=== PATIENT | male | born 1950 | race Caucasian/White ===

== ENCOUNTER 2018-01-04 18:51 | Emergency (ER) | payer MEDICARE ==
--- OUTSIDE RECORDS SUMMARY | 2018-01-04 18:53 | XMS REPORT ---
:1950 Author Organization eClinicalWorks Care Team Providers Name Role Phone Kristie Ochoa Provider Role Unavailable Allergies, Adverse Reactions, Alerts Substance Reaction Event Type acetaminophen Info Not Available Drug Allergy Problems Problem Type Condition Code Onset Dates Condition Status Assessment Depression with anxiety F41.8 Active Assessment Neck pain M54.2 Active Assessment Chronic pain syndrome G89.4 Active Assessment Numbness in both legs R20.0 Active Assessment Lumbar radiculopathy M54.16 Active Assessment Low back pain M54.5 Active Assessment Osteopenia, unspecified location M85.80 Active Assessment Elevated blood pressure reading R03.0 Active without diagnosis of hypertension Problem Abnormal liver function K76.89 Active Assessment Withdrawal from 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 Active Problem Chronic back pain M54.9 Active Assessment Loss of appetite R63.0 Active Problem Depression with anxiety F41.8 Active Problem Memory loss R41.3 Active Problem Chronic pain syndrome G89.4 Active Problem Withdrawal from 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 Active Problem Loss of appetite R63.0 Active Assessment Hyperlipidemia, unspecified E78.5 Active hyperlipidemia type Problem Nausea R11.0 Active Assessment Nausea R11.0 Active Problem Abnormal findings on diagnostic R93.8 Active imaging of other specified body structures Problem Tobacco abuse counseling Z71.6 Active Problem Elevated blood pressure reading R03.0 Active without diagnosis of hypertension Problem Abnormal electrocardiogram R94.31 Active Problem Hyperlipidemia, unspecified E78.5 Active hyperlipidemia type Problem Other chronic pain G89.29 Active Problem Numbness in both legs R20.0 Active Problem Osteopenia, unspecified location M85.80 Active Problem Neck pain M54.2 Active Problem Erectile dysfunction F52.21 Active Problem Lumbar radiculopathy M54.16 Active Problem Low back pain M54.5 Active Medications Medication Code Code Instructions Start End Status Dosage System Date Date Fish Oil [facility] 39950521214 1000 MG Orally Active 1 capsule Twice a day Zetia ND 77637690232 10 MG Orally Active 1 tablet Once a day Fluoxetine HCl [facility] 96828827846 40 MG Orally Active 1 capsule Once a day Hydromorphone HCl [facility] 83168281743 8 MG Orally 3x Active 1 tablet daily as needed Diazepam [facility] 54459320128 10 MG Orally Active 1 tablet Once a day as needed Ondansetron HCl [facility] 50833940400 4 MG Orally December 30, Active 1 tablet every 4-6 hrs 2017 as needed for nausea/vom iting Fluoxetine HCl [facility] 72932872828 40 MG Orally December 22, Active 1 capsule Once a day 2017 Losartan [facility] 23475732911 25 mg Orally December 30, Active 1 tablet Potassium Once a day 2017 as needed for bp > mj=587/90 Calcium + D3 [facility] 05574615721 600-200 MG-UNIT Active 1 tablet Orally Once a with a day meal Results No Known Results Summary Purpose eClinicalWorks Submission
[2018-01-04 19:45] LABS: Absolute Lymphocytes (CBC) 1.9 K/uL (0.7-4.9); Absolute Monocytes 0.9 K/uL (0.1-1.3); Absolute Neutrophil 4.6 K/uL (1.8-8.0); Basophils % 0.4 % (0-1.3); Eosinophils % 2.9 % (0-4.4); Hematocrit 46.2 % (39.6-49.0); Lymphocytes % 24.5 % (15.3-44.8); MCH 32.2 pg (27.0-35.0); MCV 94.4 fL (80-100); Monocytes % 11.4 % (3.3-12.3)
[2018-01-04] MEDS ORDERED: ENALAPRILAT 1.25 MG/ML VIAL IV ONE (20:02)
[2018-01-04 20:08] LABS: ALT/SGPT 19 U/L (12-78); AST/SGOT 19 U/L (15-37); Albumin 3.9 g/dL (3.4-5.0); Alkaline Phosphatase 75 U/L (45-117); BUN Blood Urea Nitrogen 15 mg/dL (7-18); Bicarbonate 33 mmol/L (21-32); Bilirubin Direct 0.1 mg/dL (0-0.2); Bilirubin Total 0.6 mg/dL (0.2-1.0); CKMB Creatine Kinase MB < 1.0 ng/mL (0.3-3.6); Creatine Phosphokinase 60 U/L (39-308); Glucose Level 86 mg/dL (74-106); Magnesium 2.2 mg/dL (1.8-2.4); NT PRO-BNP 342 pg/mL (<125); Potassium 3.8 mmol/L (3.5-5.1); Protein, Total 7.4 g/dL (6.4-8.2); Sodium Level 141 mmol/L (136-145)
[2018-01-04 20:56] LABS: Urine Blood NEGATIVE (NEG); Urine Glucose NEGATIVE (NEG); Urine Protein NEGATIVE (NEG); Urine pH 6.5 (5.0-7.0)
--- NOTE | 2018-01-04 20:58 | RAD REPORT ---
EXAM DESCRIPTION: RAD - Chest Single View - 01/04/2018 8:15 pm CLINICAL HISTORY: CHEST PAIN Chest pain. COMPARISON: Chest Pa And Lat (2 Views) dated 12/25/2016 FINDINGS: Portable technique limits examination quality. The lungs are grossly clear. The heart is normal in size. No displaced fractures. IMPRESSION: No acute intrathoracic process suspected.
--- NOTE | 2018-01-04 21:06 | ER ---
Nurse's Notes [facility] Name: Clovis Moore Age: 67 yrs Sex: Male : 1950 Arrival Date: 01/04/2018 Time: 18:51 Bed 20 Private MD: Kristie Ochoa Diagnosis: Essential (primary) hypertension;Hypertensive Emergency Presentation: 01/04 18:53 Presenting complaint: Patient states: "I am ready to kill over, my blood pressures are lk1 high" Patient is agitated, threw blood pressure cuff at me during triage. Transition of care: patient was not received from another setting of care. Onset of symptoms is unknown. Risk Assessment: Do you want to hurt yourself or someone else? Patient reports no desire to harm self or others. Initial Sepsis Screen: Does the patient meet any 2 criteria? No. Patient's initial sepsis screen is negative. Does the patient have a suspected source of infection? No. Patient's initial sepsis screen is negative. Care prior to arrival: None. 18:53 Method Of Arrival: Wheelchair lk1 18:53 Acuity: [place] 3 lk1 Triage Assessment: 19:01 General: Appears in no apparent distress. Behavior is cooperative. ak1 19:07 Pain: Complains of pain in back. EENT: No signs and/or symptoms were reported regarding ak1 the EENT system. Neuro: No deficits noted. Cardiovascular: No deficits noted. Respiratory: No deficits noted. GI: No signs and/or symptoms were reported involving the gastrointestinal system. : No signs and/or symptoms were reported regarding the genitourinary system. Derm: No signs and/or symptoms reported regarding the dermatologic system. Musculoskeletal: No signs and/or symptoms reported regarding the musculoskeletal system. Historical: - Allergies: 18:56 No Known Allergies; lk1 - Home Meds: 19:32 losartan 25 mg oral tab 1 tab once daily for Hypertension [Active]; fluoxetine 40 mg ak1 Oral cap 1 cap once daily [Active]; ezetimibe oral 10mg oral 1 tab [Active]; donepezil 5 mg oral tab 1 tab once daily [Active]; Zofran (as hydrochloride) 4 mg Oral tab 1 tabs 3 times per day [Active]; - PMHx: 18:56 Hypertension; Chronic pain; lk1 - PSHx: 18:56 Fentanyl pump for lumbar spine; back surgery; Tonsillectomy; lk1 - Immunization history:: Adult Immunizations up to date. - Social history:: Smoking status: Patient uses tobacco products, electronic cigarettes. - Ebola Screening: : No symptoms or risks identified at this time. Screenin:00 Abuse screen: Denies threats or abuse. Denies injuries from another. Nutritional ak1 screening: No deficits noted. Tuberculosis screening: No symptoms or risk factors identified. Fall Risk None identified. Assessment: 19:08 Reassessment: Patient appears in no apparent distress at this time. No changes from ak1 previously documented assessment. 20:41 Reassessment: Patient appears in no apparent distress at this time. Patient and/or ak1 family updated on plan of care and expected duration. Pain level reassessed. Patient is alert, oriented x 3, equal unlabored respirations, skin warm/dry/pink. 21:11 Reassessment: Patient appears in no apparent distress at this time. No changes from ak1 previously documented assessment. Patient and/or family updated on plan of care and expected duration. Pain level reassessed. Patient is alert, oriented x 3, equal unlabored respirations, skin warm/dry/pink. Patient states symptoms have improved. Vital Signs: 18:57 BP 214 / 116; Pulse 72; Resp 15; Temp 97.7(TE); Pulse Ox 100% ; Weight 65.77 kg (R); lk1 Height 5 ft. 10 in. (177.80 cm) (R); Pain 8/10; 20:40 BP 165 / 101; Pulse 62; Resp 16; Pulse Ox 100% on R/A; ak1 21:09 BP 150 / 98; Pulse 64; Resp 18; Temp 98; Pulse Ox 100% on R/A; Pain 7/10; ak1 18:57 Body Mass Index 20.81 (65.77 kg, 177.80 cm) lk1 ED Course: 18:51 Patient arrived in ED. sb2 18:52 Kristie Ochoa MD is Private Physician. sb2 18:55 Triage completed. lk1 18:56 Arm band placed on right wrist. lk1 19:00 Tejal Kinsey, RN is Primary Nurse. ak1 19:00 Patient has correct armband on for positive identification. Placed in gown. Bed in low ak1 position. Call light in reach. Side rails up X 1. traffic technician on. Pulse ox on. NIBP on. 19:10 Inserted saline lock: 20 gauge in right antecubital area, using aseptic technique. ao Blood collected. 19:19 Scout Rosa PA is PHCP. jr8 19:19 Curly Hill MD is Attending Physician. jr8 19:25 EKG done, by ED staff, reviewed by Scout RAM. jp3 19:32 No provider procedures requiring assistance completed. ak1 20:15 XRAY Chest (1 view) In Process Unspecified. EDMS 21:04 Kristie Ochoa MD is Referral Physician. jr8 21:40 IV discontinued, intact, bleeding controlled, No redness/swelling at site. Pressure ak1 dressing applied. Administered Medications: 19:58 Not Given (Physician Discretion): hydrALAZINE 10 mg IV at calculated rate once jr8 20:03 Drug: Enalaprilat 1.25 mg Route: IV; Rate: calculated rate; Site: right antecubital; ao 21:11 Follow up: Response: No adverse reaction; Blood pressure is lowered ak1 21:11 Follow up: IV Status: Completed infusion ak1 Outcome: 21:05 Discharge ordered by . jr8 21:10 Condition: improved ak1 21:36 Discharged to home ambulatory, with family. ak1 21:36 Discharge instructions given to patient, Instructed on discharge instructions, follow up and referral plans. Demonstrated understanding of instructions, follow-up care. 21:55 Patient left the ED. ao Signatures: Dispatcher [employer] EDKS Scout Rosa PA PA jr8 Tejal Kinsey RN RN ak1 Rocio Edmond RN RN noble1 Alexandre Nix RN RN Luisa Mahoney Jacob jp3 Corrections: (The following items were deleted from the chart) 19:32 19:08 Home Meds: losartan oral oral; ak1 ak1
--- NOTE | 2018-01-04 21:06 | EDPHYS ---
Physician Documentation [facility] Name: Clovis Moore Age: 67 yrs Sex: Male : 1950 Arrival Date: 01/04/2018 Time: 18:51 Bed 20 Private MD: Kristie Ochoa ED Physician Curly Hill HPI: 01/04 20:19 This 67 yrs old Male presents to ER via Wheelchair with complaints of High jr8 Blood Pressure. 20:19 Modifying factors: The symptoms are aggravated by activity, stress, The symptoms are jr8 alleviated by prescription meds. Associated signs and symptoms: Pertinent positives: chest pain, dizziness, nausea, weakness. The patient has experienced similar episodes in the past, a few times. The patient has not recently seen a physician. Patient stated that since he has been off of his opioid pain medicine he has been having higher spikes in his blood pressure. Today after taking his BP medication, blood pressure remained high and was not feeling well . Historical: - Allergies: 18:56 No Known Allergies; lk1 - Home Meds: 19:32 losartan 25 mg oral tab 1 tab once daily for Hypertension [Active]; fluoxetine 40 mg ak1 Oral cap 1 cap once daily [Active]; ezetimibe oral 10mg oral 1 tab [Active]; donepezil 5 mg oral tab 1 tab once daily [Active]; Zofran (as hydrochloride) 4 mg Oral tab 1 tabs 3 times per day [Active]; - PMHx: 18:56 Hypertension; Chronic pain; lk1 - PSHx: 18:56 Fentanyl pump for lumbar spine; back surgery; Tonsillectomy; lk1 - Immunization history:: Adult Immunizations up to date. - Social history:: Smoking status: Patient uses tobacco products, electronic cigarettes. - Ebola Screening: : No symptoms or risks identified at this time. ROS: 20:19 Eyes: Negative for injury, pain, redness, and discharge, ENT: Negative for injury, jr8 pain, and discharge, Neck: Negative for injury, pain, and swelling, Back: Negative for injury and pain, MS/Extremity: Negative for injury and deformity, Skin: Negative for injury, rash, and discoloration. 20:19 Abdomen/GI: Negative for abdominal pain, nausea, vomiting, diarrhea, and constipation. 20:19 Cardiovascular: Positive for chest pain, Negative for edema, orthopnea, palpitations, paroxysmal nocturnal dyspnea. 20:19 Respiratory: Positive for shortness of breath, Negative for cough, dyspnea on exertion, hemoptysis, orthopnea, pleurisy, sputum production, wheezing. 20:19 Neuro: Positive for dizziness, headache, Negative for altered mental status, gait disturbance, hearing loss, loss of consciousness, numbness, seizure activity, speech changes, syncope, near syncope, tingling, tinnitus, tremor, visual changes, weakness. Exam: 20:19 Eyes: Pupils equal round and reactive to light, extra-ocular motions intact. Lids and jr8 lashes normal. Conjunctiva and sclera are non-icteric and not injected. Cornea within normal limits. Periorbital areas with no swelling, redness, or edema. ENT: Nares patent. No nasal discharge, no septal abnormalities noted. Tympanic membranes are normal and external auditory canals are clear. Oropharynx with no redness, swelling, or masses, exudates, or evidence of obstruction, uvula midline. Mucous membranes moist. Neck: Trachea midline, no thyromegaly or masses palpated, and no cervical lymphadenopathy. Supple, full range of motion without nuchal rigidity, or vertebral point tenderness. No Meningismus. Cardiovascular: Regular rate and rhythm with a normal S1 and S2. No gallops, murmurs, or rubs. Normal PMI, no JVD. No pulse deficits. Respiratory: Lungs have equal breath sounds bilaterally, clear to auscultation and percussion. No rales, rhonchi or wheezes noted. No increased work of breathing, no retractions or nasal flaring. Abdomen/GI: Soft, non-tender, with normal bowel sounds. No distension or tympany. No guarding or rebound. No evidence of tenderness throughout. Back: No spinal tenderness. No costovertebral tenderness. Full range of motion. Skin: Warm, dry with normal turgor. Normal color with no rashes, no lesions, and no evidence of cellulitis. MS/ Extremity: Pulses equal, no cyanosis. Neurovascular intact. Full, normal range of motion. Neuro: Awake and alert, GCS 15, oriented to person, place, time, and situation. Cranial nerves II-XII grossly intact. Motor strength 5/5 in all extremities. Sensory grossly intact. Cerebellar exam normal. Normal gait. Vital Signs: 18:57 BP 214 / 116; Pulse 72; Resp 15; Temp 97.7(TE); Pulse Ox 100% ; Weight 65.77 kg (R); lk1 Height 5 ft. 10 in. (177.80 cm) (R); Pain 8/10; 20:40 BP 165 / 101; Pulse 62; Resp 16; Pulse Ox 100% on R/A; ak1 21:09 BP 150 / 98; Pulse 64; Resp 18; Temp 98; Pulse Ox 100% on R/A; Pain 7/10; ak1 18:57 Body Mass Index 20.81 (65.77 kg, 177.80 cm) lk1 MDM: 19:20 Patient medically screened. jr8 21:04 Data reviewed: vital signs, nurses notes, lab test result(s), EKG, radiologic studies, jr8 plain films, and as a result, I will discharge patient. Data interpreted: Pulse oximetry: on room air is 100 %. Interpretation: normal. Counseling: I had a detailed discussion with the patient and/or guardian regarding: the historical points, exam findings, and any diagnostic results supporting the discharge/admit diagnosis, lab results, radiology results, the need for outpatient follow up, a family practitioner, to return to the emergency department if symptoms worsen or persist or if there are any questions or concerns that arise at home. 01/04 19:16 Order name: Basic Metabolic Panel; Complete Time: 20:19 [facility] 01/04 19:16 Order name: CBC with Diff; Complete Time: 19:50 [facility] 01/04 19:16 Order name: Ckmb; Complete Time: 20:19 va01/04 19:16 Order name: CPK; Complete Time: 20:19 [facility] 01/04 19:16 Order name: LFT's; Complete Time: 20:19 va01/04 19:16 Order name: Magnesium; Complete Time: 20:19 va01/04 19:16 Order name: NT PRO-BNP; Complete Time: 20:19 va01/04 19:16 Order name: PT-INR; Complete Time: 20:01 va01/04 19:16 Order name: Ptt, Activated; Complete Time: 20:01 va01/04 19:16 Order name: Troponin (emerg Dept Use Only); Complete Time: 20: va01/04 19:16 Order name: XRAY Chest (1 view); Complete Time: 21:03 [facility] 01/04 20:52 Order name: Urine Dipstick--Ancillary (enter results) 01/04 20:52 Order name: Urine Dipstick-Ancillary; Complete Time: 21:03 [facility] 01/04 19:16 Order name: EKG; Complete Time: 19:17 [facility] 01/04 19:16 Order name: Cardiac monitoring; Complete Time: 19:23 [facility] 01/04 19:16 Order name: EKG - Nurse/Tech; Complete Time: 19:24 [facility] 01/04 19:16 Order name: IV Saline Lock; Complete Time: 19:23 [facility] 01/04 19:16 Order name: Labs collected and sent; Complete Time: 19:23 [facility] 01/04 19:16 Order name: O2 Per Protocol; Complete Time: 19:24 [facility] 01/04 19:16 Order name: O2 Sat Monitoring; Complete Time: 19:24 [facility] 01/04 19:16 Order name: Urine Dipstick-Ancillary (obtain specimen); Complete Time: 20:31 [facility] Administered Medications: 19:58 Not Given (Physician Discretion): hydrALAZINE 10 mg IV at calculated rate once jr8 20:03 Drug: Enalaprilat 1.25 mg Route: IV; Rate: calculated rate; Site: right antecubital; ao 21:11 Follow up: Response: No adverse reaction; Blood pressure is lowered [facility] 21:11 Follow up: IV Status: Completed infusion ak1 Disposition: 01/05 10:11 Co-signature as Attending Physician, Curly Hill MD. Disposition: 01/04/18 21:05 Discharged to Home. Impression: Essential (primary) hypertension, Hypertensive Emergency . - Condition is Stable. - Discharge Instructions: Hypertension. - Medication Reconciliation Form, Thank You Letter, Antibiotic Education, Prescription Opioid Use form. - Follow up: Kristie Ochoa MD; When: 5 - 6 days; Reason: Recheck today's complaints, Continuance of care, Re-evaluation by your physician. - Problem is new. - Symptoms have improved. Signatures: Dispatcher [facility] Scout Rosa PA PA jr8 Tejal Kinsey RN RN ak1 Rocio Edmond RN RN lk1 Alexandre Nix RN RN ao Curly Hill MD MD gs Corrections: (The following items were deleted from the chart) 01/04 19:32 19:08 Home Meds: losartan oral oral; ak1 ak1 21:55 21:05 01/04/2018 21:05 Discharged to Home. Impression: Essential (primary) ao hypertension; Hypertensive Emergency . Condition is Stable. Forms are Medication Reconciliation Form, Thank You Letter, Antibiotic Education, Prescription Opioid Use. Follow up: Kristie Ochoa; When: 5 - 6 days; Reason: Recheck today's complaints, Continuance of care, Re-evaluation by your physician. Problem is new. Symptoms have improved. jr8
--- NOTE | 2018-01-04 21:59 | EKG ---
Test Date: 2018-01-04 Test Time: 19:19:50 Cancer Spec: SANDEEP MEASUREMENT RESULTS: Intervals: Rate: 66 IN: 212 QRSD: 84 QT: 420 QTc: 440 [place]: P: 51 IN: 212 QRS: -70 T: 46 INTERPRETIVE STATEMENTS: Sinus rhythm with 1st degree AV block Left anterior fascicular block Abnormal ECG Compared to ECG 12/25/2016 09:04:55 First degree AV block now present Sinus bradycardia no longer present Electronically Signed On 01-04-18 21:58:41 CDT by Dagoberto Cruz
== END 2018-01-04 21:55 | disposition home or self-care (01) ==
LOC: ER 18:51
DX: I16.1 Hypertensive emergency (principal); I10 Essential (primary) hypertension; Z72.0 Tobacco use
CPT/HCPCS: 36415; 71045; 80048; 80076; 81003; 82550; 82553; 83735; 83880; 84484; 85025; 85610; 85730; 93005; 96365; 99284

== ENCOUNTER 2018-04-24 15:23 | Emergency (ER) | payer MEDICARE ==
--- OUTSIDE RECORDS SUMMARY | 2018-04-24 15:29 | XMS REPORT ---
[...] Status Dosage System Date Date Fish Oil [facility] 52080024892 1000 MG Orally Active 1 capsule Twice a day Zetia ND 05976561723 10 MG Orally Active 1 tablet Once a day Fluoxetine HCl [facility] 62768955718 40 MG Orally Active 1 capsule Once a day Hydromorphone HCl [facility] 96662289379 8 MG Orally 3x Active 1 tablet daily as needed Diazepam [facility] 35769653001 10 MG Orally Active 1 tablet Once a day as needed Ondansetron HCl [facility] 14669187899 4 MG Orally December 30, Active 1 tablet every 4-6 hrs 2017 as needed for nausea/vom iting Fluoxetine HCl [facility] 53686919722 40 MG Orally December 22, Active 1 capsule Once a day [address] [facility] 74277129198 25 mg Orally December 30, Active 1 tablet Potassium Once a day 2017 as needed for bp > oc=918/90 Calcium + D3 [facility] 76773611676 600-200 MG-UNIT Active 1 tablet Orally Once a with a day meal Results No Known Results Summary Purpose eClinicalWorks Submission
--- OUTSIDE RECORDS SUMMARY | 2018-04-24 15:29 | XMS REPORT ---
:1950 Author Organization eClinicalWorks Care Team Providers Name Role Phone Kristie Ochoa Provider Role Unavailable Allergies No Known Allergies Problems Problem Type Condition Code Onset Dates Condition Status Problem Depression with anxiety F41.8 Active Problem Memory loss R41.3 Active Problem Chronic pain syndrome G89.4 Active Problem Withdrawal from 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 Active Problem Loss of appetite R63.0 Active Problem Nausea R11.0 Active Problem Abnormal findings on [...] Active Problem Lumbar radiculopathy M54.16 Active Problem Abnormal liver function K76.89 Active Problem Low back pain M54.5 Active Problem Chronic back pain M54.9 Active Medications No Known Medications Results No Known Results Summary Purpose eClinicalWorks Submission
--- OUTSIDE RECORDS SUMMARY | 2018-04-24 15:30 | XMS REPORT ---
:1950 Author Organization eClinicalWorks Care Team Providers Name Role Phone Kristie Ochoa Provider Role Unavailable Allergies No Known Allergies Problems Problem Type Condition Code Onset Dates Condition Status Problem Other chronic pain G89.29 Active Problem Memory loss R41.3 Active Problem Lumbar radiculopathy M54.16 Active Problem Tobacco abuse counseling Z71.6 Active Problem Low back pain M54.5 Active Problem Nausea R11.0 Active Problem Withdrawal from 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 Active Problem Loss of appetite R63.0 Active Problem Vitamin D deficiency E55.9 Active Problem Abnormal EKG R94.31 Active Problem Hyperlipidemia, unspecified E78.5 Active hyperlipidemia type Problem Osteopenia, unspecified location M85.80 Active Problem Palpitations R00.2 Active Problem Numbness in both legs R20.0 Active Problem Elevated brain natriuretic peptide R79.89 Active (BNP) level Problem Elevated blood pressure reading R03.0 Active without diagnosis of hypertension Problem Uncontrolled hypertension I10 Active Problem Hypercholesterolemia E78.00 Active Problem Neck pain M54.2 Active Problem Erectile dysfunction F52.21 Active Problem Abnormal findings on diagnostic R93.8 Active imaging of other specified body structures Problem Abnormal electrocardiogram R94.31 Active Problem Depression with anxiety F41.8 Active Problem Chronic pain syndrome G89.4 Active Problem Abnormal liver function K76.89 Active Problem Chronic back pain M54.9 Active Medications No Known Medications Results No Known Results Summary Purpose eClinicalWorks Submission
--- OUTSIDE RECORDS SUMMARY | 2018-04-24 15:30 | XMS REPORT ---
:1950 Author Organization eClinicalWorks Care Team Providers Name Role Phone Gabriela Kristie Provider Role Unavailable Allergies, Adverse Reactions, Alerts Substance Reaction Event Type acetaminophen Info Not Available Drug Allergy Problems Problem Type Condition Code Onset Dates Condition Status Assessment Chronic pain syndrome G89.4 Active Assessment Uncontrolled hypertension I10 Active Problem Other chronic pain G89.29 Active Problem [...] Problem Chronic back pain M54.9 Active Medications Medication Code Code Instructions Start End Status Dosage System Date Date Diazepam ND 88545954442 10 MG Orally Active 1 tablet as Once a day needed Doxazosin ND 19392572279 1 MG Orally January 29, Active 1 tablet in Mesylate Once daily as 2018 evening for needed for BP > high blood uj=752/90 pressure Zetia ND 19423029317 10 MG Orally Active 1 tablet Once a day Fluoxetine HCl ND 63995301967 40 MG Orally Active 1 capsule Once a day Hydromorphone ND 96322660112 8 MG Orally 3x Active 1 tablet as HCl daily needed Losartan ND 91807659208 25 mg Orally December 30, Active 1 tablet Potassium Once a day 2017 Fluoxetine HCl [facility] 16428069976 40 MG Orally December 22, Active 1 capsule Once a day 2018 Calcium + D3 [facility] 04476763701 600-200 MG-UNIT Active 1 tablet Orally Once a with a meal day Vitamin D [facility] 18005007995 68156 UNIT January 30, Jul 29, Active 1 capsule (Ergocalciferol) Orally one 2017 2019 capsule weekly Ondansetron HCl [facility] 76354452801 4 MG Orally December 30, Active 1 tablet as every 4-6 hrs 2018 needed for nausea/vomi ting Fish Oil [facility] 17939374359 1000 MG Orally Active 1 capsule Twice a day Results Name Result Date Reference Range Unit Abnormality Flag GLUCOSE FINGER ----Result 80 (FBS) [id number] Summary Purpose eClinicalWorks Submission
--- OUTSIDE RECORDS SUMMARY | 2018-04-24 15:30 | XMS REPORT ---
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 Active Problem Low back pain M54.5 Active Problem Nausea R11.0 Active Problem Uncontrolled hypertension I10 Active Problem Hypercholesterolemia E78.00 Active Problem Weight loss R63.4 Active Problem Hypertension, unspecified type I10 Active Problem Abnormal liver function K76.89 Active Problem Erectile dysfunction F52.21 Active Problem Chronic pain G89.29 Active Problem Neck pain M54.2 Active Problem Vitamin D deficiency E55.9 Active Problem Abnormal EKG R94.31 Active Problem Elevated brain natriuretic peptide R79.89 Active (BNP) level Problem Palpitations R00.2 Active Problem Chronic pain syndrome G89.4 Active Problem Memory loss R41.3 Active Problem Chronic back pain M54.9 Active Problem Depression with anxiety F41.8 Active Problem Abnormal electrocardiogram R94.31 Active Problem Elevated blood pressure reading R03.0 Active without diagnosis of hypertension Problem Tobacco abuse counseling Z71.6 Active Problem Abnormal findings on diagnostic R93.8 Active imaging of other specified body structures Medications Medication Code Code Instructions Start End Status Dosage System Date Date Duloxetine HCl [facility] 40060518498 30 MG Orally Apr 06, Active 1 capsule Once a day 2018 Results No Known Results Summary Purpose eClinicalWorks Submission
--- OUTSIDE RECORDS SUMMARY | 2018-04-24 15:30 | XMS REPORT ---
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
--- OUTSIDE RECORDS SUMMARY | 2018-04-24 15:30 | XMS REPORT ---
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 Active Assessment Neck pain M54.2 Active Assessment Loss of appetite R63.0 Active Assessment Weight loss R63.4 Active Assessment Non-intractable vomiting with R11.2 Active nausea, unspecified vomiting type Problem Numbness in both legs R20.0 Active Problem Osteopenia, unspecified location M85.80 Active Problem Hyperlipidemia, unspecified E78.5 Active hyperlipidemia type Problem Elevated blood pressure reading R03.0 Active without diagnosis of hypertension Problem Lumbar radiculopathy M54.16 Active Problem Loss of appetite R63.0 Active Problem Low back pain M54.5 Active Problem Nausea R11.0 Active Problem Hypercholesterolemia E78.00 Active Problem Withdrawal from 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 Active Problem Hypertension, unspecified type I10 Active Problem Elevated brain natriuretic peptide R79.89 Active (BNP) level Problem Depression with anxiety F41.8 Active Problem Chronic back pain M54.9 Active Problem Weight loss R63.4 Active Problem Other chronic pain G89.29 Active Problem Abnormal EKG R94.31 Active Problem Uncontrolled hypertension I10 Active Problem Palpitations R00.2 Active Problem Vitamin D deficiency E55.9 Active Assessment Other chronic pain G89.29 Active Problem Abnormal findings on diagnostic R93.8 Active imaging of other specified body structures Assessment Low back pain M54.5 Active Problem Neck pain M54.2 Active Assessment Depression with anxiety F41.8 Active Problem Chronic pain syndrome G89.4 Active Assessment Chronic pain syndrome G89.4 Active Problem Memory loss R41.3 Active Problem Tobacco abuse counseling Z71.6 Active Assessment Hypertension, unspecified type I10 Active Problem Abnormal electrocardiogram R94.31 Active Problem Erectile dysfunction F52.21 Active Problem Abnormal liver function K76.89 Active Medications Medication Code Code Instructions Start End Status Dosage System Date Date Fish Oil [facility] 59006481271 1000 MG Orally Active 1 capsule Twice a day Calcium + D3 [facility] 09822311710 600-200 MG-UNIT Active 1 tablet Orally Once a with a meal Zetia [facility] 84848211018 10 MG Orally Active 1 tablet Once a day Vitamin D [facility] 29665635124 91904 UNIT January 30Jul Active 1 capsule (Ergocalciferol) Orally one 2017, capsule weekly 2018 Promethazine HCl [facility] 59677894591 25 mg Orally Mar 27Apr Active 1 tablet as every 4-6 hrs 2017 07, needed for 2017 nausea/vomit ing Diazepam ND 31477108182 10 MG Orally Active 1 tablet as Once a day needed Fluoxetine HCl [facility] 32965520266 40 MG Orally December 22, Active 1 capsule Once a day 2017 Losartan ND 53781814246 25 mg Orally December 30, Active 1 tablet Potassium Once a day 2017 Doxazosin ND 44929597591 1 MG Orally January 29, Active 1 tablet in Mesylate Once daily as 2017 evening for needed for BP > high blood qo=229/90 pressure Ondansetron HCl [facility] 74101795083 4 MG Orally Active 1 tablet as every 4-6 hrs needed for nausea/vomit ing Trintellix [facility] 07122140656 10 MG Orally Mar 27, Active 1 tablet for Once a day 2017 depression Hydromorphone [facility] 68817749104 8 MG Orally 3x Active 1 tablet as HCl daily needed Results No Known Results Summary Purpose eClinicalWorks Submission
--- OUTSIDE RECORDS SUMMARY | 2018-04-24 15:30 | XMS REPORT ---
:1950 Author Organization eClinicalWorks Care Team Providers Name Role Phone Frankieharika Kristie Provider Role Unavailable Allergies, Adverse Reactions, Alerts Substance Reaction Event Type acetaminophen Info Not Available Drug Allergy Problems Problem Type Condition Code Onset Dates Condition Status Assessment Follow-up exam Z09 Active Assessment Uncontrolled hypertension I10 Active Assessment Abnormal EKG R94.31 Active Assessment Palpitations R00.2 Active Problem Other chronic pain G89.29 Active [...] Start End Status Dosage System Date Date Doxazosin [facility] 63242413315 1 MG Orally January 29, Active 1 tablet in Mesylate Once daily as 2018 evening for needed for BP > high blood pj=612/90 pressure Losartan ND 67244976178 25 mg Orally December 30, Active 1 tablet Potassium Once a day 2018 Fish Oil [facility] 94233064367 1000 MG Orally Active 1 capsule Twice a day Fluoxetine HCl [facility] 05795018351 40 MG Orally December 22, Active 1 capsule Once a day 2017 Hydromorphone [facility] 85879144941 8 MG Orally 3x Active 1 tablet as HCl daily needed Diazepam [facility] 95717742667 10 MG Orally Active 1 tablet as Once a day needed Zetia [facility] 53998692274 10 MG Orally Active 1 tablet Once a day Fluoxetine HCl [facility] 53593262635 40 MG Orally Active 1 capsule Once a day Calcium + D3 [facility] 15387965621 600-200 MG-UNIT Active 1 tablet Orally Once a with a meal day Ondansetron HCl [facility] 27402120218 4 MG Orally December 30, Active 1 tablet as every 4-6 hrs 2017 needed for nausea/vomi ting Results No Known Results Summary Purpose eClinicalWorks Submission
--- OUTSIDE RECORDS SUMMARY | 2018-04-24 15:30 | XMS REPORT ---
[...] Start End Status Dosage System Date Date Vitamin D [facility] 99307117108 80600 UNIT January 30Jul 29, Active 1 capsule (Ergocalcifero Orally one 2017 2018 l) capsule weekly Results No Known Results Summary Purpose eClinicalWorks Submission
[2018-04-24] MEDS ORDERED: MORPHINE 4 MG/ML SYR ONE (16:20)
[2018-04-24] MEDS ORDERED: NA CHLORIDE 0.9% 1,000 ML ONE (16:20)
[2018-04-24] MEDS ORDERED: ONDANSETRON 4 MG/2 ML VIAL ONE (16:20)
[2018-04-24 16:49] LABS: Absolute Monocytes 0.4 K/uL (0.1-1.3); Basophils % 0.7 % (0-1.3); Eosinophils % 0.4 % (0-4.4); Hematocrit 46.9 % (39.6-49.0); Lymphocytes % 15.2 % (15.3-44.8); MCH 32.6 pg (27.0-35.0); MCV 95.1 fL (80-100); MPV 9.2 fL (7.6-11.3); Monocytes % 6.5 % (3.3-12.3); RBC Red Blood Cell Count 4.93 M/uL (4.33-5.43)
[2018-04-24 17:00] LABS: ALT/SGPT 20 U/L (12-78); AST/SGOT 23 U/L (15-37); Albumin 3.8 g/dL (3.4-5.0); Alkaline Phosphatase 81 U/L (45-117); BUN Blood Urea Nitrogen 13 mg/dL (7-18); Bicarbonate 31 mmol/L (21-32); Bilirubin Direct 0.3 mg/dL (0-0.2); Bilirubin Total 1.1 mg/dL (0.2-1.0); Glucose Level 106 mg/dL (74-106); Lipase 238 U/L (73-393); Potassium 3.7 mmol/L (3.5-5.1); Protein, Total 6.9 g/dL (6.4-8.2); Sodium Level 139 mmol/L (136-145)
[2018-04-24 17:41] LABS: Urine Blood 1+ (NEG); Urine Glucose NEGATIVE (NEG); Urine Protein NEGATIVE (NEG); Urine Specific Gravity 1.015 (1.005-1.030)
[2018-04-24 17:54] LABS: Urine Bacteria NONE SEEN /HPF (NONE SEEN); Urine Culture Reflex Order NOT NEEDED
[2018-04-24] MEDS ORDERED: cloNIDine HCl 0.1 MG TAB ONE (18:43)
--- NOTE | 2018-04-24 18:52 | RAD REPORT ---
EXAM DESCRIPTION: CT - Abdomen Pelvis W Contrast - 04/24/2018 6:24 pm COMPARISON: None. TECHNIQUE: Biphasic, helical CT imaging of the abdomen and pelvis was performed following 100 ml non -ionic IV contrast. Oral contrast was given. All CT scans are performed using dose optimization technique as appropriate and may include automated exposure control or mA/KV adjustment according to patient size. FINDINGS: No suspicious findings in the lung bases. Small 2 centimeter cystic cavity is seen in the lateral right lung base. No associated mass component. No pericardial thickening or effusion. The liver, spleen, and pancreas show no suspicious findings. Gallbladder and biliary tree are also wi thout suspicious finding. Symmetric renal function is seen with no hydronephrosis or suspicious renal mass. No pyelonephritis o r acute renal parenchymal process. There are multiple nonobstructing small caliceal calculi. Renal cy sts are seen in the lateral left kidney. No urinary bladder abnormality. Prostate gland is prominent but does not appear to invade adjacent structures. Seminal vesicles are normal. Left testicle is in t he inguinal canal. No gastric dilatation or wall thickening. No dilated large or small bowel. Oral contrast has reached the sigmoid colon. There is diverticulosis without diverticulitis. No appendicitis findings. No free air, free fluid or inflammatory stranding. No mass or bulky lymphadenopathy. No large ez ia defect identifiable. No adrenal abnormality. Dense arterial tree calcifications are present. Aorta is tortuous. Patient has advanced lumbar degene rative change. There is postsurgical change in the mid lumbar spine. Neurostimulator or pain infusion pump is present. An acute bone process is not seen. IMPRESSION: No appendicitis or other surgically emergent finding. No suspicious finding to explain r ight lower quadrant pain. No gallbladder or biliary tree abnormality. Nonobstructing renal calculi. No hydronephrosis or acute process.
--- NOTE | 2018-04-24 19:21 | EDPHYS ---
Physician Documentation [facility] Name: Clovis Moore Age: 68 yrs Sex: Male : 1950 Arrival Date: 04/24/2018 Time: 15:25 Bed 24 Private MD: ED Physician Orion Mayo HPI: 04/24 16:10 This 68 yrs old Male presents to ER via Ambulatory with complaints of Pain. cp 16:10 The patient presents with abdominal pain right lower quadrant. cp 16:10 Onset: The symptoms/episode began/occurred 4 day(s) ago. The symptoms do not radiate. cp Associated signs and symptoms: Pertinent positives: nausea, Pertinent negatives: blood in stools, chest pain, constipation, diarrhea, dysuria, fever, hematuria, testicular pain, vomiting. The symptoms are described as constant. Modifying factors: the symptoms are aggravated by pressure. 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 Emergency Department for further evaluation. Historical: - Allergies: 15:30 No Known Allergies; aa5 - Home Meds: 15:41 donepezil 5 mg Oral tab 1 tab once daily [Active]; ezetimibe 10mg Oral 1 tab [Active]; mg2 fluoxetine 40 mg Oral cap 1 cap once daily [Active]; losartan 25 mg Oral tab 1 tab once daily for Hypertension [Active]; Zofran (as hydrochloride) 4 mg Oral tab 1 tabs 3 times per day [Active]; - PMHx: 15:30 Chronic pain; Hypertension; aa5 - PSHx: 15:30 Fentanyl pump for lumbar spine; back surgery; Tonsillectomy; aa5 - Immunization history:: Adult Immunizations unknown. - Social history:: Smoking status: Patient/guardian denies using tobacco. - Ebola Screening: : No symptoms or risks identified at this time. ROS: 16:10 Eyes: Negative for injury, pain, redness, and discharge. cp 16:10 Constitutional: Negative for body aches, chills, fever, poor PO intake. 16:10 ENT: Negative for drainage from ear(s), ear pain, sore throat, difficulty swallowing, difficulty handling secretions. 16:10 Cardiovascular: Negative for chest pain, edema, palpitations. 16:10 Respiratory: Negative for cough, shortness of breath, wheezing. 16:10 Abdomen/GI: Positive for abdominal pain, of the right lower quadrant, Negative for vomiting, diarrhea, constipation, anorexia, black/tarry stool, rectal bleeding. 16:10 Back: Negative for pain at rest, pain with movement, radiated pain. 16:10 Skin: Negative for cellulitis, rash. 16:10 Neuro: Negative for altered mental status, headache, numbness, weakness. 16:10 All other systems are negative. Exam: 16:15 Constitutional: The patient appears in no acute distress, alert, awake, cp non-diaphoretic, non-toxic, well developed, well nourished. 16:15 Head/Face: Normocephalic, atraumatic. cp 16:15 Eyes: Periorbital structures: appear normal, Conjunctiva: normal, no exudate, no injection, Sclera: no appreciated abnormality, Lids and lashes: appear normal, bilaterally. 16:15 ENT: External ear(s): are unremarkable, Nose: is normal, Mouth: Lips: moist, Oral mucosa: pink and intact, moist, Posterior pharynx: is normal, airway is patent, no erythema, no exudate. 16:15 Neck: ROM/movement: is normal, is supple, without pain, no range of motions limitations, no nuchal rigidity. 16:15 Chest/axilla: Inspection: normal, Palpation: is normal, no crepitus, no tenderness. 16:15 Cardiovascular: Rate: normal, Rhythm: regular, Edema: is not appreciated, JVD: is not appreciated. 16:15 Respiratory: the patient does not display signs of respiratory distress, Respirations: normal, no use of accessory muscles, no retractions, no splinting, no tachypnea, labored breathing, is not present, Breath sounds: are clear throughout, no decreased breath sounds, no stridor, no wheezing. 16:15 Abdomen/GI: Inspection: noted intraabdominal pain pump RLQ, Bowel sounds: active, all quadrants, Palpation: soft, in all quadrants, moderate abdominal tenderness, in the right lower quadrant, rebound tenderness, is not appreciated, voluntary guarding, is elicited in the right lower quadrant. 16:15 Back: ROM is normal, CVA tenderness, is absent. 16:15 Skin: cellulitis, is not appreciated, no rash present. Vital Signs: 15:29 BP 198 / 116; Pulse 80; Resp 16 S; Temp 98.4(TE); Pulse Ox 95% on R/A; Weight 70.31 kg aa5 (R); Height 5 ft. 11 in. (180.34 cm) (R); Pain 8/10; 16:50 BP 177 / 103; Pulse 63; Resp 18; Pulse Ox 100% on R/A; mg2 18:03 Pulse 65; Resp 18; Pulse Ox 100% on R/A; Pain 0/10; mg2 18:13 BP 163 / 110; Pulse 65; Resp 18; Pulse Ox 100% on R/A; mg2 18:32 BP 182 / 111; Pulse 75; Resp 18; Pulse Ox 100% on R/A; mg2 19:45 BP 170 / 90; Pulse 70; Resp 18; Pulse Ox 100% on R/A; Pain 2/10; mg2 15:29 Body Mass Index 21.62 (70.31 kg, 180.34 cm) aa5 MDM: 15:50 Patient medically screened. cp 16:30 Differential diagnosis: appendicitis, diverticulitis, non-specific abd pain, cp Pyelonephritis, Testicular Torsion, Ureterolithiasis, urinary tract infection. 19:20 Data reviewed: vital signs, nurses notes, lab test result(s), radiologic studies, CT cp scan. 19:20 Counseling: I had a detailed discussion with the patient and/or guardian regarding: the cp historical points, exam findings, and any diagnostic results supporting the discharge/admit diagnosis, lab results, radiology results, the need for outpatient follow up, a automotive painter helper, to return to the emergency department if symptoms worsen or persist or if there are any questions or concerns that arise at home. Response to treatment: the patient's symptoms have markedly improved after treatment. Special discussion: Based on the patient's Hx, exam, and Dx evaluation, there is no indication for emergent surgery or inpatient Tx. It is understood by the patient/guardian that if the Sx's persist or worsen they need to return immediately for re-evaluation. 19:20 ED course: VSS. CT abdomen/pelvis negative for acute findings. Will discharge to home cp for continued monitoring. 04/24 15:51 Order name: Urine Microscopic Only; Complete Time: 18:59 cp 04/24 18:59 Interpretation: Normal except: URBC 5-10. 04/24 16:09 Order name: Basic Metabolic Panel; Complete Time: 17:13 cp 04/24 19:02 Interpretation: Reviewed. 04/24 16:09 Order name: CBC with Diff; Complete Time: 17:13 04/24 17:13 Interpretation: Normal except: DEA% 77.2; LYM% 15.2. 04/24 16:09 Order name: Creatinine for Radiology; Complete Time: 17:13 cp 04/24 16:09 Order name: Hepatic Function; Complete Time: 17:13 04/24 17:13 Interpretation: Normal except: BILIT 1.1; BILID 0.3. 04/24 16:09 Order name: Lipase; Complete Time: 17:13 cp 04/24 17:14 Interpretation: Reviewed. 04/24 15:51 Order name: Urine Dipstick-Ancillary (obtain specimen); Complete Time: 17:25 cp 04/24 16:09 Order name: CT Abd/Pelvis - W/Contrast; Complete Time: 18:59 cp 04/24 17:26 Order name: Urine Dipstick--Ancillary (enter results); Complete Time: 18:59 eb 04/24 19:00 Interpretation: Normal except: UBLD 1+. 04/24 16:09 Order name: IV Saline Lock; Complete Time: 16:30 cp 04/24 16:09 Order name: Labs collected and sent; Complete Time: 16:30 cp Administered Medications: 16:29 Drug: Zofran 4 mg Route: IVP; Site: left antecubital; mg2 17:42 Follow up: Response: No adverse reaction; Marked relief of symptoms mg2 16:30 Drug: NS 0.9% 1000 ml Route: IV; Rate: 1 bolus; Site: left antecubital; mg2 17:43 Follow up: Response: No adverse reaction; IV Status: Completed infusion mg2 16:30 Drug: morphine 2 mg Route: IVP; Site: left antecubital; mg2 17:42 Follow up: Response: No adverse reaction; Marked relief of symptoms mg2 18:39 Drug: cloNIDine 0.1 mg Route: PO; mg2 19:45 Follow up: Response: No adverse reaction; Marked relief of symptoms; Blood pressure is mg2 lowered 19:29 Drug: Phenergan 12.5 mg Route: IVP; Site: left antecubital; mg2 19:45 Follow up: Response: No adverse reaction; Medication administered at discharge. mg2 Disposition: 04/25 06:23 Co-signature as Attending Physician, Orion Mayo MD I agree with the assessment and kdr plan of care. Disposition: 04/24/18 19:20 Discharged to Home. Impression: Lower abdominal pain, unspecified. - Condition is Stable. - Discharge Instructions: Abdominal Pain, Adult. - Prescriptions for Tramadol 50 mg Oral Tablet - take 1 tablet by ORAL route every 8 hours as needed; 20 tablet. promethazine 25 mg Oral Tablet - take 1 tablet by ORAL route every 6 hours As needed; 20 tablet. - Medication Reconciliation Form, Thank You Letter, Antibiotic Education, Prescription Opioid Use form. - Follow up: Private Physician; When: 2 - 3 days; Reason: Recheck today's complaints. - Problem is new. - Symptoms have improved. Signatures: Dispatcher [employer] EDMS Orion Mayo MD MD [facility] Nilda Malone RN RN aa5 Oscar Patel PA PA cp Bear Mtz RN RN mg2 Corrections: (The following items were deleted from the chart) 04/24 19:48 19:20 04/24/2018 19:20 Discharged to Home. Impression: Lower abdominal pain, mg2 unspecified. Condition is Stable. Forms are Medication Reconciliation Form, Thank You Letter, Antibiotic Education, Prescription Opioid Use. Follow up: Private Physician; When: 2 - 3 days; Reason: Recheck today's complaints. Problem is new. Symptoms have improved. cp
--- NOTE | 2018-04-24 19:21 | ER ---
Nurse's Notes [facility] Name: Clovis Moore Age: 68 yrs Sex: Male : 1950 Arrival Date: 04/24/2018 Time: 15:25 Bed 24 Private MD: Diagnosis: Lower abdominal pain, unspecified Presentation: 04/24 15:28 Presenting complaint: Patient states: RLQ pain that began last week. Pt states "it's my aa5 pain pump that it's hurting and I called Dr. Hadley". Pt reports Fentanyl Pump. Transition of care: patient was not received from another setting of care. Onset of symptoms was April 2018. Risk Assessment: Do you want to hurt yourself or someone else? Patient reports no desire to harm self or others. Initial Sepsis Screen: Does the patient meet any 2 criteria? No. Patient's initial sepsis screen is negative. Does the patient have a suspected source of infection? No. Patient's initial sepsis screen is negative. Care prior to arrival: None. 15:28 Method Of Arrival: Ambulatory aa5 15:28 Acuity: [place] 3 aa5 Historical: - Allergies: 15:30 No Known Allergies; aa5 - Home Meds: 15:41 donepezil 5 mg Oral tab 1 tab once daily [Active]; ezetimibe 10mg Oral 1 tab [Active]; mg2 fluoxetine 40 mg Oral cap 1 cap once daily [Active]; losartan 25 mg Oral tab 1 tab once daily for Hypertension [Active]; Zofran (as hydrochloride) 4 mg Oral tab 1 tabs 3 times per day [Active]; - PMHx: 15:30 Chronic pain; Hypertension; aa5 - PSHx: 15:30 Fentanyl pump for lumbar spine; back surgery; Tonsillectomy; aa5 - Immunization history:: Adult Immunizations unknown. - Social history:: Smoking status: Patient/guardian denies using tobacco. - Ebola Screening: : No symptoms or risks identified at this time. Screenin:34 Abuse screen: Denies threats or abuse. Denies injuries from another. Nutritional mg2 screening: No deficits noted. Tuberculosis screening: No symptoms or risk factors identified. Fall Risk None identified. Assessment: 15:39 General: Appears in no apparent distress. comfortable, Behavior is calm, cooperative. mg2 Pain: Complains of pain in right lower abdomen/fentanyl pump area Pain does not radiate. Pain: Quality of pain is described as aching, Pain began 2-3 days ago. Is intermittent. Neuro: Level of Consciousness is awake, alert, obeys commands. Cardiovascular: No deficits noted. Respiratory: Airway is patent Respiratory effort is even, unlabored, Respiratory pattern is regular, symmetrical. GI: Reports nausea. : No signs and/or symptoms were reported regarding the genitourinary system. EENT: No signs and/or symptoms were reported regarding the EENT system. Derm: Skin is intact, is healthy with good turgor, Skin is pink, warm \\T\\ dry. normal. Musculoskeletal: Circulation, motion, and sensation intact. Capillary refill < 3 seconds. 18:15 Reassessment: Patient appears in no apparent distress at this time. Patient and/or mg2 family updated on plan of care and expected duration. Pain level reassessed. Patient is alert, oriented x 3, equal unlabored respirations, skin warm/dry/pink. patient sent to ct scan. Vital Signs: 15:29 BP 198 / 116; Pulse 80; Resp 16 S; Temp 98.4(TE); Pulse Ox 95% on R/A; Weight 70.31 kg aa5 (R); Height 5 ft. 11 in. (180.34 cm) (R); Pain 8/10; 16:50 BP 177 / 103; Pulse 63; Resp 18; Pulse Ox 100% on R/A; mg2 18:03 Pulse 65; Resp 18; Pulse Ox 100% on R/A; Pain 0/10; mg2 18:13 BP 163 / 110; Pulse 65; Resp 18; Pulse Ox 100% on R/A; mg2 18:32 BP 182 / 111; Pulse 75; Resp 18; Pulse Ox 100% on R/A; mg2 19:45 BP 170 / 90; Pulse 70; Resp 18; Pulse Ox 100% on R/A; Pain 2/10; mg2 15:29 Body Mass Index 21.62 (70.31 kg, 180.34 cm) aa5 ED Course: 15:25 Patient arrived in ED. tw3 15:29 Triage completed. aa5 15:29 Arm band placed on. aa5 15:33 Bear Mtz, NAOMI is Primary Nurse. mg2 15:34 Patient has correct armband on for positive identification. Call light in reach. Side mg2 rails up X 1. Pulse ox on. NIBP on. 15:50 Oscar Patel PA is PHCP. cp 15:50 Orion Mayo MD is Attending Physician. cp 16:51 No provider procedures requiring assistance completed. Inserted saline lock: 20 gauge mg2 in left antecubital area, using aseptic technique. Blood collected. 18:15 Patient moved to [place] via wheelchair. mw3 18:23 CT completed. Patient tolerated procedure well. Patient moved back from [place]. mw3 18:24 CT Abd/Pelvis - W/Contrast In Process Unspecified. EDMS 19:44 IV discontinued, intact, bleeding controlled, No redness/swelling at site. Pressure mg2 dressing applied. Administered Medications: 16:29 Drug: Zofran 4 mg Route: IVP; Site: left antecubital; mg2 17:42 Follow up: Response: No adverse reaction; Marked relief of symptoms mg2 16:30 Drug: NS 0.9% 1000 ml Route: IV; Rate: 1 bolus; Site: left antecubital; mg2 17:43 Follow up: Response: No adverse reaction; IV Status: Completed infusion mg2 16:30 Drug: morphine 2 mg Route: IVP; Site: left antecubital; mg2 17:42 Follow up: Response: No adverse reaction; Marked relief of symptoms mg2 18:39 Drug: cloNIDine 0.1 mg Route: PO; mg2 19:45 Follow up: Response: No adverse reaction; Marked relief of symptoms; Blood pressure is mg2 lowered 19:29 Drug: Phenergan 12.5 mg Route: IVP; Site: left antecubital; mg2 19:45 Follow up: Response: No adverse reaction; Medication administered at discharge. mg2 Outcome: 19:20 Discharge ordered by MD. cp 19:46 Discharged to home ambulatory, with family. mg2 19:46 Condition: stable 19:46 Discharge instructions given to patient, family, Instructed on discharge instructions, follow up and referral plans. medication usage, Demonstrated understanding of instructions, follow-up care, medications, Prescriptions given X 2. 19:48 Patient left the ED. mg2 Signatures: Dispatcher [employer] EDMS Nilda Malone RN RN aa5 Oscar Patel PA PA cp Jerry, Catrina tw3 Bear Mtz RN RN mg2 Tatiana Azar mw3
[2018-04-24] MEDS ORDERED: NA CHLORIDE 0.9% 100 ML IV ONE (19:33)
[2018-04-24] MEDS ORDERED: PROMETHAZINE 25 MG/ML VIAL ONE (19:33)
== END 2018-04-24 19:48 | disposition home or self-care (01) ==
LOC: ER 15:23
DX: R10.31 Right lower quadrant pain (principal); I10 Essential (primary) hypertension
CPT/HCPCS: 36415; 74177; 80048; 80076; 83690; 85025; 96361; 96374; 96375; 99284; J2405; J2550; J7030; Q9967; 81003; 81015

== ENCOUNTER 2018-11-13 07:09 | Day surgery (SDC) | payer MEDICARE ==
--- NOTE | 2018-11-10 18:24 | EKG ---
Test Date: 2018-11-10 Test Time: 11:26:59 Director Loan: JEANE MEASUREMENT RESULTS: Intervals: Rate: 51 MS: 200 QRSD: 92 QT: 436 QTc: 401 [place]: P: 73 MS: 200 QRS: -66 T: 62 INTERPRETIVE STATEMENTS: Sinus bradycardia Possible Left atrial enlargement Left axis deviation Abnormal ECG Compared to ECG 01/04/2018 19:19:50 Left-axis deviation now present Sinus rhythm no longer present First degree AV block no longer present Left anterior fascicular block no longer present Electronically Signed On 11-10-18 18:23:27 CDT by Kevin Benjamin
--- OUTSIDE RECORDS SUMMARY | 2018-11-13 07:12 | XMS REPORT ---
[...] Dosage System Date Date Fish Oil [facility] 60889968206 1000 MG Orally Active 1 capsule Twice a day Zetia ND 83351384559 10 MG Orally Active 1 tablet Once a day Fluoxetine HCl [facility] 05404620796 40 MG Orally Active 1 capsule Once a day Hydromorphone HCl [facility] 32675617797 8 MG Orally 3x Active 1 tablet daily as needed Diazepam [facility] 11320502139 10 MG Orally Active 1 tablet Once a day as needed Ondansetron HCl [facility] 28357783660 4 MG Orally December 30, Active 1 tablet every 4-6 hrs 2017 as needed for nausea/vom iting Fluoxetine HCl [facility] 61827786086 40 MG Orally December 22, Active 1 capsule Once a day 2017 Losartan [facility] 62538097455 25 mg Orally December 30, Active 1 tablet Potassium Once a day 2017 as needed for bp > tq=913/90 Calcium + D3 [facility] 92246011549 600-200 MG-UNIT Active 1 tablet Orally Once a with a day meal Results No Known Results Summary Purpose eClinicalWorks Submission
--- OUTSIDE RECORDS SUMMARY | 2018-11-13 07:12 | XMS REPORT ---
[...] End Status Dosage System Date Date Doxazosin [facility] 59243616991 1 MG Orally January 29, Active 1 tablet in Mesylate Once daily as 2018 evening for needed for BP > high blood qm=374/90 pressure Losartan ND 77605170868 25 mg Orally December 30, Active 1 tablet Potassium Once a day 2018 Fish Oil [facility] 62694918137 1000 MG Orally Active 1 capsule Twice a day Fluoxetine HCl [facility] 37343622961 40 MG Orally December 22, Active 1 capsule Once a day 2017 Hydromorphone [facility] 73016376288 8 MG Orally 3x Active 1 tablet as HCl daily needed Diazepam [facility] 76713614899 10 MG Orally Active 1 tablet as Once a day needed Zetia [facility] 28016616712 10 MG Orally Active 1 tablet Once a day Fluoxetine HCl [facility] 68448213430 40 MG Orally Active 1 capsule Once a day Calcium + D3 [facility] 64283655500 600-200 MG-UNIT Active 1 tablet Orally Once a with a meal day Ondansetron HCl [facility] 32323585463 4 MG Orally December 30, Active 1 tablet as every 4-6 hrs 2017 needed for nausea/vomi ting Results No Known Results Summary Purpose eClinicalWorks Submission
--- OUTSIDE RECORDS SUMMARY | 2018-11-13 07:12 | XMS REPORT ---
[...] Status Dosage System Date Date Vitamin D [facility] 92483064549 02507 UNIT January 30Jul 29, Active 1 capsule (Ergocalcifero Orally one 2017 2018 l) capsule weekly Results No Known Results Summary Purpose eClinicalWorks Submission
--- OUTSIDE RECORDS SUMMARY | 2018-11-13 07:12 | XMS REPORT ---
[...] Status Dosage System Date Date Diazepam ND 14744234525 10 MG Orally Active 1 tablet as Once a day needed Doxazosin ND 13223460133 1 MG Orally January 29, Active 1 tablet in Mesylate Once daily as 2018 evening for needed for BP > high blood tz=184/90 pressure Zetia ND 14894638478 10 MG Orally Active 1 tablet Once a day Fluoxetine HCl ND 61235038313 40 MG Orally Active 1 capsule Once a day Hydromorphone ND 65605387597 8 MG Orally 3x Active 1 tablet as HCl daily needed Losartan ND 89511942314 25 mg Orally December 30, Active 1 tablet Potassium Once a day 2017 Fluoxetine HCl [facility] 24998855399 40 MG Orally December 22, Active 1 capsule Once a day 2018 Calcium + D3 [facility] 05055734812 600-200 MG-UNIT Active 1 tablet Orally Once a with a meal day Vitamin D [facility] 75226160770 84495 UNIT January 30, Jul 29, Active 1 capsule (Ergocalciferol) Orally one 2017 2019 capsule weekly Ondansetron HCl [facility] 62831978169 4 MG Orally December 30, Active 1 tablet as every 4-6 hrs 2018 needed for nausea/vomi ting Fish Oil [facility] 28834777431 1000 MG Orally Active 1 capsule Twice a day Results Name Result Date Reference Range Unit Abnormality Flag GLUCOSE FINGER ----Result 80 (FBS) [id number] Summary Purpose eClinicalWorks Submission
--- OUTSIDE RECORDS SUMMARY | 2018-11-13 07:13 | XMS REPORT ---
[...] Status Dosage System Date Date Fish Oil [facility] 01934099185 1000 MG Orally Active 1 capsule Twice a day Calcium + D3 [facility] 28974850035 600-200 MG-UNIT Active 1 tablet Orally Once a with a meal Zetia [facility] 49652443051 10 MG Orally Active 1 tablet Once a day Vitamin D [facility] 19497574431 41960 UNIT January 30Jul Active 1 capsule (Ergocalciferol) Orally one 2017, capsule weekly 2018 Promethazine HCl [facility] 71194788100 25 mg Orally Mar 27Apr Active 1 tablet as every 4-6 hrs 2017 07, needed for 2017 nausea/vomit ing Diazepam ND 01452584946 10 MG Orally Active 1 tablet as Once a day needed Fluoxetine HCl [facility] 24201857400 40 MG Orally December 22, Active 1 capsule Once a day 2017 Losartan ND 60645684207 25 mg Orally December 30, Active 1 tablet Potassium Once a day 2017 Doxazosin ND 08956838791 1 MG Orally January 29, Active 1 tablet in Mesylate Once daily as 2017 evening for needed for BP > high blood qu=188/90 pressure Ondansetron HCl [facility] 49619918750 4 MG Orally Active 1 tablet as every 4-6 hrs needed for nausea/vomit ing Trintellix [facility] 32161730505 10 MG Orally Mar 27, Active 1 tablet for Once a day 2017 depression Hydromorphone [facility] 90142173953 8 MG Orally 3x Active 1 tablet as HCl daily needed Results No Known Results Summary Purpose eClinicalWorks Submission
--- OUTSIDE RECORDS SUMMARY | 2018-11-13 07:13 | XMS REPORT ---
[...] Status Dosage System Date Date Duloxetine HCl [facility] 35474053948 30 MG Orally Apr 06, Active 1 capsule Once a day 2018 Results No Known Results Summary Purpose eClinicalWorks Submission
--- OUTSIDE RECORDS SUMMARY | 2018-11-13 07:13 | XMS REPORT ---
:1950 Author Organization eClinicalWorks Care Team Providers Name Role Phone Kristie Ochoa Provider Role Unavailable Allergies No Known Allergies Problems Problem Type Condition Code Onset Dates Condition Status Problem Lumbar radiculopathy M54.16 Active Problem Other chronic pain G89.29 Active Problem Osteopenia, unspecified location M85.80 Active Problem Low back pain M54.5 Active Problem Numbness in both legs R20.0 Active Problem Hyperlipidemia, unspecified E78.5 Active hyperlipidemia type Problem Abnormal findings on diagnostic R93.8 Active imaging of other specified body structures Problem Abnormal electrocardiogram R94.31 Active Problem Neck pain M54.2 Active Problem Erectile dysfunction F52.21 Active Problem Uncontrolled hypertension I10 Active Problem Abnormal EKG R94.31 Active Problem Abnormal liver function K76.89 Active Problem Vitamin D deficiency E55.9 Active Problem Weight loss R63.4 Active Problem Palpitations R00.2 Active Problem Acute nonintractable headache, R51 Active unspecified headache type Problem Muscle cramps R25.2 Active Problem Chronic pain syndrome G89.4 Active Problem Depression with anxiety F41.8 Active Problem Non-intractable vomiting with R11.2 Active nausea, unspecified vomiting type Problem Chronic back pain M54.9 Active Problem Constipation, unspecified K59.00 Active constipation type Problem Hypertension, unspecified type I10 Active Problem Chronic pain G89.29 Active Problem Opioid withdrawal F11.23 Active Assessment Neck pain M54.2 Active Problem Nausea R11.0 Active Problem Loss of appetite R63.0 Active Assessment Other chronic pain G89.29 Active Problem Memory loss R41.3 Active Assessment Low back pain M54.5 Active Problem Tobacco abuse counseling Z71.6 Active Problem Elevated brain natriuretic peptide R79.89 Active (BNP) level Problem Hypercholesterolemia E78.00 Active Problem Withdrawal from 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 Active Problem Elevated blood pressure reading R03.0 Active without diagnosis of hypertension Medications No Known Medications Results No Known Results Summary Purpose eClinicalWorks Submission
--- OUTSIDE RECORDS SUMMARY | 2018-11-13 07:13 | XMS REPORT ---
:1950 [facility] Team Providers Name Role Phone Kristie Ochoa Provider Role Unavailable Allergies, Adverse Reactions, Alerts Substance Reaction Event Type acetaminophen abdominal pain, nausesa, and gagging Drug Allergy Problems Problem Type Condition Code [...] Active Problem Opioid withdrawal F11.23 Active Assessment Chronic pain syndrome G89.4 Active Problem Nausea R11.0 Active Problem Loss of appetite R63.0 Active Assessment Memory loss R41.3 Active Problem Memory loss R41.3 Active Assessment Depression with anxiety F41.8 Active Problem Tobacco abuse counseling Z71.6 Active Problem Elevated brain natriuretic peptide R79.89 Active (BNP) level Assessment Hypertension, unspecified type I10 Active Problem Hypercholesterolemia E78.00 Active Problem Withdrawal from 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 Active Problem Elevated blood pressure reading R03.0 Active without diagnosis of hypertension Medications Medication Code Code Instructions Start End Status Dosage System Date Date BuPROPion HCl ER [facility] 07812594943 150 MG Orally May 01, Active 1 tablet (XL) Twice daily 2017 Donepezil HCl [facility] 67258676035 10 MG Orally Active 1 tablet at Once a day bedtime Dicyclomine HCl [facility] 39196631846 10 MG Orally Active 2 capsules Four times a day Vitamin D [facility] 53492296612 22924 UNIT January Active 1 capsule (Ergocalciferol) Orally , , capsule weekly 2017 2018 Ondansetron HCl [facility] 31935924642 4 MG Orally Active 1 tablet as every 4-6 hrs needed for nausea/vomit ing Fentanyl [facility] [address]-19 Active per pain pump Duloxetine HCl [facility] 29983980062 30 MG Orally Apr 06, Active 1 capsule Once a day 2017 Zetia [facility] 59699304204 10 MG Orally Active 1 tablet Once a day Fluoxetine HCl [facility] 44549961319 40 MG Orally December Active 1 capsule Once a day 2017 Fish Oil [facility] 88682266070 1000 MG Orally Active 1 capsule Twice a day Trintellix [facility] 10879298300 10 MG Orally Mar Active 1 tablet for Once a day 21, depression 2017 Diazepam ND 25433619015 10 MG Orally Active 1 tablet as Once a day needed Hydromorphone HCl [facility] 18979338026 8 MG Orally 3x Active 1 tablet as daily needed Cyclobenzaprine [facility] 93959091324 10 MG Orally Jun 01Mar Active 1 tablet as HCl Two times a 2017, needed for day 2019 muscle cramps/pain Tramadol HCl [facility] 84441319651 50 MG Orally Active 1 tablet as every 6 hrs needed Calcium + D3 [facility] 29534068317 600-200 Active 1 tablet MG-UNIT Orally with a meal Once a day Sucralfate [facility] 98956032559 1 GM/10ML Active 10 ml on an Orally Twice a empty day stomach Losartan Potassium [facility] 09281295223 25 mg Orally December Active 1 tablet Once a day 2017 Doxazosin Mesylate ND 03906391585 1 MG Orally January Active 1 tablet in Once daily as , evening for needed for BP 2017 high blood > kb=143/90 pressure Results No Known Results Summary Purpose eClinicalWorks Submission
--- OUTSIDE RECORDS SUMMARY | 2018-11-13 07:14 | XMS REPORT ---
:1950 [facility] Team Providers Name Role Phone Kirstie Ochoa Provider Role Unavailable Allergies, Adverse Reactions, Alerts Substance Reaction Event Type acetaminophen abdominal pain, nausesa, and gagging Drug Allergy Problems Problem Type Condition Code Onset Dates Condition Status Problem Abnormal electrocardiogram R94.31 Active Problem Abnormal findings on diagnostic R93.8 Active imaging of other specified body structures Problem Erectile dysfunction F52.21 Active Problem Neck pain M54.2 Active Assessment Depression with anxiety F41.8 Active Problem Abnormal liver function K76.89 Active Assessment Chronic pain syndrome G89.4 Active Problem Chronic back pain M54.9 Active Assessment Osteopenia, unspecified location M85.80 Active Problem Depression with anxiety F41.8 Active Problem Chronic pain syndrome G89.4 Active Problem Memory loss R41.3 Active Problem Tobacco abuse counseling Z71.6 Active Problem Opioid withdrawal F11.23 Active Problem Constipation, unspecified K59.00 Active constipation type Problem Nausea R11.0 Active Problem Chronic pain G89.29 Active Problem Non-intractable vomiting with R11.2 Active nausea, unspecified vomiting type Problem Muscle cramps R25.2 Active Problem Abnormal ultrasound R93.89 Active Problem Mass of parotid gland K11.9 Active Problem Elevated blood pressure reading R03.0 Active without diagnosis of hypertension Problem Withdrawal from 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 Active Problem Mass of head R22.0 Active Problem Loss of appetite R63.0 Active Assessment Hypertension, unspecified type I10 Active Problem Depression, unspecified depression F32.9 Active type Assessment Dementia without behavioral F03.90 Active disturbance, unspecified dementia type Problem Acute nonintractable headache, R51 Active unspecified headache type Assessment Hyperlipidemia, unspecified E78.5 Active hyperlipidemia type Problem Abnormal MRI, cervical spine R93.7 Active Assessment Weight loss R63.4 Active Problem Dementia without behavioral F03.90 Active disturbance, unspecified dementia type Problem Osteopenia, unspecified location M85.80 Active Problem Uncontrolled hypertension I10 Active Problem Hyperlipidemia, unspecified E78.5 Active hyperlipidemia type Problem Abnormal EKG R94.31 Active Problem Low back pain M54.5 Active Problem Elevated brain natriuretic peptide R79.89 Active (BNP) level Problem Numbness in both legs R20.0 Active Problem Hypercholesterolemia E78.00 Active Problem Other chronic pain G89.29 Active Problem Weight loss R63.4 Active Problem Lumbar radiculopathy M54.16 Active Problem Hypertension, unspecified type I10 Active Problem Vitamin D deficiency E55.9 Active Problem Palpitations R00.2 Active Medications Medication Code Code Instructions Start End Status Dosage System Date Date Ondansetron HCl [facility] 86492732343 4 MG Orally Active 1 tablet as every 4-6 hrs needed for nausea/vomit ing Calcium + D3 [facility] 88654758499 600-200 Active 1 tablet MG-UNIT Orally with a meal Once a day Donepezil HCl [facility] 32042895287 10 MG Orally Active 1 tablet at Once a day bedtime Doxazosin Mesylate ND 28185286690 1 MG Orally January Active 1 tablet in Once daily as , for needed for BP 2017 high blood > vz=320/90 pressure Sucralfate [facility] 51981842332 1 GM/10ML Active 10 ml on an Orally Twice a empty day stomach Cyclobenzaprine [facility] 15045769731 10 MG Orally Jun 01Mar Active 1 tablet as HCl Two times a 2017 08, needed for day 2019 muscle cramps/pain Fish Oil [facility] 69884237611 1000 MG Orally Active 1 capsule Twice a day Fentanyl [facility] [address]-66 Active per pain pump BuPROPion HCl ER ND 82662104137 150 MG Orally May 01, Active 1 tablet (XL) Twice daily 2017 Fluoxetine HCl [facility] 02442550030 40 MG Orally December Active 1 capsule Once a day 2017 Duloxetine HCl [facility] 21203890133 30 MG Orally Apr 06, Active 1 capsule Once a day 2017 Tramadol HCl ND 74779731467 50 MG Orally Active 1 tablet as every 6 hrs needed Dicyclomine HCl [facility] 47924058293 10 MG Orally Active 2 capsules Four times a day Losartan Potassium ND 55927184613 25 mg Orally December Active 1 tablet Once a day 2017 Hydromorphone HCl [facility] 20780704873 8 MG Orally 3x Active 1 tablet as daily needed Diazepam ND 08268145829 10 MG Orally Active 1 tablet as Once a day needed Trintellix [facility] 65022559237 10 MG Orally Sept Active 1 tablet for Once a day 21, depression 2017 Zetia [facility] 86494601911 10 MG Orally Active 1 tablet Once a day Results No Known Results Summary Purpose eClinicalWorks Submission
--- OUTSIDE RECORDS SUMMARY | 2018-11-13 07:14 | XMS REPORT ---
:1950 [facility] Providers Name Role Phone Kristie Ochoa Provider Role Unavailable Allergies No Known Allergies Problems Problem Type Condition Code Onset Dates Condition Status Problem Hyperlipidemia, unspecified E78.5 Active hyperlipidemia type Problem Osteopenia, unspecified location M85.80 Active Problem Abnormal electrocardiogram R94.31 Active Problem Abnormal findings on diagnostic R93.8 Active imaging of other specified body structures Problem Neck pain M54.2 Active Problem Erectile dysfunction F52.21 Active Problem Abnormal liver function K76.89 Active Problem Chronic back pain M54.9 Active Problem Depression with anxiety F41.8 Active Problem Chronic pain syndrome G89.4 Active Problem Weight loss R63.4 Active Problem Hypertension, unspecified type I10 Active Problem Memory loss R41.3 Active Problem Constipation, unspecified K59.00 Active constipation type Problem Chronic pain G89.29 Active Problem Opioid withdrawal F11.23 Active Problem Abnormal ultrasound R93.89 Active Problem Abnormal MRI, cervical spine R93.7 Active Problem Loss of appetite R63.0 Active Problem Nausea R11.0 Active Assessment Abnormal MRI, cervical spine R93.7 Active Problem Mass of head R22.0 Active Problem Tobacco abuse counseling Z71.6 Active Problem Non-intractable vomiting with R11.2 Active nausea, unspecified vomiting type Problem Muscle cramps R25.2 Active Problem Mass of parotid gland K11.9 Active Problem Acute nonintractable headache, R51 Active unspecified headache type Problem Low back pain M54.5 Active Problem Elevated brain natriuretic peptide R79.89 Active (BNP) level Problem Numbness in both legs R20.0 Active Problem Hypercholesterolemia E78.00 Active Problem Other chronic pain G89.29 Active Problem Withdrawal from 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 Active Problem Lumbar radiculopathy M54.16 Active Problem Elevated blood pressure reading R03.0 Active without diagnosis of hypertension Assessment Mass of parotid gland K11.9 Active Problem Vitamin D deficiency E55.9 Active Problem Palpitations R00.2 Active Problem Uncontrolled hypertension I10 Active Problem Abnormal EKG R94.31 Active Medications No Known Medications Results No Known Results Summary Purpose eClinicalWorks Submission
--- OUTSIDE RECORDS SUMMARY | 2018-11-13 07:14 | XMS REPORT ---
:1950 [facility] Providers Name Role Phone Kristie [...] Active Problem Nausea R11.0 Active Assessment Abnormal ultrasound R93.89 Active Problem Mass of head R22.0 Active [...] without diagnosis of hypertension Assessment Mass of head R22.0 Active Problem Vitamin D deficiency E55.9 Active Problem Palpitations R00.2 Active Problem Uncontrolled hypertension I10 Active Problem Abnormal EKG R94.31 Active Medications No Known Medications Results No Known Results Summary Purpose eClinicalWorks Submission
[2018-11-13] MEDS ORDERED: Ringers Lactate 1,000 ML IV ONE ×2 (07:48→09:57)
[2018-11-13] MEDS ORDERED: PROPOFOL 200 MG/20 ML VIAL IV ONE (08:08)
[2018-11-13] MEDS ORDERED: FENTANYL CITR 100 MCG/2 ML ONE ×2 (08:08→09:33)
[2018-11-13] MEDS ORDERED: MIDAZOLAM HCL 2 MG/2 ML INJ ONE (08:08)
[2018-11-13] MEDS ORDERED: ROCURONIUM 50 MG/5 ML VIAL IV ONE (08:08)
[2018-11-13] MEDS ORDERED: LIDOCAINE 2% MPF 5 ML VIAL ONE (08:08)
[2018-11-13] MEDS: LIDOCAINE 1% W/EPI 1:100,000 MDV 50 ML VIAL ONE ×2 (08:25→08:50)
[2018-11-13] MEDS ORDERED: KETOROLAC 30 MG/ML INJ ONE (09:57)
--- NOTE | 2018-11-13 10:08 | P.BOP ---
Preoperative diagnosis: left pleomorphic adenoma Postoperative diagnosis: same Primary procedure: left superficial parotidectomy Sticker Operator: Toya Hauser Estimated blood loss: 10ml Specimen: left superficial parotid Findings: about 4cm tumor, well encapsulated Anesthesia: General Complications: None Drain(s): OLIVIER drain Implants: none Fluids & blood products: crystalloid 1L Transferred to: Recovery Room Condition: Good
--- NOTE | 2018-11-13 20:30 | OP ---
Date of Procedure: 11/13/2018 Surgeon: Tati Espinoza MD Preoperative Diagnosis: Left pleomorphic adenoma. Postoperative Diagnosis: Left pleomorphic adenoma. Procedure: Left superficial parotidectomy without facial nerve dissection. Indication For Procedure: Mr. Moore presented with a long-standing left parotid mass. Fine-needle a spiration confirmed pleomorphic adenoma. The risks, benefits, and alternatives to the procedure were discussed, and the patient agreed to proceed. Description Of Procedure: The patient was brought to the operating room. He was placed under genera l anesthesia. The left face, ear and neck were cleaned with alcohol, and the planned incision site w as injected with 1% lidocaine with epinephrine. The area was prepped with Betadine and draped in a s terile fashion. A preauricular incision with an existing skin crease was extended onto the lower par t of the neck directly overlying the mass. The skin was incised with a scalpel and a SMAS flap was e levated over the parotid gland. The earlobe and posterior skin were likewise elevated. A suture was placed through the subcutaneous tissue of the earlobe, and it was secured to the drapes to provide r etraction. The mass by palpation was approximately 4 x 3 cm and appeared to involve the tail of the parotid. The anterior parotid tissue and superior parotid tissue were normal on palpation. The soft tissues and the tumor were retracted laterally and dissection was carried out around the area of the tragal pointer. Careful dissection was made and searched for the facial nerve, but during the proce ss of this, it was noted the tumor was all very superficial and the pes of the facial nerve was not s pecifically identified. Careful dissection inferiorly around the tail of parotid was carried out mob ilizing the tumor. Careful dissection along the anterior aspect leaving a small bit of normal tissue was carried out. The mass was then noted to have an easily dissectible tissue plane and capsule. T he fascia in this area was bluntly dissected and careful inspection was made for any branches of the facial nerve, but none were identified. The mass was then primarily mobilized but attached at the de ep posterior aspect. Again, the tissues were very carefully dissected in a [id number] fashion, loo yesenia for any branches of the facial nerve, but none were identified. The mass overall was felt to be inferior and posterior to any significant branches of the facial nerve. Thus, dissection was ghislaine d out without specific identification. After removal of the mass, the surgical bed was thoroughly ir rigated with copious amounts of saline. Careful inspection in the area of the tympanomastoid suture was carried out, but the pes of the facial nerve again was not easily identified. A decision was mad e to forgo further dissection in interest of protecting the nerve from undue swelling do the unnecess thu dissection purely for identification purposes. A 10-Tajik round OLIVIER drain was placed within the surgical bed and secured using a nylon suture. The incision was then closed in a layered fashion usi ng 4-0 Vicryl and a running subcuticular 5-0 Monocryl. The patient was then returned to care [facility] for awakening and extubation in the operating room. Complications: None. Specimens: Left parotid mass for final pathology. Disposition: The patient will be discharged home later today in the care of his and follow up w joyce Espinoza on Friday, November 16 for removal of the OLIVIER drain. YAAKOV/SHITAL Voice ID: [id number] Report ID: [id number]
== END 2018-11-13 11:55 | disposition home or self-care (01) ==
LOC: OR 07:09
PROVIDERS: ATTEND Otolaryngology
PROC: 0CB90ZZ Excision of Left Parotid Gland, Open Approach (ICD-10-PCS; principal; 2018-11-13 08:30)
DX: D11.0 Benign neoplasm of parotid gland (principal); Z87.891 Personal history of nicotine dependence
CPT/HCPCS: 42410; 93005; 88307; J2704; J2250; J3010 ×2

== ENCOUNTER 2019-05-17 23:17 | Emergency (ER) | payer MEDICARE ==
--- OUTSIDE RECORDS SUMMARY | 2019-05-17 23:19 | XMS REPORT ---
:1950 Author [facility] Providers Name Role Phone Kristie Ochoa Provider Role Unavailable Allergies No Known Allergies Problems Problem Type Condition Code Onset Dates Condition Status Problem Neck pain M54.2 Active Problem Abnormal electrocardiogram R94.31 Active Problem Abnormal liver function K76.89 Active Problem Erectile dysfunction F52.21 Active Problem Chronic back pain M54.9 Active Problem Depression with anxiety F41.8 Active Problem Chronic pain syndrome G89.4 Active Problem Memory loss R41.3 Active Problem Tobacco abuse counseling Z71.6 Active Problem Nausea R11.0 Active Problem Constipation, unspecified K59.00 Active constipation type Problem Chronic pain G89.29 Active Problem Loss of appetite R63.0 Active Problem Muscle cramps R25.2 Active Problem Acute nonintractable headache, R51 Active unspecified headache type Problem Non-intractable vomiting with R11.2 Active nausea, unspecified vomiting type Problem Abnormal ultrasound R93.89 Active Problem Mass of head R22.0 Active Problem Elevated brain natriuretic peptide R79.89 Active (BNP) level Problem Elevated blood pressure reading R03.0 Active without diagnosis of hypertension Problem Other chronic pain G89.29 Active Problem Depression screening Z13.31 Active Problem Withdrawal from 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 Active Problem Dementia without behavioral F03.90 Active disturbance, unspecified dementia type Assessment Depression with anxiety F41.8 Active Problem Depression, unspecified depression F32.9 Active type Problem Abnormal MRI, cervical spine R93.7 Active Problem Mass of parotid gland K11.9 Active Problem Hyperlipidemia, unspecified E78.5 Active hyperlipidemia type Problem Abnormal EKG R94.31 Active Problem Abnormal findings on diagnostic R93.8 Active imaging of other specified body structures Problem Vitamin D deficiency E55.9 Active Problem Numbness in both legs R20.0 Active Problem Hypercholesterolemia E78.00 Active Problem Osteopenia, unspecified location M85.80 Active Problem Uncontrolled hypertension I10 Active Problem Lumbar radiculopathy M54.16 Active Problem Hypertension, unspecified type I10 Active Problem Low back pain M54.5 Active Problem Opioid withdrawal F11.23 Active Problem Palpitations R00.2 Active Problem Weight loss R63.4 Active Medications Medication Code Code Instructions Start End Date Status Dosage System Date BuPROPion HCl [facility] [id number] 150 MG Orally Active 1 tablet ER (XL) Once a day Results No Known Results Summary Purpose eClinicalWorks Submission
[2019-05-17 23:54] LABS: Absolute Lymphocytes (CBC) 1.6 K/uL (0.7-4.9); Hematocrit 41.4 % (39.6-49.0); Lymphocytes % 20.9 % (15.3-44.8); MPV 8.8 fL (7.6-11.3); RBC Red Blood Cell Count 4.33 M/uL (4.33-5.43)
[2019-05-17 23:55] LABS: Protime INR 0.98
[2019-05-18 00:18] LABS: ALT/SGPT 30 U/L (12-78); AST/SGOT 31 U/L (15-37); Albumin 4.1 g/dL (3.4-5.0); Alkaline Phosphatase 73 U/L (45-117); BUN Blood Urea Nitrogen 15 mg/dL (7-18); Bicarbonate 28 mmol/L (21-32); Bilirubin Direct 0.2 mg/dL (0-0.2); Bilirubin Total 0.6 mg/dL (0.2-1.0); Glucose Level 109 mg/dL (74-106); Magnesium 2.1 mg/dL (1.8-2.4); NT PRO-BNP 498 pg/mL (<125); Potassium 3.3 mmol/L (3.5-5.1); Protein, Total 7.4 g/dL (6.4-8.2); Sodium Level 142 mmol/L (136-145); Troponin (Emerg Dept Use Only) < 0.02 ng/mL (0.0-0.045)
[2019-05-18] MEDS ORDERED: HYDRALAZINE HCL 20 MG/ML VIAL ONE (01:00)
[2019-05-18] MEDS ORDERED: KETOROLAC 30 MG/ML INJ ONE (01:09)
--- NOTE | 2019-05-18 01:38 | EDPHYS ---
Physician Documentation [facility] Name: Clovis Moore Age: 69 yrs Sex: Male : 1950 Arrival Date: 05/17/2019 Time: 23:19 Bed 18 Private MD: ED Physician Velasquez Greene HPI: 05/17 23:47 This 69 yrs old Male presents to ER via Ambulatory with complaints of Chest tw4 Pain, High Blood Pressure. 05/18 01:35 The patient has elevated blood pressure and discovered this at home. Onset: The tw4 symptoms/episode began/occurred today. Modifying factors: The symptoms are aggravated by activity, The symptoms are alleviated by remaining still. Associated signs and symptoms: The patient has no apparent associated signs or symptoms. The patient has not experienced similar symptoms in the past. Historical: - Allergies: 05/17 23:34 No Known Allergies; tl1 - Home Meds: 23:34 losartan 25 mg Oral tab 1 tab once daily for Hypertension [Active]; morphine pump tl1 [Active]; 05/18 00:23 donepezil 5 mg Oral tab 1 tab once daily [Active]; ezetimibe 10mg Oral 1 tab [Active]; wh fluoxetine 40 mg Oral cap 1 cap once daily [Active]; - PMHx: 05/17 23:34 Chronic pain; Hypertension; Back pain; tl1 - PSHx: 23:34 back fusions; Tonsillectomy; tl1 - Immunization history:: Adult Immunizations unknown. - Social history:: Smoking status: Patient uses tobacco products, unknown amount uses vape nicotine, Patient/guardian denies using alcohol, street drugs. - Ebola Screening: : Patient negative for fever greater than or equal to 101.5 degrees Fahrenheit, and additional compatible Ebola Virus Disease symptoms Patient denies exposure to infectious person Patient denies travel to an Ebola-affected area in the 21 days before illness onset. ROS: 23:47 Constitutional: Negative for fever, chills, and weight loss, Eyes: Negative for injury, tw4 pain, redness, and discharge, Respiratory: Negative for shortness of breath, cough, wheezing, and pleuritic chest pain, Abdomen/GI: Negative for abdominal pain, nausea, vomiting, diarrhea, and constipation, Back: Negative for injury and pain, MS/Extremity: Negative for injury and deformity, Skin: Negative for injury, rash, and discoloration, Neuro: Negative for headache, weakness, numbness, tingling, and seizure. 23:47 Cardiovascular: Positive for chest pain, Negative for edema, orthopnea, palpitations, paroxysmal nocturnal dyspnea. Exam: 23:47 Constitutional: This is a well developed, well nourished patient who is awake, alert, tw4 and in no acute distress. Head/Face: Normocephalic, atraumatic. Eyes: Pupils equal round and reactive to light, extra-ocular motions intact. Lids and lashes normal. Conjunctiva and sclera are non-icteric and not injected. Cornea within normal limits. Periorbital areas with no swelling, redness, or edema. Chest/axilla: Normal chest wall appearance and motion. Nontender with no deformity. No lesions are appreciated. Cardiovascular: Regular rate and rhythm with a normal S1 and S2. No gallops, murmurs, or rubs. Normal PMI, no JVD. No pulse deficits. Respiratory: Lungs have equal breath sounds bilaterally, clear to auscultation and percussion. No rales, rhonchi or wheezes noted. No increased work of breathing, no retractions or nasal flaring. Abdomen/GI: Soft, non-tender, with normal bowel sounds. No distension or tympany. No guarding or rebound. No evidence of tenderness throughout. Back: No spinal tenderness. No costovertebral tenderness. Full range of motion. MS/ Extremity: Pulses equal, no cyanosis. Neurovascular intact. Full, normal range of motion. Neuro: Awake and alert, GCS 15, oriented to person, place, time, and situation. Cranial nerves II-XII grossly intact. Motor strength 5/5 in all extremities. Sensory grossly intact. Cerebellar exam normal. Normal gait. Vital Signs: 23:35 BP 201 / 115; Pulse 67; Resp 17; Temp 98.2(O); Pulse Ox 100% ; Weight 77.11 kg; Height tl1 5 ft. 11 in. (180.34 cm); Pain 01/13; 05/18 00:23 BP 157 / 95; Pulse 73; Resp 20; Pulse Ox 97% on R/A; wh 02:01 BP 167 / 99; Pulse 59; Resp 18; Pulse Ox 99% on R/A; wh 05/17 23:35 Body Mass Index 23.71 (77.11 kg, 180.34 cm) tl1 MDM: 05/17 23:34 Patient medically screened. [facility] 05/18 01:34 Differential diagnosis: pulmonary embolus, thoracic aortic disection. Data reviewed: [facility] vital signs, nurses notes. 05/17 23:34 Order name: Basic Metabolic Panel; Complete Time: 00:55 [facility] 05/18 00:55 Interpretation: Normal except: GLUC 109; K 3.3. [facility] 05/17 23:34 Order name: CBC with Diff; Complete Time: 00:55 [facility] 05/18 00:55 Interpretation: Within normal limits. [facility] 05/17 23:34 Order name: LFT's; Complete Time: 00:55 [facility] 05/18 00:55 Interpretation: Within normal limits. [facility] 05/17 23:34 Order name: Magnesium; Complete Time: 00:55 [facility] 05/18 00:55 Interpretation: Within normal limits: MG 2.1. [facility] 05/17 23:34 Order name: NT PRO-BNP; Complete Time: 00:55 [facility] 05/18 00:55 Interpretation: Abnormal: NT PRO-BNP 498. [facility] 05/17 23:34 Order name: PT-INR; Complete Time: 00:55 [facility] 05/18 00:56 Interpretation: Within normal limits: PT 11.6. [facility] 05/17 23:34 Order name: Troponin (emerg Dept Use Only); Complete Time: 00:55 [facility] 05/18 00:56 Interpretation: Within normal limits: TROPED < 0.02. [facility] 05/17 23:34 Order name: XRAY Chest (1 view) [facility] 05/17 23:34 Order name: EKG; Complete Time: 23:35 [facility] 05/17 23:34 Order name: Cardiac monitoring; Complete Time: 23:37 [facility] 05/17 23:34 Order name: EKG - Nurse/Tech; Complete Time: 23:37 [facility] 05/17 23:34 Order name: IV Saline Lock; Complete Time: 23:37 [facility] 05/17 23:34 Order name: Labs collected and sent; Complete Time: 23:37 [facility] 05/17 23:34 Order name: O2 Per Protocol; Complete Time: 23:37 [facility] 05/17 23:34 Order name: O2 Sat Monitoring; Complete Time: 23:37 tw4 Administered Medications: 01:03 Drug: hydrALAZINE 20 mg Route: IV; Rate: bolus; Site: right antecubital; 02:03 Follow up: Response: No adverse reaction; Blood pressure is lowered; IV Status: Completed infusion 01:12 Drug: TORadol 30 mg Route: IVP; Site: right antecubital; 02:03 Follow up: Response: No adverse reaction; Pain is decreased Disposition: 05/18/19 01:37 Discharged to Home. Impression: Low back pain, Hypertensive urgency. - Condition is Stable. - Discharge Instructions: Back Pain, Adult, Chronic Back Pain, Hypertension, [id number]. - Medication Reconciliation Form, Thank You Letter, Antibiotic Education, Prescription Opioid Use form. - Follow up: Private Physician; When: Upon discharge from the Emergency Department; Reason: Recheck today's complaints, Continuance of care. - Problem is new. - Symptoms have improved. Signatures: Dispatcher [employer] EDMS Katerina Del Rosario RN RN tl1 Rocky Stacy Terrence, MD MD tw4 Corrections: (The following items were deleted from the chart) 05/17 23:47 The patient or guardian reports chest pain that is located primarily in the tw4 anterior chest wall, tw4 05/18 23:47 Onset: today, tw4 05/18:05/17 23:47 The pain does not radiate. tw4 05/18:05/17 23:47 Associated signs and symptoms: The patient has no apparent associated signs tw4 or symptoms, tw4 05/18 23:47 The chest pain is described as dull, tw4 05/18 23:47 Duration: The patient or guardian reports a single episode, that is now tw4 resolved, 05/18 23:47 Modifying factors: The symptoms are alleviated by nothing. the symptoms are tw4 aggravated by nothing. tw4 05/18 01:05/17 23:47 Severity of pain: At its worst the pain was moderate tw4 4 05/18 02:04 01:37 05/18/2019 01:37 Discharged to Home. Impression: Low back pain; Hypertensive wh urgency. Condition is Stable. Forms are Medication Reconciliation Form, Thank You Letter, Antibiotic Education, Prescription Opioid Use. Follow up: Private Physician; When: Upon discharge from the Emergency Department; Reason: Recheck today's complaints, Continuance of care. Problem is new. Symptoms have improved. tw4
--- NOTE | 2019-05-18 01:38 | ER ---
Nurse's Notes [facility] Name: Clovis Moore Age: 69 yrs Sex: Male : 1950 Arrival Date: 05/17/2019 Time: 23:19 Bed 18 Private MD: Diagnosis: Low back pain;Hypertensive urgency Presentation: 05/17 23:31 Presenting complaint: Patient states: I have had high blood pressure for approx 4 days tl1 and tonight when I took my blood pressure the top number was 240 so i decided to come in. I feel short of breath and it feels like my heart is racing. Transition of care: patient was not received from another setting of care. Transition of care: patient was not received from another setting of care. Onset of symptoms was May 14, 2019. Risk Assessment: Do you want to hurt yourself or someone else? Patient reports no desire to harm self or others. Initial Sepsis Screen: Does the patient meet any 2 criteria? No. Patient's initial sepsis screen is negative. Does the patient have a suspected source of infection? No. Patient's initial sepsis screen is negative. Care prior to arrival: None. 23:31 Method Of Arrival: Ambulatory tl1 23:31 Acuity: [place] 2 tl1 Historical: - Allergies: 23:34 No Known Allergies; tl1 - Home Meds: 23:34 losartan 25 mg Oral tab 1 tab once daily for Hypertension [Active]; morphine pump tl1 [Active]; 05/18 00:23 donepezil 5 mg Oral tab 1 tab once daily [Active]; ezetimibe 10mg Oral 1 tab [Active]; wh fluoxetine 40 mg Oral cap 1 cap once daily [Active]; - PMHx: 05/17 23:34 Chronic pain; Hypertension; Back pain; tl1 - PSHx: 23:34 back fusions; Tonsillectomy; tl1 - Immunization history:: Adult Immunizations unknown. - Social history:: Smoking status: Patient uses tobacco products, unknown amount uses vape nicotine, Patient/guardian denies using alcohol, street drugs. - Ebola Screening: : Patient negative for fever greater than or equal to 101.5 degrees Fahrenheit, and additional compatible Ebola Virus Disease symptoms Patient denies exposure to infectious person Patient denies travel to an Ebola-affected area in the 21 days before illness onset. Screenin:45 Abuse screen: Denies threats or abuse. Denies injuries from another. Nutritional wh screening: No deficits noted. Tuberculosis screening: No symptoms or risk factors identified. Fall Risk None identified. Assessment: 23:40 General: Appears in no apparent distress. Behavior is calm, cooperative, appropriate wh for age. Pain: Complains of pain in lower back Pain does not radiate. Pain currently is 8 out of 10 on a pain scale. Pain began suddenly. Neuro: Level of Consciousness is awake, alert, obeys commands, Oriented to person, place, time, situation, Appropriate for age. Cardiovascular: Heart tones S1 S2 Rhythm is regular. Cardiovascular: Reports palpitations. Respiratory: Airway is patent Respiratory effort is even, unlabored, Respiratory pattern is regular, symmetrical. GI: Abdomen is flat, non-distended, Morphine pump in RLQ. : No signs and/or symptoms were reported regarding the genitourinary system. EENT: No signs and/or symptoms were reported regarding the EENT system. Derm: Skin is intact, is healthy with good turgor, Skin is pink, warm \T\ dry. normal. Musculoskeletal: Circulation, motion, and sensation intact. 05/18 00:16 Reassessment: Patient appears in no apparent distress at this time. No changes from previously documented assessment. Patient and/or family updated on plan of care and expected duration. Pain level reassessed. Patient is alert, oriented x 3, equal unlabored respirations, skin warm/dry/pink. 01:05 Reassessment: Patient appears in no apparent distress at this time. No changes from previously documented assessment. Patient is alert, oriented x 3, equal unlabored respirations, skin warm/dry/pink. Patient denies pain at this time. Patient states feeling better. Patient states symptoms have improved. 02:00 Reassessment: Patient appears in no apparent distress at this time. No changes from previously documented assessment. Patient and/or family updated on plan of care and expected duration. Pain level reassessed. Patient is alert, oriented x 3, equal unlabored respirations, skin warm/dry/pink. Patient denies pain at this time. Patient states feeling better. Patient states symptoms have improved. Vital Signs: 05/17 23:35 BP 201 / 115; Pulse 67; Resp 17; Temp 98.2(O); Pulse Ox 100% ; Weight 77.11 kg; Height tl1 5 ft. 11 in. (180.34 cm); Pain 7/10; 11 00:23 BP 157 / 95; Pulse 73; Resp 20; Pulse Ox 97% on R/A; wh 02:01 BP 167 / 99; Pulse 59; Resp 18; Pulse Ox 99% on R/A; wh 05/17 23:35 Body Mass Index 23.71 (77.11 kg, 180.34 cm) tl1 ED Course: 05/17 23:19 Patient arrived in ED. cl3 23:27 Rocky Stacy is Primary Nurse. wh 23:30 Yann Emanuel NP is PHCP. pm1 23:30 Velasquez Greene MD is Attending Physician. pm1 23:32 Triage completed. tl1 23:35 Arm band placed on right wrist. EKG completed in triage. Results shown to MD. tl1 23:45 Patient has correct armband on for positive identification. Placed in gown. Bed in low wh position. Call light in reach. Side rails up X 1. incident response coordinator on. Pulse ox on. NIBP on. 23:45 Inserted saline lock: 20 gauge in right antecubital area, using aseptic technique. Blood collected. 23:45 Patient maintains SpO2 saturation greater than 95% on room air. 05/18 00:43 XRAY Chest (1 view) In Process Unspecified. EDMS 02:02 No provider procedures requiring assistance completed. IV discontinued, intact, bleeding controlled, No redness/swelling at site. Administered Medications: 01:03 Drug: hydrALAZINE 20 mg Route: IV; Rate: bolus; Site: right antecubital; 02:03 Follow up: Response: No adverse reaction; Blood pressure is lowered; IV Status: Completed infusion 01:12 Drug: TORadol 30 mg Route: IVP; Site: right antecubital; 02:03 Follow up: Response: No adverse reaction; Pain is decreased Outcome: 01:37 Discharge ordered by . tw4 02:02 Discharged to home ambulatory. 02:02 Condition: stable 02:02 Discharge instructions given to patient, Instructed on discharge instructions, follow up and referral plans. POC Chronic back pain and HTN Demonstrated understanding of instructions, follow-up care, POC 02:04 Patient left the ED. Signatures: Dispatcher [employer] EDMS Katerina Del Rosario RN RN tl1 Yann Emanuel, HUMAN RELATIONS TEACHER HUMAN RELATIONS TEACHER pm1 Rocky Stacy Velasquez Greene MD MD tw4 Jolanta Resendiz cl3 Corrections: (The following items were deleted from the chart) 02:01 02:00 Reassessment: Patient appears in no apparent distress at this time. No changes wh from previously documented assessment. Patient and/or family updated on plan of care and expected duration. Pain level reassessed. Patient is alert, oriented x 3, equal unlabored respirations, skin warm/dry/pink. Patient states feeling better. wh
[2019-05-18 02:12] VITALS: TEMP 98.2
[2019-05-18 02:15] VITALS: BP 167/99; O2SAT 99
--- NOTE | 2019-05-18 08:30 | RAD REPORT ---
EXAM DESCRIPTION: RAD - Chest Single View - 05/18/2019 12:41 am CLINICAL HISTORY: Hypertension, shortness of breath COMPARISON: January 2018 TECHNIQUE: AP portable chest image was obtained 2345 hours . FINDINGS: No focal lung parenchymal process. Patient has chronic interstitial opacities similar to t he comparison study. No acute failure or volume overload suspected. Pulmonary arteries and gina show no acute finding. Heart and vasculature are normal. No measurable pleural effusion and no pneumothora x. No acute bony abnormality seen. No acute aortic findings suspected. IMPRESSION: No acute cardiopulmonary process. No suspicious change from comparison.
--- NOTE | 2019-05-18 08:46 | EKG ---
Test Date: 2019-05-17 Test Time: 23:28:52 Calender Operator: TL MEASUREMENT RESULTS: Intervals: Rate: 77 [place]: 198 QRSD: 94 QT: 382 QTc: 432 [place]: P: 77 [place]: 198 QRS: -75 T: 61 INTERPRETIVE STATEMENTS: Normal sinus rhythm Right atrial enlargement Incomplete right bundle branch block Left anterior fascicular block Abnormal ECG Compared to ECG 11/10/2018 11:26:59 Incomplete right bundle-branch block now present Left anterior fascicular block now present Sinus bradycardia no longer present Left-axis deviation no longer present Electronically Signed On 05-18-19 08:45:20 HAIR STYLIST by Kevin Benjamin
== END 2019-05-18 02:04 | disposition home or self-care (01) ==
LOC: ER 23:17
DX: I16.0 Hypertensive urgency (principal); I10 Essential (primary) hypertension; Z72.0 Tobacco use
CPT/HCPCS: 96365; 93005; 85025; 80048; 36415; 83735; 85610; 80076; 84484; 83880; 71045; 96375; 99285; J0360

== ENCOUNTER 2020-06-20 | Emergency (ER) | payer MEDICARE ==
--- OUTSIDE RECORDS SUMMARY | 2020-06-20 13:57 | XMS REPORT ---
:1950 Author Organization [facility] Address [address] [place] [address] Care Team Providers Name Role Phone Teresa Unavailable [phone] PROBLEMS Type Condition ICD9-CM [id number] Onset Condition SNOMED Notes Code Code Dates Status Code Problem Tobacco abuse Z71.6 Active 490120812 counseling Problem Loss of appetite R63.0 Active 73276158 Problem Nausea R11.0 Active 188711504 Problem Elevated blood R03.0 Active 740533973 pressure reading without diagnosis of hypertension Problem Withdrawal from F11.23 Active 44013800 opioids Problem Hypercholesterolemia E78.00 Active 50381747 Problem Elevated brain R79.89 Active 155265232 natriuretic peptide (BNP) level Problem Depression, F32.9 Active 46045452 unspecified depression type Problem Depression with F41.8 Active 498679361 anxiety Problem Acute nonintractable R51 Active 44099197 headache, unspecified headache type Problem Chronic back pain M54.9 Active 392181446 Problem Memory loss R41.3 Active 86338880 Increasing forgetfulne ss. Problem Chronic pain syndrome G89.4 Active 176263681 Problem Weight loss R63.4 Active 96779016 Problem Palpitations R00.2 Active 62555271 Problem Opioid withdrawal F11.23 Active 57723545 Problem Abnormal findings on R93.8 Active 524052546 diagnostic imaging of other specified body structures Problem Hypertension, I10 Active 74092275 unspecified type Problem Hyperlipidemia, E78.5 Active 71446351 unspecified hyperlipidemia type Problem Chronic pain G89.29 Active 31660571 Problem Neck pain M54.2 Active 94794419 Problem Constipation, K59.00 Active 92881475 unspecified constipation type Problem Abnormal R94.31 Active 191624007 electrocardiogram Problem Non-intractable R11.2 Active 34339276 vomiting with nausea, unspecified vomiting type Problem Abnormal liver K76.89 Active 87677848 Elevated function ALT and AST. Problem Muscle cramps R25.2 Active 36299970 Problem Erectile dysfunction F52.21 Active 797771653 Problem Dementia without F03.90 Active 75108186 behavioral disturbance, unspecified dementia type Problem Mass of parotid gland K11.9 Active 407824263 Involving left parotid gland. Problem Abnormal MRI, cervical R93.7 Active 068032634 spine Problem Insomnia, unspecified G47.00 Active 248431177 type Problem Abnormal EKG R94.31 Active 813544549 Problem Other chronic pain G89.29 Active 76534866 Problem Scoliosis of thoracic M41.9 Active 667461970 spine, unspecified scoliosis type Problem Uncontrolled I10 Active 75196188 hypertension Problem Numbness in both legs R20.0 Active 395348692 Problem Low back pain M54.5 Active 500596581 Problem Vitamin D deficiency E55.9 Active 25004762 Problem Lumbar radiculopathy M54.16 Active 852802618 Problem Mass of head R22.0 Active 894642748 Located behind the left ear. Problem Abnormal ultrasound R93.89 Active 587732027 Problem Osteopenia, M85.80 Active 932250995 unspecified location Problem Depression screening Z13.31 Active 834364645 Problem Difficulty sleeping G47.9 Active 333537240 ALLERGIES Allergen (clinical Drug/Non Drug Reaction Allergy Type Onset Date S tatus drug ingredient) Allergy documented on EMR acetaminophen acetaminophen abdominal pain, Drug Allergy A ctive nausesa, and gagging ENCOUNTERS from 1950 to 2020-05-05 Encounter Location Date Provider Diagnosis [facility] [address] [place] [facility] [address] Apr, [address] [place] [address] IMMUNIZATIONS Vaccine Route Administration Date Status Phenergan (Promethazine) IM Intramuscular May 07, 2018 Admini stered Prevnar 13 -Pneumonia Vaccine IM Intramuscular May 01, 2018 A dministered FLUZONE HIGH DOSE OVER 65 IM Intramuscular Apr 17, 2020 Admin istered FLUZONE HIGH DOSE OVER 65 IM Intramuscular Jun 14, 2019 Admin istered FLUZONE HIGH DOSE OVER 65 IM Intramuscular May 01, 2018 Admin istered Toradol (Ketorolac) IM Intramuscular May 07, 2018 Administere d Toradol (Ketorolac) IM Intramuscular Feb 25, 2018 Administere d Solumedrol 125mg/2ml IM Intramuscular Feb 25, 2018 Administer ed SOCIAL HISTORY Tobacco Use: Social History Observation Description Date Details (start date - stop date) Current Smoker Sex Assigned At : Social History Observation Description Sex Assigned At Unknown PHQ9 Question Answer Notes Little interest or pleasure in doing things Nearly every day Feeling down, depressed, or hopeless Nearly every day Trouble falling or staying asleep or sleeping too much Not a t all Feeling tired or having little energy More than half the day s Poor appetite or overeating Not at all Feeling bad about yourself, or that you are a failure, More than half the days or have let yourself or your family down Trouble concentrating on things, such as reading the Several days newspaper or watching television Moving or speaking so slowly that other people could Not at all have noticed; or the opposite, being so fidgety or restless that you have been moving around a lot more than usual Total Score 11 Interpretation Moderate Depression Thoughts that you would be better off or of Not at all hurting yourself in some way Alcohol Screen Question Answer Notes Did you have a drink containing alcohol in the past year? Ye s Points 0 Interpretation Negative Tobacco Use/Smoking Question Answer Notes Are you a current smoker REASON FOR REFERRAL No Information VITAL SIGNS No information MEDICATIONS Medication SIG (Take, Route, Frequency, Start Date End Date Status Duration) Losartan Potassium 25 MG 1 tablet Orally Once a day Active for 90 days Valium 10 MG 1 tablet as needed for Jan, Activ e anxiety/sleep Orally 1 tablet at bedtime for 90 days Fentanyl per pain pump Active Doxazosin Mesylate 1 MG 1 tablet in evening for high Active blood pressure Orally Once daily as needed for BP > or = 150/90 for 90 days Memantine HCl 10 MG (Namenda) 1 tablet Orally Active Twice a day Donepezil HCl 10 MG 1 tablet at bedtime Orally Active Twice a day Trazodone HCl 50 MG 1-2 tablets at bedtime as Active needed for sleep Orally Once a day for 30 day(s) BuPROPion HCl ER (XL) 150 MG 1 tablet Orally Twice daily Active for 90 days Gabapentin 300 MG 1 capsule Orally Twice a day Active as needed for pain for 30 days Zetia 10 MG 1 tablet Orally Once a day A ctive for 90 PROCEDURES No Information RESULTS No Results REASON FOR VISIT Med refill MEDICAL (GENERAL) HISTORY Type Description Date Medical History Neck pain Medical History Chronic back pain Medical History Chronic pain syndrome Medical History Depression with anxiety Medical History Tobacco abuse counseling Medical History Erectile dysfunction Medical History Memory loss Medical History Hyperlipidemia Medical History Abnormal liver function Medical History Abnormal electrocardiogram Medical History Abnormal findings on diagnostic imaging of other specified body structures Medical History Osteopenia Surgical History Spinal Fusion L4/5 1969 Surgical History Pain pump placement Surgical History Sx. on left parotid per ENT Dr. Espinoza Late 11/2018 Goals Section No Information Health Concerns No Information MEDICAL EQUIPMENT No Information MENTAL STATUS No Information FUNCTIONAL STATUS No Information ASSESSMENTS No Information PLAN OF TREATMENT Medication Medication Name Sig Start Date Stop Date Gabapentin 300 MG 1 capsule Orally Twice a day as needed for pain for 30 days Next Appt Details Provider Name:Jefferson Teresa, 2020-05-10 11:00 :00 AM, [address] [place] [address], [facility] [address], [place], [address], Insurance Providers Payer Name Payer Payer Insured Patient Coverage Coverage End Address Phone Name Relationship to Start Date Han e Insured [facility] Medicare [address] [address] [phone] Oscar,Clovis self Complete [address] [address]
--- OUTSIDE RECORDS SUMMARY | 2020-06-20 13:57 | XMS REPORT ---
:1950 Author Organization [facility] Address [address] [facility] [address] [place] [address] Care Team Providers Name Role Phone Teresa Unavailable [phone] PROBLEMS Type Condition ICD9-CM [id number] Onset Condition SNOMED Notes Code Code Dates Status Code Problem Tobacco abuse Z71.6 Active 175975227 counseling Problem Loss of appetite R63.0 Active 88199899 Problem Nausea R11.0 Active 665932536 Problem Elevated blood R03.0 Active 803689789 pressure reading without diagnosis of hypertension Problem Withdrawal from F11.23 Active 95087903 opioids Problem Hypercholesterolemia E78.00 Active 08347053 Problem Elevated brain R79.89 Active 925693829 natriuretic peptide (BNP) level Problem Depression, F32.9 Active 61441287 unspecified depression type Problem Depression with F41.8 Active 967123679 anxiety Problem Acute nonintractable R51 Active 04718560 headache, unspecified headache type Problem Chronic back pain M54.9 Active 221965164 Problem Memory loss R41.3 Active 97859720 Increasing forgetfulne ss. Problem Chronic pain syndrome G89.4 Active 844006225 Problem Weight loss R63.4 Active 77516113 Problem Palpitations R00.2 Active 39022467 Problem Opioid withdrawal F11.23 Active 49647178 Problem Abnormal findings on R93.8 Active 184600235 diagnostic imaging of other specified body structures Problem Hypertension, I10 Active 02990588 unspecified type Problem Hyperlipidemia, E78.5 Active 52094010 unspecified hyperlipidemia type Problem Chronic pain G89.29 Active 59994145 Problem Neck pain M54.2 Active 71546818 Problem Constipation, K59.00 Active 32686124 unspecified constipation type Problem Abnormal R94.31 Active 915717240 electrocardiogram Problem Non-intractable R11.2 Active 06730928 vomiting with nausea, unspecified vomiting type Problem Abnormal liver K76.89 Active 36943151 Elevated function ALT and AST. Problem Muscle cramps R25.2 Active 42600133 Problem Erectile dysfunction F52.21 Active 645259800 Problem Dementia without F03.90 Active 12641000 behavioral disturbance, unspecified dementia type Problem Mass of parotid gland K11.9 Active 542054416 Involving left parotid gland. Problem Abnormal MRI, cervical R93.7 Active 421473467 spine Problem Insomnia, unspecified G47.00 Active 657614510 type Problem Abnormal EKG R94.31 Active 089963764 Problem Other chronic pain G89.29 Active 78697477 Problem Scoliosis of thoracic M41.9 Active 221868377 spine, unspecified scoliosis type Problem Uncontrolled I10 Active 05750396 hypertension Problem Numbness in both legs R20.0 Active 825126987 Problem Low back pain M54.5 Active 377942187 Problem Vitamin D deficiency E55.9 Active 53928757 Problem Lumbar radiculopathy M54.16 Active 169523974 Problem Mass of head R22.0 Active 707664910 Located behind the left ear. Problem Abnormal ultrasound R93.89 Active 925291116 Problem Osteopenia, M85.80 Active 455648440 unspecified location Problem Depression screening Z13.31 Active 484241676 Problem Difficulty sleeping G47.9 Active 023114293 ALLERGIES Allergen (clinical Drug/Non Drug Reaction Allergy Type Onset Date S tatus drug ingredient) Allergy documented on EMR acetaminophen acetaminophen abdominal pain, Drug Allergy A ctive nausesa, and gagging ENCOUNTERS from 1950 to 2020-05-26 Encounter Location Date Provider Diagnosis [facility] [address], [place] [address] IMMUNIZATIONS Vaccine Route Administration Date Status Phenergan (Promethazine) IM Intramuscular May 07, 2018 Admini stered Pneumovax (PPSV23) IM Intramuscular May 10, 2020 Administered Prevnar 13 -Pneumonia Vaccine IM Intramuscular May [...] No information MEDICATIONS Medication SIG (Take, Route, Notes Start Date End Date Status Frequency, Duration) BuPROPion HCl ER (XL) 1 tablet Orally Active 150 MG Twice daily for 90 days Tamsulosin HCl 0.4 MG 1 capsule Orally May,Apr Active Once a day for 90 days Doxazosin Mesylate 1 MG 1 tablet in evening Active for high blood pressure Orally Once daily as needed for BP > or = 150/90 for 90 days Donepezil HCl 10 MG 1 tablet at bedtime Active Orally Twice a day Memantine HCl 10 MG (Namenda) 1 tablet Active Orally Twice a day Trazodone HCl 50 MG 1-2 tablets at N ot-Taking bedtime as needed for sleep Orally Once a day for 30 day(s) Losartan Potassium 25 MG 1 tablet Orally Active Once a day for 90 days Fentanyl per pain pump Active Zetia 10 MG 1 tablet Orally Active Once a day for 90 Valium 10 MG 1 tablet as needed Jan, Ac tive for anxiety/sleep Orally 1 tablet at bedtime for 90 days Cyclobenzaprine HCl 10 1 tablet as needed Jul, Active MG for muscle cramps/pain Orally Twice a day for 90 days Gabapentin 300 MG 1 capsule Orally A ctive Twice a day as needed for pain for 30 days PROCEDURES No Information RESULTS No Results REASON FOR VISIT diazepam MEDICAL (GENERAL) HISTORY Type Description Date Medical [...] History Osteopenia Surgical History Spinal Fusion L4/5 1968 Surgical History Pain pump placement Surgical History Sx. on left parotid per ENT Dr. Espinoza Late 11/2018 Goals Section No Information Health Concerns No Information MEDICAL EQUIPMENT No Information MENTAL STATUS No Information FUNCTIONAL STATUS No Information ASSESSMENTS No Information PLAN OF TREATMENT Medication Medication Name Sig Start Date Stop Date BuPROPion HCl ER (XL) 150 MG 1 tablet Orally Twice daily for 90 days Valium 10 MG 1 tablet as needed for Jan, anxiety/sleep Orally 1 tablet at bedtime for 90 days Gabapentin 300 MG 1 capsule Orally Twice a day as needed for pain for 30 days Cyclobenzaprine HCl 10 MG 1 tablet as needed for muscle Jul, cramps/pain Orally Twice a day for 90 days Tamsulosin HCl 0.4 MG 1 capsule Orally Once a day May, Apr, for 90 days Next Appt Details Provider Name:Kristie Ochoa, 2020-07-08 8 08:20:00 AM, [address], [address], [place], [address], Provider Name:Jefferson Teresa, 2020-08-10 10:20 :00 AM, [address], [address], [place], [address], Insurance Providers Payer Name Payer Payer Insured Patient Coverage Coverage End Address Phone Name Relationship to Start Date Han e Insured [facility] Medicare [address] [address] [phone] Clovis Moore self Complete [address] [address]
--- OUTSIDE RECORDS SUMMARY | 2020-06-20 13:57 | XMS REPORT | Continuity of Care Document ---
:1950 Author Organization [facility] t Address [address] [place] [address] Care Team Providers Name Role Phone Unavailable Unavailable Unavailable Problems This patient has no known problems. Allergies, Adverse Reactions, Alerts Allergy Allergy Status Severity Reaction(s) Onset Inactive Treating Comm ents Source Name Type Date Date Clinician acetamin Adverse Active abdominal [facility] Reaction pain, [facility], and [facility] arlene gagging l [facility] Clinics Medications Ordered Filled Start Stop Current Ordering Indication Dosage Frequency Signature Comments Components Source Medication Medication Date Date Medication? Clinician (SIG) Name Name Doxazosin Doxazosin Yes Kristie [address] [facility] Mesylate Mesylate Millender in evening [facility] for high [facility] blood l pressure Outpati ent Clinics Immunizations Ordered Filled Immunization Date Status Comments Sourc e Immunization Name Name FLUZONE HIGH DOSE FLUZONE HIGH DOSE 2019-06-[address] [facility] - OVER 65 OVER 65 00:00:00 [facility] Procedures This patient has no known procedures. Encounters Start End Encounter Admission Attending Care Care Encounter Source Date/Time Date/Time Type Type Clinicians Facility Department ID 2020-05-25 2020-05-25 Outpatient [facility] [id number] [facility] 2020-05-10 2020-05-10 Out[facility] [id number] [facility] 2020-05-05 2020-05-05 Out[facility] [id number] [facility] 2020-04-19 2020-04-19 Outpatient [facility] [id number] [facility] 2020-04-17 2020-04-17 Outpatient [facility] [id number] [facility] 2020-04-17 2020-04-17 Outpatient [facility] [id number] [facility] 2020-03-10 2020-03-10 [facility] [id number] [facility] 16:45:00 16:45:00 [facility] l Medicine Outpati ent Clinics 2020-02-29 2020-02-29 [facility] [id number] [facility] 16:42:00 16:42:00 t [facility] [employer] [facility] Medicine Outpat[facility] ent Clinics 2020-02-18 2020-02-18 [facility] [id number] [address] 15:49:00 15:49:00 t [facility] [employer] [facility] Medicine l Medicine Outpati ent Clinics 2020-01-20 2020-01-20 [facility] [id number] 15:20:00 15:20:00 t [facility] Medicine Outpati ent Clinics 2019-10-22 2019-10-22 [facility] [id number] 16[facility]14:00 16:14:00 t [facility] l Medicine Outpati ent Clinics 2019-10-08 2019-10-08 [facility] [id number] [address] 11:15:00 11:15:00 t [facility] l Medicine Outpati ent Clinics 2019-10-07 2019-10-07 [facility] [id number] 16:06:00 16:06:00 t [facility] Medicine Outpati ent Clinics 2019-09-13 2019-09-13 [facility] [id number] [address] 10:00:00 10:00:00 t [facility] Medicine l Medicine Outpati ent Clinics 2019-07-18 2019-07-18 [facility] [id number] 21:07:00 21:07:00 t [facility] Medicine l Medicine Outpati ent Clinics 2019-07-16 2019-07-16 [facility] [id number] 16[facility]45:00 16:45:00 t [facility] Medicine l Medicine Outpati ent Clinics 2019-07-09 2019-07-09 [facility] [id number] 15:40:00 15:40:00 t [facility] Medicine l Medicine Outpati ent Clinics 2019-07-06 2019-07-06 [facility] [id number] [address] 10:25:00 10:25:00 t [facility] Medicine l Medicine Outpati ent Clinics 2019-06-14 2019-06-14 [facility] [id number] 10:00:00 10:00:00 t [facility] Medicine l Medicine Outpati ent Clinics 2019-05-06 2019-05-06 [facility] [id number] 11:28:00 11:28:00 t [facility] Medicine l Medicine Outpati ent Clinics 2019-03-15 2019-03-15 [facility] [id number] 14:16:00 14:16:00 t [facility] Medicine l Medicine Outpati ent Clinics 2019-03-15 2019-03-15 [facility] [id number] 08[facility]20:00 08:20:00 t [facility] Medicine l Medicine Outpati ent Clinics 2019-02-09 2019-02-09 [facility] [id number] 08:40:00 08:40:00 t [facility] Medicine l Medicine Outpati ent Clinics 2018-12-14 2018-12-14 [facility] [id number] 15:07:00 15:07:00 t [facility] Medicine Outpati ent Clinics 2018-09-11 2018-09-11 [facility] [id number] [facility] 15[facility]30:00 15:30:00 t [facility] Medicine Outpati ent Clinics 2018-07-27 2018-07-27 [facility] [id number] [facility] 22:05:00 22:05:00 t [facility] Medicine Outpati ent Clinics 2018-07-13 2018-07-13 [facility] [id number] [facility] 20:12:00 20:12:00 t [facility] Medicine Outpati ent Clinics 2018-06-26 2018-06-26 [facility] [id number] [facility] 09:30:00 09:30:00 t [facility] Medicine Outpati ent Clinics 2018-06-12 2018-06-12 [facility] [id number] 13:24:00 13:24:00 t [facility] Medicine Outpati ent Clinics 2018-04-03 2018-04-03 [facility] [id number] [facility] 09:04:00 09:04:00 t [facility] Medicine Outpati ent Clinics 2018-04-03 2018-04-03 [facility] [id number] [facility] 09:03:00 09:03:00 t [facility] Medicine Outpati ent Clinics 2018-03-28 2018-03-28 [facility] [id number] [facility] 02:17:00 02:17:00 t [facility] Medicine Outpati ent Clinics 2018-03-27 2018-03-27 [facility] [id number] 15:45:00 15:45:00 t [facility] l Medicine Outpati ent Clinics 2018-03-18 2018-03-18 [facility] [id number] [facility] 13:31:00 13:31:00 t [facility] Medicine Outpati ent Clinics 2018-02-25 2018-02-25 [facility] [id number] 15:07:00 15:07:00 [facility] Medicine Outpati ent Clinics 2018-02-25 2018-02-25 [facility] [id number] [facility] 09:00:00 09:00:00 [facility] Medicine Outpati ent Clinics 2018-01-30 2018-01-30 [facility] [id number] [facility] 13:40:00 13:40:00 [facility] Medicine Outpati ent Clinics 2018-01-29 2018-01-29 [facility] [id number] [facility] 10:00:00 10:00:00 [facility] Medicine Outpati ent Clinics 2018-01-05 2018-01-05 [facility] [id number] 15:08:00 15:08:00 [facility] Medicine Outpati ent Clinics 2017-12-30 2017-12-30 [facility] [id number] 10:15:00 10:15:00 [facility] Medicine Outpati ent Clinics Results This patient has no known results.
--- OUTSIDE RECORDS SUMMARY | 2020-06-20 13:57 | XMS REPORT ---
:1950 Author Organization [facility] Address [address] [facility] [place] [address] Care Team Providers Name Role Phone Millender Unavailable [phone] PROBLEMS Type Condition ICD9-CM [id number] Onset Condition SNOMED Notes Code Code Dates Status Code Problem Tobacco abuse Z71.6 Active 796811306 counseling Problem Loss of appetite R63.0 Active 90045440 Problem Nausea R11.0 Active 871064489 Problem Elevated blood R03.0 Active 910693981 pressure reading without diagnosis of hypertension Problem Withdrawal from F11.23 Active 15775438 opioids Problem Hypercholesterolemia E78.00 Active 22370977 Problem Elevated brain R79.89 Active 314136018 natriuretic peptide (BNP) level Problem Depression, F32.9 Active 89489224 unspecified depression type Problem Depression with F41.8 Active 018927020 anxiety Problem Acute nonintractable R51 Active 32771402 headache, unspecified headache type Problem Chronic back pain M54.9 Active 919263519 Problem Memory loss R41.3 Active 63730647 Increasing forgetfulne ss. Problem Chronic pain syndrome G89.4 Active 283116142 Problem Weight loss R63.4 Active 73049200 Problem Palpitations R00.2 Active 62277166 Problem Opioid withdrawal F11.23 Active 41547730 Problem Abnormal findings on R93.8 Active 850492132 diagnostic imaging of other specified body structures Problem Hypertension, I10 Active 90302411 unspecified type Problem Hyperlipidemia, E78.5 Active 41873154 unspecified hyperlipidemia type Problem Chronic pain G89.29 Active 60090521 Problem Neck pain M54.2 Active 74276551 Problem Constipation, K59.00 Active 20096081 unspecified constipation type Problem Abnormal R94.31 Active 381428443 electrocardiogram Problem Non-intractable R11.2 Active 72400585 vomiting with nausea, unspecified vomiting type Problem Abnormal liver K76.89 Active 89867440 Elevated function ALT and AST. Problem Muscle cramps R25.2 Active 58163909 Problem Erectile dysfunction F52.21 Active 349291060 Problem Dementia without F03.90 Active 45421829 behavioral disturbance, unspecified dementia type Problem Mass of parotid gland K11.9 Active 718955721 Involving left parotid gland. Problem Abnormal MRI, cervical R93.7 Active 449978873 spine Problem Insomnia, unspecified G47.00 Active 956201606 type Problem Abnormal EKG R94.31 Active 929808486 Problem Other chronic pain G89.29 Active 99386693 Problem Scoliosis of thoracic M41.9 Active 557235306 spine, unspecified scoliosis type Problem Uncontrolled I10 Active 68136691 hypertension Problem Numbness in both legs R20.0 Active 487855256 Problem Low back pain M54.5 Active 312642101 Problem Vitamin D deficiency E55.9 Active 85902865 Problem Lumbar radiculopathy M54.16 Active 277412798 Problem Mass of head R22.0 Active 015660235 Located behind the left ear. Problem Abnormal ultrasound R93.89 Active 932161303 Problem Osteopenia, M85.80 Active 124781566 unspecified location Problem Depression screening Z13.31 Active 486580957 Problem Difficulty sleeping G47.9 Active 301983130 ALLERGIES Allergen (clinical Drug/Non Drug Reaction Allergy Type Onset Date S tatus drug ingredient) Allergy documented on EMR acetaminophen acetaminophen abdominal pain, Drug Allergy A ctive nausesa, and gagging ENCOUNTERS from 1950 to 2020-05-01 Encounter Location Date Provider Diagnosis [facility] [address] [place] [address] 14 Apr, 2020 Kristie [facility] [address] IMMUNIZATIONS Vaccine Route Administration Date Status Phenergan [...] Active as needed for pain for 30 Zetia 10 MG 1 tablet Orally Once a day A ctive for 90 PROCEDURES No Information RESULTS No Results REASON FOR VISIT Pneumonia Vaccine- Needs P-23 MEDICAL (GENERAL) HISTORY Type Description Date Medical [...] Information ASSESSMENTS No Information PLAN OF TREATMENT Next Appt Details Provider Name:Jefferson Teresa, 2020-05-10 11:00 :00 AM, [address] [place] [address], [facility] [address], [place], [address], Insurance Providers Payer Name Payer Payer Insured Patient Coverage Coverage End Address Phone Name Relationship to Start Date Han e Insured [employer] Medicare [address] [address] [phone] Clovis Moore self Complete [address] [address]
--- OUTSIDE RECORDS SUMMARY | 2020-06-20 13:57 | XMS REPORT ---
:1950 Author Organization [facility] Address [address] [place] [address] Care Team Providers Name Role Phone Millender Unavailable [phone] PROBLEMS Type Condition ICD9-CM [id number] Onset Condition SNOMED Notes Code Code Dates Status Code Problem Tobacco abuse Z71.6 Active 994646295 counseling Problem Loss of appetite R63.0 Active 95181088 Problem Nausea R11.0 Active 990091402 Problem Elevated blood R03.0 Active 554370151 pressure reading without diagnosis of hypertension Problem Withdrawal from F11.23 Active 57031221 opioids Problem Hypercholesterolemia E78.00 Active 36588195 Problem Elevated brain R79.89 Active 645504434 natriuretic peptide (BNP) level Problem Depression, F32.9 Active 41178585 unspecified depression type Problem Depression with F41.8 Active 614398980 anxiety Problem Acute nonintractable R51 Active 30744763 headache, unspecified headache type Problem Chronic back pain M54.9 Active 412172011 Problem Memory loss R41.3 Active 02165000 Increasing forgetfulne ss. Problem Chronic pain syndrome G89.4 Active 062748288 Problem Weight loss R63.4 Active 34842494 Problem Palpitations R00.2 Active 97289467 Problem Opioid withdrawal F11.23 Active 94073507 Problem Abnormal findings on R93.8 Active 826921750 diagnostic imaging of other specified body structures Problem Hypertension, I10 Active 40203672 unspecified type Problem Hyperlipidemia, E78.5 Active 25752061 unspecified hyperlipidemia type Problem Chronic pain G89.29 Active 09948984 Problem Neck pain M54.2 Active 58282306 Problem Constipation, K59.00 Active 25728856 unspecified constipation type Problem Abnormal R94.31 Active 776221278 electrocardiogram Problem Non-intractable R11.2 Active 72730678 vomiting with nausea, unspecified vomiting type Problem Abnormal liver K76.89 Active 39484115 Elevated function ALT and AST. Problem Muscle cramps R25.2 Active 15861917 Problem Erectile dysfunction F52.21 Active 599911452 Problem Dementia without F03.90 Active 42045213 behavioral disturbance, unspecified dementia type Problem Mass of parotid gland K11.9 Active 835283660 Involving left parotid gland. Problem Abnormal MRI, cervical R93.7 Active 482922346 spine Problem Insomnia, unspecified G47.00 Active 338579426 type Problem Abnormal EKG R94.31 Active 535812746 Problem Other chronic pain G89.29 Active 00173655 Problem Scoliosis of thoracic M41.9 Active 281555542 spine, unspecified scoliosis type Problem Uncontrolled I10 Active 07810481 hypertension Problem Numbness in both legs R20.0 Active 918477737 Problem Low back pain M54.5 Active 528482935 Problem Vitamin D deficiency E55.9 Active 48464690 Problem Lumbar radiculopathy M54.16 Active 648731687 Problem Mass of head R22.0 Active 569341265 Located behind the left ear. Problem Abnormal ultrasound R93.89 Active 814502192 Problem Osteopenia, M85.80 Active 883164097 unspecified location Problem Depression screening Z13.31 Active 661689974 Problem Difficulty sleeping G47.9 Active 066534412 ALLERGIES Allergen (clinical Drug/Non Drug Reaction Allergy Type Onset Date S tatus drug ingredient) Allergy documented on EMR acetaminophen acetaminophen abdominal pain, Drug Allergy A ctive nausesa, and gagging ENCOUNTERS from 1950 to 2020-04-21 Encounter Location Date Provider Diagnosis [facility] [address] [facility] [address], [place] [address] IMMUNIZATIONS Vaccine Route Administration Date Status Phenergan [...] Active as needed for pain for 30 tia 10 MG 1 tablet Orally Once a day A ctive for 90 PROCEDURES No Information RESULTS No Results REASON FOR VISIT Medicare Wellness Exam, [facility] Medicare Complete MEDICAL (GENERAL) HISTORY Type Description Date Medical [...] PLAN OF TREATMENT Next Appt Details Provider Name:Kristie Ochoa, 2020-04-07 1 10:00:00 AM, [address] [place] [address] [employer], [address], [place], [address], Provider Name:Kristie Ochoa, 2020-07-08 8 08:20:00 AM, [address], [address], [place], [address], Provider Name:Kristie Ochoa, 4 08:40:00 AM, [address], [address], [place], [address], Insurance Providers Payer Name Payer Payer Insured Patient Coverage Coverage End Address Phone Name Relationship to Start Date Han e Insured [employer] Medicare [address] [address] [phone] Clovis Moore self Complete [address] [address]
--- OUTSIDE RECORDS SUMMARY | 2020-06-20 13:57 | XMS REPORT ---
:1950 Author Organization [facility] Address [address] [facility] [place] [address] Care Team Providers Name Role Phone Millender Unavailable [phone] PROBLEMS Type Condition ICD9-CM [id number] Onset Condition SNOMED Notes Code Code Dates Status Code Problem Tobacco abuse Z71.6 Active 870764098 counseling Problem Loss of appetite R63.0 Active 72100262 Problem Nausea R11.0 Active 994139227 Problem Elevated blood R03.0 Active 696547180 pressure reading without diagnosis of hypertension Problem Withdrawal from F11.23 Active 41242095 opioids Problem Hypercholesterolemia E78.00 Active 16669450 Problem Elevated brain R79.89 Active 395381398 natriuretic peptide (BNP) level Problem Depression, F32.9 Active 99050753 unspecified depression type Problem Depression with F41.8 Active 063567626 anxiety Problem Acute nonintractable R51 Active 51959288 headache, unspecified headache type Problem Chronic back pain M54.9 Active 079937121 Problem Memory loss R41.3 Active 10988177 Increasing forgetfulne ss. Problem Chronic pain syndrome G89.4 Active 839600232 Problem Weight loss R63.4 Active 14177179 Problem Palpitations R00.2 Active 26886616 Problem Opioid withdrawal F11.23 Active 88579926 Problem Abnormal findings on R93.8 Active 463384476 diagnostic imaging of other specified body structures Problem Hypertension, I10 Active 21435248 unspecified type Problem Hyperlipidemia, E78.5 Active 67955077 unspecified hyperlipidemia type Problem Chronic pain G89.29 Active 19629023 Problem Neck pain M54.2 Active 11992402 Problem Constipation, K59.00 Active 86253665 unspecified constipation type Problem Abnormal R94.31 Active 609559003 electrocardiogram Problem Non-intractable R11.2 Active 36657246 vomiting with nausea, unspecified vomiting type Problem Abnormal liver K76.89 Active 91964343 Elevated function ALT and AST. Problem Muscle cramps R25.2 Active 03475967 Problem Erectile dysfunction F52.21 Active 921370655 Problem Dementia without F03.90 Active 49622491 behavioral disturbance, unspecified dementia type Problem Mass of parotid gland K11.9 Active 297441067 Involving left parotid gland. Problem Abnormal MRI, cervical R93.7 Active 690247982 spine Problem Insomnia, unspecified G47.00 Active 201029678 type Problem Abnormal EKG R94.31 Active 737918161 Problem Other chronic pain G89.29 Active 51473981 Problem Scoliosis of thoracic M41.9 Active 508635176 spine, unspecified scoliosis type Problem Uncontrolled I10 Active 90209232 hypertension Problem Numbness in both legs R20.0 Active 597475513 Problem Low back pain M54.5 Active 154028651 Problem Vitamin D deficiency E55.9 Active 35418392 Problem Lumbar radiculopathy M54.16 Active 026069995 Problem Mass of head R22.0 Active 231702342 Located behind the left ear. Problem Abnormal ultrasound R93.89 Active 478658573 Problem Osteopenia, M85.80 Active 781764530 unspecified location Problem Depression screening Z13.31 Active 277134629 Problem Difficulty sleeping G47.9 Active 271789826 ALLERGIES Allergen (clinical Drug/Non Drug Reaction Allergy Type Onset Date S tatus drug ingredient) Allergy documented on EMR acetaminophen acetaminophen abdominal pain, Drug Allergy A ctive nausesa, and gagging ENCOUNTERS from 1950 to 2020-04-21 Encounter Location Date Provider Diagnosis [facility] [address] [facility] Apr, Kristie olmedo annual Family Medicine [address] [facility] [address] subsequent Z00 .00 and Flu vaccine need Z23 IMMUNIZATIONS Vaccine Route Administration Date Status Phenergan [...] REASON FOR REFERRAL No Information VITAL SIGNS Height 70.75 in Apr, Weight 144.8 lbs Apr, Temperature 98.4 degrees Fahrenheit Apr, BMI 20.34 kg/m2 Apr, Oximetry 95 % Apr, Blood pressure systolic 134 mm Hg Apr, Blood pressure diastolic 64 mm Hg Apr, MEDICATIONS Medication SIG (Take, Route, Frequency, Start [...] Information RESULTS No Results REASON FOR VISIT Wellness Exam/[employer] Medicare; (#[phone]) MEDICAL (GENERAL) HISTORY Type Description Date Medical [...] No Information FUNCTIONAL STATUS No Information ASSESSMENTS Encounter Date Diagnosis Notes Apr, Flu vaccine need (ICD-10 - Z23) Apr, Medicare annual wellness visit, subseque nt (ICD-10 - Z00.00) PLAN OF TREATMENT Treatment Notes Assessment Notes Clinical Notes Medicare annual wellness visit, MMSE done; score of 19/20. Patient subsequent is up-to-date on his dental exam; schedule eye exam at his earliest convenience Flu vaccine need Flu shot today Next Appt Details F/u for labs on 08/03/2020 + for routuine f/u on 08/10/2020; as well as f/u prn. SUBSEQUENT ANNUAL WELLNESS VISIT 1 YEAR Reason: Provider Name:Kristie Ochoa, 2020-04-07 1 10:00:00 AM, [address], [address], [place], [address], Provider Name:Kristie Ochoa, 2020-07-08 8 08:20:00 AM, [address], [address], [place], [address], Provider Name:Kristie Ochoa, 4 08:40:00 AM, [address] [place] [address], [address], [place], [address], Insurance Providers Payer Name Payer Payer Insured Patient Coverage Coverage End Address Phone Name Relationship to Start Date Ahn e Insured [employer] Medicare [address] [address] [phone] Clovis Moore self Complete [address] [address]
--- OUTSIDE RECORDS SUMMARY | 2020-06-20 13:57 | XMS REPORT ---
:1950 Author Organization [facility] Address [address] [place] [address] Care Team Providers Name Role Phone Teresa Unavailable [phone] PROBLEMS Type Condition ICD9-CM [id number] Onset Condition SNOMED Notes Code Code Dates Status Code Problem Tobacco abuse Z71.6 Active 981548761 counseling Problem Loss of appetite R63.0 Active 36140072 Problem Nausea R11.0 Active 912946577 Problem Elevated blood R03.0 Active 966975333 pressure reading without diagnosis of hypertension Problem Withdrawal from F11.23 Active 36788633 opioids Problem Hypercholesterolemia E78.00 Active 32550314 Problem Elevated brain R79.89 Active 524930242 natriuretic peptide (BNP) level Problem Depression, F32.9 Active 20884755 unspecified depression type Problem Depression with F41.8 Active 853523832 anxiety Problem Acute nonintractable R51 Active 05186178 headache, unspecified headache type Problem Chronic back pain M54.9 Active 075535595 Problem Memory loss R41.3 Active 86020475 Increasing forgetfulne ss. Problem Chronic pain syndrome G89.4 Active 023463687 Problem Weight loss R63.4 Active 29914605 Problem Palpitations R00.2 Active 88858200 Problem Opioid withdrawal F11.23 Active 58801979 Problem Abnormal findings on R93.8 Active 329724556 diagnostic imaging of other specified body structures Problem Hypertension, I10 Active 42334524 unspecified type Problem Hyperlipidemia, E78.5 Active 99395412 unspecified hyperlipidemia type Problem Chronic pain G89.29 Active 15853980 Problem Neck pain M54.2 Active 79909619 Problem Constipation, K59.00 Active 25912040 unspecified constipation type Problem Abnormal R94.31 Active 257336297 electrocardiogram Problem Non-intractable R11.2 Active 71773608 vomiting with nausea, unspecified vomiting type Problem Abnormal liver K76.89 Active 16939537 Elevated function ALT and AST. Problem Muscle cramps R25.2 Active 83085123 Problem Erectile dysfunction F52.21 Active 167591042 Problem Dementia without F03.90 Active 30291767 behavioral disturbance, unspecified dementia type Problem Mass of parotid gland K11.9 Active 319202913 Involving left parotid gland. Problem Abnormal MRI, cervical R93.7 Active 134906283 spine Problem Insomnia, unspecified G47.00 Active 852851084 type Problem Abnormal EKG R94.31 Active 049351096 Problem Other chronic pain G89.29 Active 63825890 Problem Scoliosis of thoracic M41.9 Active 230008377 spine, unspecified scoliosis type Problem Uncontrolled I10 Active 79611958 hypertension Problem Numbness in both legs R20.0 Active 121939683 Problem Low back pain M54.5 Active 947383290 Problem Vitamin D deficiency E55.9 Active 95070777 Problem Lumbar radiculopathy M54.16 Active 149281201 Problem Mass of head R22.0 Active 313651283 Located behind the left ear. Problem Abnormal ultrasound R93.89 Active 567989892 Problem Osteopenia, M85.80 Active 004431625 unspecified location Problem Depression screening Z13.31 Active 093830961 Problem Difficulty sleeping G47.9 Active 324477176 ALLERGIES Allergen (clinical Drug/Non Drug Reaction Allergy Type Onset Date S tatus drug ingredient) Allergy documented on EMR acetaminophen acetaminophen abdominal pain, Drug Allergy A ctive nausesa, and gagging ENCOUNTERS from 1950 to 2020-05-11 Encounter Location Date Provider Diagnosis [facility] [address] 04 May, 2020 Kin Malick Insomnia, unspecified [facility] [place], [place] type G47 .00 ; Chronic [address] back pain M54.9 ; Depression with anxiety F41.8 ; Muscle cramps R25.2 ; Nocturia R35.1 and Encounter for vaccination Z23 IMMUNIZATIONS Vaccine Route Administration Date Status [...] No Information VITAL SIGNS Height 70.75 in May, Weight 143.8 lbs May, Temperature 97.2 degrees Fahrenheit May, BMI 20.2 kg/m2 May, Oximetry 95 % May, Respiratory Rate 16 /min May, Blood pressure systolic 142 mm Hg May, Blood pressure diastolic 90 mm Hg May, MEDICATIONS Medication SIG (Take, Route, Start Date End Date Status Frequency, Duration) BuPROPion HCl ER (XL) 150 1 tablet Orally Twice Active MG daily for 90 days Tamsulosin HCl 0.4 MG 1 capsule Orally Once May,Apr, Active a day for 90 days Doxazosin Mesylate 1 MG 1 tablet in evening Active for high blood pressure Orally Once daily as needed for BP > or = 150/90 for 90 days Donepezil HCl 10 MG 1 tablet at bedtime A ctive Orally Twice a day Memantine HCl 10 MG (Namenda) 1 tablet Ac tive Orally Twice a day Trazodone HCl 50 MG 1-2 tablets at Not-Ta yesenia bedtime as needed for sleep Orally Once a day for 30 day(s) Losartan Potassium 25 MG 1 tablet Orally Once Active a day for 90 days Fentanyl per pain pump Active Zetia 10 MG 1 tablet Orally Once Active a day for 90 Valium 10 MG 1 tablet as needed Jan, Active for anxiety/sleep Orally 1 tablet at bedtime for 90 days Cyclobenzaprine HCl 10 MG 1 tablet as needed Jul, Active for muscle cramps/pain Orally Twice a day for 90 days Gabapentin 300 MG 1 capsule Orally Active Twice a day as needed for pain for 30 days PROCEDURES No Information RESULTS No Results REASON FOR VISIT Establish Care/Previous [facility] Pt [phone] MEDICAL (GENERAL) HISTORY Type Description Date Medical [...] No Information ASSESSMENTS Encounter Date Diagnosis Notes May, Depression with anxiety (ICD-10 - F41.8) May, Chronic back pain (ICD-10 - M54.9) May, Nocturia (ICD-10 - R35.1) May, Muscle cramps (ICD-10 - R25.2) May, Insomnia, unspecified type (ICD-10 - G47 .00) May, Encounter for vaccination (ICD-10 - Z23) PLAN OF TREATMENT Medication Medication Name Sig [...] a day May, Apr, for 90 days Treatment Notes Assessment Notes Clinical Notes Insomnia, unspecified type chonic insomnia failed multiple s leep aid in the past. valium 10 mg HS has worked.Last refill for valium in [id number] refill. Chronic back pain chronic LBP 2/2 polio with multiple spin al fusion in the past. Now with fentanyl pu mp, prn muscle relaxant. followed by pain managment. Depression with anxiety refill Muscle cramps refill Nocturia pt has been having nocturia 1-2 x a nigh t for several months with reported low edison w and hesitancy.PSAstart flomax HS Future Test Test Name Order Date PSA Total (Reflex To Free) [id number] Next Appt Details Provider Name:Kristie Ochoa, 2020-07-08 8 08:20:00 AM, [address], [address], [place], [address], Provider Name:Jefferson Teresa, 2020-08-10 10:20 :00 AM, [address], [address], [place], [address], Insurance Providers Payer Name Payer Payer Insured Patient Coverage Coverage End Address Phone Name Relationship to Start Date Han e Insured [facility] Medicare [address] [address] [phone] Clovis Moore self Complete [address] [address]
== END 2020-06-20 13:49 | disposition left against medical advice (07) ==
DX: Z02.9 Encounter for administrative examinations, unspecified (principal)

== ENCOUNTER 2021-07-24 09:40 | Day surgery (SDC) | payer OTHER ==
[2021-07-20 10:20] LABS: Absolute Lymphocytes (CBC) 1.5 K/uL (0.7-4.9); Hematocrit 34.5 % (39.6-49.0); Lymphocytes % 25.5 % (15.3-44.8); MPV 8.5 fL (7.6-11.3); RBC Red Blood Cell Count 3.82 M/uL (4.33-5.43)
--- NOTE | 2021-07-20 10:27 | RAD REPORT ---
EXAM DESCRIPTION: RAD - Chest Pa And Lat (2 Views) - 07/20/2021 10:14 am CLINICAL HISTORY: pre op pending urolift COMPARISON: Chest Single View dated 05/17/2019; Chest Single View dated 01/04/2018; Chest Pa And Lat ( 2 Views) dated 12/25/2016 FINDINGS: Lines: None. Lungs: Increasing nodularity in the right lung apex. Emphysema. Pleural: No significant pleural effusions or pneumothorax. Cardiac: The heart size is within normal limits. Bones: No acute fractures. Other: IMPRESSION: Nodularity in the right lung apex could be scarring versus neoplasm. Recommend further e valuation with chest CT.
[2021-07-20 10:32] LABS: Protime INR 1.22
[2021-07-20 11:28] LABS: BUN Blood Urea Nitrogen 23 mg/dL (7-18); Bicarbonate 33 mmol/L (21-32); Glucose Level 80 mg/dL (74-106); Potassium 4.2 mmol/L (3.5-5.1); Sodium Level 143 mmol/L (136-145)
[2021-07-24] MEDS ORDERED: Ringers Lactate 1,000 ML IV ONE (09:57)
[2021-07-24] MEDS ORDERED: CEFAZOLIN/NS 1gm 1 GM/50 ML BAG ONE (09:57)
[2021-07-24] MEDS ORDERED: CELECOXIB 100 MG CAPSULE ONE (11:01)
[2021-07-24] MEDS ORDERED: ACETAMINOPHEN 500 MG TAB ONE (11:02)
[2021-07-24] MEDS ORDERED: propofoL 200 MG/20 ML VIAL IV ONE (11:35)
[2021-07-24] MEDS ORDERED: LIDOCAINE 1% MPF 5 ML VIAL ONE (11:35)
[2021-07-24] MEDS ORDERED: MIDAZOLAM HCL 2 MG/2 ML INJ ONE (11:35)
[2021-07-24] MEDS ORDERED: dexAMETHasone 10 MG/ML VIAL ONE (11:35)
[2021-07-24] MEDS ORDERED: FENTANYL CITR 100 MCG/2 ML ONE (11:35)
[2021-07-24] MEDS ORDERED: GLYCOPYRROLATE 0.2 MG/ML SYR ONE (12:18)
[2021-07-24] MEDS ORDERED: ATROPINE SULFATE 1 MG/ML INJ ONE (12:25)
[2021-07-24] MEDS ORDERED: ROCURONIUM 50 MG/5 ML VIAL IV ONE (12:31)
[2021-07-24] MEDS ORDERED: CODEINE 30MG/APAP 300MG TAB PO PRN (13:27)
[2021-07-24] MEDS ORDERED: PHENAZOPYRIDINE 100MG TAB PO ONE ×2 (13:37→15:38)
[2021-07-24] MEDS: PHENAZOPYRIDINE 100MG TAB PO ONE ×2 (13:40→15:40)
[2021-07-24] MEDS: HYDROMORPHONE HCL 1 MG/ML INJ ONE ×6 (13:49→14:56)
[2021-07-24] MEDS: HYDRALAZINE HCL 20 MG/ML VIAL ONE ×2 (14:08→14:56)
--- NOTE | 2021-07-24 14:17 | P.OP ---
Preoperative diagnosis: BPH with LUTS Postoperative diagnosis: same Primary procedure: Prostatic Urethral Lift/UroLift Anesthesia: LMA general Estimated blood loss: <5cc Findings: lateral lobar hypertrophy Operative Technique: The patient was consented in the preoperative holding area before being transferred to the operative suite where general anesthesia was induced. He was given Ancef 2 g IV antimicrobial prophylaxis and pneumo boots were provided for DVT prophylaxis. He was placed in the high lithotomy position, padded and secured to the table appropriately. His genitalia were prepped using Hibiclens and draped in standard fashion. The case was begun using a 20-Eritrean specially designed cystoscope for the prostatic urethral lift as well as visual obturator to traverse the urethra and enter the bladder. The bladder was briefly surveyed, and no mucosal lesions, foreign bodies or stones were noted throughout. The prostatic urethral lumen was assessed and the previously noted lateral lobar hypertrophy left greater than right was again visualized. The visual obturator bridge was then replaced with a UroLift delivery device. The first treatment was placed on the patient's left side approximately 2.0 cm distal to the bladder neck. The distal tip of the delivery device was then angled laterally approximately 20 degrees to compress the lateral lobe. The trigger was pulled, thereby deploying a needle containing the implant through the prostate. There was no evidence of pelvic contact at this point. The needle was then retracted, allowing 1 end of the implant to be delivered to the capsular surface of the prostate. The implant was then tensioned to assure capsular seating and removal of slack monofilament. The device was then angled back toward the midline and slowly was advanced approximately 3-4 mm until cystoscopic verification of the monofilament being centered in the delivery bay. The urethral end piece was then affixed to the monofilament and thereby tailoring the size of the implant. The excess filament was then severed. The device was then readvanced into the bladder. The sheath was left in place and the delivery device was then replaced with the cystoscope and bridge, and the implant location and opening affect were confirmed cystoscopically. The procedure was then repeated again on the right side approximately 1.5 to 2 cm from the bladder neck, and implant was placed symmetrically there. I then turned my attention again to the left side distally more at the level of the verumontanum and an additional implant was placed there. I then turned my attention to the right side of the prostate and delivered an implant at the level of the verumontanum on the right side. The cystoscope was then readvanced into the bladder and the channel was surveyed. There was still some lateral lobar hypertrophy in the mid gland region on the Right side, and so a fifth implant was placed to address that tissue. In the end, lateral lobar compression apically and within the mid zone of the prostate was excellent, and an open channel from the Veru through to the bladder neck was achieved. Final cystoscopic inspection of the location and state of each implant confirmed the presence of a continuous anterior channel. I then left the bladder full and placed an 18-Eritrean coude tipped catheter into his bladder with ease. 15 cc of sterile water was placed in the balloon. The catheter was connected to a floor bag, and the patient was taken out of the lithotomy position. He was then awakened from general anesthesia, transferred to a stretcher, and then transferred to the recovery room in good condition. Complications: None. Discharge Disposition: He may remove the catheter himself at home tomorrow around 7 a.m. and should void within 6 hours. If he had difficulty voiding, he should come to the Urology Clinic for management. Subsequent follow up will be established in about 1 month's time to make an interval assessment of his symptomatology. Complications: None Drain(s): Other (Uribe catheter) Implants: 5 Transferred to: Recovery Room Condition: Good
[2021-07-24] MEDS ORDERED: CODEINE 30MG/APAP 300MG TAB ONE (15:37)
[2021-07-24] MEDS ORDERED: HYDROCODONE/APAP 5/325 MG TAB ONE (16:53)
[2021-07-24 18:55] VITALS: TEMP 98; O2SAT 97
[2021-07-24 19:16] VITALS: BP 125/79
== END 2021-07-24 17:21 | disposition home or self-care (01) ==
LOC: OR 09:40
PROVIDERS: ATTEND Urology
PROC: 0T7D8DZ Dilation of Urethra with Intraluminal Device, Via Natural or Artificial Opening Endoscopic (ICD-10-PCS; principal; 2021-07-24 11:30)
DX: N40.1 Benign prostatic hyperplasia with lower urinary tract symptoms (principal); Z20.822 Contact with and (suspected) exposure to COVID-19
CPT/HCPCS: 93005; 85025; 87086; 80048; 36415; 85610; 71046; 52441; 52442 ×4; U0003; J0360; J2704; J0461; J3010; J1100; J1170 ×3; J0690; J7120; 87088; J2250

== ENCOUNTER 2021-12-31 07:30 | Day surgery (SDC) | payer OTHER ==
[2021-12-28 12:44] LABS: Absolute Lymphocytes (CBC) 1.7 K/uL (0.7-4.9); Hematocrit 40.3 % (39.6-49.0); Lymphocytes % 30.7 % (15.3-44.8); MCV 89.4 fL (80-100); RBC Red Blood Cell Count 4.51 M/uL (4.33-5.43)
[2021-12-28 12:56] LABS: Protime INR 1.16
[2021-12-28 13:02] LABS: Potassium 4.5 mmol/L (3.5-5.1)
[2021-12-28 13:38] LABS: SARS-CoV-2 Antigen Rapid Res Negative (Negative)
[2021-12-31] MEDS ORDERED: NA CHLORIDE 0.9% 500 ML ONE (07:45)
[2021-12-31] MEDS ORDERED: HEPA 1000U/500MLS 1,000 UNIT/500 ML BAG IV ONE (09:19)
[2021-12-31] MEDS ORDERED: LIDOCAINE 1% 20 ML MDV ONE ×2 (09:19→10:21)
[2021-12-31] MEDS ORDERED: FENTANYL CITR 100 MCG/2 ML ONE (09:19)
[2021-12-31] MEDS ORDERED: MIDAZOLAM HCL 2 MG/2 ML INJ ONE ×2 (09:19→09:33)
[2021-12-31] MEDS ORDERED: NA CHLORIDE 0.9% 0 ML ONE (09:20)
[2021-12-31] MEDS ORDERED: ATROPINE SULF 1 MG/10 ML SYR IV ONE (09:20)
--- NOTE | 2021-12-31 11:16 | OP ---
Surgeon: Kevin Benjamin MD Fusion Analyst: Ms. Yenny Win. He will be in the hospital for 2 hours of bedrest after his closure devices. I will see him in the o ffice in 2 weeks. I will add metoprolol to his regimen now. Admitted as an outpatient on 12/31/2021 to the construction craft laborer. Indication: Unstable angina. Mr. Moore is a 71-year-old male. Has mild dementia, dyslipidemia, see n for unstable angina in the office. Procedure In Detail: Brought to the construction craft laborer today as an outpatient. He was prepped and draped in r outine sterile fashion. Underwent left heart catheterization, selective coronary arteriogram, bilate ral common femoral artery angiogram. Initially, we tried to go through the right groin using the Rema raquel technique and 10 cc of Xylocaine. I was able to introduce sheath successfully; however, the w minda would not pass through the right common iliac. Angiography there showed 100% occlusion of the ri ght common iliac with severe tortuousities. We proceeded to go to the left groin. We used a Selding er technique and 10 cc of Xylocaine. A sheath was introduced in the left groin successfully. We use d Alessandray wire to help with the tortuosity. A JL4 catheter was used to cannulate the left main. The common femoral artery angiogram on the left side was normal. The left main was normal. The LAD had a 50% stenosis from the first diagonal. To the first septal, it was tortuous. The circumflex was no rmal. Left main was normal. The JR4 catheter cannulated the right main. The right main itself was normal. The rest of the RCA showed some diffuse plaquing, but was dominant. He had an Angio-Seal to close the groin on the left side, StarClose to close the groin on the right side. There were no com plications. Blood loss was 5 mL. Postoperative Diagnosis: Moderate coronary artery disease. Plan: Plan is for medical therapy with beta-blockers, aspirin, possibly increase his statin dose, an d maybe add Imdur. If he continues to have symptoms, I will do a stress test on him. If that is pos itive, I will bring him back and stent the LAD. Anesthesia: Total conscious sedation was 60 minutes. Final Diagnoses: Moderate coronary artery disease, severe right iliac disease, 100% occlusion. No c laudications. We will address the groin if he becomes symptomatic. MARIA T/SHITAL Voice ID: [id number] Report ID: [id number]
[2021-12-31] MEDS ORDERED: ACETAMINOPHEN 325 MG TABLET ONE (11:40)
[2021-12-31 13:45] VITALS: BP 153/60; O2SAT 97
== END 2021-12-31 12:43 | disposition home or self-care (01) ==
LOC: CCL 07:30
DX: I25.110 Atherosclerotic heart disease of native coronary artery with unstable angina pectoris (principal); I70.201 Unspecified atherosclerosis of native arteries of extremities, right leg; I70.92 Chronic total occlusion of artery of the extremities; I65.23 Occlusion and stenosis of bilateral carotid arteries; E78.5 Hyperlipidemia, unspecified; F03.90 Unspecified dementia, unspecified severity, without behavioral disturbance, psychotic disturbance, mood disturbance, and anxiety; F17.210 Nicotine dependence, cigarettes, uncomplicated; Z20.822 Contact with and (suspected) exposure to COVID-19; Z82.49 Family history of ischemic heart disease and other diseases of the circulatory system
CPT/HCPCS: 36415; 80048; 85025; 85610; 85730; 87811; 93454; C1760; C1893; G0269; J0583; J1644; J2250; J3010; J7040; Q9967

== ENCOUNTER 2022-10-31 08:48 | Inpatient (IN) | payer OTHER ==
--- OUTSIDE RECORDS SUMMARY | 2022-10-31 09:03 | XMS REPORT | Continuity of Care Document ---
:1950 Author Organization [facility] t Address [address] [place] [address] Care Team Providers Name Role Phone SWETHA PEDRAZA Primary Care Physician Unavailable Swetha Pedraza Attending Clinician Unavailable Jefferson Teresa Attending Clinician Unavailable Kristie Ochoa Attending Clinician Unavailable ELLIOTT LEMUS Attending Clinician Unavailable MELISA LINTON Attending Clinician Unavailable Melisa Linton DO Attending Clinician Elliott Lemus MD Attending Clinician Pob, [facility] Main Attending Clinician Unavailable Only, Adc Test Attending Clinician Unavailable Doctor Unassigned, [employer] Attending Clinician Unavailable ELLIOTT LEMUS Admitting Clinician Unavailable Elliott Lemus MD Admitting Clinician Payers Payer Name Policy Type Policy Number Effective Date Expiration Date Ernesto aguilar thredUP CFX BATTERY [id number] 2020spring 00:00:00 AAR MCR [id number] 2021 [facility] ADVANTAGE 00:00:00 [facility] C1 [id number] [facility] buzz ing [id number] buzz [facility] [id number] Common Sp buzz ing Medicare - 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 [id number] Hyperlipid Problem Com mon emia, Spirit unspecifie - CHI d hyperlipid [facility] emia type Medical Center Imaging Abnormal Problem Common result findings Spirit abnormal on [facility] diagnostic imaging of [facility] other Medical specified Center body structures Chronic Chronic Problem Common pain pain [facility] Neck pain Neck pain Problem Com [facility] Spirit [facility] Electrocar Abnormal Problem Com [facility] diogram EKG [facility] abnormal [facility] [id number] Scoliosis Problem Com mon of Spirit thoracic - [facility] spine, unspecie [facility] Medical scoliosis Center type [id number] Insomnia, Problem Com [facility] unspecifie Spirit d type [facility] [id number] Numbness Problem Comm on in both [facility] legs [facility] [id number] Osteopenia Problem Co mmon , Spirit unspecifie - CHI d location [facility] [id number] Low back Problem Comm on pain [facility] [id number] Lumbar Problem Common radiculopa [facility] thy [facility] Counseling Tobacco Problem Comm on about abuse Spirit tobacco counseling - [facility] use [facility] Memory Memory Problem Common loss loss [facility] [id number] Loss of Problem Common appetite [facility] [id number] Nausea Problem Common [facility] [id number] Elevated Problem Comm on blood Spirit pressure - [facility] reading [facility] diagnosis Medical of [place] hypertensi on [id number] Opioid Problem Common withdrawal [facility] Abnormal Abnormal Problem Commo n liver liver Spirit function function - [facility] Erectile Erectile Problem Commo n dysfunctio dysfunctio Sp buzz n n - CHI [facility] Mixed Depression Problem Commo n anxiety with Spirit and anxiety - CHI depressive 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[facility] coronary Medical artery of [place] heart with unstable angina pectoris [id number] Hyperchole Problem Com mon sterolemia [facility] [id number] Elevated Problem Comm on brain Spirit natriureti - CHI c peptide (BNP) [facility] [id number] Dementia Problem Commo n without Spirit behavioral - [facility] d dementia Center type [id number] Depression Problem Com mon , Spirit unspecifie - CHI d [facility] [id number] Abnormal Problem Comm on MRI, [facility] cervical - [facility] spine [facility] [id number] Mass of Problem Commo n parotid [facility] gland - [facility] [id number] Abnormal Problem Comm on ultrasound [facility] [id number] Mass of Problem Commo n head Spirit [facility] [id number] Difficulty Problem Co mmon sleeping Spirit [facility] [id number] Depression Problem Co mmon screening [facility] [id number] Benzodiaze Problem Co mmon pine Spirit dependence - CHI , [facility] [id number] Odynophagi Problem Com mon a Spirit [facility] [id number] Lower Problem Common urinary Spirit tract - CHI symptoms (LUTS) [facility] [id number] Acute Problem Common nonintract Spirit able - [facility] Medica l type [place] [id number] Muscle Problem Common cramps [facility] [id number] Non-intrac Problem Com mon table Spirit vomiting - CHI with [facility] nausea, [facility] unspecifie Medica l d vomiting Center type [id number] Gastritis, Problem Comm on presence Spirit of - CHI bleeding St unspecifie [facility] d, Medical unspecifie Center d chronicity , unspecifie d gastritis type [id number] BPH loc w Problem Com mon urin Spirit obs/LUTS - CHI [facility] [id number] Poor Problem Common compliance Spirit - CHI [facility] Lower Benign Problem Common urinary prostatic Spirit tract hypertroph - CHI symptoms y with St due to lower [facility] benign urinary Medical prostatic tract Center hypertroph symptoms y (LUTS) [id number] PAD Problem Common (periphera Spirit l artery - CHI disease) [facility] [id number] Moderate Problem Commo n major Spirit depression - CHI , single [facility] Allergies, Adverse Reactions, Alerts Allergy Allergy Status Severity Reaction(s) Onset Inactive Treating Comm ents Source Name Type Date Date Clinician NO KNOWN Drug Active Univers ALLERGIE Class ity of S [facility] Acetamin Acetamin Active abdominal Com mon ophen ophen pain, Spirit nausesa, and - CH I gagging [facility] Social History Social Habit Start Date Stop Date Quantity Comments Source History of Current Smoker Common Spi rit - Tobacco Use [facility] Sex Assigned At Common Sp buzz - [facility] Exposure to Not sure University of SARS-CoV-2 [facility] (event) [facility] Tobacco use and 2021-03-15 2021-03-15 Current user Univers ity of exposure 00:00:00 00:00:00 [facility] Tobacco Comment 2021-03-15 2021-03-15 Vape Universit y of 00:00:00 00:00:00 [facility] Smoking Status Start Date Stop Date Source Unknown if ever smoked [facility] Current Smoker 2022-07-23 00:00:00 [facility] t - [facility] Ce nter Former smoker 2021-03-15 00:00:00 2021-03-15 00:00:00 [facility] Medications Ordered Filled Start Stop Current Ordering Indication Dosage Frequency Signature Comments Components Source Medication Medication Date Date Medication? Clinician (SIG) Name Name predniSONE predniSONE 2022- No QD predniSONE 20 MG 20 MG 1-17 01-22 20 MG 00:00: 00:00 00 :00 predniSONE predniSONE 3-0 3- No QD predniSONE 20 MG 20 MG 1-17 -22 20 MG 00:00: 00:00 00 :00 Valium 10 Valium 10 1 No Valium 10 MG MG 2-19 MG 00:00: 00 Valium 10 Valium 10 1 No Valium 10 MG MG 2-19 MG 00:00: 00 Valium 10 Valium 10 1 No Valium 10 MG MG 2-19 MG 00:00: 00 Valium 10 Valium 10 1 No Valium 10 MG MG 2-19 MG 00:00: 00 Valium 10 Valium 10 1 No Valium 10 MG MG 2-19 MG 00:00: 00 Valium 10 Valium 10 0 No Valium 10 MG MG 9-29 MG 00:00: 00 Valium 10 Valium 10 2021-0 No Valium 10 MG MG 9-29 MG 00:00: 00 Valium 10 Valium 10 2021-0 No Valium 10 MG MG 9-29 MG 00:00: 00 Valium 10 Valium 10 2021-0 No Valium 10 MG MG 9-29 MG 00:00: 00 Valium 10 Valium 10 2021-0 No Valium 10 MG MG 7-06 MG 00:00: 00 Valium 10 Valium 10 2021-0 No Valium 10 MG MG 7-06 MG 00:00: 00 Albuterol Albuterol 0 No 1{puff_ 6xD Albuterol Sulfate HFA Sulfate HFA 6-25 as_need Sulfate 108 ( 108 (90 00:00: ed} HFA 108 Base) Base) 00 (90 Base) MCG/ACT MCG/ACT MCG/ACT Albuterol Albuterol No 1{puff_ 6xD Albuterol Sulfate HFA Sulfate HFA 6-25 as_need Sulfate 108 ( 108 (90 00:00: ed} HFA 108 Base) Base) 00 (90 Base) MCG/ACT MCG/ACT MCG/ACT Albuterol Albuterol No 1{puff_ 6xD Albuterol Sulfate HFA Sulfate HFA 6-25 as_need Sulfate 108 ( 108 (90 00:00: ed} HFA 108 Base) Base) 00 (90 Base) MCG/ACT MCG/ACT MCG/ACT Albuterol Albuterol 2021-0 No 1{puff_ 6xD Albuterol Sulfate HFA Sulfate HFA 6-25 as_need Sulfate 108 (90 108 (90 00:00: ed} HFA 108 Base) Base) 00 (90 Base) MCG/ACT MCG/ACT MCG/ACT Albuterol Albuterol 2021-0 No 1{puff_ 6xD Albuterol Sulfate HFA Sulfate HFA 6-25 as_need Sulfate 108 (90 108 (90 00:00: ed} HFA 108 Base) Base) 00 (90 Base) MCG/ACT MCG/ACT MCG/ACT Albuterol Albuterol 0 No 1{puff_ 6xD Albuterol Sulfate HFA Sulfate HFA 6-25 as_need Sulfate 108 (90 108 (90 00:00: ed} HFA 108 Base) Base) 00 (90 Base) MCG/ACT MCG/ACT MCG/ACT Albuterol Albuterol 0 No 1{puff_ 6xD Albuterol Sulfate HFA Sulfate HFA 6-25 as_need Sulfate 108 (90 108 (90 00:00: ed} HFA 108 Base) Base) 00 (90 Base) MCG/ACT MCG/ACT MCG/ACT Albuterol Albuterol 0 No 1{puff_ 6xD Albuterol Sulfate HFA Sulfate HFA 6-25 as_need Sulfate 108 (90 108 (90 00:00: ed} HFA 108 Base) Base) 00 (90 Base) MCG/ACT MCG/ACT MCG/ACT Albuterol Albuterol 0 No 1{puff_ 6xD Albuterol Sulfate HFA Sulfate HFA 6-25 as_need Sulfate 108 (90 108 (90 00:00: ed} HFA 108 Base) Base) 00 (90 Base) MCG/ACT MCG/ACT MCG/ACT Albuterol Albuterol 0 No 1{puff_ 6xD Albuterol Sulfate HFA Sulfate HFA 6-25 as_need Sulfate 108 (90 108 (90 00:00: ed} HFA 108 Base) Base) 00 (90 Base) MCG/ACT MCG/ACT MCG/ACT Albuterol Albuterol 2022-0 No 1{puff_ 6xD Albuterol Sulfate HFA Sulfate HFA 6-25 as_need Sulfate 108 (90 108 (90 00:00: ed} HFA 108 Base) Base) 00 (90 Base) MCG/ACT MCG/ACT MCG/ACT Albuterol Albuterol 0 No 1{puff_ 6xD Albuterol Sulfate HFA Sulfate HFA 6-25 as_need Sulfate 108 (90 108 (90 00:00: ed} HFA 108 Base) Base) 00 (90 Base) MCG/ACT MCG/ACT MCG/ACT Albuterol Albuterol 2021-0 No 1{puff_ 6xD Albuterol Sulfate HFA Sulfate HFA 6-25 as_need Sulfate 108 (90 108 (90 00:00: ed} HFA 108 Base) Base) 00 (90 Base) MCG/ACT MCG/ACT MCG/ACT Valium 10 Valium 10 2021-0 No Valium 10 MG MG 3-23 MG 00:00: 00 Valium 10 Valium 10 2021-0 No Valium 10 MG MG 3-23 MG 00:00: 00 Valium 10 Valium 10 2021-0 No Valium 10 MG MG 3-23 MG 00:00: 00 Valium 10 Valium 10 2021-0 No Valium 10 MG MG 3-23 MG 00:00: 00 Valium 10 Valium 10 2021-0 No Valium 10 MG MG 3-23 MG 00:00: 00 Valium 10 Valium 10 2021-0 No Valium 10 MG MG 3-23 MG 00:00: 00 Valium 10 Valium 10 2021-0 No Valium 10 MG MG 3-23 MG 00:00: 00 Valium 10 Valium 10 2020-1 No Valium 10 MG MG 2-09 MG 00:00: 00 Valium 10 Valium 10 2020-1 No Valium 10 MG MG 2-09 MG 00:00: 00 Alfuzosin Alfuzosin 2020-2021- No 1{table QD Alfuzosin HCl ER 10 HCl ER 10 08-04 05-28 t_immed HCl ER 10 MG MG 00:00: 00:00 iately_ MG 00 :00 after_t he_same _meal} Alfuzosin Alfuzosin 2020-07- No 1{table QD Alfuzosin HCl ER 10 HCl ER 10 08-04 t_immed HCl ER 10 MG MG 00:00: 00:00 iately_ MG 00 :00 after_t he_same _meal} Alfuzosin Alfuzosin 2020-07- No 1{table QD Alfuzosin HCl ER 10 HCl ER 10 08-04 t_immed HCl ER 10 MG MG 00:00: 00:00 iately_ MG 00 :00 after_t he_same _meal} Alfuzosin Alfuzosin 2020-07- No 1{table QD Alfuzosin HCl ER 10 HCl ER 10 08-04 t_immed HCl ER 10 MG MG 00:00: 00:00 iately_ MG 00 :00 after_t he_same _meal} Alfuzosin Alfuzosin 2020-07- No 1{table QD Alfuzosin HCl ER 10 HCl ER 10 08-04 t_immed HCl ER 10 MG MG 00:00: 00:00 iately_ MG 00 :00 after_t he_same _meal} Alfuzosin Alfuzosin 2020-07- No 1{table QD Alfuzosin HCl ER 10 HCl ER 10 08-04 t_immed HCl ER 10 MG MG 00:00: 00:00 iately_ MG 00 :00 after_t he_same _meal} Alfuzosin Alfuzosin 2020-07- No 1{table QD Alfuzosin HCl ER 10 HCl ER 10 08-04 t_immed HCl ER 10 MG MG 00:00: 00:00 iately_ MG 00 :00 after_t he_same _meal} Alfuzosin Alfuzosin 2020-07- No 1{table QD Alfuzosin HCl ER 10 HCl ER 10 08-04 t_immed HCl ER 10 MG MG 00:00: 00:00 iately_ MG 00 :00 after_t he_same _meal} Alfuzosin Alfuzosin 2020-07- No 1{table QD Alfuzosin HCl ER 10 HCl ER 10 08-04 t_immed HCl ER 10 MG MG 00:00: 00:00 iately_ MG 00 :00 after_t he_same _meal} Alfuzosin Alfuzosin 2020-2- No 1{table QD Alfuzosin HCl ER 10 HCl ER 10 08-04 t_immed HCl ER 10 MG MG 00:00: 00:00 iately_ MG 00 :00 after_t he_same _meal} Alfuzosin Alfuzosin 2020-2- No 1{table QD Alfuzosin HCl ER 10 HCl ER 10 03-2215 t_immed HCl ER 10 MG MG 00:00: 00:00 iately_ MG 00 :00 after_t he_same _meal} Alfuzosin Alfuzosin 2020-2- No 1{table QD Alfuzosin HCl ER 10 HCl ER 10 03-22 t_immed HCl ER 10 MG MG 00:00: 00:00 iately_ MG 00 :00 after_t he_same _meal} Alfuzosin Alfuzosin 2020-2- No 1{table QD Alfuzosin HCl ER 10 HCl ER 10 03-22 t_immed HCl ER 10 MG MG 00:00: 00:00 iately_ MG 00 :00 after_t he_same _meal} Alfuzosin Alfuzosin 2020-2- No 1{table QD Alfuzosin HCl ER 10 HCl ER 10 03-22 t_immed HCl ER 10 MG MG 00:00: 00:00 iately_ MG 00 :00 after_t he_same _meal} Alfuzosin Alfuzosin 2020-2- No 1{table QD Alfuzosin HCl ER 10 HCl ER 10 03-2215 t_immed HCl ER 10 MG MG 00:00: 00:00 iately_ MG 00 :00 after_t he_same _meal} Alfuzosin Alfuzosin 2020-2- No 1{table QD Alfuzosin HCl ER 10 HCl ER 10 03-2215 t_immed HCl ER 10 MG MG 00:00: 00:00 iately_ MG 00 :00 after_t he_same _meal} Alfuzosin Alfuzosin 2020-2- No 1{table QD Alfuzosin HCl ER 10 HCl ER 10 9-16 03-15 t_immed HCl ER 10 MG MG 00:00: 00:00 iately_ MG 00 :00 after_t he_same _meal} Alfuzosin Alfuzosin 2021- No 1{table QD Alfuzosin HCl ER 10 HCl ER 10 03-2215 t_immed HCl ER 10 MG MG 00:00: 00:00 iately_ MG 00 :00 after_t he_same _meal} Alfuzosin Alfuzosin 2021- No 1{table QD Alfuzosin HCl ER 10 HCl ER 10 03-22 t_immed HCl ER 10 MG MG 00:00: 00:00 iately_ MG 00 :00 after_t he_same _meal} Alfuzosin Alfuzosin 2021- No 1{table QD Alfuzosin HCl ER 10 HCl ER 10 03-22 t_immed HCl ER 10 MG MG 00:00: 00:00 iately_ MG 00 :00 after_t he_same _meal} Alfuzosin Alfuzosin 2021- No 1{table QD Alfuzosin HCl ER 10 HCl ER 10 03-22 t_immed HCl ER 10 MG MG 00:00: 00:00 iately_ MG 00 :00 after_t he_same _meal} Alfuzosin Alfuzosin 2021- No 1{table QD Alfuzosin HCl ER 10 HCl ER 10 03-22 t_immed HCl ER 10 MG MG 00:00: 00:00 iately_ MG 00 :00 after_t he_same _meal} Alfuzosin Alfuzosin 2021- No 1{table QD Alfuzosin HCl ER 10 HCl ER 10 03-22 t_immed HCl ER 10 MG MG 00:00: 00:00 iately_ MG 00 :00 after_t he_same _meal} lactated 2020- No 1000mL at 42 Unive rs ringers IV 03-19 09-13 mL/hr, ity of infusion 12:15: 12:20 1,000 mL, [place] as 1,000 mL 00 :00 IV Medical Infusion, Branch ONCE, 1 dose, On Fri03/19/21 at 0715, Routine, DSU Pre-op lactated 2020-0 2020- No 1000mL at 42 Unive rs ringers IV 9-13 09-13 mL/hr, ity of infusion 12:15: 12:20 1,000 mL, [place] as 1,000 mL 00 :00 IV Medical Infusion, Branch ONCE, 1 dose, On Fri03/19/21 at 0715, Routine, DSU Pre-op lactated 2020-0 2020- No 1000mL at 42 Unive rs ringers IV 9-13 09-13 mL/hr, ity of infusion 12:15: 12:20 1,000 mL, [place] as 1,000 mL 00 :00 IV Medical Infusion, Branch ONCE, 1 dose, On Fri03/19/21 at 0715, Routine, DSU Pre-op lactated 2020-2020- No 1000mL at 42 Unive rs ringers IV 9-13 09-13 mL/hr, ity of infusion 12:15: 12:20 1,000 mL, [place] as 1,000 mL 00 :00 IV Medical Infusion, Branch ONCE, 1 dose, On Fri03/19/21 at 0715, Routine, DSU Pre-op pantoprazol Yes 40mg Take 40 mg Univers e 20 mg EC 9-13 by mouth ity o f tablet 08:59: daily. [address] memantine 0 Yes 10mg Take 10 mg Un torres 10 mg 9-13 by mouth ity of tablet 08:59: daily. [address] DOXAZOSIN 1 Yes 1mg Take 1 mg U nivers mg tablet 9-13 by mouth ity of 08:59: daily. PRN [address] donepezil 0 Yes 10mg Take 10 mg Un torres 10 mg 9-13 by mouth ity of tablet 08:59: at [place] [address] bedtime. Medical Branch FLUoxetine 0 Yes 40mg Take 40 mg U nivers 40 mg 9-13 by mouth ity of capsule 08:59: daily. [address] ondansetron 0 Yes 4mg Take 4 mg U nivers (ZOFRAN) 4 9-13 by mouth ity o f mg tablet 08:59: every 8 [place] [address] (eight) Medical hours as Branch needed. ezetimibe 0 Yes 10mg Take 10 mg Un torres 10 mg 9-13 by mouth ity of tablet 08:59: daily. [address] Branch losartan 25 0 Yes 25mg Take 25 mg Univers mg tablet 9-13 by mouth ity of 08:59: daily. [address] Branch buPROPion 0 Yes 150mg Take 150 Uni vers SR 9-13 mg by ity of (WELLBUTRIN 08:59: mouth 2 [place] as SR) 150 mg 48 (two) Medical SR tablet times Branch daily. gabapentin 0 Yes 300mg Take 300 Un torres 300 mg 9-13 mg by ity of capsule 08:59: mouth 3 [place] [address] (three) Medical times Branch daily. pantoprazol 0 Yes 40mg Take 40 mg Univers e 20 mg EC 9-13 by mouth ity o f tablet 08:59: daily. [address] Branch memantine 0 Yes 10mg Take 10 mg Un torres 10 mg 9-13 by mouth ity of tablet 08:59: daily. [address] Branch DOXAZOSIN 1 0 Yes 1mg Take 1 mg U nivers mg tablet 9-13 by mouth ity of 08:59: daily. PRN [address] Branch donepezil 0 Yes 10mg Take 10 mg Un torres 10 mg 9-13 by mouth ity of tablet 08:59: at [place] [address] bedtime. Medical Branch FLUoxetine 0 Yes 40mg Take 40 mg U nivers 40 mg 9-13 by mouth ity of capsule 08:59: daily. [address] Branch ondansetron 0 Yes 4mg Take 4 mg U nivers (ZOFRAN) 4 9-13 by mouth ity o f mg tablet 08:59: every 8 [place] [address] (eight) Medical hours as Branch needed. ezetimibe 0 Yes 10mg Take 10 mg Un torres 10 mg 9-13 by mouth ity of tablet 08:59: daily. [address] Branch losartan 25 0 Yes 25mg Take 25 mg Univers mg tablet 9-13 by mouth ity of 08:59: daily. [address] Branch buPROPion 0 Yes 150mg Take 150 Uni vers SR 9-13 mg by ity of (WELLBUTRIN 08:59: mouth 2 [place] as SR) 150 mg 48 (two) Medical SR tablet times Branch daily. gabapentin 2020-0 Yes 300mg Take 300 Un torres 300 mg 9-13 mg by ity of capsule 08:59: mouth 3 [place] [address] (three) Medical times Branch daily. pantoprazol 0 Yes 40mg Take 40 mg Univers e 20 mg EC 9-13 by mouth ity o f tablet 08:59: daily. [address] Branch memantine 0 Yes 10mg Take 10 mg Un torres 10 mg 9-13 by mouth ity of tablet 08:59: daily. [address] Branch DOXAZOSIN 1 0 Yes 1mg Take 1 mg U nivers mg tablet 9-13 by mouth ity of 08:59: daily. PRN [address] Branch donepezil 0 Yes 10mg Take 10 mg Un torres 10 mg 9-13 by mouth ity of tablet 08:59: at [place] [address] bedtime. Medical Branch FLUoxetine 0 Yes 40mg Take 40 mg U nivers 40 mg 9-13 by mouth ity of capsule 08:59: daily. [address] Branch ondansetron 0 Yes 4mg Take 4 mg U nivers (ZOFRAN) 4 9-13 by mouth ity o f mg tablet 08:59: every 8 [place] [address] (eight) Medical hours as Branch needed. ezetimibe 0 Yes 10mg Take 10 mg Un torres 10 mg 9-13 by mouth ity of tablet 08:59: daily. [address] losartan 25 2020-0 Yes 25mg Take 25 mg Univers mg tablet 9-13 by mouth ity of 08:59: daily. [address] Branch buPROPion 2020-0 Yes 150mg Take 150 Uni vers SR 9-13 mg by ity of (WELLBUTRIN 08:59: mouth 2 [place] as SR) 150 mg 48 (two) Medical SR tablet times Branch daily. gabapentin 2020-0 Yes 300mg Take 300 Un torres 300 mg 9-13 mg by ity of capsule 08:59: mouth 3 [place] [address] (three) Medical times Branch daily. pantoprazol 0 Yes 40mg Take 40 mg Univers e 20 mg EC 9-13 by mouth ity o f tablet 08:59: daily. [address] memantine 2021-0 Yes 10mg Take 10 mg Un torres 10 mg 9-13 by mouth ity of tablet 08:59: daily. [address] Branch DOXAZOSIN 1 0 Yes 1mg Take 1 mg U nivers mg tablet 9-13 by mouth ity of 08:59: daily. PRN [address] Branch donepezil 0 Yes 10mg Take 10 mg Un torres 10 mg 9-13 by mouth ity of tablet 08:59: at [place] [address] bedtime. Medical Branch FLUoxetine 0 Yes 40mg Take 40 mg U nivers 40 mg 9-13 by mouth ity of capsule 08:59: daily. [address] Branch ondansetron 0 Yes 4mg Take 4 mg U nivers (ZOFRAN) 4 9-13 by mouth ity o f mg tablet 08:59: every 8 [place] [address] (eight) Medical hours as Branch needed. ezetimibe 0 Yes 10mg Take 10 mg Un torres 10 mg 9-13 by mouth ity of tablet 08:59: daily. [address] losartan 25 0 Yes 25mg Take 25 mg Univers mg tablet 9-13 by mouth ity of 08:59: daily. [address] Branch buPROPion 0 Yes 150mg Take 150 Uni vers SR 9-13 mg by ity of (WELLBUTRIN 08:59: mouth 2 [place] as SR) 150 mg 48 (two) Medical SR tablet times Branch daily. gabapentin 0 Yes 300mg Take 300 Un torres 300 mg 9-13 mg by ity of capsule 08:59: mouth 3 [place] [address] (three) Medical times Branch daily. pantoprazol 0 Yes 40mg Take 40 mg Univers e 20 mg EC 9-13 by mouth ity o f tablet 08:59: daily. [address] Branch memantine 0 Yes 10mg Take 10 mg Un torres 10 mg 9-13 by mouth ity of tablet 08:59: daily. [address] Branch DOXAZOSIN 1 0 Yes 1mg Take 1 mg U nivers mg tablet 9-13 by mouth ity of 08:59: daily. PRN [address] Branch donepezil 0 Yes 10mg Take 10 mg Un torres 10 mg 9-13 by mouth ity of tablet 08:59: at [place] [address] bedtime. Medical Branch FLUoxetine 2020-0 Yes 40mg Take 40 mg U nivers 40 mg 9-13 by mouth ity of capsule 08:59: daily. [address] Branch ondansetron 2020-0 Yes 4mg Take 4 mg U nivers (ZOFRAN) 4 9-13 by mouth ity o f mg tablet 08:59: every 8 [place] [address] (eight) Medical hours as Branch needed. ezetimibe 2020-0 Yes 10mg Take 10 mg Un torres 10 mg 9-13 by mouth ity of tablet 08:59: daily. [address] Branch losartan 25 2020-0 Yes 25mg Take 25 mg Univers mg tablet 9-13 by mouth ity of 08:59: daily. [address] Branch buPROPion 2020-0 Yes 150mg Take 150 Uni vers SR 9-13 mg by ity of (WELLBUTRIN 08:59: mouth 2 [place] as SR) 150 mg 48 (two) Medical SR tablet times Branch daily. gabapentin 0 Yes 300mg Take 300 Un torres 300 mg 9-13 mg by ity of capsule 08:59: mouth 3 [place] [address] (three) Medical times Branch daily. ondansetron 2020-0 Yes 4mg Take 4 mg U nivers (ZOFRAN) 4 9-09 by mouth ity o f mg tablet 19:16: every 8 [place] [address] (eight) Medical hours as Branch needed. losartan 25 2020-0 Yes 25mg Take 25 mg Univers mg tablet 9-09 by mouth ity of 19:16: daily. [address] ondansetron 2020-0 Yes 4mg Take 4 mg U nivers (ZOFRAN) 4 9-09 by mouth ity o f mg tablet 19:16: every 8 [place] (eight) Medical hours as Branch needed. losartan 25 2020-0 Yes 25mg Take 25 mg Univers mg tablet 9-09 by mouth ity of 19:16: daily. [address] ondansetron 2020-0 Yes 4mg Take 4 mg U nivers (ZOFRAN) 4 9-09 by mouth ity o f mg tablet 19:16: every 8 [place] 40 (eight) Medical hours as Branch needed. losartan 25 2020-0 Yes 25mg Take 25 mg [facility] mg tablet 9-09 by mouth ity of 19:16: daily. [address] ondansetron 0 Yes 4mg Take 4 mg U nivers (ZOFRAN) 4 9-09 by mouth ity o f mg tablet 19:16: every 8 [place] 40 (eight) Medical hours as Branch needed. losartan 25 2020-0 Yes 25mg Take 25 mg [facility] mg tablet 9-09 by mouth ity of 19:16: daily. [address] ondansetron 0 Yes 4mg Take 4 mg [facility]ivers (ZOFRAN) 4 9-09 by mouth ity o f mg tablet 19:16: every 8 [place] 40 (eight) Medical hours as Branch needed. losartan 25 0 Yes 25mg Take 25 mg [facility] mg tablet 9-09 by mouth ity of 19:16: daily. [address] ondansetron 0 Yes 4mg Take 4 mg U nivers (ZOFRAN) 4 9-09 by mouth ity o f mg tablet 19:16: every 8 [place] 40 (eight) Medical hours as Branch needed. losartan 25 0 Yes 25mg Take 25 mg [facility] mg tablet 9-09 by mouth ity of 19:16: daily. [address] DOXAZOSIN 1 0 Yes 1mg Take 1 mg [facility] mg tablet 9-09 by mouth ity of 19:16: daily. PRN [address] FLUoxetine 0 Yes 40mg Take 40 mg [facility] 40 mg 9-09 by mouth ity of capsule 19:16: daily. [address] DOXAZOSIN 1 0 Yes 1mg Take 1 mg [facility] mg tablet -09 by mouth ity of 19:16: daily. PRN [address] FLUoxetine 0 Yes 40mg Take 40 mg [facility] 40 mg 9-09 by mouth ity of capsule 19:16: daily. [address] buPROPion 2020-0 Yes 150mg Take 150 Uni vers SR 9-09 mg by ity of (WELLBUTRIN 19:16: mouth 2 [place] as SR) 150 mg 39 (two) Medical SR tablet times Branch daily. gabapentin 2020-0 Yes 300mg Take 300 [place] 300 mg 9-09 mg by ity of capsule 19:16: mouth 3 [place] [address] (three) Medical times Branch daily. pantoprazol 2020-0 Yes 40mg Take 40 mg [facility] e 20 mg EC 9-09 by mouth ity o f tablet 19:16: daily. [address] memantine 2020-0 Yes 10mg Take 10 mg [place] 10 mg 9-09 by mouth ity of tablet 19:16: daily. [address] DOXAZOSIN 1 2020-0 Yes 1mg Take 1 mg [facility] mg tablet 9-09 by mouth ity of 19:16: daily. PRN [address] FLUoxetine 2020-0 Yes 40mg Take 40 mg [facility] 40 mg 9-09 by mouth ity of capsule 19:16: daily. [address] buPROPion 2020-0 Yes 150mg Take 150 Uni vers SR 9-09 mg by ity of (WELLBUTRIN 19:16: mouth 2 [place] as SR) 150 mg 39 (two) Medical SR tablet times Branch daily. buPROPion 2020-0 Yes 150mg Take 150 [facility] vers SR 9-09 mg by ity of (WELLBUTRIN 19:16: mouth 2 [place] as SR) 150 mg 39 (two) Medical SR tablet times Branch daily. gabapentin 0 Yes 300mg Take 300 [place] 300 mg 9-09 mg by ity of capsule 19:16: mouth 3 [place] [address] (three) Medical times Branch daily. pantoprazol 2020-0 Yes 40mg Take 40 mg [facility] e 20 mg EC 9-09 by mouth ity o f tablet 19:16: daily. [address] memantine 2020-0 Yes 10mg Take 10 mg [place] 10 mg 9-09 by mouth ity of tablet 19:16: daily. [address] DOXAZOSIN 1 2020-0 Yes 1mg Take 1 mg [facility] mg tablet 9-09 by mouth ity of 19:16: daily. PRN [address] gabapentin 2020-0 Yes 300mg Take 300 [place] 300 mg 9-09 mg by ity of capsule 19:16: mouth 3 [place] [address] (three) Medical times Branch daily. FLUoxetine 2020-0 Yes 40mg Take 40 mg [facility] 40 mg 9-09 by mouth ity of capsule 19:16: daily. [address] buPROPion 2020-0 Yes 150mg Take 150 Uni vers SR 9-09 mg by ity of (WELLBUTRIN 19:16: mouth 2 [place] as SR) 150 mg 39 (two) Medical SR tablet times Branch daily. gabapentin 2020-0 Yes 300mg Take 300 [place] 300 mg 9-09 mg by ity of capsule 19:16: mouth 3 [place] [address] (three) Medical times Branch daily. pantoprazol 2020-0 Yes 40mg Take 40 mg [facility] e 20 mg EC 9-09 by mouth ity o f tablet 19:16: daily. [address] pantoprazol 2020-0 Yes 40mg Take 40 mg [facility] e 20 mg EC 9-09 by mouth ity o f tablet 19:16: daily. [address] memantine 0 Yes 10mg Take 10 mg [place] 10 mg 9-09 by mouth ity of tablet 19:16: daily. [address] memantine 0 Yes 10mg Take 10 mg [place] 10 mg 9-09 by mouth ity of tablet 19:16: daily. [address] DOXAZOSIN 1 0 Yes 1mg Take 1 mg [facility] mg tablet 9-09 by mouth ity of 19:16: daily. PRN [address] FLUoxetine 2020-0 Yes 40mg Take 40 mg [facility] 40 mg 9-09 by mouth ity of capsule 19:16: daily. [address] buPROPion 2020-0 Yes 150mg Take 150 Uni vers SR 9-09 mg by ity of (WELLBUTRIN 19:16: mouth 2 [place] as SR) 150 mg 39 (two) Medical SR tablet times Branch daily. gabapentin 2020-0 Yes 300mg Take 300 [place] 300 mg 9-09 mg by ity of capsule 19:16: mouth 3 [place] [address] (three) Medical times Branch daily. pantoprazol 2020-0 Yes 40mg Take 40 mg [facility] e 20 mg EC 9-09 by mouth ity o f tablet 19:16: daily. [address] memantine 2020-0 Yes 10mg Take 10 mg [place] 10 mg 9-09 by mouth ity of tablet 19:16: daily. [address] DOXAZOSIN 1 2020-0 Yes 1mg Take 1 mg [facility] n[facility] mg tablet 9-09 by mouth ity of 19:16: daily. PRN [address] FLUoxetine 2020-0 Yes 40mg Take 40 mg [facility] 40 mg 9-09 by mouth ity of capsule 19:16: daily. [place] [address] Medical Branch buPROPion 2020-0 Yes 150mg Take 150 Uni vers SR 9-09 mg by ity of (WELLBUTRIN 19:16: mouth 2 [place] as SR) 150 mg 39 (two) Medical SR tablet times Branch daily. gabapentin 2020-0 Yes 300mg Take 300 [place] 300 mg 9-09 mg by ity of capsule 19:16: mouth 3 [place] 39 (three) Medical times Branch daily. pantoprazol 2020-0 Yes 40mg Take 40 mg [facility] e 20 mg EC 9-09 by mouth ity o f tablet 19:16: daily. [place] [address] Medical Branch memantine 2020-0 Yes 10mg Take 10 mg [place] 10 mg 9-09 by mouth ity of tablet 19:16: daily. [place] [address] Medical Branch donepezil 2020-0 Yes 10mg Take 10 mg [place] 10 mg 9-09 by mouth ity of tablet 19:09: at [place] [address] bedtime. Medical Branch ezetimibe 2020-0 Yes 10mg Take 10 mg [place] 10 mg 9-09 by mouth ity of tablet 19:09: daily. [place] [address] Medical Branch donepezil 2020-0 Yes 10mg Take 10 mg [place] 10 mg 9-09 by mouth ity of tablet 19:09: at [place] [address] bedtime. Medical Branch ezetimibe 2020-0 Yes 10mg Take 10 mg [place] 10 mg 9-09 by mouth ity of tablet 19:09: daily. [place] [address] Medical Branch donepezil 2020-0 Yes 10mg Take 10 mg [place] 10 mg 9-09 by mouth ity of tablet 19:09: at [place] [address] bedtime. Medical Branch ezetimibe 2020-0 Yes 10mg Take 10 mg [place] 10 mg 9-09 by mouth ity of tablet 19:09: daily. [place] [address] Medical Branch donepezil 2020-0 Yes 10mg Take 10 mg [place] 10 mg 9-09 by mouth ity of tablet 19:09: at [place] [address] bedtime. Medical Branch ezetimibe 2020-0 Yes 10mg Take 10 mg [place] 10 mg 9-09 by mouth ity of tablet 19:09: daily. [place] 33 Medical Branch donepezil Yes 10mg Take 10 mg [place] 10 mg 9-09 by mouth ity of tablet 19:09: at [place] [address] bedtime. [facility] Branch ezetimibe Yes 10mg Take 10 mg [place] 10 mg 9-09 by mouth ity of tablet 19:09: daily. [address] Branch donepezil 0 Yes 10mg Take 10 mg [place] 10 mg 9-09 by mouth ity of tablet 19:09: at [place] [address] bedtime. [facility] Branch ezetimibe Yes 10mg Take 10 mg [place] 10 mg 9-09 by mouth ity of tablet 19:09: daily. [address] Branch diazePAM 2019-07- No 5mg 5 mg, Univers (VALIUM) 08-22 Intramuscu ity of injection 5 01:15: 00:15 lar, ONCE, [place] mg 00 :00 1 dose, Medical [facility] 06/20/20 at 191, STAT FENTanyl PF 2019-07- No 100ug 100 mcg, Univers (SUBLIMAZE 08-22 Intramuscu it y of (PF)) 01:15: 00:15 lar, ONCE, [place] injection 00 :00 1 dose, Medical 100 mcg [facility] 06/20/20 at 191, Routine amLODIPine 2019-07- No 5mg 5 mg, Unive rs (NORVASC) 08-22 Oral, ity of tablet 5 mg 01:15: 00:15 ONCE, [place] dose, [facility] 06/20/20 Branch at 191, DANIA amLODIPine 2019-07 Yes [id number] 5mg Take 1 U nivers (NORVASC) 5 2-15 tablet by ity of mg tablet 00:00: mouth [place] 00 daily. Medical Branch amLODIPine 2019-07 Yes [id number] 5mg Take 1 U nivers (NORVASC) 5 2-15 tablet by ity of mg tablet 00:00: mouth [place] 00 daily. Medical Branch amLODIPine 2019-07 Yes [id number] 5mg Take 1 U nivers (NORVASC) 5 2-15 tablet by ity of mg tablet 00:00: mouth [place] 00 daily. Medical Branch amLODIPine 2019-07 Yes [id number] 5mg Take 1 U nivers (NORVASC) 5 2-15 tablet by ity of mg tablet 00:00: mouth [place] 00 daily. Medical Branch amLODIPine 2019-07 Yes [id number] 5mg Take 1 U nivers (NORVASC) 5 2-15 tablet by ity of mg tablet 00:00: mouth [place] 00 daily. Medical Branch amLODIPine 2019-07 Yes [id number] 5mg Take 1 U nivers (NORVASC) 5 2-15 tablet by ity of mg tablet 00:00: mouth [place] 00 daily. Medical Branch amLODIPine 2019-07 Yes [id number] 5mg Take 1 U nivers (NORVASC) 5 2-15 tablet by ity of mg tablet 00:00: mouth [place] 00 daily. Medical Branch amLODIPine 2019-07 Yes [id number] 5mg Take 1 U nivers (NORVASC) 5 2-15 tablet by ity of mg tablet 00:00: mouth [place] 00 daily. Medical Branch amLODIPine 2019-07 Yes [id number] 5mg Take 1 U nivers (NORVASC) 5 2-15 tablet by ity of mg tablet 00:00: mouth [place] 00 daily. Medical Branch amLODIPine 2019-07 Yes [id number] 5mg Take 1 U nivers (NORVASC) 5 2-15 tablet by ity of mg tablet 00:00: mouth [place] 00 daily. Medical Branch amLODIPine 2019-07 Yes [id number] 5mg Take 1 U nivers (NORVASC) 5 2-15 tablet by ity of mg tablet 00:00: mouth [place] 00 daily. Medical Branch amLODIPine 2019-07 Yes [id number] 5mg Take 1 U nivers (NORVASC) 5 2-15 tablet by ity of mg tablet 00:00: mouth [place] 00 daily. Medical Branch Tamsulosin Tamsulosin 2019-07- No 1{capsu QD Tamsulosin HCl 0.4 MG HCl 0.4 MG 1- 10-30 le} HCl 0.4 MG 00:00: 00:00 00 :00 Tamsulosin Tamsulosin 2019-07- No 1{capsu QD Tamsulosin HCl 0.4 MG HCl 0.4 MG 1-04 10-30 le} HCl 0.4 MG 00:00: 00:00 00 :00 Cyclobenzap Cyclobenzap 0 No BID Cyclobenza rine HCl 10 rine HCl 10 1-12 [place] HCl MG MG 00:00: 10 MG 00 Cyclobenzap Cyclobenzap 2020-0 No BID Cyclobenza rine HCl 10 rine HCl 10 1-12 [place] HCl MG MG 00:00: 10 MG 00 Cyclobenzap Cyclobenzap 2020-0 No BID Cyclobenza rine HCl 10 rine HCl 10 1-12 [place] HCl MG MG 00:00: 10 MG 00 Cyclobenzap Cyclobenzap 2020-0 No BID Cyclobenza rine HCl 10 rine HCl 10 1-12 [place] HCl MG MG 00:00: 10 MG 00 Cyclobenzap Cyclobenzap 2020-0 No BID Cyclobenza rine HCl 10 rine HCl 10 1-12 [place] HCl MG MG 00:00: 10 MG 00 Cyclobenzap Cyclobenzap 2020-0 No BID Cyclobenza rine HCl 10 rine HCl 10 1-12 [place] HCl MG MG 00:00: 10 MG 00 Cyclobenzap Cyclobenzap 2020-0 No BID Cyclobenza rine HCl 10 rine HCl 10 1-12 [place] HCl MG MG 00:00: 10 MG 00 Cyclobenzap Cyclobenzap 2020-0 No BID Cyclobenza rine HCl 10 rine HCl 10 1-12 [place] HCl MG MG 00:00: 10 MG 00 Cyclobenzap Cyclobenzap 2020-0 No BID Cyclobenza rine HCl 10 rine HCl 10 1-12 [place] HCl MG MG 00:00: 10 MG 00 Cyclobenzap Cyclobenzap 2020-0 No BID Cyclobenza rine HCl 10 rine HCl 10 1-12 [place] HCl MG MG 00:00: 10 MG 00 Cyclobenzap Cyclobenzap 2020-0 No BID Cyclobenza rine HCl 10 rine HCl 10 1-12 [place] HCl MG MG 00:00: 10 MG 00 Cyclobenzap Cyclobenzap 2020-0 No BID Cyclobenza rine HCl 10 rine HCl 10 1-12 [place] HCl MG MG 00:00: 10 MG 00 Cyclobenzap Cyclobenzap 2020-0 No BID Cyclobenza rine HCl 10 rine HCl 10 1-12 [place] HCl MG MG 00:00: 10 MG 00 Cyclobenzap Cyclobenzap 2020-0 No BID Cyclobenza rine HCl 10 rine HCl 10 1-12 [place] HCl MG MG 00:00: 10 MG 00 Cyclobenzap Cyclobenzap 2020-0 No BID Cyclobenza rine HCl 10 rine HCl 10 1-12 [place] HCl MG MG 00:00: 10 MG 00 Cyclobenzap Cyclobenzap 2020-0 No BID Cyclobenza rine HCl 10 rine HCl 10 1-12 [place] HCl MG MG 00:00: 10 MG 00 Cyclobenzap Cyclobenzap 2020-0 No BID Cyclobenza rine HCl 10 rine HCl 10 1-12 [place] HCl MG MG 00:00: 10 MG 00 Cyclobenzap Cyclobenzap 2020-0 No BID Cyclobenza rine HCl 10 rine HCl 10 1-12 [place] HCl MG MG 00:00: 10 MG 00 Cyclobenzap Cyclobenzap 2020-0 No BID Cyclobenza rine HCl 10 rine HCl 10 1-12 [place] HCl MG MG 00:00: 10 MG 00 Cyclobenzap Cyclobenzap 2020-0 No BID Cyclobenza rine HCl 10 rine HCl 10 1-12 [place] HCl MG MG 00:00: 10 MG 00 Cyclobenzap Cyclobenzap 2020-0 No BID Cyclobenza rine HCl 10 rine HCl 10 1-12 [place] HCl MG MG 00:00: 10 MG 00 Cyclobenzap Cyclobenzap 2020-0 No BID Cyclobenza rine HCl 10 rine HCl 10 1-12 [place] HCl MG MG 00:00: 10 MG 00 Cyclobenzap Cyclobenzap 2020-0 No BID Cyclobenza rine HCl 10 rine HCl 10 1-12 [place] HCl MG MG 00:00: 10 MG 00 Cyclobenzap Cyclobenzap 2020-0 No BID Cyclobenza rine HCl 10 rine HCl 10 1-12 [place] HCl MG MG 00:00: 10 MG 00 Cyclobenzap Cyclobenzap 2020-0 No BID Cyclobenza rine HCl 10 rine HCl 10 1-12 [place] HCl MG MG 00:00: 10 MG 00 Cyclobenzap Cyclobenzap 2020-0 No BID Cyclobenza rine HCl 10 rine HCl 10 1-12 [place] HCl MG MG 00:00: 10 MG 00 Cyclobenzap Cyclobenzap 2020-0 No BID Cyclobenza rine HCl 10 rine HCl 10 1-12 [place] HCl MG MG 00:00: 10 MG 00 Cyclobenzap Cyclobenzap 2020-0 No BID Cyclobenza rine HCl 10 rine HCl 10 1-12 [place] HCl MG MG 00:00: 10 MG 00 Cyclobenzap Cyclobenzap 2020-0 No BID Cyclobenza rine HCl 10 rine HCl 10 1-12 [place] HCl MG MG 00:00: 10 MG 00 Cyclobenzap Cyclobenzap 2020-0 No BID Cyclobenza rine HCl 10 rine HCl 10 1-12 [place] HCl MG MG 00:00: 10 MG 00 Cyclobenzap Cyclobenzap 2020-0 No BID Cyclobenza rine HCl 10 rine HCl 10 1-12 [place] HCl MG MG 00:00: 10 MG 00 Cyclobenzap Cyclobenzap 2020-0 No BID Cyclobenza rine HCl 10 rine HCl 10 1-12 [place] HCl MG MG 00:00: 10 MG 00 Cyclobenzap Cyclobenzap 2020-0 No BID Cyclobenza rine HCl 10 rine HCl 10 1-12 [place] HCl MG MG 00:00: 10 MG 00 Cyclobenzap Cyclobenzap 2020-0 No BID Cyclobenza rine HCl 10 rine HCl 10 1-12 [place] HCl MG MG 00:00: 10 MG 00 Cyclobenzap Cyclobenzap 2020-0 No BID Cyclobenza rine HCl 10 rine HCl 10 1-12 [place] HCl MG MG 00:00: 10 MG 00 Cyclobenzap Cyclobenzap 2020-0 No BID Cyclobenza rine HCl 10 rine HCl 10 1-12 [place] HCl MG MG 00:00: 10 MG 00 Cyclobenzap Cyclobenzap 2020-0 No BID Cyclobenza rine HCl 10 rine HCl 10 1-12 [place] HCl MG MG 00:00: 10 MG 00 Cyclobenzap Cyclobenzap 2020-0 No BID Cyclobenza rine HCl 10 rine HCl 10 1-12 [place] HCl MG MG 00:00: 10 MG 00 Toradol Toradol 2017-07 No 60mg Common (Ketorolac) (Ketorolac) 07-07 S pirit 00:00: - [facility]I 00 [facility] Phenergan Phenergan 2017-07 No 25mg Com mon (Promethazi (Promethazi 07-07 S pirit ne) ne) 00:00: - CHI [facility] Toradol Toradol 2017-07 No 60mg Common (Ketorolac) (Ketorolac) 07-07 S pirit 00:00: - CHI 00 [facility] Phenergan Phenergan 2018-1 No 25mg Com mon (Promethazi (Promethazi 07-07 S pirit ne) ne) 00:00: - CHI 00 [facility] Toradol Toradol 2018- No 60mg Common (Ketorolac) (Ketorolac) 1- S pirit 00:00: - CHI 00 [facility] Phenergan Phenergan 2018-1 No 25mg Com mon (Promethazi (Promethazi 07-07 S pirit ne) ne) 00:00: - CHI 00 [facility] Toradol Toradol 2018- No 60mg Common (Ketorolac) (Ketorolac) 1 S pirit 00:00: - CHI 00 [facility] Phenergan Phenergan 2018-1 No 25mg Com mon (Promethazi (Promethazi 07-07 S pirit ne) ne) 00:00: - CHI [facility] Toradol Toradol 2018- No 60mg Common (Ketorolac) (Ketorolac) 1 S pirit 00:00: - CHI 00 [facility] Phenergan Phenergan 2018-1 No 25mg Com mon (Promethazi (Promethazi 07-07 S pirit ne) ne) 00:00: - CHI 00 [facility] Toradol Toradol 2018- No 60mg Common (Ketorolac) (Ketorolac) 1 S pirit 00:00: - CHI [facility] Phenergan Phenergan 2018-1 No 25mg Com mon (Promethazi (Promethazi 07-07 S pirit ne) ne) 00:00: - CHI 00 [facility] Toradol Toradol 2018- No 60mg Common (Ketorolac) (Ketorolac) 1- S pirit 00:00: - CHI 00 [facility] Phenergan Phenergan 2018-1 No 25mg Com mon (Promethazi (Promethazi 07-07 S pirit ne) ne) 00:00: - CHI [facility] Toradol Toradol 2018- No 60mg Common (Ketorolac) (Ketorolac) 1- S pirit 00:00: - CHI 00 [facility] Phenergan Phenergan 2018- No 25mg Com mon (Promethazi (Promethazi - S pirit ne) ne) 00:00: - CHI 00 [facility] Toradol Toradol 2017- No 60mg Common (Ketorolac) (Ketorolac) 07-07 S pirit 00:00: - CHI 00 [facility] Phenergan Phenergan 2018- No 25mg Com mon (Promethazi (Promethazi - S pirit ne) ne) 00:00: - CHI 00 [facility] Toradol Toradol 2017- No 60mg Common (Ketorolac) (Ketorolac) 07-07 S pirit 00:00: - CHI 00 [facility] Phenergan Phenergan 2018- No 25mg Com mon (Promethazi (Promethazi 07-07 S pirit ne) ne) 00:00: - CHI 00 [facility] Toradol Toradol 2017- No 60mg Common (Ketorolac) (Ketorolac) 07-07 S pirit 00:00: - CHI 00 [facility] Phenergan Phenergan 2017- No 25mg Com mon (Promethazi (Promethazi 07-07 S pirit ne) ne) 00:00: - CHI 00 [facility] Toradol Toradol 2017- No 60mg Common (Ketorolac) (Ketorolac) 07-07 S pirit 00:00: - CHI 00 [facility] Phenergan Phenergan 2018- No 25mg Com mon (Promethazi (Promethazi 07-07 S pirit ne) ne) 00:00: - CHI 00 [facility] Toradol Toradol 2018- No 60mg Common (Ketorolac) (Ketorolac) 07-07 S pirit 00:00: - CHI 00 [facility] Phenergan Phenergan 2018- No 25mg Com mon (Promethazi (Promethazi - S pirit ne) ne) 00:00: - CHI 00 [facility] Toradol Toradol 2018-1 No 60mg Common (Ketorolac) (Ketorolac) 1- S pirit 00:00: - CHI 00 [facility] Phenergan Phenergan 2018-1 No 25mg Com mon (Promethazi (Promethazi - S pirit ne) ne) 00:00: - CHI 00 [facility] Toradol Toradol 2018-1 No 60mg Common (Ketorolac) (Ketorolac) 1 S pirit 00:00: - CHI 00 [facility] Phenergan Phenergan 2018-1 No 25mg Com mon (Promethazi (Promethazi - S pirit ne) ne) 00:00: - CHI 00 [facility] Toradol Toradol 2018-1 No 60mg Common (Ketorolac) (Ketorolac) 07-07 S pirit 00:00: - CHI 00 [facility] Phenergan Phenergan 2018-1 No 25mg Com mon (Promethazi (Promethazi - S pirit ne) ne) 00:00: - CHI 00 [facility] Toradol Toradol 2018-1 No 60mg Common (Ketorolac) (Ketorolac) 07-07 S pirit 00:00: - CHI 00 [facility] Phenergan Phenergan 2018-1 No 25mg Com mon (Promethazi (Promethazi - S pirit ne) ne) 00:00: - CHI 00 [facility] Toradol Toradol 2018-1 No 60mg Common (Ketorolac) (Ketorolac) 1- S pirit 00:00: - CHI 00 [facility] Phenergan Phenergan 2018-1 No 25mg Com mon (Promethazi (Promethazi - S pirit ne) ne) 00:00: - CHI 00 [facility] Toradol Toradol 2018-1 No 60mg Common (Ketorolac) (Ketorolac) 1- S pirit 00:00: - CHI 00 [facility] Phenergan Phenergan 2018-1 No 25mg Com mon (Promethazi (Promethazi - S pirit ne) ne) 00:00: - CHI 00 [facility] Toradol Toradol 2018- No 60mg Common (Ketorolac) (Ketorolac) 1- S pirit 00:00: - CHI 00 [facility] Phenergan Phenergan 2018- No 25mg Com mon (Promethazi (Promethazi - S pirit ne) ne) 00:00: - CHI 00 [facility] Toradol Toradol 2018- No 60mg Common (Ketorolac) (Ketorolac) 1- S pirit 00:00: - CHI 00 [facility] Phenergan Phenergan 2018- No 25mg Com mon (Promethazi (Promethazi - S pirit ne) ne) 00:00: - CHI 00 [facility] Toradol Toradol 2018- No 60mg Common (Ketorolac) (Ketorolac) - S pirit 00:00: - CHI 00 [facility] Phenergan Phenergan 2018- No 25mg Com mon (Promethazi (Promethazi - S pirit ne) ne) 00:00: - CHI 00 [facility] Toradol Toradol 2018- No 60mg Common (Ketorolac) (Ketorolac) 07-07 S pirit 00:00: - CHI 00 [facility] Phenergan Phenergan 2018-1 No 25mg Com mon (Promethazi (Promethazi - S pirit ne) ne) 00:00: - CHI [facility] Toradol Toradol 2018- No 60mg Common (Ketorolac) (Ketorolac) - S pirit 00:00: - CHI 00 [facility] Phenergan Phenergan 2018-1 No 25mg Com mon (Promethazi (Promethazi -01 S pirit ne) ne) 00:00: - CHI 00 [facility] Toradol Toradol 2018-1 No 60mg Common (Ketorolac) (Ketorolac) 1- S pirit 00:00: - CHI [facility] Phenergan Phenergan 2018-1 No 25mg Com mon (Promethazi (Promethazi - S pirit ne) ne) 00:00: - CHI 00 [facility] donepezil 2017-07 Yes 10mg Take 10 mg [place] 10 mg 0-18 by mouth ity of tablet 01:43: at [place] 30 bedtime. Medical Branch FLUoxetine 2017-07 Yes 40mg Take 40 mg U nivers 40 mg 0-18 by mouth ity of capsule 01:43: daily. [address] Branch ondansetron 2017-07 Yes 4mg Take 4 mg U nivers (ZOFRAN) 4 0-18 by mouth ity o f mg tablet 01:43: every 8 [place] 30 (eight) Medical hours as Branch needed. ezetimibe 2017-07 Yes 10mg Take 10 mg [place] 10 mg 0-18 by mouth ity of tablet 01:43: daily. [address] Branch losartan 25 2017-07 Yes 25mg Take 25 mg Univers mg tablet 0-18 by mouth ity of 01:43: daily. [address] Branch DOXAZOSIN 1 2017-07 Yes 1mg Take 1 mg U nivers mg tablet 0-18 by mouth ity of 01:41: daily. PRN [address] Branch ondansetron 2017-07 Yes 4mg Take 1 Univ ers 4 mg 0-17 tablet by ity of disintegrat 00:00: mouth [place] ing tablet 00 every 8 Medica l (eight) Branch hours as needed for Nausea and Vomiting (N/V). sucralfate 2017-07 Yes 1g Take 1 Unive rs (CARAFATE) 0-17 tablet by ity of 1 gram 00:00: mouth [place] tablet 00 before Medical meals and Branch at bedtime. ondansetron 2017-07 Yes 4mg Take 1 Univ ers 4 mg 0-17 tablet by ity of disintegrat 00:00: mouth [place] ing tablet 00 every 8 Medica l (eight) Branch hours as needed for Nausea and Vomiting (N/V). sucralfate 2017-07 Yes 1g Take 1 Unive rs (CARAFATE) 0-17 tablet by ity of 1 gram 00:00: mouth [place] tablet 00 before Medical meals and Branch at bedtime. ondansetron 2017-07 Yes 4mg Take 1 Univ ers 4 mg 0-17 tablet by ity of disintegrat 00:00: mouth [place] ing tablet 00 every 8 Medica l (eight) Branch hours as needed for Nausea and Vomiting (N/V). sucralfate 2018- Yes 1g Take 1 Unive rs (CARAFATE) 0-17 tablet by ity of 1 gram 00:00: mouth [place] tablet 00 before Medical meals and Branch at bedtime. ondansetron 2017- Yes 4mg Take 1 Univ ers 4 mg 0-17 tablet by ity of disintegrat 00:00: mouth [place] ing tablet 00 every 8 Medica l (eight) Branch hours as needed for Nausea and Vomiting (N/V). sucralfate 2017- Yes 1g Take 1 Unive rs (CARAFATE) 0-17 tablet by ity of 1 gram 00:00: mouth [place] tablet 00 before Medical meals and Branch at bedtime. ondansetron 2017- Yes 4mg Take 1 Univ ers 4 mg 0-17 tablet by ity of disintegrat 00:00: mouth [place] ing tablet 00 every 8 Medica l (eight) Branch hours as needed for Nausea and Vomiting (N/V). sucralfate 2017- Yes 1g Take 1 Unive rs (CARAFATE) 0-17 tablet by ity of 1 gram 00:00: mouth [place] tablet 00 before Medical meals and Branch at bedtime. ondansetron 2017-07 Yes 4mg Take 1 Univ ers 4 mg 0-17 tablet by ity of disintegrat 00:00: mouth [place] ing tablet 00 every 8 Medica l (eight) Branch hours as needed for Nausea and Vomiting (N/V). sucralfate 2017- Yes 1g Take 1 Unive rs (CARAFATE) 0-17 tablet by ity of 1 gram 00:00: mouth [place] tablet 00 before Medical meals and Branch at bedtime. ondansetron 2017- Yes 4mg Take 1 Univ ers 4 mg 0-17 tablet by ity of disintegrat 00:00: mouth [place] ing tablet 00 every 8 Medica l (eight) Branch hours as needed for Nausea and Vomiting (N/V). sucralfate 2018- Yes 1g Take 1 Unive rs (CARAFATE) 0-17 tablet by ity of 1 gram 00:00: mouth [place] tablet 00 before Medical meals and Branch at bedtime. ondansetron 2017- Yes 4mg Take 1 Univ ers 4 mg 0-17 tablet by ity of disintegrat 00:00: mouth [place] ing tablet 00 every 8 Medica l (eight) Branch hours as needed for Nausea and Vomiting (N/V). sucralfate 2017- Yes 1g Take 1 Unive rs (CARAFATE) 0-17 tablet by ity of 1 gram 00:00: mouth [place] tablet 00 before Medical meals and Branch at bedtime. ondansetron 2017-07 Yes 4mg Take 1 Univ ers 4 mg 0-17 tablet by ity of disintegrat 00:00: mouth [place] ing tablet 00 every 8 Medica l (eight) Branch hours as needed for Nausea and Vomiting (N/V). sucralfate 2017-07 Yes 1g Take 1 [facility] (CARAFATE) 0-17 tablet by ity of 1 gram 00:00: mouth [place] tablet 00 before Medical meals and Branch at bedtime. ondansetron 2017-07 Yes 4mg Take 1 [facility] 4 mg 0-17 tablet by ity of disintegrat 00:00: mouth [place] ing tablet 00 every 8 Medica l (eight) Branch hours as needed for Nausea and Vomiting (N/V). sucralfate 2017-07 Yes 1g Take 1 [facility] (CARAFATE) 0-17 tablet by ity of 1 gram 00:00: mouth [place] tablet 00 before Medical meals and Branch at bedtime. ondansetron 2017-07 Yes 4mg Take 1 [facility] ers 4 mg 0-17 tablet by ity of disintegrat 00:00: mouth [place] ing tablet 00 every 8 Medica l (eight) Branch hours as needed for Nausea and Vomiting (N/V). sucralfate 2017-07 Yes 1g Take 1 [facility] (CARAFATE) 0-17 tablet by ity of 1 gram 00:00: mouth [place] tablet 00 before Medical meals and Branch at bedtime. ondansetron 2017-07 Yes 4mg Take 1 Univ ers 4 mg 0-17 tablet by ity of disintegrat 00:00: mouth [place] ing tablet 00 every 8 Medica l (eight) Branch hours as needed for Nausea and Vomiting (N/V). sucralfate 2017- Yes 1g Take 1 [facility] (CARAFATE) 0-17 tablet by ity of 1 gram 00:00: mouth [place] tablet 00 before Medical meals and Branch at bedtime. Toradol Toradol No 60mg Common (Ketorolac) (Ketorolac) 8-22 S pirit 00:00: - [facility] Solumedrol Solumedrol 2018-0 No C ommon 125mg/2ml 125mg/2ml 8- Spiri t 00:00: - [facility] Toradol Toradol 2018-0 No 60mg Common (Ketorolac) (Ketorolac) 8-22 S pirit 00:00: - [facility] Solumedrol Solumedrol 2018-0 No C ommon 125mg/2ml 125mg/2ml 8 Spiri t 00:00: - [facility] Toradol Toradol 2018-0 No 60mg Common (Ketorolac) (Ketorolac) 8-22 S pirit 00:00: - [facility] Solumedrol Solumedrol 2018-0 No C ommon 125mg/2ml 125mg/2ml 02-25 Spiri t 00:00: - [facility] Toradol Toradol 2018-0 No 60mg Common (Ketorolac) (Ketorolac) 8-22 S pirit 00:00: - [facility] Solumedrol Solumedrol 2018-0 No C ommon 125mg/2ml 125mg/2ml 02-25 Spiri t 00:00: - [facility] Toradol Toradol 2018-0 No 60mg Common (Ketorolac) (Ketorolac) 8-22 S pirit 00:00: - [facility] Solumedrol Solumedrol 2018-0 No C ommon 125mg/2ml 125mg/2ml 02-25 Spiri t 00:00: - [facility] Toradol Toradol 2018-0 No 60mg Common (Ketorolac) (Ketorolac) 8-22 S pirit 00:00: - [facility] Solumedrol Solumedrol 2018-0 No C ommon 125mg/2ml 125mg/2ml 8 Spiri t 00:00: - [facility] Toradol Toradol 2018-0 No 60mg Common (Ketorolac) (Ketorolac) 8-22 S pirit 00:00: - [facility] Solumedrol Solumedrol 2018-0 No C ommon 125mg/2ml 125mg/2ml 8- Spiri t 00:00: - [facility] Toradol Toradol 2018-0 No 60mg Common (Ketorolac) (Ketorolac) 8-22 S pirit 00:00: - [facility] Solumedrol Solumedrol 2018-0 No C ommon 125mg/2ml 125mg/2ml 8 Spiri t 00:00: - [facility] Toradol Toradol 2018-0 No 60mg Common (Ketorolac) (Ketorolac) 8-22 S pirit 00:00: - [facility] Solumedrol Solumedrol 2018-0 No C ommon 125mg/2ml 125mg/2ml 8 Spiri t 00:00: - [facility] Toradol Toradol 2018-0 No 60mg Common (Ketorolac) (Ketorolac) 8-22 S pirit 00:00: - [facility] Solumedrol Solumedrol 2018-0 No C ommon 125mg/2ml 125mg/2ml 8 Spiri t 00:00: - [facility] Toradol Toradol 2018-0 No 60mg Common (Ketorolac) (Ketorolac) 8-22 S pirit 00:00: - [facility] Solumedrol Solumedrol 2018-0 No C ommon 125mg/2ml 125mg/2ml 8 Spiri t 00:00: - [facility] Toradol Toradol 2018-0 No 60mg Common (Ketorolac) (Ketorolac) 8-22 S pirit 00:00: - [facility] Solumedrol Solumedrol 2018-0 No C ommon 125mg/2ml 125mg/2ml 8 Spiri t 00:00: - [facility] Toradol Toradol 2018-0 No 60mg Common (Ketorolac) (Ketorolac) 8-22 S pirit 00:00: - [facility] Solumedrol Solumedrol 2018-0 No C ommon 125mg/2ml 125mg/2ml 8-22 Spiri t 00:00: - [facility] Toradol Toradol 2018-0 No 60mg Common (Ketorolac) (Ketorolac) 8-22 S pirit 00:00: - [facility] Solumedrol Solumedrol 2018-0 No C ommon 125mg/2ml 125mg/2ml 8-22 Spiri t 00:00: - [facility] Toradol Toradol 2018-0 No 60mg Common (Ketorolac) (Ketorolac) 8-22 S pirit 00:00: - [facility] Solumedrol Solumedrol 2018-0 No C ommon 125mg/2ml 125mg/2ml 8 Spiri t 00:00: - [facility] Toradol Toradol 2018-0 No 60mg Common (Ketorolac) (Ketorolac) 8-22 S pirit 00:00: - [facility] Solumedrol Solumedrol 2018-0 No C ommon 125mg/2ml 125mg/2ml 8- Spiri t 00:00: - [facility] Toradol Toradol 2018-0 No 60mg Common (Ketorolac) (Ketorolac) 8-22 S pirit 00:00: - [facility] Solumedrol Solumedrol 2018-0 No C ommon 125mg/2ml 125mg/2ml 8- Spiri t 00:00: - [facility] Toradol Toradol 2018-0 No 60mg Common (Ketorolac) (Ketorolac) 8-22 S pirit 00:00: - [facility] Solumedrol Solumedrol 2018-0 No C ommon 125mg/2ml 125mg/2ml 8- Spiri t 00:00: - [facility] Toradol Toradol 2018-0 No 60mg Common (Ketorolac) (Ketorolac) 8-22 S pirit 00:00: - [facility] Solumedrol Solumedrol 2018-0 No C ommon 125mg/2ml 125mg/2ml 8-22 Spiri t 00:00: - [facility] Toradol Toradol 2018-0 No 60mg Common (Ketorolac) (Ketorolac) 8-22 S pirit 00:00: - [facility] Solumedrol Solumedrol 2018-0 No C ommon 125mg/2ml 125mg/2ml 8 Spiri t 00:00: - [facility] Toradol Toradol 2018-0 No 60mg Common (Ketorolac) (Ketorolac) 8-22 S pirit 00:00: - [facility] Solumedrol Solumedrol 2018-0 No C ommon 125mg/2ml 125mg/2ml 02-25 Spiri t 00:00: - [facility] Toradol Toradol 2018-0 No 60mg Common (Ketorolac) (Ketorolac) 8- S pirit 00:00: - [facility] Solumedrol Solumedrol 2018-0 No C ommon 125mg/2ml 125mg/2ml 02-25 Spiri t 00:00: - [facility] Toradol Toradol 2018-0 No 60mg Common (Ketorolac) (Ketorolac) 8-22 S pirit 00:00: - [facility] Solumedrol Solumedrol 2018-0 No C ommon 125mg/2ml 125mg/2ml 02-25 Spiri t 00:00: - [facility] Toradol Toradol 2018-0 No 60mg Common (Ketorolac) (Ketorolac) 8-22 S pirit 00:00: - [facility] Solumedrol Solumedrol 2018-0 No C ommon 125mg/2ml 125mg/2ml 02-25 Spiri t 00:00: - [facility] Toradol Toradol 2018-0 No 60mg Common (Ketorolac) (Ketorolac) 8-22 S pirit 00:00: - [facility] Solumedrol Solumedrol 2018-0 No C ommon 125mg/2ml 125mg/2ml 02-25 Spiri t 00:00: - [facility] diazepam 2010-0 Yes 2mg Take 1 Tab Uni vers (VALIUM) 2 6-04 by mouth 3 ity of mg tablet 00:00: (three) [place] 00 times Medical daily. Branch traMADOL 2010-0 Yes 50mg Take 1 Tab [facility] (ULTRAM) 50 6-04 by mouth ity of mg tablet 00:00: every 6 [place] 00 (six) Medical hours as Branch needed for Pain. diazepam 2010-0 Yes 2mg Take 1 Tab [facility] (VALIUM) 2 6-04 by mouth 3 ity of mg tablet 00:00: (three) [place] 00 times Medical daily. Branch traMADOL 2010-0 Yes 50mg Take 1 Tab [facility] (ULTRAM) 50 6-04 by mouth ity of mg tablet 00:00: every 6 [place] 00 (six) Medical hours as Branch needed for Pain. diazepam 2010-0 Yes 2mg Take 1 Tab [facility] (VALIUM) 2 6-04 by mouth 3 ity of mg tablet 00:00: (three) [place] 00 times Medical daily. Branch traMADOL 2010-0 Yes 50mg Take 1 Tab [facility] (ULTRAM) 50 6-04 by mouth ity of mg tablet 00:00: every 6 [place] 00 (six) Medical hours as Branch needed for Pain. diazepam 2010-0 Yes 2mg Take 1 Tab [facility] vers (VALIUM) 2 6-04 by mouth 3 ity of mg tablet 00:00: (three) [place] 00 times Medical daily. Branch traMADOL 2010-0 Yes 50mg Take 1 Tab [facility] vers (ULTRAM) 50 6-04 by mouth ity of mg tablet 00:00: every 6 [place] 00 (six) Medical hours as Branch needed for Pain. diazepam 2010-0 Yes 2mg Take 1 Tab [facility] vers (VALIUM) 2 6-04 by mouth 3 ity of mg tablet 00:00: (three) [place] 00 times Medical daily. Branch traMADOL 2010-0 Yes 50mg Take 1 Tab [facility] vers (ULTRAM) 50 6-04 by mouth ity of mg tablet 00:00: every 6 [place] 00 (six) Medical hours as Branch needed for Pain. diazepam 2010-0 Yes 2mg Take 1 Tab [facility] vers (VALIUM) 2 6-04 by mouth 3 ity of mg tablet 00:00: (three) [place] 00 times Medical daily. Branch traMADOL 2010-0 Yes 50mg Take 1 Tab Uni vers (ULTRAM) 50 6-04 by mouth ity of mg tablet 00:00: every 6 [place] 00 (six) Medical hours as Branch needed for Pain. diazepam 2010-0 Yes 2mg Take 1 Tab [facility] vers (VALIUM) 2 6-04 by mouth 3 ity of mg tablet 00:00: (three) [place] 00 times Medical daily. Branch traMADOL 2010-0 Yes 50mg Take 1 Tab [facility] vers (ULTRAM) 50 6-04 by mouth ity of mg tablet 00:00: every 6 [place] 00 (six) Medical hours as Branch needed for Pain. diazepam 2010-0 Yes 2mg Take 1 Tab [facility] vers (VALIUM) 2 6-04 by mouth 3 ity of mg tablet 00:00: (three) [place] 00 times Medical daily. Branch traMADOL 2010-0 Yes 50mg Take 1 Tab [facility] vers (ULTRAM) 50 6-04 by mouth ity of mg tablet 00:00: every 6 [place] 00 (six) Medical hours as Branch needed for Pain. diazepam 2010-0 Yes 2mg Take 1 Tab Uni vers (VALIUM) 2 6-04 by mouth 3 ity of mg tablet 00:00: (three) [place] 00 times Medical daily. Branch traMADOL 2010-0 Yes 50mg Take 1 Tab [facility] vers (ULTRAM) 50 6-04 by mouth ity of mg tablet 00:00: every 6 [place] 00 (six) Medical hours as Branch needed for Pain. diazepam 2010-0 Yes 2mg Take 1 Tab Uni vers (VALIUM) 2 6-04 by mouth 3 ity of mg tablet 00:00: (three) [place] 00 times Medical daily. Branch traMADOL 2010-0 Yes 50mg Take 1 Tab Uni vers (ULTRAM) 50 6-04 by mouth ity of mg tablet 00:00: every 6 [place] 00 (six) Medical hours as Branch needed for Pain. diazepam 2010-0 Yes 2mg Take 1 Tab Uni vers (VALIUM) 2 6-04 by mouth 3 ity of mg tablet 00:00: (three) [place] 00 times Medical daily. Branch traMADOL 2010-0 Yes 50mg Take 1 Tab Uni vers (ULTRAM) 50 6-04 by mouth ity of mg tablet 00:00: every 6 [place] 00 (six) Medical hours as Branch needed for Pain. diazepam Yes 2mg Take 1 Tab Uni vers (VALIUM) 2 - by mouth 3 ity of mg tablet 00:00: (three) [place] 00 times Medical daily. Branch traMADOL Yes 50mg Take 1 Tab Uni vers (ULTRAM) 50 - by mouth ity of mg tablet 00:00: every 6 [place] 00 (six) Medical hours as Branch needed for Pain. [place] 3 [place] 3 No [place] 3 Losartan Losartan No 1{table QD Losartan Potassium Potassium t} Potassium 25 MG 25 MG 25 MG fentaNYL fentaNYL No fentaNYL Zetia 10 mg Zetia 10 mg No 1{table QD Zetia 10 t} mg Pantoprazol Pantoprazol No 1{table QD Pantoprazo e Sodium 40 e Sodium 40 t} le Sodium MG MG 40 MG traZODone traZODone No QD traZODone HCl 50 MG HCl 50 MG HCl 50 MG Vitamin D3 Vitamin D3 No Vitamin D3 SlowMag Mg SlowMag Mg No SlowMag Mg Calm/Sleep Calm/Sleep Calm/Sleep Gabapentin Gabapentin No QD Gabapentin 600 MG 600 MG 600 MG buPROPion buPROPion No 1{table buPROPion HCl ER (XL) HCl ER (XL) t} HCl ER 150 MG 150 MG (XL) 150 MG Donepezil Donepezil No 1{table BID Donepezil HCl 10 MG HCl 10 MG t_at_be HCl 10 MG dtime} Vitamin C Vitamin C No Vitamin C 500 MG 500 MG 500 MG Zetia 10 MG Zetia 10 MG No 1{table QD Zetia 10 t} MG Valium 10 Valium 10 No Valium 10 MG MG MG Gabapentin Gabapentin No 1{capsu Gabapentin 600 MG 600 MG le} 600 MG Zinc Zinc No Zinc buPROPion buPROPion No buPROPion HCl ER (XL) HCl ER (XL) HCl ER 150 MG 150 MG (XL) 150 MG Fish Oil Fish Oil No 1{capsu QD Fish Oil 1000 MG 1000 MG le} 1000 MG Memantine Memantine No BID Memantine HCl 10 MG HCl 10 MG HCl 10 MG Ezetimibe Ezetimibe No Ezetimibe 10 MG 10 MG 10 MG Quercetin Quercetin No Quercetin CoQ-10 CoQ-10 No CoQ-10 Ginkgo Ginkgo No Ginkgo Doxazosin Doxazosin No Doxazosin Mesylate 1 Mesylate 1 Mesylate 1 MG MG MG [place] 3 [place] 3 No [place] 3 Losartan Losartan No 1{table QD Losartan Potassium Potassium t} Potassium 25 MG 25 MG 25 MG fentaNYL fentaNYL No fentaNYL Zetia 10 mg Zetia 10 mg No 1{table QD Zetia 10 t} mg Pantoprazol Pantoprazol No 1{table QD Pantoprazo e Sodium 40 e Sodium 40 t} le Sodium MG MG 40 MG traZODone traZODone No QD traZODone HCl 50 MG HCl 50 MG HCl 50 MG Vitamin D3 Vitamin D3 No Vitamin D3 SlowMag Mg SlowMag Mg No SlowMag Mg Calm/Sleep Calm/Sleep Calm/Sleep Gabapentin Gabapentin No QD Gabapentin 600 MG 600 MG 600 MG buPROPion buPROPion No 1{table buPROPion HCl ER (XL) HCl ER (XL) t} HCl ER 150 MG 150 MG (XL) 150 MG Donepezil Donepezil No 1{table BID Donepezil HCl 10 MG HCl 10 MG t_at_be HCl 10 MG dtime} Vitamin C Vitamin C No Vitamin C 500 MG 500 MG 500 MG Zetia 10 MG Zetia 10 MG No 1{table QD Zetia 10 t} MG Valium 10 Valium 10 No Valium 10 MG MG MG Gabapentin Gabapentin No 1{capsu Gabapentin 600 MG 600 MG le} 600 MG Zinc Zinc No Zinc buPROPion buPROPion No buPROPion HCl ER (XL) HCl ER (XL) HCl ER 150 MG 150 MG (XL) 150 MG Fish Oil Fish Oil No 1{capsu QD Fish Oil 1000 MG 1000 MG le} 1000 MG Memantine Memantine No BID Memantine HCl 10 MG HCl 10 MG HCl 10 MG Ezetimibe Ezetimibe No Ezetimibe 10 MG 10 MG 10 MG Quercetin Quercetin No Quercetin CoQ-10 CoQ-10 No CoQ-10 Ginkgo Ginkgo No Ginkgo Doxazosin Doxazosin No Doxazosin Mesylate 1 Mesylate 1 Mesylate 1 MG MG MG [place] 3 [place] 3 No [place] 3 Losartan Losartan No 1{table QD Losartan Potassium Potassium t} Potassium 25 MG 25 MG 25 MG fentaNYL fentaNYL No fentaNYL Zetia 10 mg Zetia 10 mg No 1{table QD Zetia 10 t} mg Pantoprazol Pantoprazol No 1{table QD Pantoprazo e Sodium 40 e Sodium 40 t} le Sodium MG MG 40 MG traZODone traZODone No QD traZODone HCl 50 MG HCl 50 MG HCl 50 MG Losartan Losartan No 1{table QD Losartan Potassium Potassium t} Potassium 25 MG 25 MG 25 MG Quercetin Quercetin No Quercetin Gabapentin Gabapentin No 1{capsu Gabapentin 600 MG 600 MG le} 600 MG Fish Oil Fish Oil No 1{capsu QD Fish Oil 1000 MG 1000 MG le} 1000 MG Zetia 10 mg Zetia 10 mg No 1{table QD Zetia 10 t} mg Vitamin C Vitamin C No Vitamin C 500 MG 500 MG 500 MG Pantoprazol Pantoprazol No 1{table QD Pantoprazo e Sodium 40 e Sodium 40 t} le Sodium MG MG 40 MG Zinc Zinc No Zinc SlowMag Mg SlowMag Mg No SlowMag Mg Calm/Sleep Calm/Sleep Calm/Sleep traZODone traZODone No QD traZODone HCl 50 MG HCl 50 MG HCl 50 MG Valium 10 Valium 10 No Valium 10 MG MG MG Donepezil Donepezil No 1{table BID Donepezil HCl 10 MG HCl 10 MG t_at_be HCl 10 MG dtime} CoQ-10 CoQ-10 No CoQ-10 Memantine Memantine No BID Memantine HCl 10 MG HCl 10 MG HCl 10 MG Zetia 10 MG Zetia 10 MG No 1{table QD Zetia 10 t} MG Ginkgo Ginkgo No Ginkgo [place] 3 [place] 3 No [place] 3 fentaNYL fentaNYL No fentaNYL buPROPion buPROPion No 1{table buPROPion HCl ER (XL) HCl ER (XL) t} HCl ER 150 MG 150 MG (XL) 150 MG buPROPion buPROPion No buPROPion HCl ER (XL) HCl ER (XL) HCl ER 150 MG 150 MG (XL) 150 MG Ezetimibe Ezetimibe No Ezetimibe 10 MG 10 MG 10 MG Doxazosin Doxazosin No Doxazosin Mesylate 1 Mesylate 1 Mesylate 1 MG MG MG Gabapentin Gabapentin No QD Gabapentin 600 MG 600 MG 600 MG Vitamin D3 Vitamin D3 No Vitamin D3 Losartan Losartan No 1{table QD Losartan Potassium Potassium t} Potassium 25 MG 25 MG 25 MG Quercetin Quercetin No Quercetin Gabapentin Gabapentin No 1{capsu Gabapentin 600 MG 600 MG le} 600 MG Fish Oil Fish Oil No 1{capsu QD Fish Oil 1000 MG 1000 MG le} 1000 MG Zetia 10 mg Zetia 10 mg No 1{table QD Zetia 10 t} mg Vitamin C Vitamin C No Vitamin C 500 MG 500 MG 500 MG Pantoprazol Pantoprazol No 1{table QD Pantoprazo e Sodium 40 e Sodium 40 t} le Sodium MG MG 40 MG Zinc Zinc No Zinc SlowMag Mg SlowMag Mg No SlowMag Mg Calm/Sleep Calm/Sleep Calm/Sleep traZODone traZODone No QD traZODone HCl 50 MG HCl 50 MG HCl 50 MG Valium 10 Valium 10 No Valium 10 MG MG MG Donepezil Donepezil No 1{table BID Donepezil HCl 10 MG HCl 10 MG t_at_be HCl 10 MG dtime} CoQ-10 CoQ-10 No CoQ-10 Memantine Memantine No BID Memantine HCl 10 MG HCl 10 MG HCl 10 MG Zetia 10 MG Zetia 10 MG No 1{table QD Zetia 10 t} MG Ginkgo Ginkgo No Ginkgo [place] 3 [place] 3 No [place] 3 fentaNYL fentaNYL No fentaNYL buPROPion buPROPion No 1{table buPROPion HCl ER (XL) HCl ER (XL) t} HCl ER 150 MG 150 MG (XL) 150 MG buPROPion buPROPion No buPROPion HCl ER (XL) HCl ER (XL) HCl ER 150 MG 150 MG (XL) 150 MG Ezetimibe Ezetimibe No Ezetimibe 10 MG 10 MG 10 MG Doxazosin Doxazosin No Doxazosin Mesylate 1 Mesylate 1 Mesylate 1 MG MG MG Gabapentin Gabapentin No QD Gabapentin 600 MG 600 MG 600 MG Vitamin D3 Vitamin D3 No Vitamin D3 Donepezil Donepezil No 1{table BID Donepezil HCl 10 MG HCl 10 MG t_at_be HCl 10 MG dtime} Gabapentin Gabapentin No 1{capsu Gabapentin 600 MG 600 MG le} 600 MG CoQ-10 CoQ-10 No CoQ-10 buPROPion buPROPion No 1{table buPROPion HCl ER (XL) HCl ER (XL) t} HCl ER 150 MG 150 MG (XL) 150 MG Vitamin D3 Vitamin D3 No Vitamin D3 Ginkgo Ginkgo No Ginkgo Memantine Memantine No BID Memantine HCl 10 MG HCl 10 MG HCl 10 MG Losartan Losartan No 1{table QD Losartan Potassium Potassium t} Potassium 25 MG 25 MG 25 MG Zetia 10 mg Zetia 10 mg No 1{table QD Zetia 10 t} mg SlowMag Mg SlowMag Mg No SlowMag Mg Calm/Sleep Calm/Sleep Calm/Sleep Gabapentin Gabapentin No QD Gabapentin 600 MG 600 MG 600 MG Ezetimibe Ezetimibe No Ezetimibe 10 MG 10 MG 10 MG Coconut Oil Coconut Oil No Coconut 1000 MG 1000 MG Oil 1000 MG Fish Oil Fish Oil No 1{capsu QD Fish Oil 1000 MG 1000 MG le} 1000 MG Zetia 10 MG Zetia 10 MG No 1{table QD Zetia 10 t} MG Lasix 20 MG Lasix 20 MG No 1{table QD Lasix 20 t} MG Quercetin Quercetin No Quercetin Vitamin C Vitamin C No Vitamin C 500 MG 500 MG 500 MG Zinc Zinc No Zinc buPROPion buPROPion No buPROPion HCl ER (XL) HCl ER (XL) HCl ER 150 MG 150 MG (XL) 150 MG [place] 3 [place] 3 No [place] 3 Doxazosin Doxazosin No Doxazosin Mesylate 1 Mesylate 1 Mesylate 1 MG MG MG Pantoprazol Pantoprazol No 1{table QD Pantoprazo e Sodium 40 e Sodium 40 t} le Sodium MG MG 40 MG fentaNYL fentaNYL No fentaNYL traZODone traZODone No QD traZODone HCl 50 MG HCl 50 MG HCl 50 MG CoQ-10 CoQ-10 No CoQ-10 buPROPion buPROPion No buPROPion HCl ER (XL) HCl ER (XL) HCl ER 150 MG 150 MG (XL) 150 MG SlowMag Mg SlowMag Mg No SlowMag Mg Calm/Sleep Calm/Sleep Calm/Sleep Pantoprazol Pantoprazol No 1{table QD Pantoprazo e Sodium 40 e Sodium 40 t} le Sodium MG MG 40 MG Coconut Oil Coconut Oil No [place]ut 1000 MG 1000 MG Oil 1000 MG Ezetimibe Ezetimibe No Ezetimibe 10 MG 10 MG 10 MG Zetia 10 MG Zetia 10 MG No 1{table QD Zetia 10 t} MG buPROPion buPROPion No 1{table buPROPion HCl ER (XL) HCl ER (XL) t} HCl ER 150 MG 150 MG (XL) 150 MG Vitamin D3 Vitamin D3 No Vitamin D3 Gabapentin Gabapentin No 1{capsu Gabapentin 600 MG 600 MG le} 600 MG Gabapentin Gabapentin No QD Gabapentin 600 MG 600 MG 600 MG [place] 3 [place] 3 No [place] 3 Zetia 10 mg Zetia 10 mg No 1{table QD Zetia 10 t} mg Donepezil Donepezil No 1{table BID Donepezil HCl 10 MG HCl 10 MG t_at_be HCl 10 MG dtime} Losartan Losartan No 1{table QD Losartan Potassium Potassium t} Potassium 25 MG 25 MG 25 MG Ginkgo Ginkgo No Ginkgo Memantine Memantine No BID Memantine HCl 10 MG HCl 10 MG HCl 10 MG fentaNYL fentaNYL No fentaNYL Doxazosin Doxazosin No Doxazosin Mesylate 1 Mesylate 1 Mesylate 1 MG MG MG Fish Oil Fish Oil No 1{capsu QD Fish Oil 1000 MG 1000 MG le} 1000 MG Lasix 20 MG Lasix 20 MG No 1{table QD Lasix 20 t} MG Vitamin C Vitamin C No Vitamin C 500 MG 500 MG 500 MG traZODone traZODone No QD traZODone HCl 50 MG HCl 50 MG HCl 50 MG Quercetin Quercetin No Quercetin Zinc Zinc No Zinc Losartan Losartan No 1{table QD Losartan Potassium Potassium t} Potassium 25 MG 25 MG 25 MG Gabapentin Gabapentin No QD Gabapentin 600 MG 600 MG 600 MG Zetia 10 MG Zetia 10 MG No 1{table QD Zetia 10 t} MG fentaNYL fentaNYL No fentaNYL Donepezil Donepezil No 1{table BID Donepezil HCl 10 MG HCl 10 MG t_at_be HCl 10 MG dtime} Doxazosin Doxazosin No Doxazosin Mesylate 1 Mesylate 1 Mesylate 1 MG MG MG Gabapentin Gabapentin No 1{capsu Gabapentin 600 MG 600 MG le} 600 MG Zetia 10 mg Zetia 10 mg No 1{table QD Zetia 10 t} mg Ezetimibe Ezetimibe No Ezetimibe 10 MG 10 MG 10 MG Furosemide Furosemide No 1{table QD Furosemide 40 MG 40 MG t} 40 MG buPROPion buPROPion No buPROPion HCl ER (XL) HCl ER (XL) HCl ER 150 MG 150 MG (XL) 150 MG Pantoprazol Pantoprazol No 1{table QD Pantoprazo e Sodium 40 e Sodium 40 t} le Sodium MG MG 40 MG SlowMag Mg SlowMag Mg No SlowMag Mg Calm/Sleep Calm/Sleep Calm/Sleep Fish Oil Fish Oil No 1{capsu QD Fish Oil 1000 MG 1000 MG le} 1000 MG Memantine Memantine No BID Memantine HCl 10 MG HCl 10 MG HCl 10 MG Vitamin C Vitamin C No Vitamin C 500 MG 500 MG 500 MG CoQ-10 CoQ-10 No CoQ-10 Vitamin D3 Vitamin D3 No Vitamin D3 [place] 3 [place] 3 No [place] 3 buPROPion buPROPion No 1{table buPROPion HCl ER (XL) HCl ER (XL) t} HCl ER 150 MG 150 MG (XL) 150 MG Ginkgo Ginkgo No Ginkgo Quercetin Quercetin No Quercetin traZODone traZODone No QD traZODone HCl 50 MG HCl 50 MG HCl 50 MG Zinc Zinc No Zinc Lasix 20 MG Lasix 20 MG No 1{table QD Lasix 20 t} MG Coconut Oil Coconut Oil No [place]ut 1000 MG 1000 MG Oil 1000 MG Losartan Losartan No 1{table QD Losartan Potassium Potassium t} Potassium 25 MG 25 MG 25 MG Gabapentin Gabapentin No QD Gabapentin 600 MG 600 MG 600 MG Zetia 10 MG Zetia 10 MG No 1{table QD Zetia 10 t} MG fentaNYL fentaNYL No fentaNYL Donepezil Donepezil No 1{table BID Donepezil HCl 10 MG HCl 10 MG t_at_be HCl 10 MG dtime} Doxazosin Doxazosin No Doxazosin Mesylate 1 Mesylate 1 Mesylate 1 MG MG MG Gabapentin Gabapentin No 1{capsu Gabapentin 600 MG 600 MG le} 600 MG Zetia 10 mg Zetia 10 mg No 1{table QD Zetia 10 t} mg Ezetimibe Ezetimibe No Ezetimibe 10 MG 10 MG 10 MG Furosemide Furosemide No 1{table QD Furosemide 40 MG 40 MG t} 40 MG buPROPion buPROPion No buPROPion HCl ER (XL) HCl ER (XL) HCl ER 150 MG 150 MG (XL) 150 MG Pantoprazol Pantoprazol No 1{table QD Pantoprazo e Sodium 40 e Sodium 40 t} le Sodium MG MG 40 MG SlowMag Mg SlowMag Mg No SlowMag Mg Calm/Sleep Calm/Sleep Calm/Sleep Fish Oil Fish Oil No 1{capsu QD Fish Oil 1000 MG 1000 MG le} 1000 MG Memantine Memantine No BID Memantine HCl 10 MG HCl 10 MG HCl 10 MG Vitamin C Vitamin C No Vitamin C 500 MG 500 MG 500 MG CoQ-10 CoQ-10 No CoQ-10 Vitamin D3 Vitamin D3 No Vitamin D3 [place] 3 [place] 3 No [place] 3 buPROPion buPROPion No 1{table buPROPion HCl ER (XL) HCl ER (XL) t} HCl ER 150 MG 150 MG (XL) 150 MG Ginkgo Ginkgo No Ginkgo Quercetin Quercetin No Quercetin traZODone traZODone No QD traZODone HCl 50 MG HCl 50 MG HCl 50 MG Zinc Zinc No Zinc Lasix 20 MG Lasix 20 MG No 1{table QD Lasix 20 t} MG Coconut Oil Coconut Oil No [place] 1000 MG 1000 MG Oil 1000 MG traZODone traZODone No QD traZODone HCl 50 MG HCl 50 MG HCl 50 MG Vitamin D3 Vitamin D3 No Vitamin D3 Lasix 20 MG Lasix 20 MG No 1{table QD Lasix 20 t} MG Losartan Losartan No 1{table QD Losartan Potassium Potassium t} Potassium 25 MG 25 MG 25 MG Ginkgo Ginkgo No Ginkgo Fish Oil Fish Oil No 1{capsu QD Fish Oil 1000 MG 1000 MG le} 1000 MG Zetia 10 MG Zetia 10 MG No 1{table QD Zetia 10 t} MG Ezetimibe Ezetimibe No Ezetimibe 10 MG 10 MG 10 MG Zinc Zinc No Zinc buPROPion buPROPion No 1{table buPROPion HCl ER (XL) HCl ER (XL) t} HCl ER 150 MG 150 MG (XL) 150 MG Quercetin Quercetin No Quercetin Vitamin C Vitamin C No Vitamin C 500 MG 500 MG 500 MG fentaNYL fentaNYL No fentaNYL Gabapentin Gabapentin No QD Gabapentin 600 MG 600 MG 600 MG Losartan Losartan No 1{table QD Losartan Potassium Potassium t} Potassium 25 MG 25 MG 25 MG Coconut Oil Coconut Oil No [place]ut 1000 MG 1000 MG Oil 1000 MG Furosemide Furosemide No 1{table QD Furosemide 40 MG 40 MG t} 40 MG [place] 3 [place] 3 No [place] 3 Pantoprazol Pantoprazol No 1{table QD Pantoprazo e Sodium 40 e Sodium 40 t} le Sodium MG MG 40 MG CoQ-10 CoQ-10 No CoQ-10 Gabapentin Gabapentin No 1{capsu Gabapentin 600 MG 600 MG le} 600 MG Memantine Memantine No BID Memantine HCl 10 MG HCl 10 MG HCl 10 MG SlowMag Mg SlowMag Mg No SlowMag Mg Calm/Sleep Calm/Sleep Calm/Sleep Gabapentin Gabapentin No QD Gabapentin 600 MG 600 MG 600 MG Donepezil Donepezil No 1{table BID Donepezil HCl 10 MG HCl 10 MG t_at_be HCl 10 MG dtime} Zetia 10 mg Zetia 10 mg No 1{table QD Zetia 10 t} mg buPROPion buPROPion No buPROPion HCl ER (XL) HCl ER (XL) HCl ER 150 MG 150 MG (XL) 150 MG Doxazosin Doxazosin No Doxazosin Mesylate 1 Mesylate 1 Mesylate 1 MG MG MG Zetia 10 MG Zetia 10 MG No 1{table QD Zetia 10 t} MG fentaNYL fentaNYL No fentaNYL traZODone traZODone No QD traZODone HCl 50 MG HCl 50 MG HCl 50 MG Vitamin D3 Vitamin D3 No Vitamin D3 Lasix 20 MG Lasix 20 MG No 1{table QD Lasix 20 t} MG Losartan Losartan No 1{table QD Losartan Potassium Potassium t} Potassium 25 MG 25 MG 25 MG Ginkgo Ginkgo No Ginkgo Fish Oil Fish Oil No 1{capsu QD Fish Oil 1000 MG 1000 MG le} 1000 MG Donepezil Donepezil No 1{table BID Donepezil HCl 10 MG HCl 10 MG t_at_be HCl 10 MG dtime} Zetia 10 MG Zetia 10 MG No 1{table QD Zetia 10 t} MG Ezetimibe Ezetimibe No Ezetimibe 10 MG 10 MG 10 MG Zinc Zinc No Zinc buPROPion buPROPion No 1{table buPROPion HCl ER (XL) HCl ER (XL) t} HCl ER 150 MG 150 MG (XL) 150 MG Quercetin Quercetin No Quercetin Vitamin C Vitamin C No Vitamin C 500 MG 500 MG 500 MG fentaNYL fentaNYL No fentaNYL Gabapentin Gabapentin No QD Gabapentin 600 MG 600 MG 600 MG Coconut Oil Coconut Oil No [place] 1000 MG 1000 MG Oil 1000 MG Furosemide Furosemide No 1{table QD Furosemide 40 MG 40 MG t} 40 MG Doxazosin Doxazosin No Doxazosin Mesylate 1 Mesylate 1 Mesylate 1 MG MG MG [place] 3 [place] 3 No [place] 3 Pantoprazol Pantoprazol No 1{table QD Pantoprazo e Sodium 40 e Sodium 40 t} le Sodium MG MG 40 MG CoQ-10 CoQ-10 No CoQ-10 Gabapentin Gabapentin No 1{capsu Gabapentin 600 MG 600 MG le} 600 MG Memantine Memantine No BID Memantine HCl 10 MG HCl 10 MG HCl 10 MG SlowMag Mg SlowMag Mg No SlowMag Mg Calm/Sleep Calm/Sleep Calm/Sleep Donepezil Donepezil No 1{table BID Donepezil HCl 10 MG HCl 10 MG t_at_be HCl 10 MG dtime} Zetia 10 mg Zetia 10 mg No 1{table QD Zetia 10 t} mg Gabapentin Gabapentin No 1{capsu Gabapentin 600 MG 600 MG le} 600 MG buPROPion buPROPion No buPROPion HCl ER (XL) HCl ER (XL) HCl ER 150 MG 150 MG (XL) 150 MG Doxazosin Doxazosin No Doxazosin Mesylate 1 Mesylate 1 Mesylate 1 MG MG MG Zetia 10 mg Zetia 10 mg No 1{table QD Zetia 10 t} mg Gabapentin Gabapentin No QD Gabapentin 600 MG 600 MG 600 MG SlowMag Mg SlowMag Mg No SlowMag Mg Calm/Sleep Calm/Sleep Calm/Sleep Zetia 10 mg Zetia 10 mg No 1{table QD Zetia 10 t} mg Azithromyci Azithromyci No QD Azithromyc n 250 MG n 250 MG in 250 MG Vitamin C Vitamin C No Vitamin C 500 MG 500 MG 500 MG CoQ-10 CoQ-10 No CoQ-10 fentaNYL fentaNYL No fentaNYL Ginkgo Ginkgo No Ginkgo Fish Oil Fish Oil No 1{capsu QD Fish Oil 1000 MG 1000 MG le} 1000 MG Ezetimibe Ezetimibe No Ezetimibe 10 MG 10 MG 10 MG [place] 3 [place] 3 No [place] 3 Quercetin Quercetin No Quercetin Coconut Oil Coconut Oil No [place]ut 1000 MG 1000 MG Oil 1000 MG Lasix 20 MG Lasix 20 MG No 1{table QD Lasix 20 t} MG Zetia 10 MG Zetia 10 MG No 1{table QD Zetia 10 t} MG traZODone traZODone No QD traZODone HCl 50 MG HCl 50 MG HCl 50 MG Losartan Losartan No 1{table QD Losartan Potassium Potassium t} Potassium 25 MG 25 MG 25 MG Pantoprazol Pantoprazol No 1{table QD Pantoprazo e Sodium 40 e Sodium 40 t} le Sodium MG MG 40 MG Benzonatate Benzonatate No 1{capsu TID Benzonatat 200 MG 200 MG le} e 200 MG Furosemide Furosemide No 1{table QD Furosemide 40 MG 40 MG t} 40 MG buPROPion buPROPion No buPROPion HCl ER (XL) HCl ER (XL) HCl ER 150 MG 150 MG (XL) 150 MG Zinc Zinc No Zinc Gabapentin Gabapentin No 1{capsu Gabapentin 600 MG 600 MG le} 600 MG Doxazosin Doxazosin No Doxazosin Mesylate 1 Mesylate 1 Mesylate 1 MG MG MG Furosemide Furosemide No 1{table QD Furosemide 40 MG 40 MG t} 40 MG Donepezil Donepezil No 1{table BID Donepezil HCl 10 MG HCl 10 MG t_at_be HCl 10 MG dtime} Memantine Memantine No BID Memantine HCl 10 MG HCl 10 MG HCl 10 MG Ezetimibe Ezetimibe No Ezetimibe 10 MG 10 MG 10 MG Vitamin D3 Vitamin D3 No Vitamin D3 buPROPion buPROPion No buPROPion HCl ER (XL) HCl ER (XL) HCl ER 150 MG 150 MG (XL) 150 MG Pantoprazol Pantoprazol No 1{table QD Pantoprazo e Sodium 40 e Sodium 40 t} le Sodium MG MG 40 MG Gabapentin Gabapentin No QD Gabapentin 600 MG 600 MG 600 MG SlowMag Mg SlowMag Mg No SlowMag Mg Calm/Sleep Calm/Sleep Calm/Sleep SlowMag Mg SlowMag Mg No SlowMag Mg Calm/Sleep Calm/Sleep Calm/Sleep Zetia 10 mg Zetia 10 mg No 1{table QD Zetia 10 t} mg Azithromyci Azithromyci No QD Azithromyc n 250 MG n 250 MG in 250 MG Vitamin C Vitamin C No Vitamin C 500 MG 500 MG 500 MG CoQ-10 CoQ-10 No CoQ-10 fentaNYL fentaNYL No fentaNYL Ginkgo Ginkgo No Ginkgo Fish Oil Fish Oil No 1{capsu QD Fish Oil 1000 MG 1000 MG le} 1000 MG [place] 3 [place] 3 No [place] 3 Fish Oil Fish Oil No 1{capsu QD Fish Oil 1000 MG 1000 MG le} 1000 MG Quercetin Quercetin No Quercetin Coconut Oil Coconut Oil No [place] 1000 MG 1000 MG Oil 1000 MG Lasix 20 MG Lasix 20 MG No 1{table QD Lasix 20 t} MG Zetia 10 MG Zetia 10 MG No 1{table QD Zetia 10 t} MG traZODone traZODone No QD traZODone HCl 50 MG HCl 50 MG HCl 50 MG Losartan Losartan No 1{table QD Losartan Potassium Potassium t} Potassium 25 MG 25 MG 25 MG Pantoprazol Pantoprazol No 1{table QD Pantoprazo e Sodium 40 e Sodium 40 t} le Sodium MG MG 40 MG Benzonatate Benzonatate No 1{capsu TID Benzonatat 200 MG 200 MG le} e 200 MG buPROPion buPROPion No buPROPion HCl ER (XL) HCl ER (XL) HCl ER 150 MG 150 MG (XL) 150 MG Memantine Memantine No BID Memantine HCl 10 MG HCl 10 MG HCl 10 MG Zinc Zinc No Zinc Gabapentin Gabapentin No 1{capsu Gabapentin 600 MG 600 MG le} 600 MG Doxazosin Doxazosin No Doxazosin Mesylate 1 Mesylate 1 Mesylate 1 MG MG MG Furosemide Furosemide No 1{table QD Furosemide 40 MG 40 MG t} 40 MG Donepezil Donepezil No 1{table BID Donepezil HCl 10 MG HCl 10 MG t_at_be HCl 10 MG dtime} Memantine Memantine No BID Memantine HCl 10 MG HCl 10 MG HCl 10 MG Ezetimibe Ezetimibe No Ezetimibe 10 MG 10 MG 10 MG Vitamin D3 Vitamin D3 No Vitamin D3 Vitamin C Vitamin C No Vitamin C 500 MG 500 MG 500 MG CoQ-10 CoQ-10 No CoQ-10 Gabapentin Gabapentin No QD Gabapentin 600 MG 600 MG 600 MG Ginkgo Ginkgo No Ginkgo Zetia 10 mg Zetia 10 mg No 1{table QD Zetia 10 t} mg SlowMag Mg SlowMag Mg No SlowMag Mg Calm/Sleep Calm/Sleep Calm/Sleep [place] 3 [place] 3 No [place] 3 fentaNYL fentaNYL No fentaNYL CoQ-10 CoQ-10 No CoQ-10 Quercetin Quercetin No Quercetin Benzonatate Benzonatate No 1{capsu TID Benzonatat 200 MG 200 MG le} e 200 MG Fish Oil Fish Oil No 1{capsu QD Fish Oil 1000 MG 1000 MG le} 1000 MG Zinc Zinc No Zinc Coconut Oil Coconut Oil No Coconut 1000 MG 1000 MG Oil 1000 MG Lasix 20 MG Lasix 20 MG No 1{table QD Lasix 20 t} MG Zetia 10 MG Zetia 10 MG No 1{table QD Zetia 10 t} MG buPROPion buPROPion No buPROPion HCl ER (XL) HCl ER (XL) HCl ER 150 MG 150 MG (XL) 150 MG Losartan Losartan No 1{table QD Losartan Potassium Potassium t} Potassium 25 MG 25 MG 25 MG Vitamin D3 Vitamin D3 No Vitamin D3 Pantoprazol Pantoprazol No 1{table QD Pantoprazo e Sodium 40 e Sodium 40 t} le Sodium MG MG 40 MG traZODone traZODone No QD traZODone HCl 50 MG HCl 50 MG HCl 50 MG Azithromyci Azithromyci No QD Azithromyc n 250 MG n 250 MG in 250 MG Vitamin C Vitamin C No Vitamin C 500 MG 500 MG 500 MG Gabapentin Gabapentin No 1{capsu Gabapentin 600 MG 600 MG le} 600 MG Doxazosin Doxazosin No Doxazosin Mesylate 1 Mesylate 1 Mesylate 1 MG MG MG Furosemide Furosemide No 1{table QD Furosemide 40 MG 40 MG t} 40 MG Donepezil Donepezil No 1{table BID Donepezil HCl 10 MG HCl 10 MG t_at_be HCl 10 MG dtime} Memantine Memantine No BID Memantine HCl 10 MG HCl 10 MG HCl 10 MG Ezetimibe Ezetimibe No Ezetimibe 10 MG 10 MG 10 MG Vitamin D3 Vitamin D3 No Vitamin D3 [place] 3 [place] 3 No [place] 3 buPROPion buPROPion No 1{table buPROPion HCl ER (XL) HCl ER (XL) t} HCl ER 150 MG 150 MG (XL) 150 MG Ginkgo Ginkgo No Ginkgo Quercetin Quercetin No Quercetin traZODone traZODone No QD traZODone HCl 50 MG HCl 50 MG HCl 50 MG Zinc Zinc No Zinc Lasix 20 MG Lasix 20 MG No 1{table QD Lasix 20 t} MG Coconut Oil Coconut Oil No [place] 1000 MG 1000 MG Oil 1000 MG Losartan Losartan No 1{table QD Losartan Potassium Potassium t} Potassium 25 MG 25 MG 25 MG Gabapentin Gabapentin No QD Gabapentin 600 MG 600 MG 600 MG Zetia 10 MG Zetia 10 MG No 1{table QD Zetia 10 t} MG fentaNYL fentaNYL No fentaNYL Donepezil Donepezil No 1{table BID Donepezil HCl 10 MG HCl 10 MG t_at_be HCl 10 MG dtime} Doxazosin Doxazosin No Doxazosin Mesylate 1 Mesylate 1 Mesylate 1 MG MG MG Gabapentin Gabapentin No 1{capsu Gabapentin 600 MG 600 MG le} 600 MG Zetia 10 mg Zetia 10 mg No 1{table QD Zetia 10 t} mg Ezetimibe Ezetimibe No Ezetimibe 10 MG 10 MG 10 MG Furosemide Furosemide No 1{table QD Furosemide 40 MG 40 MG t} 40 MG buPROPion buPROPion No buPROPion HCl ER (XL) HCl ER (XL) HCl ER 150 MG 150 MG (XL) 150 MG Pantoprazol Pantoprazol No 1{table QD Pantoprazo e Sodium 40 e Sodium 40 t} le Sodium MG MG 40 MG SlowMag Mg SlowMag Mg No SlowMag Mg Calm/Sleep Calm/Sleep Calm/Sleep Fish Oil Fish Oil No 1{capsu QD Fish Oil 1000 MG 1000 MG le} 1000 MG Memantine Memantine No BID Memantine HCl 10 MG HCl 10 MG HCl 10 MG Vitamin C Vitamin C No Vitamin C 500 MG 500 MG 500 MG CoQ-10 CoQ-10 No CoQ-10 Vitamin D3 Vitamin D3 No Vitamin D3 [place] 3 [place] 3 No [place] 3 buPROPion buPROPion No 1{table buPROPion HCl ER (XL) HCl ER (XL) t} HCl ER 150 MG 150 MG (XL) 150 MG Ginkgo Ginkgo No Ginkgo Quercetin Quercetin No Quercetin traZODone traZODone No QD traZODone HCl 50 MG HCl 50 MG HCl 50 MG Zinc Zinc No Zinc Lasix 20 MG Lasix 20 MG No 1{table QD Lasix 20 t} MG Coconut Oil Coconut Oil No [place] 1000 MG 1000 MG Oil 1000 MG Memantine Memantine No BID Memantine HCl 10 MG HCl 10 MG HCl 10 MG Losartan Losartan No 1{table QD Losartan Potassium Potassium t} Potassium 25 MG 25 MG 25 MG traZODone traZODone No QD traZODone HCl 50 MG HCl 50 MG HCl 50 MG Zetia 10 MG Zetia 10 MG No 1{table QD Zetia 10 t} MG Donepezil Donepezil No 1{table BID Donepezil HCl 10 MG HCl 10 MG t_at_be HCl 10 MG dtime} Pantoprazol Pantoprazol No 1{table QD Pantoprazo e Sodium 40 e Sodium 40 t} le Sodium MG MG 40 MG Valium 10 Valium 10 No Valium 10 MG MG MG Doxazosin Doxazosin No Doxazosin Mesylate 1 Mesylate 1 Mesylate 1 MG MG MG Fish Oil Fish Oil No 1{capsu QD Fish Oil 1000 MG 1000 MG le} 1000 MG Quercetin Quercetin No Quercetin Ginkgo Ginkgo No Ginkgo Gabapentin Gabapentin No 1{capsu Gabapentin 600 MG 600 MG le} 600 MG Vitamin C Vitamin C No Vitamin C 500 MG 500 MG 500 MG Zetia 10 mg Zetia 10 mg No 1{table QD Zetia 10 t} mg fentaNYL fentaNYL No fentaNYL Gabapentin Gabapentin No QD Gabapentin 600 MG 600 MG 600 MG SlowMag Mg SlowMag Mg No SlowMag Mg Calm/Sleep Calm/Sleep Calm/Sleep buPROPion buPROPion No 1{table buPROPion HCl ER (XL) HCl ER (XL) t} HCl ER 150 MG 150 MG (XL) 150 MG Zinc Zinc No Zinc CoQ-10 CoQ-10 No CoQ-10 Vitamin D3 Vitamin D3 No Vitamin D3 [place] 3 [place] 3 No [place] 3 Ezetimibe Ezetimibe No Ezetimibe 10 mg 10 mg 10 mg buPROPion buPROPion No 1{table buPROPion HCl ER (XL) HCl ER (XL) t} HCl ER 150 mg 150 mg (XL) 150 mg Memantine Memantine No BID Memantine HCl 10 MG HCl 10 MG HCl 10 MG Losartan Losartan No 1{table QD Losartan Potassium Potassium t} Potassium 25 MG 25 MG 25 MG traZODone traZODone No QD traZODone HCl 50 MG HCl 50 MG HCl 50 MG Zetia 10 MG Zetia 10 MG No 1{table QD Zetia 10 t} MG Donepezil Donepezil No 1{table BID Donepezil HCl 10 MG HCl 10 MG t_at_be HCl 10 MG dtime} Pantoprazol Pantoprazol No 1{table QD Pantoprazo e Sodium 40 e Sodium 40 t} le Sodium MG MG 40 MG Valium 10 Valium 10 No Valium 10 MG MG MG Doxazosin Doxazosin No Doxazosin Mesylate 1 Mesylate 1 Mesylate 1 MG MG MG Fish Oil Fish Oil No 1{capsu QD Fish Oil 1000 MG 1000 MG le} 1000 MG Quercetin Quercetin No Quercetin Ginkgo Ginkgo No Ginkgo Gabapentin Gabapentin No 1{capsu Gabapentin 600 MG 600 MG le} 600 MG Vitamin C Vitamin C No Vitamin C 500 MG 500 MG 500 MG Zetia 10 mg Zetia 10 mg No 1{table QD Zetia 10 t} mg fentaNYL fentaNYL No fentaNYL Gabapentin Gabapentin No QD Gabapentin 600 MG 600 MG 600 MG SlowMag Mg SlowMag Mg No SlowMag Mg Calm/Sleep Calm/Sleep Calm/Sleep buPROPion buPROPion No 1{table buPROPion HCl ER (XL) HCl ER (XL) t} HCl ER 150 MG 150 MG (XL) 150 MG Zinc Zinc No Zinc CoQ-10 CoQ-10 No CoQ-10 Vitamin D3 Vitamin D3 No Vitamin D3 [place] 3 [place] 3 No [place] 3 Ezetimibe Ezetimibe No Ezetimibe 10 mg 10 mg 10 mg buPROPion buPROPion No 1{table buPROPion HCl ER (XL) HCl ER (XL) t} HCl ER 150 mg 150 mg (XL) 150 mg Donepezil Donepezil No 1{table BID Donepezil HCl 10 MG HCl 10 MG t_at_be HCl 10 MG dtime} Quercetin Quercetin No Quercetin Memantine Memantine No BID Memantine HCl 10 MG HCl 10 MG HCl 10 MG Zinc Zinc No Zinc Ezetimibe Ezetimibe No Ezetimibe 10 mg 10 mg 10 mg [place] 3 [place] 3 No [place] 3 buPROPion buPROPion No 1{table buPROPion HCl ER (XL) HCl ER (XL) t} HCl ER 150 mg 150 mg (XL) 150 mg Fish Oil Fish Oil No 1{capsu QD Fish Oil 1000 MG 1000 MG le} 1000 MG Valium 10 Valium 10 No Valium 10 MG MG MG traZODone traZODone No QD traZODone HCl 50 MG HCl 50 MG HCl 50 MG Losartan Losartan No 1{table QD Losartan Potassium Potassium t} Potassium 25 MG 25 MG 25 MG Doxazosin Doxazosin No Doxazosin Mesylate 1 Mesylate 1 Mesylate 1 MG MG MG Vitamin D3 Vitamin D3 No Vitamin D3 buPROPion buPROPion No 1{table buPROPion HCl ER (XL) HCl ER (XL) t} HCl ER 150 MG 150 MG (XL) 150 MG Gabapentin Gabapentin No QD Gabapentin 600 MG 600 MG 600 MG Vitamin C Vitamin C No Vitamin C 500 MG 500 MG 500 MG Gabapentin Gabapentin No 1{capsu Gabapentin 600 MG 600 MG le} 600 MG fentaNYL fentaNYL No fentaNYL Zetia 10 MG Zetia 10 MG No 1{table QD Zetia 10 t} MG Pantoprazol Pantoprazol No 1{table QD Pantoprazo e Sodium 40 e Sodium 40 t} le Sodium MG MG 40 MG SlowMag Mg SlowMag Mg No SlowMag Mg Calm/Sleep Calm/Sleep Calm/Sleep Zetia 10 mg Zetia 10 mg No 1{table QD Zetia 10 t} mg Ginkgo Ginkgo No Ginkgo CoQ-10 CoQ-10 No CoQ-10 Memantine Memantine No BID Memantine HCl 10 MG HCl 10 MG HCl 10 MG Zinc Zinc No Zinc Vitamin C Vitamin C No Vitamin C 500 MG 500 MG 500 MG buPROPion buPROPion No 1{table buPROPion HCl ER (XL) HCl ER (XL) t} HCl ER 150 mg 150 mg (XL) 150 mg Fish Oil Fish Oil No 1{capsu QD Fish Oil 1000 MG 1000 MG le} 1000 MG Donepezil Donepezil No 1{table BID Donepezil HCl 10 MG HCl 10 MG t_at_be HCl 10 MG dtime} Quercetin Quercetin No Quercetin Ezetimibe Ezetimibe No Ezetimibe 10 mg 10 mg 10 mg [place] 3 [place] 3 No [place] 3 Valium 10 Valium 10 No Valium 10 MG MG MG traZODone traZODone No QD traZODone HCl 50 MG HCl 50 MG HCl 50 MG Losartan Losartan No 1{table QD Losartan Potassium Potassium t} Potassium 25 MG 25 MG 25 MG Doxazosin Doxazosin No Doxazosin Mesylate 1 Mesylate 1 Mesylate 1 MG MG MG Gabapentin Gabapentin No QD Gabapentin 600 MG 600 MG 600 MG buPROPion buPROPion No 1{table buPROPion HCl ER (XL) HCl ER (XL) t} HCl ER 150 MG 150 MG (XL) 150 MG Vitamin D3 Vitamin D3 No Vitamin D3 Gabapentin Gabapentin No 1{capsu Gabapentin 600 MG 600 MG le} 600 MG fentaNYL fentaNYL No fentaNYL Zetia 10 MG Zetia 10 MG No 1{table QD Zetia 10 t} MG Pantoprazol Pantoprazol No 1{table QD Pantoprazo e Sodium 40 e Sodium 40 t} le Sodium MG MG 40 MG SlowMag Mg SlowMag Mg No SlowMag Mg Calm/Sleep Calm/Sleep Calm/Sleep Zetia 10 mg Zetia 10 mg No 1{table QD Zetia 10 t} mg Ginkgo Ginkgo No Ginkgo CoQ-10 CoQ-10 No CoQ-10 Valium 10 Valium 10 No Valium 10 MG MG MG Losartan Losartan No 1{table QD Losartan Potassium Potassium t} Potassium 25 MG 25 MG 25 MG Doxazosin Doxazosin No Doxazosin Mesylate 1 Mesylate 1 Mesylate 1 MG MG MG Zetia 10 MG Zetia 10 MG No 1{table QD Zetia 10 t} MG buPROPion buPROPion No 1{table buPROPion HCl ER (XL) HCl ER (XL) t} HCl ER 150 MG 150 MG (XL) 150 MG traZODone traZODone No QD traZODone HCl 50 MG HCl 50 MG HCl 50 MG Gabapentin Gabapentin No 1{capsu Gabapentin 600 MG 600 MG le} 600 MG Vitamin D3 Vitamin D3 No Vitamin D3 Vitamin C Vitamin C No Vitamin C 500 MG 500 MG 500 MG Quercetin Quercetin No Quercetin buPROPion buPROPion No 1{table buPROPion HCl ER (XL) HCl ER (XL) t} HCl ER 150 mg 150 mg (XL) 150 mg fentaNYL fentaNYL No fentaNYL [place] 3 [place] 3 No [place] 3 Ezetimibe Ezetimibe No Ezetimibe 10 mg 10 mg 10 mg Donepezil Donepezil No 1{table BID Donepezil HCl 10 MG HCl 10 MG t_at_be HCl 10 MG dtime} Memantine Memantine No BID Memantine HCl 10 MG HCl 10 MG HCl 10 MG CoQ-10 CoQ-10 No CoQ-10 Gabapentin Gabapentin No QD Gabapentin 600 MG 600 MG 600 MG Zinc Zinc No Zinc Fish Oil Fish Oil No 1{capsu QD Fish Oil 1000 MG 1000 MG le} 1000 MG Pantoprazol Pantoprazol No 1{table QD Pantoprazo e Sodium 40 e Sodium 40 t} le Sodium MG MG 40 MG Zetia 10 mg Zetia 10 mg No 1{table QD Zetia 10 t} mg Ginkgo Ginkgo No Ginkgo SlowMag Mg SlowMag Mg No SlowMag Mg Calm/Sleep Calm/Sleep Calm/Sleep traZODone traZODone No QD traZODone HCl 50 MG HCl 50 MG HCl 50 MG Zinc Zinc No Zinc Doxazosin Doxazosin No Doxazosin Mesylate 1 Mesylate 1 Mesylate 1 MG MG MG Fish Oil Fish Oil No 1{capsu QD Fish Oil 1000 MG 1000 MG le} 1000 MG Vitamin D3 Vitamin D3 No Vitamin D3 Quercetin Quercetin No Quercetin Gabapentin Gabapentin No QD Gabapentin 600 MG 600 MG 600 MG [place] 3 [place] 3 No [place] 3 Vitamin C Vitamin C No Vitamin C 500 MG 500 MG 500 MG Donepezil Donepezil No 1{table BID Donepezil HCl 10 MG HCl 10 MG t_at_be HCl 10 MG dtime} Memantine Memantine No BID Memantine HCl 10 MG HCl 10 MG HCl 10 MG Zetia 10 mg Zetia 10 mg No 1{table QD Zetia 10 t} mg buPROPion buPROPion No 1{table buPROPion HCl ER (XL) HCl ER (XL) t} HCl ER 150 MG 150 MG (XL) 150 MG CoQ-10 CoQ-10 No CoQ-10 fentaNYL fentaNYL No fentaNYL Gabapentin Gabapentin No 1{capsu Gabapentin 600 MG 600 MG le} 600 MG Ginkgo Ginkgo No Ginkgo Pantoprazol Pantoprazol No 1{table QD Pantoprazo e Sodium 40 e Sodium 40 t} le Sodium MG MG 40 MG Zetia 10 MG Zetia 10 MG No 1{table QD Zetia 10 t} MG SlowMag Mg SlowMag Mg No SlowMag Mg Calm/Sleep Calm/Sleep Calm/Sleep Losartan Losartan No 1{table QD Losartan Potassium Potassium t} Potassium 25 MG 25 MG 25 MG Ezetimibe Ezetimibe No Ezetimibe 10 mg 10 mg 10 mg buPROPion buPROPion No 1{table buPROPion HCl ER (XL) HCl ER (XL) t} HCl ER 150 mg 150 mg (XL) 150 mg traZODone traZODone No QD traZODone HCl 50 MG HCl 50 MG HCl 50 MG Zinc Zinc No Zinc Doxazosin Doxazosin No Doxazosin Mesylate 1 Mesylate 1 Mesylate 1 MG MG MG Fish Oil Fish Oil No 1{capsu QD Fish Oil 1000 MG 1000 MG le} 1000 MG Vitamin D3 Vitamin D3 No Vitamin D3 Quercetin Quercetin No Quercetin Gabapentin Gabapentin No QD Gabapentin 600 MG 600 MG 600 MG [place] 3 [place] 3 No [place] 3 Vitamin C Vitamin C No Vitamin C 500 MG 500 MG 500 MG Donepezil Donepezil No 1{table BID Donepezil HCl 10 MG HCl 10 MG t_at_be HCl 10 MG dtime} Memantine Memantine No BID Memantine HCl 10 MG HCl 10 MG HCl 10 MG Zetia 10 mg Zetia 10 mg No 1{table QD Zetia 10 t} mg buPROPion buPROPion No 1{table buPROPion HCl ER (XL) HCl ER (XL) t} HCl ER 150 MG 150 MG (XL) 150 MG CoQ-10 CoQ-10 No CoQ-10 fentaNYL fentaNYL No fentaNYL Gabapentin Gabapentin No 1{capsu Gabapentin 600 MG 600 MG le} 600 MG Ginkgo Ginkgo No Ginkgo Pantoprazol Pantoprazol No 1{table QD Pantoprazo e Sodium 40 e Sodium 40 t} le Sodium MG MG 40 MG Zetia 10 MG Zetia 10 MG No 1{table QD Zetia 10 t} MG SlowMag Mg SlowMag Mg No SlowMag Mg Calm/Sleep Calm/Sleep Calm/Sleep Losartan Losartan No 1{table QD Losartan Potassium Potassium t} Potassium 25 MG 25 MG 25 MG Ezetimibe Ezetimibe No Ezetimibe 10 mg 10 mg 10 mg buPROPion buPROPion No 1{table buPROPion HCl ER (XL) HCl ER (XL) t} HCl ER 150 mg 150 mg (XL) 150 mg Valium 10 Valium 10 No Valium 10 MG MG MG Vitamin C Vitamin C No Vitamin C 500 MG 500 MG 500 MG Memantine Memantine No BID Memantine HCl 10 MG HCl 10 MG HCl 10 MG Vitamin D3 Vitamin D3 No Vitamin D3 CoQ-10 CoQ-10 No CoQ-10 Gabapentin Gabapentin No QD Gabapentin 600 MG 600 MG 600 MG Donepezil Donepezil No 1{table BID Donepezil HCl 10 MG HCl 10 MG t_at_be HCl 10 MG dtime} Fish Oil Fish Oil No 1{capsu QD Fish Oil 1000 MG 1000 MG le} 1000 MG Gabapentin Gabapentin No 1{capsu Gabapentin 600 MG 600 MG le} 600 MG SlowMag Mg SlowMag Mg No SlowMag Mg Calm/Sleep Calm/Sleep Calm/Sleep Zetia 10 MG Zetia 10 MG No 1{table QD Zetia 10 t} MG Zinc Zinc No Zinc Pantoprazol Pantoprazol No 1{table QD Pantoprazo e Sodium 40 e Sodium 40 t} le Sodium MG MG 40 MG Losartan Losartan No 1{table QD Losartan Potassium Potassium t} Potassium 25 MG 25 MG 25 MG [place] 3 [place] 3 No [place] 3 Quercetin Quercetin No Quercetin Zetia 10 mg Zetia 10 mg No 1{table QD Zetia 10 t} mg buPROPion buPROPion No 1{table buPROPion HCl ER (XL) HCl ER (XL) t} HCl ER 150 MG 150 MG (XL) 150 MG Ginkgo Ginkgo No Ginkgo traZODone traZODone No QD traZODone HCl 50 MG HCl 50 MG HCl 50 MG Doxazosin Doxazosin No Doxazosin Mesylate 1 Mesylate 1 Mesylate 1 MG MG MG fentaNYL fentaNYL No fentaNYL Ezetimibe Ezetimibe No Ezetimibe 10 mg 10 mg 10 mg buPROPion buPROPion No 1{table buPROPion HCl ER (XL) HCl ER (XL) t} HCl ER 150 mg 150 mg (XL) 150 mg Valium 10 Valium 10 No Valium 10 MG MG MG Vitamin C Vitamin C No Vitamin C 500 MG 500 MG 500 MG Memantine Memantine No BID Memantine HCl 10 MG HCl 10 MG HCl 10 MG Vitamin D3 Vitamin D3 No Vitamin D3 CoQ-10 CoQ-10 No CoQ-10 Gabapentin Gabapentin No QD Gabapentin 600 MG 600 MG 600 MG Donepezil Donepezil No 1{table BID Donepezil HCl 10 MG HCl 10 MG t_at_be HCl 10 MG dtime} Fish Oil Fish Oil No 1{capsu QD Fish Oil 1000 MG 1000 MG le} 1000 MG Gabapentin Gabapentin No 1{capsu Gabapentin 600 MG 600 MG le} 600 MG SlowMag Mg SlowMag Mg No SlowMag Mg Calm/Sleep Calm/Sleep Calm/Sleep Zetia 10 MG Zetia 10 MG No 1{table QD Zetia 10 t} MG Zinc Zinc No Zinc Pantoprazol Pantoprazol No 1{table QD Pantoprazo e Sodium 40 e Sodium 40 t} le Sodium MG MG 40 MG Losartan Losartan No 1{table QD Losartan Potassium Potassium t} Potassium 25 MG 25 MG 25 MG [place] 3 [place] 3 No [place] 3 Quercetin Quercetin No Quercetin Zetia 10 mg Zetia 10 mg No 1{table QD Zetia 10 t} mg buPROPion buPROPion No 1{table buPROPion HCl ER (XL) HCl ER (XL) t} HCl ER 150 MG 150 MG (XL) 150 MG Ginkgo Ginkgo No Ginkgo traZODone traZODone No QD traZODone HCl 50 MG HCl 50 MG HCl 50 MG Doxazosin Doxazosin No Doxazosin Mesylate 1 Mesylate 1 Mesylate 1 MG MG MG fentaNYL fentaNYL No fentaNYL Ezetimibe Ezetimibe No Ezetimibe 10 mg 10 mg 10 mg buPROPion buPROPion No 1{table buPROPion HCl ER (XL) HCl ER (XL) t} HCl ER 150 mg 150 mg (XL) 150 mg traZODone traZODone No QD traZODone HCl 50 MG HCl 50 MG HCl 50 MG Zetia 10 mg Zetia 10 mg No 1{table QD Zetia 10 t} mg Ezetimibe Ezetimibe No Ezetimibe 10 mg 10 mg 10 mg SlowMag Mg SlowMag Mg No SlowMag Mg Calm/Sleep Calm/Sleep Calm/Sleep Losartan Losartan No 1{table QD Losartan Potassium Potassium t} Potassium 25 MG 25 MG 25 MG Ginkgo Ginkgo No Ginkgo Pantoprazol Pantoprazol No 1{table QD Pantoprazo e Sodium 40 e Sodium 40 t} le Sodium MG MG 40 MG CoQ-10 CoQ-10 No CoQ-10 Fish Oil Fish Oil No 1{capsu QD Fish Oil 1000 MG 1000 MG le} 1000 MG Gabapentin Gabapentin No 1{capsu Gabapentin 600 MG 600 MG le} 600 MG Memantine Memantine No BID Memantine HCl 10 MG HCl 10 MG HCl 10 MG Donepezil Donepezil No 1{table BID Donepezil HCl 10 MG HCl 10 MG t_at_be HCl 10 MG dtime} Zinc Zinc No Zinc buPROPion buPROPion No 1{table buPROPion HCl ER (XL) HCl ER (XL) t} HCl ER 150 MG 150 MG (XL) 150 MG [place] 3 [place] 3 No [place] 3 Quercetin Quercetin No Quercetin fentaNYL fentaNYL No fentaNYL buPROPion buPROPion No 1{table buPROPion HCl ER (XL) HCl ER (XL) t} HCl ER 150 mg 150 mg (XL) 150 mg Zetia 10 MG Zetia 10 MG No 1{table QD Zetia 10 t} MG Doxazosin Doxazosin No Doxazosin Mesylate 1 Mesylate 1 Mesylate 1 MG MG MG Vitamin D3 Vitamin D3 No Vitamin D3 Valium 10 Valium 10 No Valium 10 MG MG MG Gabapentin Gabapentin No QD Gabapentin 600 MG 600 MG 600 MG Vitamin C Vitamin C No Vitamin C 500 MG 500 MG 500 MG traZODone traZODone No QD traZODone HCl 50 MG HCl 50 MG HCl 50 MG Zetia 10 mg Zetia 10 mg No 1{table QD Zetia 10 t} mg Ezetimibe Ezetimibe No Ezetimibe 10 mg 10 mg 10 mg SlowMag Mg SlowMag Mg No SlowMag Mg Calm/Sleep Calm/Sleep Calm/Sleep Losartan Losartan No 1{table QD Losartan Potassium Potassium t} Potassium 25 MG 25 MG 25 MG Ginkgo Ginkgo No Ginkgo Pantoprazol Pantoprazol No 1{table QD Pantoprazo e Sodium 40 e Sodium 40 t} le Sodium MG MG 40 MG CoQ-10 CoQ-10 No CoQ-10 Fish Oil Fish Oil No 1{capsu QD Fish Oil 1000 MG 1000 MG le} 1000 MG Gabapentin Gabapentin No 1{capsu Gabapentin 600 MG 600 MG le} 600 MG Memantine Memantine No BID Memantine HCl 10 MG HCl 10 MG HCl 10 MG Donepezil Donepezil No 1{table BID Donepezil HCl 10 MG HCl 10 MG t_at_be HCl 10 MG dtime} Zinc Zinc No Zinc buPROPion buPROPion No 1{table buPROPion HCl ER (XL) HCl ER (XL) t} HCl ER 150 MG 150 MG (XL) 150 MG [place] 3 [place] 3 No [place] 3 Quercetin Quercetin No Quercetin fentaNYL fentaNYL No fentaNYL buPROPion buPROPion No 1{table buPROPion HCl ER (XL) HCl ER (XL) t} HCl ER 150 mg 150 mg (XL) 150 mg Zetia 10 MG Zetia 10 MG No 1{table QD Zetia 10 t} MG Doxazosin Doxazosin No Doxazosin Mesylate 1 Mesylate 1 Mesylate 1 MG MG MG Vitamin D3 Vitamin D3 No Vitamin D3 Valium 10 Valium 10 No Valium 10 MG MG MG Gabapentin Gabapentin No QD Gabapentin 600 MG 600 MG 600 MG Vitamin C Vitamin C No Vitamin C 500 MG 500 MG 500 MG traZODone traZODone No QD traZODone HCl 50 MG HCl 50 MG HCl 50 MG Zetia 10 mg Zetia 10 mg No 1{table QD Zetia 10 t} mg Ezetimibe Ezetimibe No Ezetimibe 10 mg 10 mg 10 mg SlowMag Mg SlowMag Mg No SlowMag Mg Calm/Sleep Calm/Sleep Calm/Sleep Losartan Losartan No 1{table QD Losartan Potassium Potassium t} Potassium 25 MG 25 MG 25 MG Ginkgo Ginkgo No Ginkgo Pantoprazol Pantoprazol No 1{table QD Pantoprazo e Sodium 40 e Sodium 40 t} le Sodium MG MG 40 MG CoQ-10 CoQ-10 No CoQ-10 Fish Oil Fish Oil No 1{capsu QD Fish Oil 1000 MG 1000 MG le} 1000 MG Gabapentin Gabapentin No 1{capsu Gabapentin 600 MG 600 MG le} 600 MG Memantine Memantine No BID Memantine HCl 10 MG HCl 10 MG HCl 10 MG Donepezil Donepezil No 1{table BID Donepezil HCl 10 MG HCl 10 MG t_at_be HCl 10 MG dtime} Zinc Zinc No Zinc buPROPion buPROPion No 1{table buPROPion HCl ER (XL) HCl ER (XL) t} HCl ER 150 MG 150 MG (XL) 150 MG [place] 3 [place] 3 No [place] 3 Quercetin Quercetin No Quercetin fentaNYL fentaNYL No fentaNYL buPROPion buPROPion No 1{table buPROPion HCl ER (XL) HCl ER (XL) t} HCl ER 150 mg 150 mg (XL) 150 mg Zetia 10 MG Zetia 10 MG No 1{table QD Zetia 10 t} MG Doxazosin Doxazosin No Doxazosin Mesylate 1 Mesylate 1 Mesylate 1 MG MG MG Vitamin D3 Vitamin D3 No Vitamin D3 Valium 10 Valium 10 No Valium 10 MG MG MG Gabapentin Gabapentin No QD Gabapentin 600 MG 600 MG 600 MG Vitamin C Vitamin C No Vitamin C 500 MG 500 MG 500 MG Ginkgo Ginkgo No Ginkgo Fish Oil Fish Oil No 1{capsu QD Fish Oil 1000 MG 1000 MG le} 1000 MG Losartan Losartan No 1{table QD Losartan Potassium Potassium t} Potassium 25 MG 25 MG 25 MG Zetia 10 mg Zetia 10 mg No 1{table QD Zetia 10 t} mg Gabapentin Gabapentin No 1{capsu Gabapentin 600 MG 600 MG le} 600 MG CoQ-10 CoQ-10 No CoQ-10 Pantoprazol Pantoprazol No 1{table QD Pantoprazo e Sodium 40 e Sodium 40 t} le Sodium MG MG 40 MG SlowMag Mg SlowMag Mg No SlowMag Mg Calm/Sleep Calm/Sleep Calm/Sleep Doxazosin Doxazosin No Doxazosin Mesylate 1 Mesylate 1 Mesylate 1 MG MG MG Valium 10 Valium 10 No Valium 10 MG MG MG buPROPion buPROPion No 1{table buPROPion HCl ER (XL) HCl ER (XL) t} HCl ER 150 MG 150 MG (XL) 150 MG Donepezil Donepezil No 1{table BID Donepezil HCl 10 MG HCl 10 MG t_at_be HCl 10 MG dtime} Zinc Zinc No Zinc Memantine Memantine No BID Memantine HCl 10 MG HCl 10 MG HCl 10 MG Ezetimibe Ezetimibe No Ezetimibe 10 mg 10 mg 10 mg Quercetin Quercetin No Quercetin [place] 3 [place] 3 No [place] 3 traZODone traZODone No QD traZODone HCl 50 MG HCl 50 MG HCl 50 MG buPROPion buPROPion No 1{table buPROPion HCl ER (XL) HCl ER (XL) t} HCl ER 150 mg 150 mg (XL) 150 mg fentaNYL fentaNYL No fentaNYL Gabapentin Gabapentin No QD Gabapentin 600 MG 600 MG 600 MG Zetia 10 MG Zetia 10 MG No 1{table QD Zetia 10 t} MG Vitamin D3 Vitamin D3 No Vitamin D3 Vitamin C Vitamin C No Vitamin C 500 MG 500 MG 500 MG Ezetimibe Ezetimibe No Ezetimibe 10 mg 10 mg 10 mg Vitamin D3 Vitamin D3 No Vitamin D3 CoQ-10 CoQ-10 No CoQ-10 Gabapentin Gabapentin No QD Gabapentin 600 MG 600 MG 600 MG SlowMag Mg SlowMag Mg No SlowMag Mg Calm/Sleep Calm/Sleep Calm/Sleep Memantine Memantine No BID Memantine HCl 10 MG HCl 10 MG HCl 10 MG Ginkgo Ginkgo No Ginkgo traZODone traZODone No QD traZODone HCl 50 MG HCl 50 MG HCl 50 MG buPROPion buPROPion No buPROPion HCl ER (XL) HCl ER (XL) HCl ER 150 mg 150 mg (XL) 150 mg Zetia 10 MG Zetia 10 MG No 1{table QD Zetia 10 t} MG Zinc Zinc No Zinc Vitamin C Vitamin C No Vitamin C 500 MG 500 MG 500 MG Doxazosin Doxazosin No Doxazosin Mesylate 1 Mesylate 1 Mesylate 1 MG MG MG Fish Oil Fish Oil No 1{capsu QD Fish Oil 1000 MG 1000 MG le} 1000 MG Valium 10 Valium 10 No Valium 10 MG MG MG [place] 3 [place] 3 No [place] 3 Zetia 10 mg Zetia 10 mg No 1{table QD Zetia 10 t} mg Donepezil Donepezil No 1{table BID Donepezil HCl 10 MG HCl 10 MG t_at_be HCl 10 MG dtime} Losartan Losartan No 1{table QD Losartan Potassium Potassium t} Potassium 25 MG 25 MG 25 MG Pantoprazol Pantoprazol No 1{table QD Pantoprazo e Sodium 40 e Sodium 40 t} le Sodium MG MG 40 MG Gabapentin Gabapentin No 1{capsu Gabapentin 600 MG 600 MG le} 600 MG Quercetin Quercetin No Quercetin fentaNYL fentaNYL No fentaNYL Donepezil Donepezil No 1{table BID Donepezil HCl 10 MG HCl 10 MG t_at_be HCl 10 MG dtime} Vitamin C Vitamin C No Vitamin C 500 MG 500 MG 500 MG Pantoprazol Pantoprazol No 1{table QD Pantoprazo e Sodium 40 e Sodium 40 t} le Sodium MG MG 40 MG traZODone traZODone No QD traZODone HCl 50 MG HCl 50 MG HCl 50 MG Gabapentin Gabapentin No QD Gabapentin 600 MG 600 MG 600 MG Ezetimibe Ezetimibe No Ezetimibe 10 mg 10 mg 10 mg Vitamin D3 Vitamin D3 No Vitamin D3 fentaNYL fentaNYL No fentaNYL [place] 3 [place] 3 No [place] 3 Losartan Losartan No 1{table QD Losartan Potassium Potassium t} Potassium 25 MG 25 MG 25 MG Zetia 10 mg Zetia 10 mg No 1{table QD Zetia 10 t} mg Fish Oil Fish Oil No 1{capsu QD Fish Oil 1000 MG 1000 MG le} 1000 MG buPROPion buPROPion No buPROPion HCl ER (XL) HCl ER (XL) HCl ER 150 mg 150 mg (XL) 150 mg Quercetin Quercetin No Quercetin Gabapentin Gabapentin No 1{capsu Gabapentin 600 MG 600 MG le} 600 MG Doxazosin Doxazosin No Doxazosin Mesylate 1 Mesylate 1 Mesylate 1 MG MG MG SlowMag Mg SlowMag Mg No SlowMag Mg Calm/Sleep Calm/Sleep Calm/Sleep Memantine Memantine No BID Memantine HCl 10 MG HCl 10 MG HCl 10 MG Zinc Zinc No Zinc Zetia 10 MG Zetia 10 MG No 1{table QD Zetia 10 t} MG CoQ-10 CoQ-10 No CoQ-10 Ginkgo Ginkgo No Ginkgo buPROPion buPROPion No 1{table buPROPion HCl ER (XL) HCl ER (XL) t} HCl ER 150 MG 150 MG (XL) 150 MG Donepezil Donepezil No 1{table BID Donepezil HCl 10 MG HCl 10 MG t_at_be HCl 10 MG dtime} Vitamin C Vitamin C No Vitamin C 500 MG 500 MG 500 MG Pantoprazol Pantoprazol No 1{table QD Pantoprazo e Sodium 40 e Sodium 40 t} le Sodium MG MG 40 MG traZODone traZODone No QD traZODone HCl 50 MG HCl 50 MG HCl 50 MG Gabapentin Gabapentin No QD Gabapentin 600 MG 600 MG 600 MG Ezetimibe Ezetimibe No Ezetimibe 10 mg 10 mg 10 mg Vitamin D3 Vitamin D3 No Vitamin D3 fentaNYL fentaNYL No fentaNYL [place] 3 [place] 3 No [place] 3 Losartan Losartan No 1{table QD Losartan Potassium Potassium t} Potassium 25 MG 25 MG 25 MG Zetia 10 mg Zetia 10 mg No 1{table QD Zetia 10 t} mg Fish Oil Fish Oil No 1{capsu QD Fish Oil 1000 MG 1000 MG le} 1000 MG buPROPion buPROPion No buPROPion HCl ER (XL) HCl ER (XL) HCl ER 150 mg 150 mg (XL) 150 mg Quercetin Quercetin No Quercetin Gabapentin Gabapentin No 1{capsu Gabapentin 600 MG 600 MG le} 600 MG Doxazosin Doxazosin No Doxazosin Mesylate 1 Mesylate 1 Mesylate 1 MG MG MG SlowMag Mg SlowMag Mg No SlowMag Mg Calm/Sleep Calm/Sleep Calm/Sleep Memantine Memantine No BID Memantine HCl 10 MG HCl 10 MG HCl 10 MG Zinc Zinc No Zinc Zetia 10 MG Zetia 10 MG No 1{table QD Zetia 10 t} MG CoQ-10 CoQ-10 No CoQ-10 Ginkgo Ginkgo No Ginkgo buPROPion buPROPion No 1{table buPROPion HCl ER (XL) HCl ER (XL) t} HCl ER 150 MG 150 MG (XL) 150 MG Donepezil Donepezil No 1{table BID Donepezil HCl 10 MG HCl 10 MG t_at_be HCl 10 MG dtime} Vitamin C Vitamin C No Vitamin C 500 MG 500 MG 500 MG Pantoprazol Pantoprazol No 1{table QD Pantoprazo e Sodium 40 e Sodium 40 t} le Sodium MG MG 40 MG traZODone traZODone No QD traZODone HCl 50 MG HCl 50 MG HCl 50 MG Gabapentin Gabapentin No QD Gabapentin 600 MG 600 MG 600 MG Ezetimibe Ezetimibe No Ezetimibe 10 mg 10 mg 10 mg Vitamin D3 Vitamin D3 No Vitamin D3 fentaNYL fentaNYL No fentaNYL [place] 3 [place] 3 No [place] 3 Losartan Losartan No 1{table QD Losartan Potassium Potassium t} Potassium 25 MG 25 MG 25 MG Zetia 10 mg Zetia 10 mg No 1{table QD Zetia 10 t} mg Fish Oil Fish Oil No 1{capsu QD Fish Oil 1000 MG 1000 MG le} 1000 MG buPROPion buPROPion No buPROPion HCl ER (XL) HCl ER (XL) HCl ER 150 mg 150 mg (XL) 150 mg Quercetin Quercetin No Quercetin Gabapentin Gabapentin No 1{capsu Gabapentin 600 MG 600 MG le} 600 MG Doxazosin Doxazosin No Doxazosin Mesylate 1 Mesylate 1 Mesylate 1 MG MG MG SlowMag Mg SlowMag Mg No SlowMag Mg Calm/Sleep Calm/Sleep Calm/Sleep Memantine Memantine No BID Memantine HCl 10 MG HCl 10 MG HCl 10 MG Zinc Zinc No Zinc Zetia 10 MG Zetia 10 MG No 1{table QD Zetia 10 t} MG CoQ-10 CoQ-10 No CoQ-10 Ginkgo Ginkgo No Ginkgo buPROPion buPROPion No 1{table buPROPion HCl ER (XL) HCl ER (XL) t} HCl ER 150 MG 150 MG (XL) 150 MG Donepezil Donepezil No 1{table BID Donepezil HCl 10 MG HCl 10 MG t_at_be HCl 10 MG dtime} Vitamin D3 Vitamin D3 No Vitamin D3 Pantoprazol Pantoprazol No 1{table QD Pantoprazo e Sodium 40 e Sodium 40 t} le Sodium MG MG 40 MG Vitamin C Vitamin C No Vitamin C 500 MG 500 MG 500 MG Gabapentin Gabapentin No QD Gabapentin 600 MG 600 MG 600 MG Ezetimibe Ezetimibe No Ezetimibe 10 MG 10 MG 10 MG Doxazosin Doxazosin No Doxazosin Mesylate 1 Mesylate 1 Mesylate 1 MG MG MG fentaNYL fentaNYL No fentaNYL [place] 3 [place] 3 No [place] 3 Losartan Losartan No 1{table QD Losartan Potassium Potassium t} Potassium 25 MG 25 MG 25 MG Zetia 10 mg Zetia 10 mg No 1{table QD Zetia 10 t} mg Fish Oil Fish Oil No 1{capsu QD Fish Oil 1000 MG 1000 MG le} 1000 MG Quercetin Quercetin No Quercetin Gabapentin Gabapentin No 1{capsu Gabapentin 600 MG 600 MG le} 600 MG buPROPion buPROPion No buPROPion HCl ER (XL) HCl ER (XL) HCl ER 150 mg 150 mg (XL) 150 mg traZODone traZODone No QD traZODone HCl 50 MG HCl 50 MG HCl 50 MG SlowMag Mg SlowMag Mg No SlowMag Mg Calm/Sleep Calm/Sleep Calm/Sleep Memantine Memantine No BID Memantine HCl 10 MG HCl 10 MG HCl 10 MG Zinc Zinc No Zinc Zetia 10 MG Zetia 10 MG No 1{table QD Zetia 10 t} MG CoQ-10 CoQ-10 No CoQ-10 Ginkgo Ginkgo No Ginkgo Doxazosin Doxazosin Yes Kristie 1 tablet [facility] Mesylate Mesylate [facility] pressure [facility] buPROPion buPROPion No 1{table buPROPion HCl ER (XL) HCl ER (XL) t} HCl ER 150 MG 150 MG (XL) 150 MG Donepezil Donepezil No 1{table BID Donepezil HCl 10 MG HCl 10 MG t_at_be HCl 10 MG dtime} Vitamin D3 Vitamin D3 No Vitamin D3 Pantoprazol Pantoprazol No 1{table QD Pantoprazo e Sodium 40 e Sodium 40 t} le Sodium MG MG 40 MG Vitamin C Vitamin C No Vitamin C 500 MG 500 MG 500 MG Gabapentin Gabapentin No QD Gabapentin 600 MG 600 MG 600 MG Ezetimibe Ezetimibe No Ezetimibe 10 MG 10 MG 10 MG Doxazosin Doxazosin No Doxazosin Mesylate 1 Mesylate 1 Mesylate 1 MG MG MG fentaNYL fentaNYL No fentaNYL [place] 3 [place] 3 No [place] 3 Losartan Losartan No 1{table QD Losartan Potassium Potassium t} Potassium 25 MG 25 MG 25 MG Zetia 10 mg Zetia 10 mg No 1{table QD Zetia 10 t} mg Fish Oil Fish Oil No 1{capsu QD Fish Oil 1000 MG 1000 MG le} 1000 MG Quercetin Quercetin No Quercetin Gabapentin Gabapentin No 1{capsu Gabapentin 600 MG 600 MG le} 600 MG buPROPion buPROPion No buPROPion HCl ER (XL) HCl ER (XL) HCl ER 150 mg 150 mg (XL) 150 mg traZODone traZODone No QD traZODone HCl 50 MG HCl 50 MG HCl 50 MG SlowMag Mg SlowMag Mg No SlowMag Mg Calm/Sleep Calm/Sleep Calm/Sleep Memantine Memantine No BID Memantine HCl 10 MG HCl 10 MG HCl 10 MG Zinc Zinc No Zinc Zetia 10 MG Zetia 10 MG No 1{table QD Zetia 10 t} MG CoQ-10 CoQ-10 No CoQ-10 Ginkgo Ginkgo No Ginkgo buPROPion buPROPion No 1{table buPROPion HCl ER (XL) HCl ER (XL) t} HCl ER 150 MG 150 MG (XL) 150 MG Zinc Zinc No Zinc Vitamin D3 Vitamin D3 No Vitamin D3 Zetia 10 MG Zetia 10 MG No 1{table QD Zetia 10 t} MG Losartan Losartan No 1{table QD Losartan Potassium Potassium t} Potassium 25 MG 25 MG 25 MG Quercetin Quercetin No Quercetin Ginkgo Ginkgo No Ginkgo [place] 3 [place] 3 No [place] 3 Memantine Memantine No BID Memantine HCl 10 MG HCl 10 MG HCl 10 MG Gabapentin Gabapentin No QD Gabapentin 600 MG 600 MG 600 MG Donepezil Donepezil No 1{table BID Donepezil HCl 10 MG HCl 10 MG t_at_be HCl 10 MG dtime} Ezetimibe Ezetimibe No Ezetimibe 10 MG 10 MG 10 MG SlowMag Mg SlowMag Mg No SlowMag Mg Calm/Sleep Calm/Sleep Calm/Sleep buPROPion buPROPion No buPROPion HCl ER (XL) HCl ER (XL) HCl ER 150 MG 150 MG (XL) 150 MG Gabapentin Gabapentin No 1{capsu Gabapentin 600 MG 600 MG le} 600 MG traZODone traZODone No QD traZODone HCl 50 MG HCl 50 MG HCl 50 MG fentaNYL fentaNYL No fentaNYL Doxazosin Doxazosin No Doxazosin Mesylate 1 Mesylate 1 Mesylate 1 MG MG MG Fish Oil Fish Oil No 1{capsu QD Fish Oil 1000 MG 1000 MG le} 1000 MG Pantoprazol Pantoprazol No 1{table QD Pantoprazo e Sodium 40 e Sodium 40 t} le Sodium MG MG 40 MG Zetia 10 mg Zetia 10 mg No 1{table QD Zetia 10 t} mg CoQ-10 CoQ-10 No CoQ-10 Vitamin C Vitamin C No Vitamin C 500 MG 500 MG 500 MG Zinc Zinc No Zinc Vitamin D3 Vitamin D3 No Vitamin D3 Zetia 10 MG Zetia 10 MG No 1{table QD Zetia 10 t} MG Losartan Losartan No 1{table QD Losartan Potassium Potassium t} Potassium 25 MG 25 MG 25 MG Quercetin Quercetin No Quercetin Ginkgo Ginkgo No Ginkgo [place] 3 [place] 3 No [place] 3 Memantine Memantine No BID Memantine HCl 10 MG HCl 10 MG HCl 10 MG Gabapentin Gabapentin No QD Gabapentin 600 MG 600 MG 600 MG Donepezil Donepezil No 1{table BID Donepezil HCl 10 MG HCl 10 MG t_at_be HCl 10 MG dtime} Ezetimibe Ezetimibe No Ezetimibe 10 MG 10 MG 10 MG SlowMag Mg SlowMag Mg No SlowMag Mg Calm/Sleep Calm/Sleep Calm/Sleep buPROPion buPROPion No buPROPion HCl ER (XL) HCl ER (XL) HCl ER 150 MG 150 MG (XL) 150 MG Gabapentin Gabapentin No 1{capsu Gabapentin 600 MG 600 MG le} 600 MG traZODone traZODone No QD traZODone HCl 50 MG HCl 50 MG HCl 50 MG fentaNYL fentaNYL No fentaNYL Doxazosin Doxazosin No Doxazosin Mesylate 1 Mesylate 1 Mesylate 1 MG MG MG Fish Oil Fish Oil No 1{capsu QD Fish Oil 1000 MG 1000 MG le} 1000 MG Pantoprazol Pantoprazol No 1{table QD Pantoprazo e Sodium 40 e Sodium 40 t} le Sodium MG MG 40 MG Zetia 10 mg Zetia 10 mg No 1{table QD Zetia 10 t} mg CoQ-10 CoQ-10 No CoQ-10 Vitamin C Vitamin C No Vitamin C 500 MG 500 MG 500 MG Vitamin D3 Vitamin D3 No Vitamin D3 SlowMag Mg SlowMag Mg No SlowMag Mg Calm/Sleep Calm/Sleep Calm/Sleep Gabapentin Gabapentin No QD Gabapentin 600 MG 600 MG 600 MG buPROPion buPROPion No 1{table buPROPion HCl ER (XL) HCl ER (XL) t} HCl ER 150 MG 150 MG (XL) 150 MG Donepezil Donepezil No 1{table BID Donepezil HCl 10 MG HCl 10 MG t_at_be HCl 10 MG dtime} Vitamin C Vitamin C No Vitamin C 500 MG 500 MG 500 MG Zetia 10 MG Zetia 10 MG No 1{table QD Zetia 10 t} MG Valium 10 Valium 10 No Valium 10 MG MG MG Gabapentin Gabapentin No 1{capsu Gabapentin 600 MG 600 MG le} 600 MG Zinc Zinc No Zinc buPROPion buPROPion No buPROPion HCl ER (XL) HCl ER (XL) HCl ER 150 MG 150 MG (XL) 150 MG Fish Oil Fish Oil No 1{capsu QD Fish Oil 1000 MG 1000 MG le} 1000 MG Memantine Memantine No BID Memantine HCl 10 MG HCl 10 MG HCl 10 MG Ezetimibe Ezetimibe No Ezetimibe 10 MG 10 MG 10 MG Quercetin Quercetin No Quercetin CoQ-10 CoQ-10 No CoQ-10 Ginkgo Ginkgo No Ginkgo Doxazosin Doxazosin No Doxazosin Mesylate 1 Mesylate 1 Mesylate 1 MG MG MG [place] 3 [place] 3 No [place] 3 Losartan Losartan No 1{table QD Losartan Potassium Potassium t} Potassium 25 MG 25 MG 25 MG fentaNYL fentaNYL No fentaNYL Zetia 10 mg Zetia 10 mg No 1{table QD Zetia 10 t} mg Pantoprazol Pantoprazol No 1{table QD Pantoprazo e Sodium 40 e Sodium 40 t} le Sodium MG MG 40 MG traZODone traZODone No QD traZODone HCl 50 MG HCl 50 MG HCl 50 MG Vitamin D3 Vitamin D3 No Vitamin D3 SlowMag Mg SlowMag Mg No SlowMag Mg Calm/Sleep Calm/Sleep Calm/Sleep Gabapentin Gabapentin No QD Gabapentin 600 MG 600 MG 600 MG buPROPion buPROPion No 1{table buPROPion HCl ER (XL) HCl ER (XL) t} HCl ER 150 MG 150 MG (XL) 150 MG Donepezil Donepezil No 1{table BID Donepezil HCl 10 MG HCl 10 MG t_at_be HCl 10 MG dtime} Vitamin C Vitamin C No Vitamin C 500 MG 500 MG 500 MG Zetia 10 MG Zetia 10 MG No 1{table QD Zetia 10 t} MG Valium 10 Valium 10 No Valium 10 MG MG MG Gabapentin Gabapentin No 1{capsu Gabapentin 600 MG 600 MG le} 600 MG Zinc Zinc No Zinc buPROPion buPROPion No buPROPion HCl ER (XL) HCl ER (XL) HCl ER 150 MG 150 MG (XL) 150 MG Fish Oil Fish Oil No 1{capsu QD Fish Oil 1000 MG 1000 MG le} 1000 MG Memantine Memantine No BID Memantine HCl 10 MG HCl 10 MG HCl 10 MG Ezetimibe Ezetimibe No Ezetimibe 10 MG 10 MG 10 MG Quercetin Quercetin No Quercetin CoQ-10 CoQ-10 No CoQ-10 Ginkgo Ginkgo No Ginkgo Doxazosin Doxazosin No Doxazosin Mesylate 1 Mesylate 1 Mesylate 1 MG MG MG Immunizations Ordered Filled Immunization Date Status Comments Sour e Immunization Name Name FLUZONE HIGH DOSE FLUZONE HIGH DOSE 2022-04-04 [facility] - [facility] OVER 65 13[facility]35:00 [facility] FLUZONE HIGH DOSE FLUZONE HIGH DOSE 2022-04-04 [facility] - OVER 65 OVER 65 13:35:00 [facility] FLUZONE HIGH DOSE FLUZONE HIGH DOSE 2022-04-04 Completed [facility] - OVER 65 OVER 65 13:35:00 [facility] FLUZONE HIGH DOSE FLUZONE HIGH DOSE 2022-04-04 Completed [facility] - OVER 65 OVER 65 13:35:00 [facility] FLUZONE HIGH DOSE FLUZONE HIGH DOSE 2022-04-04 Completed [facility] - OVER 65 OVER 65 13:35:00 [facility] FLUZONE HIGH DOSE FLUZONE HIGH DOSE 2022-04-04 Completed [facility] - OVER 65 OVER 65 13:35:00 [facility] FLUZONE HIGH DOSE FLUZONE HIGH DOSE 2022-04-04 Completed [facility] - OVER 65 OVER 65 13:35:00 [facility] FLUZONE HIGH DOSE FLUZONE HIGH DOSE 2022-04-04 Completed [facility] - OVER 65 OVER 65 13:35:00 [facility] FLUZONE HIGH DOSE FLUZONE HIGH DOSE 2022-04-04 Completed [facility] - OVER 65 OVER 65 13:35:00 [facility] FluAD FluAD 2021-04-04 [facility] - 14:27:00 [facility] FluAD FluAD 2021-04-04 [facility] - 14:27:00 [facility] FluAD FluAD 2021-04-04 [facility] - 14:27:00 [facility] FluAD FluAD 2021-04-04 [facility] - 14:27:00 [facility] FluAD FluAD 2021-04-04 [facility] - 14:27:00 [facility] FluAD FluAD 2021-04-04 [facility] - 14:27:00 [facility] FluAD FluAD 2021-04-04 [facility] - 14:27:00 [facility] FluAD FluAD 2021-04-04 [facility] - 14:27:00 [facility] FluAD FluAD 2021-04-04 [facility] - 14:27:00 [facility] FluAD FluAD 2021-04-04 [facility] - 14:27:00 [facility] FluAD FluAD 2021-04-04 [facility] - 14:27:00 [facility] FluAD FluAD 2021-04-04 [facility] - 14:27:00 [facility] FluAD FluAD 2021-04-04 [facility] - 14:27:00 [facility] FluAD FluAD 2021-04-04 [facility] - 14:27:00 [facility] FluAD FluAD 2021-04-04 [facility] - 14:27:00 [facility] FluAD FluAD 2021-04-04 [facility] - 14:27:00 [facility] FluAD FluAD 2021-04-04 Com[facility] - 14:27:00 [facility] FluAD FluAD 2021-04-04 [facility] - 14:27:00 [facility] FluAD FluAD 2021-04-04 Com[facility] - 14:27:00 [facility] FluAD FluAD 2021-04-04 Com[facility] - 14:27:00 [facility] FluAD FluAD 2021-04-04 Completed [facility] - 14:27:00 [facility] FluAD FluAD 2021-04-04 Completed [facility] - 14:27:00 [facility] FluAD FluAD 2021-04-04 Completed [facility] - 14:27:00 [facility] FluAD FluAD 2021-04-04 Com[facility] - 14:27:00 [facility] FluAD FluAD 2021-04-04 Completed [facility] - 14:27:00 [facility] FluAD FluAD 2021-04-04 Completed [facility] - 14:27:00 [facility] FluAD FluAD 2021-04-04 Completed [facility] - 14:27:00 [facility] FluAD FluAD 2021-04-04 Completed [facility] - 14:27:00 [facility] FluAD FluAD 2021-04-04 Com[facility] - 14:27:00 [facility] FluAD FluAD 2021-04-04 Completed [facility] - 14:27:00 [facility] FluAD FluAD 2021-04-04 Completed [facility] - 14:27:00 [facility] FluAD FluAD 2021-04-04 Completed [facility] - 14:27:00 [facility] FluAD FluAD 2021-04-04 Completed [facility] - 14:27:00 [facility] FluAD FluAD 2021-04-04 Completed [facility] - 14:27:00 [facility] FluAD FluAD 2021-04-04 Completed [facility] - 14:27:00 [facility] FluAD FluAD 2021-04-04 Completed [facility] - 14:27:00 [facility] FluAD FluAD 2021-04-04 Com[facility] - 14:27:00 [facility] FluAD FluAD 2021-04-04 Com[facility] - 14:27:00 [facility] SARS-COV-2 COVID-19 2020-09-07 Completed [facility] PFIZER VACCINE 00:00:00 [facility] SARS-COV-2 COVID-19 2020-09-07 Completed [facility] PFIZER VACCINE 00:00:00 [facility] SARS-COV-2 COVID-19 2020-09-07 Completed [facility] PFIZER VACCINE 00:00:00 [facility] SARS-COV-2 COVID-19 2020-09-07 Completed [facility] PFIZER VACCINE 00:00:00 [facility] SARS-COV-2 COVID-19 2020-09-07 Completed [facility] PFIZER VACCINE 00:00:00 [facility] SARS-COV-2 COVID-19 2020-09-07 Completed [facility] PFIZER VACCINE 00:00:00 [facility] SARS-COV-2 COVID-19 2020-09-07 Completed [facility] PFIZER VACCINE 00:00:00 [facility] SARS-COV-2 COVID-19 2020-09-07 Completed [facility] PFIZER VACCINE 00:00:00 [facility] SARS-COV-2 COVID-19 2020-09-07 Completed [facility] PFIZER VACCINE 00:00:00 [facility] SARS-COV-2 COVID-19 2020-09-07 Completed [facility] PFIZER VACCINE 00:00:00 [facility] SARS-COV-2 COVID-19 2020-09-07 Completed [facility] PFIZER VACCINE 00:00:00 [facility] SARS-COV-2 COVID-19 2020-08-17 Completed [facility] PFIZER VACCINE 00:00:00 [facility] SARS-COV-2 COVID-19 2020-08-17 Completed [facility] PFIZER VACCINE 00:00:00 [facility] SARS-COV-2 COVID-19 2020-08-17 Completed [facility] PFIZER VACCINE 00:00:00 [facility] SARS-COV-2 COVID-19 2020-08-17 Completed [facility] PFIZER VACCINE 00:00:00 [facility] SARS-COV-2 COVID-19 2020-08-17 Completed [facility] PFIZER VACCINE 00:00:00 [facility] SARS-COV-2 COVID-19 2020-08-17 Completed [facility] PFIZER VACCINE 00:00:00 [facility] SARS-COV-2 COVID-19 2020-08-17 Completed [facility] PFIZER VACCINE [facility]00 [facility] [facility] SARS-COV-2 COVID-19 2020-08-17 Completed [facility] PFIZER VACCINE 00:00:00 [facility] SARS-COV-2 COVID-19 2020-08-17 Completed [facility]FIZER VACCINE 00:00:00 [facility] SARS-COV-2 COVID-19 2020-08-17 Completed [facility]ACCINE 00:[facility]:00 [facility] SARS-COV-2 COVID-19 2020-08-17 Completed [facility] PFIZER VACCINE 00:00:00 [facility] Pneumovax (PPSV23) Pneumovax (PPSV23) 2020-05-10 Completed [facility] - 12:01:00 [facility] Pneumovax (PPSV23) Pneumovax (PPSV23) 2020-05-10 Completed [facility] - 12:01:00 [facility] Pneumovax (PPSV23) Pneumovax (PPSV23) 2020-05-10 Completed [facility] - 12:01:00 [facility] Pneumovax (PPSV23) Pneumovax (PPSV23) 2020-05-10 Completed [facility] - 12:01:00 [facility] Pneumovax (PPSV23) Pneumovax (PPSV23) 2020-05-10 Completed [facility] - 12:01:00 [facility] Pneumovax (PPSV23) Pneumovax (PPSV23) 2020-05-10 Completed [facility] - 12:01:00 [facility] Pneumovax (PPSV23) Pneumovax (PPSV23) 2020-05-10 Completed [facility] - 12:01:00 [facility] Pneumovax (PPSV23) Pneumovax (PPSV23) 2020-05-10 Completed [facility] - 12:01:00 [facility] Pneumovax (PPSV23) Pneumovax (PPSV23) 2020-05-10 Completed [facility] - 12:01:00 [facility] Pneumovax (PPSV23) Pneumovax (PPSV23) 2020-05-10 Completed [facility] - 12:01:00 [facility] Pneumovax (PPSV23) Pneumovax (PPSV23) 2020-05-10 Completed [facility] - 12:01:00 [facility] Pneumovax (PPSV23) Pneumovax (PPSV23) 2020-05-10 Completed [facility] - 12:01:00 [facility] Pneumovax (PPSV23) Pneumovax (PPSV23) 2020-05-10 Completed [facility] - 12:01:00 [facility] Pneumovax (PPSV23) Pneumovax (PPSV23) 2020-05-10 Completed [facility] - 12:01:00 [facility] Pneumovax (PPSV23) Pneumovax (PPSV23) 2020-05-10 Completed [facility] - 12:01:00 [facility] Pneumovax (PPSV23) Pneumovax (PPSV23) 2020-05-10 Completed [facility] - 12:01:00 [facility] Pneumovax (PPSV23) Pneumovax (PPSV23) 2020-05-10 Completed [facility] - 12:01:00 [facility] Pneumovax (PPSV23) Pneumovax (PPSV23) 2020-05-10 Completed [facility] - 12:01:00 [facility] Pneumovax (PPSV23) Pneumovax (PPSV23) 2020-05-10 Completed [facility] - 12:01:00 [facility] Pneumovax (PPSV23) Pneumovax (PPSV23) 2020-05-10 Completed [facility] - 12:01:00 [facility] Pneumovax (PPSV23) Pneumovax (PPSV23) 2020-05-10 Completed [facility] - 12:01:00 [facility] Pneumovax (PPSV23) Pneumovax (PPSV23) 2020-05-10 Completed [facility] - 12:01:00 [facility] Pneumovax (PPSV23) Pneumovax (PPSV23) 2020-05-10 Completed [facility] - 12:01:00 [facility] Pneumovax (PPSV23) Pneumovax (PPSV23) 2020-05-10 Completed [facility] - 12:01:00 [facility] Pneumovax (PPSV23) Pneumovax (PPSV23) 2020-05-10 Completed [facility] - 12:01:00 [facility] Pneumovax (PPSV23) Pneumovax (PPSV23) 2020-05-10 Completed [facility] - 12:01:00 [facility] Pneumovax (PPSV23) Pneumovax (PPSV23) 2020-05-10 Completed [facility] - 12:01:00 [facility] Pneumovax (PPSV23) Pneumovax (PPSV23) 2020-05-10 Completed [facility] - 12:01:00 [facility] Pneumovax (PPSV23) Pneumovax (PPSV23) 2020-05-10 Completed [facility] - 12:01:00 [facility] Pneumovax (PPSV23) Pneumovax (PPSV23) 2020-05-10 Completed [facility] - 12:01:00 [facility] Pneumovax (PPSV23) Pneumovax (PPSV23) 2020-05-10 Completed [facility] - 12:01:00 [facility] Pneumovax (PPSV23) Pneumovax (PPSV23) 2020-05-10 Completed [facility] - 12:01:00 [facility] Pneumovax (PPSV23) Pneumovax (PPSV23) 2020-05-10 Completed [facility] - 12:01:00 [facility] Pneumovax (PPSV23) Pneumovax (PPSV23) 2020-05-10 Completed [facility] - 12:01:00 [facility] Pneumovax (PPSV23) Pneumovax (PPSV23) 2020-05-10 Completed [facility] - 12:01:00 [facility] Pneumovax (PPSV23) Pneumovax (PPSV23) 2020-05-10 Completed [facility] - 12:01:00 [facility] Pneumovax (PPSV23) Pneumovax (PPSV23) 2020-05-10 Completed [facility] - 12:01:00 [facility] Pneumovax (PPSV23) Pneumovax (PPSV23) 2020-05-10 Completed [facility] - 12:01:00 [facility] FLUZONE HIGH DOSE FLUZONE HIGH DOSE 2020-04-17 Completed [facility] - OVER 65 OVER 65 09:32:00 [facility] FLUZONE HIGH DOSE FLUZONE HIGH DOSE 2020-04-17 Completed [facility] - OVER 65 OVER 65 09:32:00 [facility] FLUZONE HIGH DOSE FLUZONE HIGH DOSE 2020-04-17 Completed [facility] - OVER 65 OVER 65 09:32:00 [facility] FLUZONE HIGH DOSE FLUZONE HIGH DOSE 2020-04-17 Completed [facility] - OVER 65 OVER 65 09:32:00 [facility] FLUZONE HIGH DOSE FLUZONE HIGH DOSE 2020-04-17 Completed [facility] - OVER 65 OVER 65 09:32:00 [facility] FLUZONE HIGH DOSE FLUZONE HIGH DOSE 2020-04-17 Completed [facility] - OVER 65 OVER 65 09:32:00 [facility] FLUZONE HIGH DOSE FLUZONE HIGH DOSE 2020-04-17 Completed [facility] - OVER 65 OVER 65 09:32:00 [facility] FLUZONE HIGH DOSE FLUZONE HIGH DOSE 2020-04-17 Completed [facility] - OVER 65 OVER 65 09:32:00 [facility] FLUZONE HIGH DOSE FLUZONE HIGH DOSE 2020-04-17 Completed [facility] - OVER 65 OVER 65 09:32:00 [facility] FLUZONE HIGH DOSE FLUZONE HIGH DOSE 2020-04-17 Completed [facility] - OVER 65 OVER 65 09:32:00 [facility] FLUZONE HIGH DOSE FLUZONE HIGH DOSE 2020-04-17 Completed [facility] - OVER 65 OVER 65 09:32:00 [facility] FLUZONE HIGH DOSE FLUZONE HIGH DOSE 2020-04-17 Completed [facility] - OVER 65 OVER 65 09:32:00 [facility] FLUZONE HIGH DOSE FLUZONE HIGH DOSE 2020-04-17 Completed [facility] - OVER 65 OVER 65 09:32:00 [facility] FLUZONE HIGH DOSE FLUZONE HIGH DOSE 2020-04-17 Completed [facility] - OVER 65 OVER 65 09:32:00 [facility] FLUZONE HIGH DOSE FLUZONE HIGH DOSE 2020-04-17 Completed [facility] - OVER 65 OVER 65 09:32:00 [facility] FLUZONE HIGH DOSE FLUZONE HIGH DOSE 2020-04-17 Completed [facility] - OVER 65 OVER 65 09:32:00 [facility] FLUZONE HIGH DOSE FLUZONE HIGH DOSE 2020-04-17 Completed [facility] - OVER 65 OVER 65 09:32:00 [facility] FLUZONE HIGH DOSE FLUZONE HIGH DOSE 2020-04-17 Completed [facility] - OVER 65 OVER 65 09:32:00 [facility] FLUZONE HIGH DOSE FLUZONE HIGH DOSE 2020-04-17 Completed [facility] - OVER 65 OVER 65 09:32:00 [facility] FLUZONE HIGH DOSE FLUZONE HIGH DOSE 2020-04-17 Completed [facility] - OVER 65 OVER 65 09:32:00 [facility] FLUZONE HIGH DOSE FLUZONE HIGH DOSE 2020-04-17 Completed [facility] - OVER 65 OVER 65 09:32:00 [facility] FLUZONE HIGH DOSE FLUZONE HIGH DOSE 2020-04-17 Completed [facility] - OVER 65 OVER 65 09:32:00 [facility] FLUZONE HIGH DOSE FLUZONE HIGH DOSE 2020-04-17 Completed [facility] - OVER 65 OVER 65 09:32:00 [facility] FLUZONE HIGH DOSE FLUZONE HIGH DOSE 2020-04-17 Completed [facility] - OVER 65 OVER 65 09:32:00 [facility] FLUZONE HIGH DOSE FLUZONE HIGH DOSE 2020-04-17 Completed [facility] - OVER 65 OVER 65 09:32:00 [facility] FLUZONE HIGH DOSE FLUZONE HIGH DOSE 2020-04-17 Completed [facility] - OVER 65 OVER 65 09:32:00 [facility] FLUZONE HIGH DOSE FLUZONE HIGH DOSE 2020-04-17 Completed [facility] - OVER 65 OVER 65 09:32:00 [facility] FLUZONE HIGH DOSE FLUZONE HIGH DOSE 2020-04-17 Completed [facility] - OVER 65 OVER 65 09:32:00 [facility] FLUZONE HIGH DOSE FLUZONE HIGH DOSE 2020-04-17 Completed [facility] - OVER 65 OVER 65 09:32:00 [facility] FLUZONE HIGH DOSE FLUZONE HIGH DOSE 2020-04-17 Completed [facility] - OVER 65 OVER 65 09:32:00 [facility] FLUZONE HIGH DOSE FLUZONE HIGH DOSE 2020-04-17 Completed [facility] - OVER 65 OVER 65 09:32:00 [facility] FLUZONE HIGH DOSE FLUZONE HIGH DOSE 2020-04-17 Completed [facility] - OVER 65 OVER 65 09:32:00 [facility] FLUZONE HIGH DOSE FLUZONE HIGH DOSE 2020-04-17 Completed [facility] - OVER 65 OVER 65 09:32:00 [facility] FLUZONE HIGH DOSE FLUZONE HIGH DOSE 2020-04-17 Completed [facility] - OVER 65 OVER 65 09:32:00 [facility] FLUZONE HIGH DOSE FLUZONE HIGH DOSE 2020-04-17 Completed [facility] - OVER 65 OVER 65 09:32:00 [facility] FLUZONE HIGH DOSE FLUZONE HIGH DOSE 2020-04-17 Completed [facility] - OVER 65 OVER 65 09:32:00 [facility] FLUZONE HIGH DOSE FLUZONE HIGH DOSE 2020-04-17 Completed [facility] - OVER 65 OVER 65 09:32:00 [facility] FLUZONE HIGH DOSE FLUZONE HIGH DOSE 2020-04-17 Completed [facility] - OVER 65 OVER 65 09:32:00 [facility] FLUZONE HIGH DOSE FLUZONE HIGH DOSE 2019-06-14 Completed [facility] - OVER 65 OVER 65 10:49:00 [facility] FLUZONE HIGH DOSE FLUZONE HIGH DOSE 2019-06-14 Completed [facility] - OVER 65 OVER 65 10:49:00 [facility] FLUZONE HIGH DOSE FLUZONE HIGH DOSE 2019-06-14 Completed [facility] - OVER 65 OVER 65 10:49:00 [facility] FLUZONE HIGH DOSE FLUZONE HIGH DOSE 2019-06-14 Completed [facility] - OVER 65 OVER 65 10:49:00 [facility] FLUZONE HIGH DOSE FLUZONE HIGH DOSE 2019-06-14 Completed [facility] - OVER 65 OVER 65 10:49:00 [facility] FLUZONE HIGH DOSE FLUZONE HIGH DOSE 2019-06-14 Completed [facility] - OVER 65 OVER 65 10:49:00 [facility] FLUZONE HIGH DOSE FLUZONE HIGH DOSE 2019-06-14 Completed [facility] - OVER 65 OVER 65 10:49:00 [facility] FLUZONE HIGH DOSE FLUZONE HIGH DOSE 2019-06-14 Completed [facility] - OVER 65 OVER 65 10:49:00 [facility] FLUZONE HIGH DOSE FLUZONE HIGH DOSE 2019-06-14 Completed [facility] - OVER 65 OVER 65 10:49:00 [facility] FLUZONE HIGH DOSE FLUZONE HIGH DOSE 2019-06-14 Completed [facility] - OVER 65 OVER 65 10:49:00 [facility] FLUZONE HIGH DOSE FLUZONE HIGH DOSE 2019-06-14 Completed [facility] - OVER 65 OVER 65 10:49:00 [facility] FLUZONE HIGH DOSE FLUZONE HIGH DOSE 2019-06-14 Completed [facility] - OVER 65 OVER 65 10:49:00 [facility] FLUZONE HIGH DOSE FLUZONE HIGH DOSE 2019-06-14 Completed [facility] - OVER 65 OVER 65 10:49:00 [facility] FLUZONE HIGH DOSE FLUZONE HIGH DOSE 2019-06-14 Completed [facility] - OVER 65 OVER 65 10:49:00 [facility] FLUZONE HIGH DOSE FLUZONE HIGH DOSE 2019-06-14 Completed [facility] - OVER 65 OVER 65 10:49:00 [facility] FLUZONE HIGH DOSE FLUZONE HIGH DOSE 2019-06-14 Completed [facility] - OVER 65 OVER 65 10:49:00 [facility] FLUZONE HIGH DOSE FLUZONE HIGH DOSE 2019-06-14 Completed [facility] - OVER 65 OVER 65 10:49:00 [facility] FLUZONE HIGH DOSE FLUZONE HIGH DOSE 2019-06-14 Completed [facility] - OVER 65 OVER 65 10:49:00 [facility] FLUZONE HIGH DOSE FLUZONE HIGH DOSE 2019-06-14 Completed [facility] - OVER 65 OVER 65 10:49:00 [facility] FLUZONE HIGH DOSE FLUZONE HIGH DOSE 2019-06-14 Completed [facility] - OVER 65 OVER 65 10:49:00 [facility] FLUZONE HIGH DOSE FLUZONE HIGH DOSE 2019-06-14 Completed [facility] - OVER 65 OVER 65 10:49:00 [facility] FLUZONE HIGH DOSE FLUZONE HIGH DOSE 2019-06-14 Completed [facility] - OVER 65 OVER 65 10:49:00 [facility] FLUZONE HIGH DOSE FLUZONE HIGH DOSE 2019-06-14 Completed [facility] - OVER 65 OVER 65 10:49:00 [facility] FLUZONE HIGH DOSE FLUZONE HIGH DOSE 2019-06-14 Completed [facility] - OVER 65 OVER 65 10:49:00 [facility] FLUZONE HIGH DOSE FLUZONE HIGH DOSE 2019-06-14 Completed [facility] - OVER 65 OVER 65 10:49:00 [facility] FLUZONE HIGH DOSE FLUZONE HIGH DOSE 2019-06-14 Completed [facility] - OVER 65 OVER 65 10:49:00 [facility] FLUZONE HIGH DOSE FLUZONE HIGH DOSE 2019-06-14 Completed [facility] - OVER 65 OVER 65 10:49:00 [facility] FLUZONE HIGH DOSE FLUZONE HIGH DOSE 2019-06-14 Completed [facility] - OVER 65 OVER 65 10:49:00 [facility] FLUZONE HIGH DOSE FLUZONE HIGH DOSE 2019-06-14 Completed [facility] - OVER 65 OVER 65 10:49:00 [facility] FLUZONE HIGH DOSE FLUZONE HIGH DOSE 2019-06-14 Completed [facility] - OVER 65 OVER 65 10:49:00 [facility] FLUZONE HIGH DOSE FLUZONE HIGH DOSE 2019-06-14 Completed [facility] - OVER 65 OVER 65 10:49:00 [facility] FLUZONE HIGH DOSE FLUZONE HIGH DOSE 2019-06-14 Completed [facility] - OVER 65 OVER 65 10:49:00 [facility] FLUZONE HIGH DOSE FLUZONE HIGH DOSE 2019-06-14 Completed [facility] - OVER 65 OVER 65 10:49:00 [facility] FLUZONE HIGH DOSE FLUZONE HIGH DOSE 2019-06-14 Completed [facility] - OVER 65 OVER 65 10:49:00 [facility] FLUZONE HIGH DOSE FLUZONE HIGH DOSE 2019-06-14 Completed [facility] - OVER 65 OVER 65 10:49:00 [facility] FLUZONE HIGH DOSE FLUZONE HIGH DOSE 2019-06-14 Completed [facility] - OVER 65 OVER 65 10:49:00 [facility] FLUZONE HIGH DOSE FLUZONE HIGH DOSE 2019-06-14 Completed [facility] - OVER 65 OVER 65 10:49:00 [facility] FLUZONE HIGH DOSE FLUZONE HIGH DOSE 2019-06-14 Completed [facility] - OVER 65 OVER 65 10:49:00 [facility] FLUZONE HIGH DOSE FLUZONE HIGH DOSE 2019-06-14 Completed [facility] - OVER 65 OVER 65 00:00:00 [facility] Phenergan Phenergan 2018-05-07 Completed [facility] - (Promethazine) (Promethazine) 11:11:00 [facility] Toradol (Ketorolac) Toradol (Ketorolac) 2018-05-07 Completed [facility] - 11:11:00 [facility] Phenergan Phenergan 2018-05-07 Completed [facility] - (Promethazine) (Promethazine) 11:11:00 [facility] Toradol (Ketorolac) Toradol (Ketorolac) 2018-05-07 Completed [facility] - 11:11:00 [facility] Prevnar 13 Prevnar 13 2018-05-01 Completed [facility] - -Pneumonia Vaccine -Pneumonia Vaccine 14:40:00 [facility] Prevnar 13 Prevnar 13 2018-05-01 Completed [facility] - -Pneumonia Vaccine -Pneumonia Vaccine 14:40:00 [facility] Prevnar 13 Prevnar 13 2018-05-01 Completed [facility] - -Pneumonia Vaccine -Pneumonia Vaccine 14:40:00 [facility] Prevnar 13 Prevnar 13 2018-05-01 Completed [facility] - -Pneumonia Vaccine -Pneumonia Vaccine 14:40:00 [facility] Prevnar 13 Prevnar 13 2018-05-01 Completed [facility] - -Pneumonia Vaccine -Pneumonia Vaccine 14:40:00 [facility] Prevnar 13 Prevnar 13 2018-05-01 Completed [facility] - -Pneumonia Vaccine -Pneumonia Vaccine 14:40:00 [facility] Prevnar 13 Prevnar 13 2018-05-01 Completed [facility] - -Pneumonia Vaccine -Pneumonia Vaccine 14:40:00 [facility] Prevnar 13 Prevnar 13 2018-05-01 Completed [facility] - -Pneumonia Vaccine -Pneumonia Vaccine 14:40:00 [facility] Prevnar 13 Prevnar 13 2018-05-01 Completed [facility] - -Pneumonia Vaccine -Pneumonia Vaccine 14:40:00 [facility] Prevnar 13 Prevnar 13 2018-05-01 Completed [facility] - -Pneumonia Vaccine -Pneumonia Vaccine 14:40:00 [facility] Prevnar 13 Prevnar 13 2018-05-01 Completed [facility] - -Pneumonia Vaccine -Pneumonia Vaccine 14:40:00 [facility] Prevnar 13 Prevnar 13 2018-05-01 Completed [facility] - -Pneumonia Vaccine -Pneumonia Vaccine 14:40:00 [facility] Prevnar 13 Prevnar 13 2018-05-01 Completed [facility] - -Pneumonia Vaccine -Pneumonia Vaccine 14:40:00 [facility] Prevnar 13 Prevnar 13 2018-05-01 Completed [facility] - -Pneumonia Vaccine -Pneumonia Vaccine 14:40:00 [facility] Prevnar 13 Prevnar 13 2018-05-01 Completed [facility] - -Pneumonia Vaccine -Pneumonia Vaccine 14:40:00 [facility] Prevnar 13 Prevnar 13 2018-05-01 Completed [facility] - -Pneumonia Vaccine -Pneumonia Vaccine 14:40:00 [facility] Prevnar 13 Prevnar 13 2018-05-01 Completed [facility] - -Pneumonia Vaccine -Pneumonia Vaccine 14:40:00 [facility] Prevnar 13 Prevnar 13 2018-05-01 Completed [facility] - -Pneumonia Vaccine -Pneumonia Vaccine 14:40:00 [facility] Prevnar 13 Prevnar 13 2018-05-01 Completed [facility] - -Pneumonia Vaccine -Pneumonia Vaccine 14:40:00 [facility] Prevnar 13 Prevnar 13 2018-05-01 Completed [facility] - -Pneumonia Vaccine -Pneumonia Vaccine 14:40:00 [facility] Prevnar 13 Prevnar 13 2018-05-01 Completed [facility] - -Pneumonia Vaccine -Pneumonia Vaccine 14:40:00 [facility] Prevnar 13 Prevnar 13 2018-05-01 Completed [facility] - -Pneumonia Vaccine -Pneumonia Vaccine 14:40:00 [facility] Prevnar 13 Prevnar 13 2018-05-01 Completed [facility] - -Pneumonia Vaccine -Pneumonia Vaccine 14:40:00 [facility] Prevnar 13 Prevnar 13 2018-05-01 Completed [facility] - -Pneumonia Vaccine -Pneumonia Vaccine 14:40:00 [facility] Prevnar 13 Prevnar 13 2018-05-01 Completed [facility] - -Pneumonia Vaccine -Pneumonia Vaccine 14:40:00 [facility] Prevnar 13 Prevnar 13 2018-05-01 Completed [facility] - -Pneumonia Vaccine -Pneumonia Vaccine 14:40:00 [facility] Prevnar 13 Prevnar 13 2018-05-01 Completed [facility] - -Pneumonia Vaccine -Pneumonia Vaccine 14:40:00 [facility] Prevnar 13 Prevnar 13 2018-05-01 Completed [facility] - -Pneumonia Vaccine -Pneumonia Vaccine 14:40:00 [facility] Prevnar 13 Prevnar 13 2018-05-01 Completed [facility] - -Pneumonia Vaccine -Pneumonia Vaccine 14:40:00 [facility] Prevnar 13 Prevnar 13 2018-05-01 Completed [facility] - -Pneumonia Vaccine -Pneumonia Vaccine 14:40:00 [facility] Prevnar 13 Prevnar 13 2018-05-01 Completed [facility] - -Pneumonia Vaccine -Pneumonia Vaccine 14:40:00 [facility] Prevnar 13 Prevnar 13 2018-05-01 Completed [facility] - -Pneumonia Vaccine -Pneumonia Vaccine 14:40:00 [facility] Prevnar 13 Prevnar 13 2018-05-01 Completed [facility] - -Pneumonia Vaccine -Pneumonia Vaccine 14:40:00 [facility] Prevnar 13 Prevnar 13 2018-05-01 Completed [facility] - -Pneumonia Vaccine -Pneumonia Vaccine 14:40:00 [facility] Prevnar 13 Prevnar 13 2018-05-01 Completed [facility] - -Pneumonia Vaccine -Pneumonia Vaccine 14:40:00 [facility] Prevnar 13 Prevnar 13 2018-05-01 Completed [facility] - -Pneumonia Vaccine -Pneumonia Vaccine 14:40:00 [facility] Prevnar 13 Prevnar 13 2018-05-01 Completed [facility] - -Pneumonia Vaccine -Pneumonia Vaccine 14:40:00 [facility] Prevnar 13 Prevnar 13 2018-05-01 Completed [facility] - -Pneumonia Vaccine -Pneumonia Vaccine 14:40:00 [facility] FLUZONE HIGH DOSE FLUZONE HIGH DOSE 2018-05-01 Completed [facility] - OVER 65 OVER 65 14:39:00 [facility] FLUZONE HIGH DOSE FLUZONE HIGH DOSE 2018-05-01 Completed [facility] - OVER 65 OVER 65 14:39:00 [facility] FLUZONE HIGH DOSE FLUZONE HIGH DOSE 2018-05-01 Completed [facility] - OVER 65 OVER 65 14:39:00 [facility] FLUZONE HIGH DOSE FLUZONE HIGH DOSE 2018-05-01 Completed [facility] - OVER 65 OVER 65 14:39:00 [facility] FLUZONE HIGH DOSE FLUZONE HIGH DOSE 2018-05-01 Completed [facility] - OVER 65 OVER 65 14:39:00 [facility] FLUZONE HIGH DOSE FLUZONE HIGH DOSE 2018-05-01 Completed [facility] - OVER 65 OVER 65 14:39:00 [facility] FLUZONE HIGH DOSE FLUZONE HIGH DOSE 2018-05-01 Completed [facility] - OVER 65 OVER 65 14:39:00 [facility] FLUZONE HIGH DOSE FLUZONE HIGH DOSE 2018-05-01 Completed [facility] - OVER 65 OVER 65 14:39:00 [facility] FLUZONE HIGH DOSE FLUZONE HIGH DOSE 2018-05-01 Completed [facility] - OVER 65 OVER 65 14:39:00 [facility] FLUZONE HIGH DOSE FLUZONE HIGH DOSE 2018-05-01 Completed [facility] - OVER 65 OVER 65 14:39:00 [facility] FLUZONE HIGH DOSE FLUZONE HIGH DOSE 2018-05-01 Completed [facility] - OVER 65 OVER 65 14:39:00 [facility] FLUZONE HIGH DOSE FLUZONE HIGH DOSE 2018-05-01 Completed [facility] - OVER 65 OVER 65 14:39:00 [facility] FLUZONE HIGH DOSE FLUZONE HIGH DOSE 2018-05-01 Completed [facility] - OVER 65 OVER 65 14:39:00 [facility] FLUZONE HIGH DOSE FLUZONE HIGH DOSE 2018-05-01 Completed [facility] - OVER 65 OVER 65 14:39:00 [facility] FLUZONE HIGH DOSE FLUZONE HIGH DOSE 2018-05-01 Completed [facility] - OVER 65 OVER 65 14:39:00 [facility] FLUZONE HIGH DOSE FLUZONE HIGH DOSE 2018-05-01 Completed [facility] - OVER 65 OVER 65 14:39:00 [facility] FLUZONE HIGH DOSE FLUZONE HIGH DOSE 2018-05-01 Completed [facility] - OVER 65 OVER 65 14:39:00 [facility] FLUZONE HIGH DOSE FLUZONE HIGH DOSE 2018-05-01 Completed [facility] - OVER 65 OVER 65 14:39:00 [facility] FLUZONE HIGH DOSE FLUZONE HIGH DOSE 2018-05-01 Completed [facility] - OVER 65 OVER 65 14:39:00 [facility] FLUZONE HIGH DOSE FLUZONE HIGH DOSE 2018-05-01 Completed [facility] - OVER 65 OVER 65 14:39:00 [facility] FLUZONE HIGH DOSE FLUZONE HIGH DOSE 2018-05-01 Completed [facility] - OVER 65 OVER 65 14:39:00 [facility] FLUZONE HIGH DOSE FLUZONE HIGH DOSE 2018-05-01 Completed [facility] - OVER 65 OVER 65 14:39:00 [facility] FLUZONE HIGH DOSE FLUZONE HIGH DOSE 2018-05-01 Completed [facility] - OVER 65 OVER 65 14:39:00 [facility] FLUZONE HIGH DOSE FLUZONE HIGH DOSE 2018-05-01 Completed [facility] - OVER 65 OVER 65 14:39:00 [facility] FLUZONE HIGH DOSE FLUZONE HIGH DOSE 2018-05-01 Completed [facility] - OVER 65 OVER 65 14:39:00 [facility] FLUZONE HIGH DOSE FLUZONE HIGH DOSE 2018-05-01 Completed [facility] - OVER 65 OVER 65 14:39:00 [facility] FLUZONE HIGH DOSE FLUZONE HIGH DOSE 2018-05-01 Completed [facility] - OVER 65 OVER 65 14:39:00 [facility] FLUZONE HIGH DOSE FLUZONE HIGH DOSE 2018-05-01 Completed [facility] - OVER 65 OVER 65 14:39:00 [facility] FLUZONE HIGH DOSE FLUZONE HIGH DOSE 2018-05-01 Completed [facility] - OVER 65 OVER 65 14:39:00 [facility] FLUZONE HIGH DOSE FLUZONE HIGH DOSE 2018-05-01 Completed [facility] - OVER 65 OVER 65 14:39:00 [facility] FLUZONE HIGH DOSE FLUZONE HIGH DOSE 2018-05-01 Completed [facility] - OVER 65 OVER 65 14:39:00 [facility] FLUZONE HIGH DOSE FLUZONE HIGH DOSE 2018-05-01 Completed [facility] - OVER 65 OVER 65 14:39:00 [facility] FLUZONE HIGH DOSE FLUZONE HIGH DOSE 2018-05-01 Completed [facility] - OVER 65 OVER 65 14:39:00 [facility] FLUZONE HIGH DOSE FLUZONE HIGH DOSE 2018-05-01 [facility] - OVER 65 OVER 65 14:39:00 [facility] FLUZONE HIGH DOSE FLUZONE HIGH DOSE 2018-05-01 Completed [facility] - OVER 65 OVER 65 14:39:00 [facility] FLUZONE HIGH DOSE FLUZONE HIGH DOSE 2018-05-01 Completed [facility] - OVER 65 OVER 65 14:39:00 [facility] FLUZONE HIGH DOSE FLUZONE HIGH DOSE 2018-05-01 Completed [facility] - OVER 65 OVER 65 14:39:00 [facility] FLUZONE HIGH DOSE FLUZONE HIGH DOSE 2018-05-01 Completed [facility] - OVER 65 OVER 65 14:39:00 [facility] Toradol (Ketorolac) Toradol (Ketorolac) 2018-02-25 Completed [facility] - 10:03:00 [facility] Solumedrol Solumedrol 2018-02-25 Completed [facility] - 125mg/2ml 125mg/2ml 10:03:00 [facility] Toradol (Ketorolac) Toradol (Ketorolac) 2018-02-25 Completed [facility] - 10:03:00 [facility] Solumedrol Solumedrol 2018-02-25 Completed [facility] - 125mg/2ml 125mg/2ml 10:03:00 [facility] Vital Signs Vital Name Observation Time Observation Value Comments Source height 2022-07-23 13:40:00 70.75 [in_i] [facility] weight 2022-07-23 13:40:00 138 [lb_av] [facility] temperature 2022-07-23 13:40:00 98.3 [degF] [facility] bmi 2022-07-23 13:40:00 19.38 kg/m2 [facility] respiratory rate 2022-07-23 13:40:00 15 /min Comm on [facility] height 2022-06-24 14:20:00 70.75 [in_i] [facility] weight 2022-06-24 14:20:00 145 [lb_av] [facility] temperature 2022-06-24 14:20:00 98 [degF] [facility] bmi 2022-06-24 14:20:00 20.36 kg/m2 [facility] blood pressure 2022-06-24 14:20:00 112 mm[Hg] Common [facility] - systolic [facility] blood pressure 2022-06-24 14:20:00 76 mm[Hg] [facility] - diastolic [facility] height 2022-04-04 13:10:00 70.75 [in_i] [facility] weight 2022-04-04 13:10:00 147.1 [lb_av] [facility] temperature 2022-04-04 13:10:00 97.8 [degF] [facility] bmi 2022-04-04 13:10:00 20.66 kg/m2 [facility] oximetry 2022-04-04 13:10:00 96 % [facility] respiratory rate 2022-04-04 13:10:00 17 /min Comm on [facility] blood pressure 2022-04-04 13:10:00 110 mm[Hg] Common [facility] - systolic [facility] blood pressure 2022-04-04 13:10:00 62 mm[Hg] Common [facility] - diastolic [facility] height 2022-03-13 13:15:00 70.75 [in_i] Common S [facility] weight 2022-03-13 13:15:00 137.6 [lb_av] [facility] temperature 2022-03-13 13:15:00 97.3 [degF] [facility] bmi 2022-03-13 13:15:00 19.33 kg/m2 [facility] oximetry 2022-03-13 13:15:00 94 % [facility] respiratory rate 2022-03-13 13:15:00 16 /min Comm on [facility] blood pressure 2022-03-13 13:15:00 111 mm[Hg] Common [facility] - systolic [facility] blood pressure 2022-03-13 13:15:00 68 mm[Hg] Common [facility] - diastolic [facility] height 2022-01-09 14:20:00 70.75 [in_i] Common [facility] weight 2022-01-09 14:20:00 138.6 [lb_av] Common [facility] temperature 2022-01-09 14:20:00 98.1 [degF] Common [facility] bmi 2022-01-09 14:20:00 19.47 kg/m2 [facility] oximetry 2022-01-09 14:20:00 95 % [facility] respiratory rate 2022-01-09 14:20:00 16 /min Comm on [facility] blood pressure 2022-01-09 14:20:00 112 mm[Hg] Common [facility] - systolic [facility] blood pressure 2022-01-09 14:20:00 75 mm[Hg] Common [facility] - diastolic [facility] height 2021-12-21 10:30:00 70.75 [in_i] Common [facility] weight 2021-12-21 10:30:00 135 [lb_av] Common [facility] temperature 2021-12-21 10:30:00 97 [degF] Common [facility] bmi 2021-12-21 10:30:00 18.96 kg/m2 [facility] blood pressure 2021-12-21 10:30:00 115 mm[Hg] Common [facility] - systolic [facility] blood pressure 2021-12-21 10:30:00 78 mm[Hg] [facility] - [facility] height 2021-12-06 08:00:00 70.75 [in_i] Common [facility] weight 2021-12-06 08:00:00 147.2 [lb_av] Common [facility] temperature 2021-12-06 08:00:00 97.2 [degF] Common [facility] bmi 2021-12-06 08:00:00 20.67 kg/m2 [facility] oximetry 2021-12-06 08:00:00 96 % [facility] respiratory rate 2021-12-06 08:00:00 16 /min Comm on [facility] blood pressure 2021-12-06 08:00:00 141 mm[Hg] Common [facility] systolic [facility] blood pressure 2021-12-06 08:00:00 74 mm[Hg] Common [facility] - diastolic [facility] height 2021-09-26 08:30:00 70.75 [in_i] Common [facility] weight 2021-09-26 08:30:00 146.8 [lb_av] [facility] temperature 2021-09-26 08:30:00 98.3 [degF] [facility] bmi 2021-09-26 08:30:00 20.62 kg/m2 [facility] oximetry 2021-09-26 08:30:00 99 % [facility] respiratory rate 2021-09-26 08:30:00 17 /min Comm on [facility] blood pressure 2021-09-26 08:30:00 132 mm[Hg] Common [facility] - systolic [facility] blood pressure 2021-09-26 08:30:00 70 mm[Hg] Common [facility] - diastolic [facility] height 2021-09-26 08:00:00 70.75 [in_i] [facility] weight 2021-09-26 08:00:00 146.8 [lb_av] [facility] temperature 2021-09-26 08:00:00 98.3 [degF] [facility] bmi 2021-09-26 08:00:00 20.62 kg/m2 [facility] oximetry 2021-09-26 08:00:00 99 % [facility] blood pressure 2021-09-26 08:00:00 132 mm[Hg] [facility] - systolic [facility] blood pressure 2021-09-26 08:00:00 70 mm[Hg] [facility] - diastolic [facility] height 2021-09-17 16:45:00 70.75 [in_i] [facility] weight 2021-09-17 16:45:00 146.2 [lb_av] [facility] temperature 2021-09-17 16:45:00 98.6 [degF] [facility] bmi 2021-09-17 16:45:00 20.53 kg/m2 [facility] S [facility] oximetry 2021-09-17 16:45:00 94 % [facility] respiratory rate 2021-09-17 16:45:00 16 /min Comm on [facility] blood pressure 2021-09-17 16:45:00 154 mm[Hg] Common [facility] - systolic [facility] blood pressure 2021-09-17 16:45:00 72 mm[Hg] Common [facility] - diastolic [facility] height 2021-07-18 10:15:00 70.75 [in_i] Common S [facility] weight 2021-07-18 10:15:00 146 [lb_av] [facility] temperature 2021-07-18 10:15:00 97.6 [degF] [facility] bmi 2021-07-18 10:15:00 20.5 kg/m2 Common S [facility] oximetry 2021-07-18 10:15:00 97 % Common [facility] respiratory rate 2021-07-18 10:15:00 18 /min Comm on [facility] - [facility] blood pressure 2021-07-18 10:15:00 117 mm[Hg] Common [facility] - systolic [facility] blood pressure 2021-07-18 10:15:00 63 mm[Hg] Common [facility] - diastolic [facility] height 2021-07-12 13:10:00 70.75 [in_i] [facility] weight 2021-07-12 13:10:00 140 [lb_av] [facility] temperature 2021-07-12 13:10:00 97.9 [degF] [facility] bmi 2021-07-12 13:10:00 19.66 kg/m2 [facility] blood pressure 2021-07-12 13:10:00 131 mm[Hg] Common [facility] - systolic [facility] blood pressure 2021-07-12 13:10:00 76 mm[Hg] Common [facility] - diastolic [facility] Systolic blood 2021-06-30 15:05:00 184 mm[Hg] [facility] Diastolic blood 2021-06-30 15:05:00 113 mm[Hg] Unive rs[facility] Heart rate 2021-06-30 15:05:00 96 /min [facility] Body temperature 2021-06-30 15:05:[address] [facility] 2021-06-30 15:05:00 18 /min [facility] Body weight 2021-06-30 15:05:00 58.968 kg [facility] BMI 2021-06-30 15:05:00 18.65 kg/m2 [facility] Oxygen saturation in 2021-06-30 15:05:00 98 /min [facility] Arterial blood by [facility] Pulse oximetry Branch height 2021-06-14 10:30:00 70.75 [in_i] [facility] weight 2021-06-14 10:30:00 143.5 [lb_av] Common [facility] temperature 2021-06-14 10:30:00 97.2 [degF] [facility] bmi 2021-06-14 10:30:00 20.15 kg/m2 [facility] oximetry 2021-06-14 10:30:00 96 % [facility] respiratory rate 2021-06-14 10:30:00 16 /min Comm on [facility] blood pressure 2021-06-14 10:30:00 132 mm[Hg] Common [facility] - systolic [facility] blood pressure 2021-06-14 10:30:00 62 mm[Hg] Common [facility] - diastolic [facility] height 2021-04-04 14:10:00 70.75 [in_i] [facility] weight 2021-04-04 14:10:00 139.3 [lb_av] Common [facility] temperature 2021-04-04 14:10:00 97.4 [degF] [facility] bmi 2021-04-04 14:10:00 19.56 kg/m2 [facility] oximetry 2021-04-04 14:10:00 98 % [facility] respiratory rate 2021-04-04 14:10:00 17 /min Comm on [facility] blood pressure 2021-04-04 14:10:00 122 mm[Hg] Common [facility] - systolic [facility] blood pressure 2021-04-04 14:10:00 69 mm[Hg] Common [facility] - diastolic [facility] Systolic blood 2021-03-19 13:35:00 158 mm[Hg] Univer sity of pressure [facility] Diastolic blood 2021-03-19 13:35:00 86 mm[Hg] Unive rsity of pressure [facility] Heart rate 2021-03-19 13:35:00 74 /min [facility] Oxygen saturation in 2021-03-19 13:35:00 96 /min [facility] of Arterial blood by [employer] [facility] Pulse oximetry Branch Respiratory rate 2021-03-19 13:30:00 11 /min [facility] Body temperature 2021-03-19 13:07:00 36.72 Roxana [facility] Body height 2021-03-15 19:00:00 177.8 cm [facility] Body weight 2021-03-15 19:00:00 58.968 kg [facility] BMI 2021-03-15 19:00:00 18.65 kg/m2 [facility] Systolic blood 2021-03-19 13:35:00 158 mm[Hg] [facility]iver [facility]ity [facility] pressure [facility] Diastolic blood 2021-03-19 13:35:00 86 mm[Hg] Unive rsity [facility] pressure [facility] Heart rate 2021-03-19 13:35:00 74 /min [facility] Oxygen saturation in 2021-03-19 13:35:00 96 /min [facility] Arterial blood by [employer] niharika Pulse oximetry Branch Respiratory rate 2021-03-19 13:30:00 11 /min [facility] Body temperature 2021-03-19 13:07:00 36.72 Roxana [facility] Body height 2021-03-15 19:00:00 177.8 cm [facility] Body weight 2021-03-15 19:00:00 58.968 kg [facility] BMI 2021-03-15 19:00:00 18.65 kg/m2 [facility] Systolic blood 2020-06-21 00:55:00 219 mm[Hg] [facility]iver [facility] Diastolic blood 2020-06-21 00:55:00 112 mm[Hg] [facility]ive [facility] Heart rate 2020-06-21 00:55:00 81 /min [facility] Respiratory rate 2020-06-21 00:55:00 14 /min [facility] Oxygen saturation in 2020-06-21 00:55:00 98 /min [facility] Arterial blood by [facility] Pulse oximetry Branch Body temperature 2020-06-20 23:25:00 37.06 Roxana [facility] [place] Body weight 2020-06-20 23:25:00 63.504 kg [facility] BMI 2020-06-20 23:25:00 19.53 kg/m2 [facility] Procedures Procedure Date / Time Performing Clinician Source Performed CONSENT/REFUSAL FOR 2021-06-30 15:01:49 Doctor Unassigned, No [facility] [place] [facility] TREATMENT Name Medical Branch INTRATHECAL INFUSION 2021-03-19 12:07:00 Elliott Lemus [facility] PUMP REVISION Medical Branch ASSIGNMENT OF BENEFITS 2021-03-16 14:13:01 Doctor Unassigned, No [facility] Name Medical Branch EXTERNAL PROVIDER 2021-03-01 05:01:00 Doctor Unassigned, No [facility] RECORDS Name Medical Branch EXTERNAL PROVIDER 2021-03-01 05:01:00 Doctor Unassigned, No [facility] RECORDS Name Medical Branch NOTICE OF PRIVACY 2020-06-20 23:25:36 Doctor Unassigned, No [facility] PRACTICES Name Medical Branch CONSENT/REFUSAL FOR 2020-06-20 23:25:06 Doctor Unassigned, No [facility] DI[facility] TREATMENT Name Medical Branch Encounters Start End Encounter Admission Attending Care Care Encounter Source Date/Time Date/Time Type Type Clinicians Facility Department ID 2022-06-20 [facility] [id number] Common 16:01:00 [facility] 2022-01-09 [facility] [id number] Common 14:46:00 [facility] 2021-09-25 [facility] [id number] Common 13:09:01 Swetha [facility] 2021-09-07 [facility] [id number] Common 09:20:00 [facility] 2021-08-20 [facility] [id number] Common 16:09:01 [facility] 2021-08-06 Outpatient Pedraza, STLMLC STLMLC [id number] Common 06:27:01 Swetha [facility] 2021-08-01 Outpatient Pedraza, STLMLC STLMLC [id number] Common 14:31:24 Swetha [facility] 2021-08-01 Outpatient Pedraza, STLMLC STLMLC [id number] Common 14:22:24 Swetha [facility] 2021-08-01 Outpatient Pedraza, STLMLC STLMLC [id number] Common 13:54:17 Swetha [facility] 2021-08-01 Outpatient Pedraza, STLMLC STLMLC [id number] Common 13:49:42 Swetha [id number] [facility] 2021-08-01 Outpatient Pedraza, STLMLC STLMLC [id number] Common 13:46:19 Swetha [id number] [facility] 2021-08-01 Outpatient Pedraza, STLMLC STLMLC [id number] Common 12:35:25 Swetha 74630 [facility] 2021-08-01 Outpatient Pedraza, STLMLC STLMLC [id number] Common 12:31:16 Swetha [id number] [facility] 2021-08-01 Outpatient Pedraza, STLMLC STLMLC [id number] Common 12:24:58 Swetha [id number] [facility] 2021-08-01 Outpatient Pedraza, STLMLC STLMLC [id number] Common 12:24:32 Swetha [id number] [facility] 2021-08-01 Outpatient Pedraza, STLMLC STLMLC [id number] Common 12:21:42 Swetha [id number] [facility] 2021-08-01 Outpatient Jefferson Teresa STLMLC STLMLC [id number] Common 12:21:20 [id number] [facility] 2021-08-01 Outpatient Jefferson Teresa STLMLC STLMLC [id number] Common 12:19:51 [id number] [facility] 2021-08-01 Outpatient Jefferson Teresa STLMLC STLMLC [id number] Common 12:18:22 [id number] [facility] 2021-08-01 Outpatient Jefferson Teresa STLMLC STLMLC [id number] Common 12:01:35 [id number] [facility] 2021-08-01 Outpatient Jefferson Teresa STLMLC STLMLC [id number] Common 11:59:25 [id number] [facility] 2021-08-01 Outpatient STLMLC STLMLC [id number] Common 11:59:02 [id number] [facility] 2021-08-01 Outpatient Millender, STLMLC STLMLC [id number] Common 11:53:59 Kristie 14338 [facility] 2021-08-01 Outpatient Millender, STLMLC STLMLC [id number] Common 11:06:08 Kristie 53771 [facility] 2021-08-01 Outpatient Millender, STLMLC STLMLC [id number] Common 10:59:48 Kristie 98399 [facility] 2021-08-01 Outpatient Millender, STLMLC STLMLC [id number] Common 10:59:10 Kristie 51641 [facility] 2021-08-01 Outpatient Millender, STLMLC STLMLC [id number] Common 10:57:50 Kristie [id number] [facility] 2021-05-07 Outpatient Mima ELMUS [facility] ANS [id number] Univers 21:44:34 ELLIOTT frias [facility] 2022-07-23 2022-07-23 OFFICE STLMLC STLMLC [id number] Co mmon 00:00:00 00:00:00 VISIT EST Sp[facility] it PT LEVEL 3 [facility] 2022-07-22 2022-07-22 (WEB) STLMLC STLMLC [id number] Co mmon 00:00:00 00:00:00 [facility] 2022-07-22 2022-07-22 (TEL) STLMLC STLMLC [id number] Co mmon 00:00:00 00:00:00 [facility] 2022-07-01 2022-07-01 (WEB) STLMLC STLMLC [id number] Co mmon 00:00:00 00:00:00 [facility] 2022-06-24 2022-06-24 OFFICE STLMLC STLMLC [id number] Co mmon 00:00:00 00:00:00 VISIT [facility] PT - CHI LEVEL 4 [facility] 2022-04-04 2022-04-04 OFFICE STLMLC STLMLC [id number] Co mmon 00:00:00 00:00:00 VISIT [facility] PT - CHI LEVEL 4 [facility] 2022-03-15 2022-03-15 (WEB) STLMLC STLMLC [id number] Co mmon 00:00:00 00:00:00 [facility] 2022-03-13 2022-03-13 OFFICE STLMLC STLMLC [id number] Co mmon 00:00:00 00:00:00 VISIT [facility] PT - CHI LEVEL 2 [facility] 2022-01-09 2022-01-09 OFFICE STLMLC STLMLC [id number] Co mmon 00:00:00 00:00:00 VISIT [facility] PT - CHI LEVEL 4 [facility] 2021-12-30 2021-12-30 (WEB) STLMLC STLMLC [id number] Co mmon 00:00:00 00:00:00 [facility] 2021-12-29 2021-12-29 (WEB) STLMLC STLMLC [id number] Co mmon 00:00:00 00:00:00 [facility] 2021-12-25 2021-12-25 (TEL) STLMLC STLMLC [id number] Co mmon 00:00:00 00:00:00 [facility] 2021-12-21 2021-12-21 OFFICE STLMLC STLMLC [id number] Co mmon 00:00:00 00:00:00 VISIT [facility] PT - CHI LEVEL 4 [facility] 2021-12-21 2021-12-21 (TEL) STLMLC STLMLC [id number] Co mmon 00:00:00 00:00:00 [facility] 2021-12-07 2021-12-07 (TEL) STLMLC STLMLC [id number] Co mmon 00:00:00 00:00:00 [facility] 2021-12-06 2021-12-06 OFFICE STLMLC STLMLC [id number] Co mmon 00:00:00 00:00:00 VISIT [facility] ESTAB PT - CHI LEVEL 4 [facility] 2021-11-21 2021-11-21 (TEL) STLMLC STLMLC [id number] Co mmon 00:00:00 00:00:00 [facility] 2021-10-25 2021-10-25 (TEL) STLMLC STLMLC [id number] Co mmon 00:00:00 00:00:00 [facility] 2021-10-02 2021-10-02 (TEL) STLMLC STLMLC [id number] Co mmon 00:00:00 00:00:00 [facility] 2021-09-26 2021-09-26 (TEL) STLMLC STLMLC [id number] Co mmon 00:00:00 00:00:00 [facility] 2021-09-26 2021-09-26 OFFICE STLMLC STLMLC [id number] Co mmon 00:00:00 00:00:00 VISIT [facility] PT - CHI LEVEL 4 [facility] 2021-09-26 2021-09-26 SUB ANNUAL STLMLC STLMLC [id number] Common 00:00:00 00:00:00 [facility] WELLNESS - CHI VISIT [facility] 2021-09-17 2021-09-17 OFFICE STLMLC STLMLC [id number] Co mmon 00:00:00 00:00:00 VISIT [facility] ESTAB PT - CHI LEVEL 1 [facility] 2021-08-20 2021-08-20 (TEL) STLMLC STLMLC [id number] Co mmon 00:00:00 00:00:00 [facility] 2021-07-18 2021-07-18 OFFICE STLMLC STLMLC [id number] Co mmon 00:00:00 00:00:00 VISIT [facility] ESTAB PT - CHI LEVEL 2 [facility] 2021-07-18 2021-07-18 (PROC) STLMLC STLMLC [id number] Co mmon 00:00:00 00:00:00 Procedure Spir it - CHI [facility] 2021-07-16 2021-07-16 (TEL) STLMLC STLMLC [id number] Co mmon 00:00:00 00:00:00 [facility] CHI [facility] 2021-07-12 2021-07-12 OFFICE STLMLC STLMLC [id number] Co mmon 00:00:00 00:00:00 VISIT [facility] ESTAB PT - CHI LEVEL 4 [facility] 2021-06-30 2021-06-30 Emergency [facility] [id number] Univers 09:15:00 10:09:00 MELISA frias [facility] 2021-06-30 2021-06-30 Emergency [facility] [id number] Univers 09:15:00 10:09:00 [id number] [id number] [facility] [id number] [address] 2021-06-28 2021-06-28 (TEL) STLMLC STLMLC [id number] Co mmon 00:00:00 00:00:00 [facility] CHI [facility] 2021-06-14 2021-06-14 OFFICE STLMLC STLMLC [id number] Co mmon 00:00:00 00:00:00 VISIT [facility] ESTAB PT - CHI LEVEL 4 [facility] 2021-06-12 2021-06-12 (TEL) STLMLC STLMLC [id number] Co mmon 00:00:00 00:00:00 [facility] 2021-06-06 2021-06-06 (PROC) STLMLC STLMLC [id number] Co mmon 00:00:00 00:00:00 Procedure Spir it - CHI [facility] 2021-06-04 2021-06-04 (TEL) STLMLC STLMLC [id number] Co mmon 00:00:00 00:00:00 [facility] 2021-05-23 2021-05-23 OL DIG E/M STLMLC STLMLC [id number] Common 00:00:00 00:00:00 [facility] 11-20 Spir it MIN [facility] 2021-04-04 2021-04-04 OFFICE STLMLC STLMLC [id number] Co mmon 00:00:00 00:00:00 VISIT [facility] LEVEL 4 [facility] 2021-04-04 2021-04-04 (TEL) STLMLC STLMLC [id number] Co mmon 00:00:00 00:00:00 [facility] 2021-03-22 2021-03-22 Outpatient STLMLC STLMLC [id number] Common 00:00:00 00:00:00 [facility] 2021-03-19 2021-03-19 [facility] [id number] Univers 07:02:00 08:58:00 Encounter Elliott [place] [id number] [facility] [facility] [id number] [id number] [facility] 0[address] Branch 2021-03-19 2021-03-19 Surgery [facility] [id number] Univers 07:30:00 08:38:00 Elliott Ernesto Notrees [id number] [facility] [id number] [id number] [facility] 020 Branch 2021-03-19 2021-03-19 Outpatient STLMLC STLMLC [id number] Common 00:00:00 00:00:00 [facility] 2021-03-16 2021-03-16 Ssrs Developer Bonnie Sosa Lab Main [facility] [id number] Univers 09:16:08 09:31:08 Visit Elliott Lemus Ernesto Notrees [id number] [facility] [id number] [facility] [id number] Nm dical [facility] [address] 2021-03-16 2021-03-16 Laboratory Only, Adc Test [facility] [id number]. [id number] Univers 09:13:46 09:28:46 Only Elliott Lemus Notrees [id number] 0 [place] [id number] [place] [phone] [facility] [address] 2021-03-16 2021-03-16 Outpatient R [facility] [id number] Univers 09:00:00 09:00:00 ELLIOTT ity [facility] 2021-03-16 2021-03-16 Orders Doctor SESAR [id number] Univers 00:00:00 00:00:00 Only Unassigned, ANASTASIYA [id number] ity of [employer] [facility] [id number] [place] [id number] [facility] [address] 2021-03-09 2021-03-09 Outpatient STLMLC STLMLC [id number] Common 00:00:00 00:00:00 [facility] 2021-01-17 2021-01-17 Outpatient STLMLC STLMLC [id number] Common 00:00:00 00:00:00 [facility] 2021-01-17 2021-01-17 Outpatient STLMLC STLMLC [id number] Common 00:00:00 00:00:00 [facility] 2020-11-28 2020-11-28 Outpatient STLMLC STLMLC [id number] Common 00:00:00 00:00:00 [facility] 2020-09-07 2020-09-07 Outpatient STLMLC STLMLC [id number] Common 00:00:00 00:00:00 [facility] 2020-09-07 2020-09-07 Outpatient STLMLC STLMLC [id number] Common 00:00:00 00:00:00 [facility] 2020-09-05 2020-09-05 Outpatient STLMLC STLMLC [id number] Common 00:00:00 00:00:00 [facility] 2020-08-28 2020-08-28 Outpatient STLMLC STLMLC [id number] Common 00:00:00 00:00:00 [facility] 2020-07-31 2020-07-31 Outpatient STLMLC STLMLC [id number] Common 00:00:00 00:00:00 [facility] 2020-07-20 2020-07-20 Outpatient STLMLC STLMLC [id number] Common 00:00:00 00:00:00 [facility] 2020-06-20 2020-06-20 Emergency [facility] [id number] Univers 17:20:00 19:05:00 Melisa Curran [id number] [facility] [id number] [facility] [phone] [place] [address] [address] 2020-06-20 2020-06-20 Emergency X [facility] ERT [id number] Univers 17:20:00 17:20:00 MELISA frias [facility] 2020-05-25 2020-05-25 Outpatient STLMLC STLMLC [id number] Common 00:00:00 00:00:00 [facility] 2020-05-10 2020-05-10 Outpatient STLMLC STLMLC [id number] Common 00:00:00 00:00:00 [facility] 2020-05-05 2020-05-05 Outpatient STLMLC STLMLC [id number] Common 00:00:00 00:00:00 [facility] 2020-04-19 2020-04-19 Outpatient STLMLC STLMLC [id number] Common 00:00:00 00:00:00 [facility] 2020-04-17 2020-04-17 Outpatient STLMLC STLMLC [id number] Common 00:00:00 00:00:00 [facility] 2020-04-17 2020-04-17 Outpatient STLMLC STLMLC [id number] Common 00:00:00 00:00:00 [facility] 2020-03-10 2020-03-10 [facility] [id number] Common 16:45:00 16:45:[address] [facility] 2020-02-29 2020-02-29 [facility] [id number] Common 16:42:00 16:42:[address] [facility] 2020-02-18 2020-02-18 [facility] [id number] Common 15:49:00 15:49:[address] [facility] 2020-01-20 2020-01-20 [facility] [id number] Common 15:20:00 15:20:[address] [facility] 2019-10-22 2019-10-22 [facility] [id number] Common 16:14:00 16:14:[address] [facility] 2019-10-08 2019-10-08 [facility] [id number] Common 11:15:00 11:15:[address] [facility] 2019-10-07 2019-10-07 [facility] [id number] Common 16:06:00 16:06:[address] [facility] 2019-09-13 2019-09-13 [facility] [id number] Common 10:00:00 10:00:[address] [facility] 2019-07-18 2019-07-18 [facility] [id number] Common 21:07:00 21:07:[address] [facility] 2019-07-16 2019-07-16 [facility] [id number] Common 16:45:00 16:45:[address] [facility] 2019-07-09 2019-07-09 [facility] [id number] Common 15:40:00 15:40:[address] [facility] 2019-07-06 2019-07-06 [facility] [id number] Common 10:25:00 10:25:[address] [facility] 2019-06-14 2019-06-14 [facility] [id number] Common 10:00:00 10:00:[address] [facility] 2019-05-06 2019-05-06 [facility] [id number] Common 11:28:00 11:28:[address] [facility] 2019-03-15 2019-03-15 [facility] [id number] Common 14:16:00 14:16:[address] [facility] 2019-03-15 2019-03-15 [facility] [id number] Common 08:20:00 08:20:[address] [facility] 2019-02-09 2019-02-09 [facility] [id number] Common 08:40:00 08:40:[address] [facility] 2018-12-14 2018-12-14 [facility] [id number] Common 15:07:00 15:07:[address] [facility] 2018-09-11 2018-09-11 [facility] [id number] Common 15:30:00 15:30:[address] [facility] 2018-07-27 2018-07-27 [facility] [id number] Common 22:05:00 22:05:[address] [facility] 2018-07-13 2018-07-13 [facility] [id number] Common 20:12:00 20:12:[address] [facility] 2018-06-26 2018-06-26 [facility] [id number] Common 09:30:00 09:30:[address] [facility] 2018-06-12 2018-06-12 [facility] [id number] Common 13:24:00 13:24:[address] [facility] 2018-04-03 2018-04-03 [facility] [id number] Common 09:04:00 09:04:[address] [facility] 2018-04-03 2018-04-03 [facility] [id number] Common 09:03:00 09:03:[address] [facility] 2018-03-28 2018-03-28 [facility] [id number] Common 02:17:00 02:17:[address] [facility] 2018-03-27 2018-03-27 Out[facility] [id number] Common 15:45:00 15:45:[address] [facility] 2018-03-18 2018-03-18 Out[facility] [id number] Common 13:31:00 13:31:[address] [facility] 2018-02-25 2018-02-25 [facility] [id number] Common 15:07:00 15:07:[address] [facility] 2018-02-25 2018-02-25 [facility] [id number] Common 09:00:00 09:00:[address] [facility] 2018-01-30 2018-01-30 [facility] [id number] Common 13:40:00 13:40:[address] [facility] 2018-01-29 2018-01-29 [facility] [id number] Common 10:00:00 10:00:00 t [facility] [address] [facility] 2018-01-05 2018-01-05 Outpatient Nneka Earlyt [id number] Common 15:08:00 15:08:00 t [facility] it Road [facility] 2017-12-30 2017-12-30 Outpatient Nneka Earlyt [id number] Common 10:15:00 10:15:00 t [facility] it Road [facility] Results This patient has no known results.
--- NOTE | 2022-10-31 09:26 | RAD REPORT ---
EXAM DESCRIPTION: RAD - Chest Single View - 10/31/2022 9:09 am CLINICAL HISTORY: DYSPNEA Chest pain. COMPARISON: Chest Pa And Lat (2 Views) dated 07/20/2021; Chest Single View dated 05/17/2019; Chest Si ngle View dated 01/04/2018; Chest Pa And Lat (2 Views) dated 12/25/2016 FINDINGS: Portable technique limits examination quality. The lungs are emphysematous but grossly clear. The heart is normal in size. No displaced fractures. IMPRESSION: COPD.
[2022-10-31] MEDS ORDERED: KETOROLAC 30 MG/ML INJ ONE (09:55)
[2022-10-31 10:15] LABS: Absolute Lymphocytes (CBC) 1.1 K/uL (0.7-4.9); Hematocrit 38.2 % (39.6-49.0); Lymphocytes % 8.5 % (15.3-44.8); MCV 90.8 fL (80-100); MPV 8.9 fL (7.6-11.3); RBC Red Blood Cell Count 4.21 M/uL (4.33-5.43)
[2022-10-31 10:33] LABS: Magnesium 1.7 mg/dL (1.6-2.4)
[2022-10-31 10:35] LABS: Troponin High Sensitivity 282.9 pg/mL (<58.9)
[2022-10-31] MEDS ORDERED: POTASSIUM CL SA 10 MEQ TAB PO ONE (10:55)
--- NOTE | 2022-10-31 12:05 | ER ---
Nurse's Notes [facility] Name: Clovis Moore Age: 72 yrs Sex: Male : 1950 Arrival Date: 10/31/2022 Time: 08:48 Bed 14 Private MD: Diagnosis: Elevated troponin;Unspecified atrial fibrillation Presentation: 10/31 08:53 Chief complaint: Patient states: Chronic back pain worse than usual. High BP also. ll1 Coronavirus screen: Client denies travel out of the [place] in the last 14 days. At this time, the client does not indicate any symptoms associated with coronavirus-19. Ebola Screen: Patient denies travel to an Ebola-affected area in the 21 days before illness onset. Initial Sepsis Screen: Does the patient meet any 2 criteria? No. Patient's initial sepsis screen is negative. Does the patient have a suspected source of infection? Yes: Bone or joint infection. Risk Assessment: Do you want to hurt yourself or someone else? Patient reports no desire to harm self or others. Onset of symptoms was October 31, 2022. 08:53 Method Of Arrival: Wheelchair ll1 08:53 Acuity: [place] 3 ll1 Triage Assessment: 08:55 General: Appears uncomfortable, Behavior is cooperative, appropriate for age. Pain: 1 Complains of pain in back Pain currently is 10 out of 10 on a pain scale. Musculoskeletal: Circulation, motion, and sensation intact. Capillary refill < 3 seconds, Reports pain in back. 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 [Active]; morphine pump [Active]; atorvastatin 40 mg oral tablet 1 tab daily [Active]; furosemide 20 mg Oral tablet daily [Active]; metoprolol tartrate 50 mg Oral tablet 50 mg daily [Active]; memantine 10 mg oral tablet 1 tab 2 times per day [Active]; bupropion HCl 150 mg Oral tablet, sustained-release 12 hr 1 tab 2 times per day [Active]; gabapentin 300 mg oral capsule 1 cap 3 times per day [Active]; diazepam 10 mg Oral tablet 1 tab every day at bedtime [Active]; aspirin 81 mg Oral capsule 1 cap nightly [Active]; Slow-Mag 71.5 mg Oral tablet, delayed release (enteric coated) 2 tabs every day at bedtime [Active]; Co Q-10 100 mg oral capsule 1 cap nightly [Active]; [place] 3-6-9 1,200 mg oral capsule 3600 mg twice a day [Active]; zinc sulfate 50 mg zinc (220 mg) Oral capsule 1 cap daily [Active]; Vitamin C 1,000 mg Oral tablet daily [Active]; Vitamin D vitamin d3 Oral 2000 unit daily [Active]; Glucosamine-Chondroitin Complx 750-625-30 mg oral tablet daily [Active]; - PMHx: 08:54 Back pain; Chronic pain; Hypertension; ll1 - PSHx: 08:54 spinal fusion; ll1 - Immunization history:: Adult Immunizations up to date. - Social history:: Smoking status: Patient denies any tobacco usage or history of. Screenin:00 [facility] ED Fall Risk Assessment (Adult) History of falling in the last 3 months, ko1 including since admission No falls in past 3 months (0 pts) Confusion or Disorientation No (0 pts) Intoxicated or Sedated No (0 pts) Impaired Gait Yes (1 pt) Mobility Assist Device Used Yes (1 pt) Altered Elimination No (0 pt) Score/Fall Risk Level 0 - 2 = Low Risk Oriented to surroundings, Maintained a safe environment, Educated pt \T\ family on fall prevention, incl call for assistance when getting out of bed, Assessed \T\ reinforced patient's understanding of fall precautions, Provided non-skid footwear, Hourly rounding (assess needs \T\ fall precautionary measures) done, Used ambulatory aids as needed (educated on \T\ assisted with), Used gait belt as appropriate. Abuse screen: Denies threats or abuse. Denies injuries from another. Nutritional screening: No deficits noted. Tuberculosis screening: No symptoms or risk factors identified. Assessment: 10:00 General: Appears distressed, uncomfortable, Behavior is calm, cooperative, appropriate ko1 for age. Pain: Complains of pain in low back area and back. Neuro: No deficits noted. [place]ter Agitation-Sedation Scale (RASS): 0 - Alert and Calm. Cardiovascular: Patient's skin is warm and dry. Rhythm is atrial fibrillation. Respiratory: No deficits noted. GI: No deficits noted. : No deficits noted. EENT: No deficits noted. Derm: No deficits noted. Musculoskeletal: Reports pain in low back area and back. 21:41 Reassessment: report given to Zora. aa9 Vital Signs: 08:53 BP 114 / 78; Pulse 56 LA; Resp 18; Temp 98.9; Pulse Ox 99% ; Pain 10/10; ll1 10:00 BP 118 / 82; Pulse 80; Resp 18; Temp 97.9; Pulse Ox 100% ; Weight 58.97 kg; ko1 10:15 BP 119 / 85; Pulse 51; Resp 18; Pulse Ox 98% ; ko1 10:30 BP 138 / 80; Pulse 65; Resp 18; Pulse Ox 100% ; ko1 13:41 BP 122 / 75; Pulse 79; Resp 16; Pulse Ox 99% ; ko1 19:16 BP 123 / 82; Pulse 98; Resp 17; Pulse Ox 99% ; aa9 08:53 Pain Scale: Adult ll1 ED Course: 08:49 Patient arrived in ED. mr 08:51 [facility]-C [facility] kb 08:51 Yoni Tarango DO is Attending Physician. kb 08:54 Triage completed. ll1 08:55 Arm band placed on. ll1 09:10 XRAY Chest (1 view) In Process Unspecified. EDMS 09:40 Patient placed in an exam room, on a stretcher. ss 09:44 Kim Ellison, RN is Primary Nurse. ko1 09:45 Patient has correct armband on for positive identification. Bed in low position. Call ko1 light in reach. Side rails up X 1. Client placed on continuous cardiac and pulse oximetry monitoring. NIBP monitoring applied. classroom monitor on. 10:05 Inserted saline lock: 20 gauge in right antecubital area, using aseptic technique. ko1 Blood collected. 10:10 Basic Metabolic Panel Sent. ko1 10:10 CBC with Diff Sent. ko1 10:10 Magnesium Sent. ko1 10:10 Troponin HS Sent. ko1 12:04 Obdulio Barrera MD is Hospitalizing Provider. kb 20:36 No provider procedures requiring assistance completed. Patient admitted, IV remains in aa9 place. Administered Medications: 10:10 Drug: Ketorolac IVP 15 mg Route: IVP; Site: right antecubital; ko1 10:51 Drug: Potassium Chloride PO 40 mEq Route: PO; ko1 11:27 Drug: Aspirin PO Chewable Tablet 324 mg Route: PO; ko1 13:20 Drug: Diltiazem IVP 14 mg Route: IVP; Site: right antecubital; ko1 18:58 Drug: HYDROmorphone IVP 0.5 mg Route: IVP; Site: right antecubital; ko1 18:58 Drug: Metoprolol PO 50 mg Route: PO; ko1 Medication: 20:36 VIS not applicable for this client. aa9 Outcome: 12:05 Decision to Hospitalize by Provider. kb 20:36 Admitted to Tele with chart. aa9 20:36 Condition: stable 20:36 Instructed on the need for admit. 21:51 Patient left the ED. aa9 Signatures: Dispatcher [employer] EDMS Dawn Young, LENS COATING TECHNICIAN-C LENS COATING TECHNICIAN-Orestes Amanda JeffersMouna, NAOMI SALGADO ss Lorena Resendiz RN RN ll1 Melva Yang RN RN aa9 Kim Ellison RN RN ko1 Corrections: (The following items were deleted from the chart) 08:57 08:53 BP 114 / 78; Pulse 56bpm; Left ArmResp 18bpm; Pulse Ox 99%; Pain 10/10, Adult; ll1ll1 08:57 08:53 Acuity: [place] 4 ll1 ll1 11:58 11:45 Home Meds: losartan 25 mg Oral tab 1 tab once daily for Hypertension; ko1 ko1 11:58 11:45 Home Meds: fluoxetine 40 mg Oral cap 1 cap once daily; ko1 ko1 11:58 11:45 Home Meds: ezetimibe 10mg Oral 1 tab; ko1 ko1 12:46 10:00 BP 118 / 82; Pulse 80bpm; Resp 18bpm; Pulse Ox 100%; Temp 97.9F; ko1 ko1
--- NOTE | 2022-10-31 12:05 | EDPHYS ---
Physician Documentation [facility] Name: Clovis Moore Age: 72 yrs Sex: Male : 1950 Arrival Date: 10/31/2022 Time: 08:48 Bed 14 Private MD: ED Physician Yoni Tarango HPI: 10/31 11:59 This 72 yrs old Male presents to ER via Wheelchair with complaints of High Blood kb Pressure. 09:19 Pt reports his chronic back pain has been worse over the past 5-6 days and it is kb causing his BP to be extremely elevated. States he takes PRN medication for BP and took it prior to coming in because his BP was over 200 on the top and bottom. . 11:59 The patient has elevated blood pressure and discovered this at home. Onset: The kb symptoms/episode began/occurred 5 day(s) ago. Associated signs and symptoms: Pertinent positives: back pain. Severity of symptoms: At its worst the blood pressure was 200 mm Hg, in the emergency department the blood pressure is improved. The patient has experienced similar episodes in the past. The patient has not recently seen a physician. 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 [Active]; morphine pump [Active]; atorvastatin 40 mg oral tablet 1 tab daily [Active]; furosemide 20 mg Oral tablet daily [Active]; metoprolol tartrate 50 mg Oral tablet 50 mg daily [Active]; memantine 10 mg oral tablet 1 tab 2 times per day [Active]; bupropion HCl 150 mg Oral tablet, sustained-release 12 hr 1 tab 2 times per day [Active]; gabapentin 300 mg oral capsule 1 cap 3 times per day [Active]; diazepam 10 mg Oral tablet 1 tab every day at bedtime [Active]; aspirin 81 mg Oral capsule 1 cap nightly [Active]; Slow-Mag 71.5 mg Oral tablet, delayed release (enteric coated) 2 tabs every day at bedtime [Active]; Co Q-10 100 mg oral capsule 1 cap nightly [Active]; [place] 3-6-9 1,200 mg oral capsule 3600 mg twice a day [Active]; zinc sulfate 50 mg zinc (220 mg) Oral capsule 1 cap daily [Active]; Vitamin C 1,000 mg Oral tablet daily [Active]; Vitamin D vitamin d3 Oral 2000 unit daily [Active]; Glucosamine-Chondroitin Complx 750-625-30 mg oral tablet daily [Active]; - PMHx: 08:54 Back pain; Chronic pain; Hypertension; ll1 - PSHx: 08:54 spinal fusion; ll1 - Immunization history:: Adult Immunizations up to date. - Social history:: Smoking status: Patient denies any tobacco usage or history of. ROS: 09:18 Constitutional: Negative for fever, chills, and weight loss. kb 09:18 Back: Positive for pain at rest, pain with movement, of the low back area. 09:18 All other systems are negative. Exam: 09:18 Constitutional: This is a well developed, well nourished patient who is awake, alert, kb and in no acute distress. Head/Face: Normocephalic, atraumatic. ENT: Moist Mucous membranes Cardiovascular: Regular rate and rhythm with a normal S1 and S2. No gallops, murmurs, or rubs. No pulse deficits. Respiratory: Respirations even and unlabored. No increased work of breathing. Talking in full sentences Abdomen/GI: Soft, non-tender. No distention Skin: Warm, dry with normal turgor. Normal color. MS/ Extremity: Pulses equal, no cyanosis. Neurovascular intact. Full, normal range of motion. Neuro: Awake and alert, GCS 15, oriented to person, place, time, and situation. Moves all extremities. Normal gait. 12:05 ECG was reviewed by the Attending Physician. kb Vital Signs: 08:53 BP 114 / 78; Pulse 56 LA; Resp 18; Temp 98.9; Pulse Ox 99% ; Pain 10/10; ll1 10:00 BP 118 / 82; Pulse 80; Resp 18; Temp 97.9; Pulse Ox 100% ; Weight 58.97 kg; ko1 10:15 BP 119 / 85; Pulse 51; Resp 18; Pulse Ox 98% ; ko1 10:30 BP 138 / 80; Pulse 65; Resp 18; Pulse Ox 100% ; ko1 13:41 BP 122 / 75; Pulse 79; Resp 16; Pulse Ox 99% ; ko1 19:16 BP 123 / 82; Pulse 98; Resp 17; Pulse Ox 99% ; aa9 08:53 Pain Scale: Adult ll1 MDM: 08:51 Patient medically screened. kb 09:19 Data reviewed: vital signs, nurses notes. kb 11:58 Differential diagnosis: hypertensive crisis, PA, CAD, chronic pain. Consideration of kb Admission/Observation Patient was admitted/placed on observation. Historians other than the Patient: Spouse/Significant Other: . Care significantly affected by the following chronic conditions: Hypertension. Counseling: I had a detailed discussion with the patient and/or guardian regarding: the historical points, exam findings, and any diagnostic results supporting the discharge/admit diagnosis, lab results, radiology results, the need for further work-up and treatment in the hospital. 12:04 Management of patient was discussed with the following: Hospitalist: Dr Barrera accepts kb pt for admission. 10/31 08:58 Order name: Basic Metabolic Panel; Complete Time: 10:35 kb 10/31 08:58 Order name: CBC with Diff; Complete Time: 10:19 kb 10/31 08:58 Order name: Magnesium; Complete Time: 10:35 kb 10/31 08:58 Order name: Troponin HS; Complete Time: 10:35 kb 10/31 08:58 Order name: XRAY Chest (1 view); Complete Time: 09:29 kb 10/31 08:58 Order name: EKG; Complete Time: 08:58 kb 10/31 13:01 Order name: Diet Regular; Complete Time: 13:02 kj1 10/31 08:58 Order name: Cardiac monitoring; Complete Time: 09:46 kb 10/31 08:58 Order name: EKG - Nurse/Tech; Complete Time: 09:50 kb 10/31 08:58 Order name: IV Saline Lock; Complete Time: 10:10 kb 10/31 08:58 Order name: Labs collected and sent; Complete Time: 10:10 kb 10/31 08:58 Order name: O2 Per Protocol; Complete Time: 09:46 kb 10/31 08:58 Order name: O2 Sat Monitoring; Complete Time: 09:46 kb 10/31 12:43 Order name: Misc. Order: Get pt's weight please; Complete Time: 12:45 kb EC:05 Rate is 93 beats/min. Rhythm is irregularly irregular. QRS [place] is Normal. QRS interval kb is normal at 86 msec. QT interval is normal at 474 msec. Administered Medications: 10:10 Drug: Ketorolac IVP 15 mg Route: IVP; Site: right antecubital; ko1 10:51 Drug: Potassium Chloride PO 40 mEq Route: PO; ko1 11:27 Drug: Aspirin PO Chewable Tablet 324 mg Route: PO; ko1 13:20 Drug: Diltiazem IVP 14 mg Route: IVP; Site: right antecubital; ko1 18:58 Drug: HYDROmorphone IVP 0.5 mg Route: IVP; Site: right antecubital; ko1 18:58 Drug: Metoprolol PO 50 mg Route: PO; ko1 Disposition: 18:47 Co-signature as Attending Physician, Yoni QUEVEDO was immediately available on-site ms3 in the Emergency Department for consultation in the care of the patient. Disposition Summary: 10/31/22 12:05 Hospitalization Ordered Hospitalization Status: Observation kb Provider: Obdulio Barrera Location: Telemetry/MedSurg (observation) kb Condition: Stable kb Problem: new kb Symptoms: are unchanged kb Bed/Room Type: Standard Room Assignment: 427(10/31/22 20:21) Diagnosis - Elevated troponin kb - Unspecified atrial fibrillation kb Forms: - Medication Reconciliation Form kb - SBAR form kb Signatures: Dispatcher [employer] EDDawn Woods FNP-C FNP-Duarteb Aric Burden FNP-C FNP-Lia Dubois RN RN Lorena Resendiz RN RN [facility] Yoni Tarango DO DO ms3 Kim Ellison RN RN ko1 Corrections: (The following items were deleted from the chart) 58 11:45 Home Meds: losartan 25 mg Oral tab 1 tab once daily for Hypertension; ko1 11:45 Home Meds: fluoxetine 40 mg Oral cap 1 cap once daily; ko1 11:45 Home Meds: ezetimibe 10mg Oral 1 tab; ko1 20:21 12:05 kb cg
[2022-10-31] MEDS ORDERED: dilTIAZem HCL 25 MG/5 ML VIAL IV ONE (13:21)
--- NOTE | 2022-10-31 14:39 | P.HP ---
Certification for Inpatient Patient admitted to: Inpatient With expected LOS: >2 Midnights Patient will require the following post-hospital care: None Practitioner: I am a practitioner with admitting privileges, knowledge of patient current condition, hospital course, and medical plan of care. Services: Services provided to patient in accordance with Admission requirements found in Title 42 Section 412.3 of the Code of Federal Regulations Patient History Date of Service: 10/31/22 Primary Care Provider: Milo Reason for admission: Back pain and hypertension History of Present Illness: This is a 72-year-old male with past medical history significant for hyperlipidemia, chronic back pain, Alzheimer's, and rheumatoid arthritis. Patient presents to the emergency room with complaints of chronic back pain and hypertension. Per patient's , patient has been having back pain that has been worsening for the past 3 to 4 days. He rates the pain 10 out of 10 dull in nature. He states that his blood pressure has been extremely elevated due to the excruciating pain. He reports a systolic reading of 150 today. Patient does present with a pain pump that is managed by pain management who reports seeing his pain management doctor every 3 weeks. Patient was evaluated while laying down in bed no distress noted but he continues to report 8 out of 10 pain with numbness to his right leg. Patient also endorses nausea, vomiting and diarrhea for more than a week. In the ER, his labs were significant for elevat ed troponin of 282 we will trend 2 more no reported chest pain. Patient will be admitted under care of Dr. Barrera Allergies No Known Allergies Allergy (Verified 07/20/21 09:20) Home Medications: Ascorbic Acid [Vitamin C*] 1,000 mg PO DAILY 11/10/18 Cholecalciferol (Vitamin D3) [Vitamin D 1000 Iu Tab*] 2,000 unit PO DAILY 11/10/18 Docosahexanoic AC/Epa [Fish Oil 1,000 MG*] 1,000 mg PO DAILY 11/10/18 Donepezil HCl 10 mg PO DAILY 11/10/18 Ezetimibe [Zetia*] 10 mg PO DAILY 11/10/18 Ferrous Fumarate/Vit Bcomp&C [Super B-Complex Caplet] 1 each PO DAILY 11/10/18 buPROPion HCL [Bupropion HCl Sr] 150 mg PO BID 11/10/18 Alfuzosin HCl 10 mg PO DAILY 07/20/21 Alpha Lipoic Acid 600 mg PO BID 07/20/21 Diazepam [Valium] 10 mg PO BEDTIME 07/20/21 Donepezil HCl 10 mg PO BID 07/20/21 Fish Oil/Borage/Flax/Om3,6,9 1 [[place] 3-6-9 1,200 mg Softgel] 3,600 mg PO BID 07/20/21 Gabapentin 300 mg PO BID 07/20/21 Ginkgo Biloba [place] Extract [Ginkgo Biloba] 120 mg PO DAILY 07/20/21 Magnesium Chloride [Slow-Mag*] 2 tab PO DAILY 07/20/21 Memantine HCl 10 mg PO BID 07/20/21 Ubidecarenone [Co Q-10] 100 mg PO BID 07/20/21 Zinc 50 mg PO DAILY 07/20/21 Codeine/APAP [Tylenol W/Codeine #3 tab] 1 tab PO Q6HP PRN #12 tab 07/24/21 Smz./Tmp. [Bactrim Ds 800 MG/160 MG] 1 tab PO BID #6 tab 07/24/21 - Past Medical/Surgical History -: Alzheimer's -: RA -: HLD -: Chronic back pain -: Lumbar fusion - Social History Smoking Status: Former smoker Alcohol use: No Place of Residence: Home Review of Systems 10-point ROS is otherwise unremarkable General: Weakness Gastrointestinal: Nausea, Vomiting Musculoskeletal: Back Pain, Leg Pain Physical Examination - Vital Signs Temperature: 98.9 F Blood Pressure: 154/97 Pulse: 100 Respirations: 20 Pulse Ox (%): 100 - Physical Exam General: In no apparent distress, Other (hx of alzheimer's) HEENT: Atraumatic, Normocephalic, PERRLA Neck: Supple, 2+ carotid pulse no bruit Respiratory: Clear to auscultation bilaterally, Normal air movement Cardiovascular: No edema, Normal pulses Capillary refill: <2 Seconds Gastrointestinal: Normal bowel sounds Musculoskeletal: No clubbing, No swelling Integumentary: No rashes, No breakdown Neurological: Normal speech - Studies Laboratory Data (last 24 hrs) 10/31/22 10:05: WBC 13.50 H, Hgb 12.7 L, Hct 38.2 L, Plt Count 180 10/31/22 10:05: Sodium 136, Potassium 3.0 L, BUN 17, Creatinine 0.83, Glucose 128 H, Magnesium 1.7 Assessment and Plan - Plan Assessment Hypertension Chronic back pain with pain pump Alzheimer's Hyperlipidemia Plan Patient present with pain pump that is being managed by pain management Dr. Warner information currently in patient's chart. Patient sees pain management doctor every 3 weeks. Resume home medications as appropriate Assist patient with transfer Patient states that he sees Dr. Still for the management of his Alzheimer's disease, continue home medications Patient may benefit from PT and OT DVT PPx-Lovenox Full code Discharge Plan: Home Plan to discharge in: Greater than 2 days - Advance Directives Does patient have a Living Will: No Does patient have a Durable POA for Healthcare: No - Code Status/Comfort Care Code Status Assessed: Yes (Full code) Critical Care: No Time Spent Managing Pts Care (In Minutes): 50
[2022-10-31] MEDS ORDERED: ONDANSETRON 4 MG/2 ML VIAL IV PRN (17:21)
[2022-10-31] MEDS ORDERED: ACETAMINOPHEN 500 MG TAB PO PRN (17:21)
[2022-10-31] MEDS ORDERED: HYDROMORPHONE HCL 0.5 MG/0.5 ML INJ ONE (18:55)
[2022-10-31] MEDS ORDERED: METOPROLOL TAR 50 MG TAB ONE (18:55)
[2022-10-31] MEDS: ALPRAZOLAM 0.25 MG TABLET PO PRN (19:58)
[2022-10-31] MEDS: Ringers Lactate 1,000 ML IV SCH ×2 (20:00→22:28)
[2022-10-31] MEDS ORDERED: ALPRAZOLAM 0.25 MG TABLET ONE (20:02)
[2022-10-31] MEDS: MEMANTINE HCL 10 MG TABLET PO SCH (22:20)
[2022-10-31] MEDS: DONEPEZIL HCL 5 MG TAB PO SCH (22:20)
[2022-10-31] MEDS: GABAPENTIN 300 MG CAP PO SCH (22:20)
[2022-10-31] MEDS: ENOXAPARIN 60 MG/0.6 ML SQ SCH (22:22)
[2022-10-31 22:32] VITALS: O2SAT 99
[2022-11-01] MEDS: HYDROMORPHONE HCL 0.5 MG/0.5 ML INJ IV PRN ×2 (02:05→20:04)
[2022-11-01 02:09] LABS: Calcium Oxalate Crystals- Ur Few /HPF (None Seen); Renal Epithelial <5 /HPF (None Seen); Specific Gravity 1.022 (1.005-1.030); Urine Bacteria None Seen /HPF (<20); Urine Bilirubin NEGATIVE (Negative); Urine Blood 3+ (Negative); Urine Clarity Turbid (Clear); Urine Color Yellow (Yellow); Urine Glucose NEGATIVE (Negative); Urine Mucus 1+ /HPF (None Seen); Urine Protein 1+ (Negative); Urine RBC >50 /HPF (None Seen); Urine Urobilinogen Normal (Normal); Urine WBC Clump Rare /HPF (None Seen)
[2022-11-01 04:36] LABS: Potassium 3.3 mEq/L (3.5-5.1); Thyroid Stimulating Hormone 2.4 uIU/mL (0.358-3.740)
[2022-11-01] MEDS ORDERED: POTASSIUM CL SA 10 MEQ TAB PO ONE ×2 (06:00→09:00)
--- NOTE | 2022-11-01 07:02 | EKG ---
Test Date: 2022-10-31 Test Time: 09:52:03 Senior Infrastructure Engineer: ERVIN MEASUREMENT RESULTS: Intervals: Rate: 93 [place]: QRSD: 96 QT: 374 QTc: 465 [place]: P: OR: QRS: -75 T: 59 INTERPRETIVE STATEMENTS: Atrial fibrillation Incomplete right bundle branch block Left anterior fascicular block Septal infarct, age undetermined Abnormal ECG Compared to ECG 07/20/2021 09:43:23 Incomplete right bundle-branch block now present Sinus bradycardia no longer present Myocardial infarct finding still present Electronically Signed On 11-01-22 06:59:59 CDT by Kevin Benjamin
[2022-11-01] MEDS ORDERED: DIGOXIN 0.25 MG/ML AMP IV SCH (07:13)
[2022-11-01] MEDS: SOTALOL HCL 80 MG TAB PO SCH ×2 (08:47→18:00)
[2022-11-01] MEDS: ENOXAPARIN 60 MG/0.6 ML SQ SCH ×2 (08:48→20:12)
[2022-11-01] MEDS: MEMANTINE HCL 10 MG TABLET PO SCH ×2 (08:48→20:12)
[2022-11-01] MEDS: GABAPENTIN 300 MG CAP PO SCH ×2 (09:00→20:12)
[2022-11-01] MEDS ORDERED: METOPROLOL TAR 50 MG TAB PO SCH (09:00)
[2022-11-01] MEDS ORDERED: DIGOXIN 0.25 MG TABLET PO SCH (09:00)
[2022-11-01 09:14] LABS: Absolute Lymphocytes (CBC) 1.7 K/uL (0.7-4.9); Hematocrit 42.9 % (39.6-49.0); Lymphocytes % 12.9 % (15.3-44.8); MCV 91.7 fL (80-100); MPV 9.3 fL (7.6-11.3); RBC Red Blood Cell Count 4.68 M/uL (4.33-5.43)
[2022-11-01] MEDS: Ringers Lactate 1,000 ML IV SCH ×2 (16:46→22:40)
--- NOTE | 2022-11-01 17:52 | P.PN ---
Subjective Date of Service: 11/01/22 Primary Care Provider: Milo Chief Complaint: Back pain and hypertension No acute events overnight. He appears to be intermittently going into atrial fibrillation with rapid ventricular response. He was started on sotalol overnight, with some improvement. Started on digoxin per Cardiology recs. He continues to experience palpitations. He denies any chest pain or shortness of breath. Review of Systems 10-point ROS is otherwise unremarkable Cardiovascular: Palpitations Physical Examination - Vital Signs Temperature: 98.6 F Blood Pressure: 161/99 Pulse: 65 Respirations: 16 Pulse Ox (%): 96 - Physical Exam General: Alert, In no apparent distress, Oriented x3 HEENT: Atraumatic, Mucous membr. moist/pink, Sclerae nonicteric Neck: JVD not distended Respiratory: Clear to auscultation bilaterally, Normal air movement Cardiovascular: No edema, No murmurs, Irregular heart rate/rhythm Gastrointestinal: Normal bowel sounds, Soft and benign, Non-distended, No tenderness, No rebound, No guarding Musculoskeletal: No clubbing Integumentary: No rashes Neurological: Normal speech, Normal affect - Studies Laboratory Data (last 24 hrs) 11/01/22 14:42: Potassium 3.5 11/01/22 09:01: WBC 13.00 H, Hgb 14.0 D, Hct 42.9, Plt Count 203 11/01/22 03:16: Sodium 137, Potassium 3.3 L, BUN 23 H, Creatinine 0.76, Glucose 113 H Assessment And Plan - Plan # Paroxysmal Atrial Fibrillation with Rapid Ventricular Response - Evaluation thus far: - Serial troponin: 282.9 -> 192.1 -> 141.2 - EKG = atrial fibrillation - Potassium = 3.5, Magnesium = 1.7 - Target K> 4, Mg >2 - TSH = 2.40 - NT-Pro BNP = pending - Transthoracic echocardiogram ordered - Management plan: - Consulted Cardiology and spoke with Dr. Benjamin - recommendations appreciated - Recommended starting sotalol + digoxin - Enoxaparin for anticoagulation - plan to transition to PO apixaban at discharge # Sepsis likely secondary to Urinary Tract Infection He met SIRS criteria based on HR > 90 bpm and WBC > 12,000, and the suspected source is a urinary tract infection. - Sepsis order set was initiated - Initial Lactate was requested - Blood cultures drawn before antibiotics were given - Broad spectrum antibiotics started: Ceftriaxone - In regards to fluids: - 30 mL/kg of IV fluids was not administered given SBP > 90, MAP > 65 # Suspect Type II Non-ST Segment Elevation Myocardial Infarction (Demand Ischemia) due to above # Hyperlipidemia - Evaluation thus far: - EKG: atrial fibrillation - Serial troponin: 282.9 -> 192.1 -> 141.2 - Ordered transthoracic echocardiogram - Ordered d-dimer - Management plan: - Consult Cardiology and spoke with Dr. Benjamin - recommendations appreciated - Started aspirin + atorvastatin - Continue sotalol - Can consider KEMAL-inhibitor/ARB as tolerated # Early Alzheimer's dementia - Continue home donepezil, memantine # Rheumatoid Arthritis - Reconcile home medications once verified Obdulio Barrera M.D.
[2022-11-01] MEDS: CEFTRIAXONE 1,000 MG in NA CHLORIDE 0.9% 50 ML IVPB SCH (18:22)
[2022-11-01] MEDS: ATORVASTATIN 40 MG TAB PO SCH (20:12)
[2022-11-01] MEDS: DONEPEZIL HCL 5 MG TAB PO SCH (20:12)
[2022-11-01] MEDS: ENSURE ENLIVE 237 ML CAN PO SCH (20:13)
--- NOTE | 2022-11-01 20:37 | CON ---
Date of Consultation: 11/01/2022 Reason For Consultation: Atrial fibrillation and mildly elevated troponin. History Of Present Illness: Mr. Moore is 72. He has a history of moderate coronary artery disease b y catheterization by myself in 2021. He has a history of significant dementia. He is on benazepril and memantine. He also takes Xanax for anxiety. He takes Neurontin, lovastatin. He is now presentl y on aspirin, Lipitor, Lasix, and metoprolol. His atrial fibrillation rate was only 100. He has a U TI. His white count was 13,000. His troponin was very minimally elevated. He never really had any chest pain. Past Medical History: As stated earlier. Allergies: NONE. Review of Systems: Negative. Social History: Negative. Family History: Noncontributory. Physical Examination: Vital Signs: Stable, afebrile. HEENT: Negative. Neck: Supple. No bruit. Chest: Clear to auscultation and percussion. Cardiac: Revealed an irregularly irregular rhythm and rate. No murmurs, gallops, or rubs. Abdomen: Benign. Extremities: Revealed no clubbing, cyanosis, or edema. Diagnostic Data: As stated earlier. Impression And Plan: Atrial fibrillation, new onset. He needs to be anticoagulated eventually. Ech ocardiogram is pending. We need to check a TSH. We need to add digoxin 0.25 mg daily to his regimen . His rate is not severely rapid. We can always increase his metoprolol, if we have to. I will con tinue to follow him. MARIA T/SHITAL Voice ID: [id number] Report ID: [id number]
[2022-11-01] MEDS: ALPRAZOLAM 0.25 MG TABLET PO PRN (22:10)
[2022-11-02] MEDS: HYDROMORPHONE HCL 0.5 MG/0.5 ML INJ IV PRN ×6 (00:29→19:58)
[2022-11-02 04:54] LABS: Absolute Lymphocytes (CBC) 2.5 K/uL (0.7-4.9); Hematocrit 36.6 % (39.6-49.0); MCV 91.2 fL (80-100); MPV 9.3 fL (7.6-11.3); RBC Red Blood Cell Count 4.01 M/uL (4.33-5.43)
[2022-11-02 05:17] LABS: Magnesium 1.9 mg/dL (1.6-2.4); Phosphorus 2.3 mg/dL (2.5-4.9); Potassium 3.6 mEq/L (3.5-5.1)
[2022-11-02] MEDS: SOTALOL HCL 80 MG TAB PO SCH ×3 (05:51→17:52)
[2022-11-02] MEDS: Ringers Lactate 1,000 ML IV SCH ×2 (06:03→17:53)
[2022-11-02] MEDS: GABAPENTIN 300 MG CAP PO SCH ×2 (08:18→19:57)
[2022-11-02] MEDS: ENOXAPARIN 60 MG/0.6 ML SQ SCH ×2 (08:18→19:58)
[2022-11-02] MEDS: DIGOXIN 0.25 MG TABLET PO SCH (08:18)
[2022-11-02] MEDS: MEMANTINE HCL 10 MG TABLET PO SCH ×2 (08:19→19:58)
[2022-11-02] MEDS: ENSURE ENLIVE 237 ML CAN PO SCH ×2 (08:19→19:58)
[2022-11-02] MEDS: CEFTRIAXONE 1,000 MG in NA CHLORIDE 0.9% 50 ML IVPB SCH (08:19)
[2022-11-02] MEDS: ASPIRIN EC 81 MG TAB PO SCH (08:19)
[2022-11-02] MEDS ORDERED: POTASS/SODIUM PHOSPHATE 1 PKT POWD.PACK PO ONE (09:00)
[2022-11-02] MEDS ORDERED: POTASSIUM CL SA 10 MEQ TAB PO ONE (09:00)
--- NOTE | 2022-11-02 09:21 | RAD REPORT ---
EXAM DESCRIPTION: CT - Chest For Pe Angio - 11/02/2022 8:40 am CLINICAL HISTORY: elevated d-dimer COMPARISON: No comparisons TECHNIQUE: Thin axial CT images of the chest were obtained following administration of 90 mL Isovue 370 IV contrast. Multiplanar reconstructions, and maximum intensity projection reconstructions were g enerated and reviewed. Exam utilizes a protocol for optimal evaluation of pulmonary arterial tree. All CT scans are performed using dose optimization technique as appropriate and may include automated exposure control or mA/KV adjustment according to patient size. FINDINGS: Pulmonary arteries are normal. No emboli or other suspicious finding. Mild ectasia of the ascending thoracic aorta measuring 4.1 centimeter in caliber No acute or other significant aorta find ings. No mass or infiltrate in the lung parenchyma. Mild centrilobular emphysematous changes. Right periphe ral lower lobe cystic lesion with wall calcification and a central branching calcification. [address] triangular right lower lobe nodule on image 67 series 401. This is likely benign given size. No p leural thickening or pleural effusion. No pneumothorax. No abnormal mediastinal or hilar masses or lymphadenopathy seen. No chest wall mass or abnormal axill iary lymphadenopathy. Evaluation of the upper abdominal structures reveals a 9 millimeter calculus in the left renal mid p ole. Multiple other smaller calculi are noted bilaterally. Some contrast reflux within the hepatic ve ins is noted, likely of no clinical significance. IMPRESSION: No evidence of acute central pulmonary emboli. No other acute findings. Other incidental findings including mild ectasia of the ascending thoracic aorta, and bilateral renal calculi.
--- NOTE | 2022-11-02 14:27 | RAD REPORT ---
EXAM DESCRIPTION: US - Extrem Venous W Compress [place] - 11/02/2022 1:40 pm CLINICAL HISTORY: Elevated D-dimer COMPARISON: 07/27/2018 TECHNIQUE: Real-time sonographic evaluation of the bilateral lower extremity deep venous systems was performed. FINDINGS: Normal compressibility, flow augmentation, phasic flow and spontaneous flow is identified in both the left and right lower extremity deep venous systems. No intraluminal filling defects seen. IMPRESSION: No evidence of DVT in either lower extremity.
--- NOTE | 2022-11-02 15:25 | EKG ---
Test Date: 2022-10-31 Test Time: 12:37:50 Crane Rigger: QUIRINO MEASUREMENT RESULTS: Intervals: Rate: 166 [place]: QRSD: 84 QT: 288 QTc: 478 [place]: P: [place]: QRS: -79 T: 63 INTERPRETIVE STATEMENTS: Supraventricular tachycardia Left axis deviation Septal infarct, age undetermined Marked ST abnormality, possible inferior subendocardial injury Abnormal ECG Compared to ECG 10/31/2022 09:53:32 Left-axis deviation now present Myocardial infarct finding now present ST (T wave) deviation now present Atrial flutter no longer present Left anterior fascicular block no longer present Electronically Signed On 11-02-22 15:24:20 CDT by Jordan Sinha
--- NOTE | 2022-11-02 15:25 | EKG ---
Test Date: 2022-10-31 Test Time: 09:53:32 Production Grader: ERVIN MEASUREMENT RESULTS: Intervals: Rate: 93 [place]: QRSD: 86 QT: 382 QTc: 474 [place]: P: [place]: QRS: -74 T: 54 INTERPRETIVE STATEMENTS: Atrial flutter with variable AV block Left anterior fascicular block Abnormal ECG Compared to ECG 10/31/2022 09:52:03 Atrial fibrillation no longer present Incomplete right bundle-branch block no longer present Myocardial infarct finding no longer present Electronically Signed On 11-02-22 15:24:57 CDT by Jordan Sinha
--- NOTE | 2022-11-02 17:36 | P.PN ---
Subjective Date of Service: 11/02/22 Primary Care Provider: Milo Chief Complaint: Back pain and hypertension No acute events overnight. His heart rates seem to be improving with the sotalol + digoxin. His d-dimer returned elevated. Will obtain CTA chest and BLE Doppler. He denies any chest pain or shortness of breath. Review of Systems 10-point ROS is otherwise unremarkable Cardiovascular: Palpitations (intermittent) Physical Examination - Vital Signs Temperature: 98.9 F Blood Pressure: 150/89 Pulse: 58 Respirations: 20 Pulse Ox (%): 97 Assessment And Plan - Plan - Physical Exam General: Alert, In no apparent distress, Oriented x3 HEENT: Atraumatic, Mucous membr. moist/pink, Sclerae nonicteric Neck: JVD not distended Respiratory: Clear to auscultation bilaterally, Normal air movement Cardiovascular: No edema, No murmurs, Irregular heart rate/rhythm Gastrointestinal: Normal bowel sounds, Soft, Non-distended, No tenderness Musculoskeletal: No clubbing Integumentary: No rashes Neurological: Normal speech, Normal affect # Paroxysmal Atrial Fibrillation with Rapid Ventricular Response - Evaluation thus far: - Serial troponin: 282.9 -> 192.1 -> 141.2 - EKG = atrial fibrillation - Potassium = 3.6, Magnesium = 1.9 - Target K> 4, Mg >2 - TSH = 2.40 - NT-Pro BNP = 7,561 - Transthoracic echocardiogram ordered - Management plan: - Consulted Cardiology and spoke with Dr. Benjamin - recommendations appreciated - Recommended starting sotalol + digoxin - Reduced sotalol from 80 mg to 40 mg given borderline bradycardia - Enoxaparin for anticoagulation - plan to transition to PO apixaban at discharge # Sepsis likely secondary to Urinary Tract Infection He met SIRS criteria based on HR > 90 bpm and WBC > 12,000, and the suspected source is a urinary tract infection. - Sepsis order set was initiated - Initial Lactate was 1.1 - Blood cultures drawn before antibiotics were given - Broad spectrum antibiotics started: Ceftriaxone - In regards to fluids: - 30 mL/kg of IV fluids was not administered given SBP > 90, MAP > 65 # Suspect Type II Non-ST Segment Elevation Myocardial Infarction (Demand Ischemia) due to above # Hyperlipidemia - Evaluation thus far: - EKG: atrial fibrillation - Serial troponin: 282.9 -> 192.1 -> 141.2 - Ordered transthoracic echocardiogram - D-dimer = 847 - CT chest angiogram and bilateral lower extremity Doppler requested - Management plan: - Consult Cardiology and spoke with Dr. Benjamin - recommendations appreciated - Started aspirin + atorvastatin - Continue sotalol - Can consider KEMAL-inhibitor/ARB as tolerated # Early Alzheimer's dementia - Continue home donepezil, memantine # Rheumatoid Arthritis - Reconcile home medications once verified Obdulio Barrera M.D.
--- NOTE | 2022-11-02 18:37 | PN ---
Date of Progress Note: 11/02/2022 Subjective: Seen by bedside, is doing well. No further palpitations. Heart rate is nice and slow a nd steady. Review of Systems: There is no chest pain or shortness of breath. No nausea, vomiting, or diarrhea. No abdominal pain. No dysuria, polyuria, or urinary urgency. No skin rash or headache. All other systems reviewed an d they were negative. Physical Examination: Vital Signs: Reviewed. Head and Neck: Pupils are equal, reactive to light. Intact eye movements. No JVD. No cervical lym phadenopathy. Neck is supple. Thyroid is not enlarged. Lungs: Clear to auscultation bilaterally. No rhonchi, wheezing, or crackles. No accessory muscle u se. Heart: Irregular. No extra sounds. Abdomen: Soft, nontender. Bowel sounds positive. No organomegaly. No masses or hernia. No rigidi ty or rebound. Extremities: No edema, clubbing, or cyanosis. Intact pulses. Skin: No rash. Neurologic: Alert, awake, oriented x3. No acute focal deficits appreciated. Lymph Nodes: No cervical or axillary lymphadenopathy. Investigations: His cardiac troponins are slightly elevated. Creatinine is normal. Assessment And Recommendations: 1.Atrial fibrillation. His condition is controlled now. Continue sotalol, and after the third dose , obtain an EKG to evaluate the QTc interval and I will start him on Eliquis 5 mg twice a day and dis continue Lovenox. 2.Elevated troponins, likely demand. Patient is known to have moderate coronary artery disease. I will plan for outpatient Lexiscan nuclear stress test and an echo to be done as an outpatient. This patient from a cardiology standpoint can be released and he is to follow up with us in the office for his stress test as outlined above. SR/MODL Voice ID: [id number] Report ID: [id number]
[2022-11-02] MEDS: DONEPEZIL HCL 5 MG TAB PO SCH (19:57)
[2022-11-02] MEDS: ATORVASTATIN 40 MG TAB PO SCH (19:58)
[2022-11-02] MEDS: ALPRAZOLAM 0.25 MG TABLET PO PRN (22:29)
[2022-11-02] MEDS ORDERED: HYDROMORPHONE HCL 0.5 MG/0.5 ML INJ IV ONE (22:33)
[2022-11-03] MEDS: HYDROMORPHONE HCL 0.5 MG/0.5 ML INJ IV PRN ×2 (00:14→05:12)
[2022-11-03 04:30] LABS: Absolute Lymphocytes (CBC) 2.2 K/uL (0.7-4.9); Hematocrit 36.6 % (39.6-49.0); MPV 9.3 fL (7.6-11.3); RBC Red Blood Cell Count 4.03 M/uL (4.33-5.43)
[2022-11-03 04:40] LABS: Magnesium 1.9 mg/dL (1.6-2.4); Phosphorus 2.7 mg/dL (2.5-4.9); Potassium 3.4 mEq/L (3.5-5.1)
[2022-11-03] MEDS: Ringers Lactate 1,000 ML IV SCH ×2 (05:18→14:40)
[2022-11-03] MEDS: SOTALOL HCL 80 MG TAB PO SCH (05:19)
[2022-11-03] MEDS: ENSURE ENLIVE 237 ML CAN PO SCH ×2 (09:00→20:29)
[2022-11-03] MEDS: ASPIRIN EC 81 MG TAB PO SCH (09:00)
[2022-11-03] MEDS ORDERED: APIXABAN 5 MG TABLET PO SCH (09:00)
[2022-11-03] MEDS: CEFTRIAXONE 1,000 MG in NA CHLORIDE 0.9% 50 ML IVPB SCH (09:00)
[2022-11-03] MEDS ORDERED: POTASSIUM CL SA 10 MEQ TAB PO ONE (09:00)
[2022-11-03] MEDS: MEMANTINE HCL 10 MG TABLET PO SCH ×2 (09:01→20:28)
[2022-11-03] MEDS: DIGOXIN 0.25 MG TABLET PO SCH (09:01)
[2022-11-03] MEDS: GABAPENTIN 300 MG CAP PO SCH ×2 (09:01→20:28)
--- NOTE | 2022-11-03 13:46 | P.PN ---
Subjective Date of Service: 11/03/22 Primary Care Provider: Milo Chief Complaint: Back pain and hypertension No acute events overnight. His heart rates have been borderline low. Per RN, sotalol has been held for last few doses. Discussed case with Dr. Sinha. At this time, will plan to continue to digoxin and apixaban. Plan for nuclear stress test tomorrow. He denies any chest pain, palpitations, or shortness of breath. Review of Systems 10-point ROS is otherwise unremarkable Physical Examination - Vital Signs Temperature: 99.3 F Blood Pressure: 185/96 Pulse: 70 Respirations: 16 Pulse Ox (%): 98 - Studies Microbiology Data (last 24 hrs): 11/01/22 00:20 Clean Catch Urine [place] Count - Final <10,000 CFU/ML. 11/01/22 00:20 Clean Catch Urine - Final MIXED [place]. Assessment And Plan - Plan - Physical Exam General: Alert, In no apparent distress, Oriented x3 HEENT: Atraumatic, Mucous membr. moist/pink, Sclerae nonicteric Neck: JVD not distended Respiratory: Clear to auscultation bilaterally, Normal air movement Cardiovascular: No edema, No murmurs, Irregular heart rate/rhythm - borderline bradycardia Gastrointestinal: Normal bowel sounds, Soft, Non-distended, No tenderness Musculoskeletal: No clubbing Integumentary: No rashes Neurological: Normal speech, Normal affect # Paroxysmal Atrial Fibrillation with Rapid Ventricular Response - Evaluation thus far: - Serial troponin: 282.9 -> 192.1 -> 141.2 - EKG = atrial fibrillation - Potassium = 3.4, Magnesium = 1.9 - Target K> 4, Mg >2 - TSH = 2.40 - NT-Pro BNP = 7,561 - Transthoracic echocardiogram ordered - Management plan: - Consulted Cardiology and spoke with Dr. Sinha - recommendations ap preciated - Discontinue sotalol due to borderline bradycardia - Enoxaparin for anticoagulation - plan to transition to PO apixaban at discharge # Sepsis likely secondary to Urinary Tract Infection He met SIRS criteria based on HR > 90 bpm and WBC > 12,000, and the suspected source is a urinary tract infection. - Sepsis order set was initiated - Initial Lactate was 1.1 - Blood cultures drawn before antibiotics were given - Broad spectrum antibiotics started: Ceftriaxone - In regards to fluids: - 30 mL/kg of IV fluids was not administered given SBP > 90, MAP > 65 # Suspect Type II Non-ST Segment Elevation Myocardial Infarction (Demand Ischemia) due to above # Hyperlipidemia - Evaluation thus far: - EKG: atrial fibrillation - Serial troponin: 282.9 -> 192.1 -> 141.2 - Ordered transthoracic echocardiogram - D-dimer = 847 - CT chest angiogram = "no evidence of acute central pulmonary emboli. No other acute findings. Other incidental findings including mild ectasia of the ascending thoracic aorta, and bilateral renal calculi." - Bilateral lower extremity Doppler = "no evidence of DVT in either lower extremity." - Management plan: - Consult Cardiology and spoke with Dr. Sinha- recommendations appreciated - Plan for nuclear stress test tomorrow - NPO after midnight - Started aspirin + atorvastatin - Discontinue sotalol due to borderline bradycardia - Can consider KEMAL-inhibitor/ARB as tolerated # Early Alzheimer's dementia - Continue home donepezil, memantine # Rheumatoid Arthritis - Reconcile home medications once verified # Right Lower Lobe Pulmonary Nodule (6 mm) # Renal Calculi # Microscopic Hematuria - Noted on CT scan - Informed him of these findings and advised he follow-up with his PCP for further evaluation Obdulio Barrera M.D.
[2022-11-03] MEDS: ALPRAZOLAM 0.25 MG TABLET PO PRN (20:27)
[2022-11-03] MEDS: HYDROCODONE/APAP 5/325 MG TAB PO PRN (20:27)
[2022-11-03] MEDS: ATORVASTATIN 40 MG TAB PO SCH (20:28)
[2022-11-03] MEDS: ENOXAPARIN 60 MG/0.6 ML SQ SCH (20:28)
[2022-11-03] MEDS: DONEPEZIL HCL 5 MG TAB PO SCH (20:28)
[2022-11-04] MEDS: HYDROCODONE/APAP 5/325 MG TAB PO PRN (04:08)
[2022-11-04 06:26] LABS: Magnesium 2.1 mg/dL (1.6-2.4); Potassium 3.6 mEq/L (3.5-5.1)
--- NOTE | 2022-11-04 07:06 | ECHO ---
HEIGHT: 5 ft 11 in WEIGHT: 130 lb 0.105 oz DATE OF STUDY: 11/01/[address]: Aric Burden NP 2-DIMENSIONAL: YES M.MODE: YES DOPPLER: YES COLOR FLOW: YES TDS: NO PORTABLE: YES DEFINITY: NO BUBBLE STUDY: NO DIAGNOSIS: ATRIAL FIBRILLATION WITH RAPID VENTRICULAR RESPONSE CARDIAC HISTORY: CATHERIZATION: SURGERY: PROSTHETIC VALVE: PACEMAKER: MEASUREMENTS (cm) DIASTOLIC (NORMALS) SYSTOLIC (NORMALS) IVSd 0.9 (0.6-1.2) LA Diam 3.3 (1.9-4.0) LVEF 51% LVIDd 3.7 (3.5-5.7) LVIDs 2.7 (2.0-3.5) %FS 26% LVPWd 1.0 (0.6-1.2) Ao Diam 3.0 (2.0-3.7) 2 DIMENSIONAL ASSESSMENT: RIGHT ATRIUM: NORMAL LEFT ATRIUM: NORMAL RIGHT VENTRICLE: NORMAL LEFT VENTRICLE: NORMAL TRICUSPID VALVE: MILD TR MITRAL VALVE: MILD MR PULMONIC VALVE: NORMAL AORTIC VALVE: NORMAL PERICARDIAL EFFUSION: NONE AORTIC ROOT: NORMAL LEFT VENTRICULAR WALL MOTION: NORMAL. DOPPLER/COLOR FLOW: SEE BELOW. COMMENTS: 1. NORMAL LEFT VENTRICULAR EJECTION FRACTION 50-60%. 2. NORMAL WALL MOTION. 3. ATRIAL FIBRILLATION. 4. MILD MITRAL REGURGITATION. 5. MILD TRICUSPID REGURGITATION. TECHNOLOGIST: Poncho COBOS
[2022-11-04] MEDS: CEFTRIAXONE 1,000 MG in NA CHLORIDE 0.9% 50 ML IVPB SCH (09:25)
[2022-11-04] MEDS ORDERED: REGADENOSON 0.4 MG/5 ML SYR IV ONE (09:28)
[2022-11-04] MEDS: MEMANTINE HCL 10 MG TABLET PO SCH (13:03)
[2022-11-04] MEDS: ASPIRIN EC 81 MG TAB PO SCH (13:03)
[2022-11-04] MEDS: ENSURE ENLIVE 237 ML CAN PO SCH (13:03)
[2022-11-04] MEDS: GABAPENTIN 300 MG CAP PO SCH (13:03)
[2022-11-04] MEDS: ENOXAPARIN 60 MG/0.6 ML SQ SCH (13:04)
[2022-11-04] MEDS: DIGOXIN 0.25 MG TABLET PO SCH (13:08)
[2022-11-04 13:28] VITALS: BMI 15.6
--- NOTE | 2022-11-04 13:28 | TREADPHA ---
DX: CHEST PAIN Date of Study: 11/04/22 Ht: 5' 11 " Wt: 130 lb 0.105 oz Consulting Physician: ANAHI MEDICATIONS: ASPIRIN, LIPITOR, LANOXIN, LOVENOX, NEURONTIN HISTORY: 72 YEAR OLD MALE, COMPLAINTS OF CHEST PAIN, HISTORY: HYPERTENSION, HLD, BACK PAIN, VAPES, NON DRINKER. PHYSICIAL EXAMINATION: RESTING B.P.: 162/87 RESTING H.R.: 49 RESTING EKG: SINUS RHYTHM, LEFT ANTERIOR HEMIBLOCK PROTOCOL: LEXISCAN EXERCISE TIME: 3:30 B.P. AT PEAK STRESS: 166/92 IMPRESSION: LEXISCAN INJECTED, FOLLOWED BY CARDIOLITE PER PROTOCOL, SEE NUCLEAR MEDICINE REPORT. NO SUPRA VENTRICULAR TACHYCARDIA, VENTRICULAR TACHYCARDIA, PREMATURE ATRIAL COMPLEXES, PREMATURE VENTRICULAR COMPLEXES. PATIENT REPORTS CHEST PAIN 4/10 ON PAIN SCALE. NO EKG CHANGES.
[2022-11-04] MEDS ORDERED: POTASSIUM CL SA 10 MEQ TAB PO ONE (14:00)
[2022-11-04 16:00] VITALS: BP 149/73; TEMP 98.5
--- NOTE | 2022-11-04 18:01 | RAD REPORT ---
EXAM DESCRIPTION: [facility] - Rest Stress Cardiac Imaging - 11/04/2022 12:21 pm CLINICAL HISTORY: nuclear stress test per Dr. Sinha COMPARISON: No comparisons TECHNIQUE: The patient was administered approximately 10.2 mCi of Tc 99m Sestamibi prior to resting SPECT imaging of the heart. The patient was then administered approximately 28.8 mCi of Tc 99m Sestam ibi following exercise or pharmacologic stress. Multiplanar SPECT images were reviewed. FINDINGS: Pronounced splanchnic uptake both on the rest and stress images limits evaluation. No stre ss induced ischemic defect is seen to suggest stress induced ischemia. Large fixed defects involving the entirety of the inferior wall, mid to basal septal wall, basal and apical segments of the lateral wall, and inferior aspect of the apex. The end diastolic volume is 128 ml, the end systolic volume is 67 ml, and the ejection fraction is 48 %. IMPRESSION: No evidence that stress induced ischemia. Large fixed defects as above, suggestive of myocardial infarcts, hybernating myocardium, or a mixture of both. Ejection fraction approximating the lowest level of normal, 48%.
== END 2022-11-04 17:35 | disposition home or self-care (01) | DRG 871 ==
LOC: ER 08:48 → ERHOLD 13:00 → 4TH 20:47 → OBSVTOIN 11-01 15:37
PROVIDERS: ADMIT Internal Medicine; ATTEND Hospitalist
DX: A41.9 Sepsis, unspecified organism (principal); I21.A1 Myocardial infarction type 2; N39.0 Urinary tract infection, site not specified; F02.84 Dementia in other diseases classified elsewhere, unspecified severity, with anxiety; G30.9 Alzheimer's disease, unspecified; I48.0 Paroxysmal atrial fibrillation; G89.29 Other chronic pain; M54.9 Dorsalgia, unspecified; I10 Essential (primary) hypertension; E78.5 Hyperlipidemia, unspecified; M06.9 Rheumatoid arthritis, unspecified; N20.0 Calculus of kidney; I25.10 Atherosclerotic heart disease of native coronary artery without angina pectoris; R31.29 Other microscopic hematuria; R91.8 Other nonspecific abnormal finding of lung field; R77.8 Other specified abnormalities of plasma proteins; Z79.82 Long term (current) use of aspirin; Z79.899 Other long term (current) drug therapy; Z87.891 Personal history of nicotine dependence
CPT/HCPCS: 36415; 71045; 71275; 78452; 80048; 81001; 83605; 83735; 83880; 84100; 84132; 84439; 84443; 84484; 85025; 85379; 87040; 87086; 87088; 93005; 93017; 93306; 93970; 96374; 96375; 99285; A9500; G0378; J0696; J1160; J1170; J1650; J2785; J7120; Q9967

== ENCOUNTER 2022-11-07 02:07 | Emergency (ER) | payer OTHER ==
--- OUTSIDE RECORDS SUMMARY | 2022-11-07 02:20 | XMS REPORT | Continuity of Care Document ---
:1950 Author Organization [facility] t Address [address] [facility] [address] [place] [address] Care Team Providers Name Role Phone SWETHA PEDRAZA Primary Care Physician Unavailable Swetha Pedraza Attending Clinician Unavailable Jefferson Teresa Attending Clinician Unavailable Kristie Ochoa Attending Clinician Unavailable ELLIOTT LEMUS Attending Clinician Unavailable MELISA LINTON Attending Clinician Unavailable Melisa Linton DO Attending Clinician Elliott Lemus MD Attending Clinician Pob, [facility] Main Attending Clinician Unavailable Only, Adc Test Attending Clinician Unavailable Doctor Unassigned, [place] Attending Clinician Unavailable ELLIOTT LEMUS Admitting Clinician Unavailable Elliott Lemus MD Admitting Clinician Payers Payer Name Policy Type Policy Number Effective Date Expiration Date Ernesto aguilar Relationship [employer] [id number] 2020spring 00:00:00 AAR MCR 53 [id number] 2021 [facility] ADVANTAGE 00:00:00 [facility] C1 [id number] Common Sp buzz ing Medicare - [facility] HospitalSpr C1 [id number] Common Sp buzz ing Medicare - [facility] HospitalSpr C1 [id number] Common Sp buzz ing Medicare - [facility] Cigna-HealthSpr C1 [id number] Common Sp buzz ing Medicare - CHI [...] different from the original. 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 emia type Medical Center Imaging Abnormal Problem Common result findings Spirit abnormal on [facility] diagnostic imaging of [facility] other Medical specified Center body structures Chronic Chronic Problem Common pain pain [facility] Neck pain Neck pain Problem Com [facility] Spirit [facility] Electrocar Abnormal Problem Com [facility] diogram EKG [facility] abnormal [facility] [id number] Scoliosis Problem Com mon of Spirit thoracic - [facility] spine, unspecie [facility] scoliosis Center type [id number] Insomnia, Problem Com [facility] unspecifie Spirit d type [facility] [id number] Numbness Problem Comm on in both [facility] legs [facility] [id number] Osteopenia Problem Co mmon , Spirit unspecifie - CHI d location [facility] [id number] Low back Problem Comm on pain [facility] [id number] Lumbar Problem Common radiculopa [facility] thy [facility] Counseling Tobacco Problem Comm on about abuse Spirit tobacco counseling - [facility] use [facility] Memory Memory Problem Common loss loss [facility] [id number] Loss of Problem Common appetite [facility] [id number] Nausea Problem Common [facility] [id number] Elevated Problem Comm on blood Spirit pressure - [facility] reading [facility] diagnosis Medical of [place] hypertensi on [id number] Opioid Problem Common withdrawal [facility] Abnormal Abnormal Problem Commo n liver liver Spirit function function - [facility] Erectile Erectile Problem Commo n dysfunctio dysfunctio Sp buzz n n - CHI [facility] Mixed Depression Problem Commo n anxiety with Spirit and anxiety - CHI depressive [facility] Chronic Chronic Problem Common back pain back pain Spir it CHI [facility] 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 - [facility] [id number] Vitamin D Problem Comm on deficiency [facility] [id number] Weight Problem Common loss [facility] [id number] Palpitatio Problem Com mon ns Spirit [facility] [id number] Uncontroll Problem Com mon ed Spirit hypertensi - CHI on [facility] [id number] Constipati Problem Com mon on, Spirit unspecifie - CHI d constipati [facility] [id number] 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 [place] heart with unstable angina pectoris [id number] Hyperchole Problem Com mon sterolemia [facility] [id number] Elevated Problem Comm on brain Spirit natriureti - CHI c peptide (BNP) [facility] [id number] Dementia Problem Commo n without Spirit behavioral - [facility] d dementia Center type [id number] Depression Problem Com mon , Spirit unspecifie - CHI d [facility] [id number] Abnormal Problem Comm on MRI, [facility] cervical - [facility] spine [facility] [id number] Mass of Problem Commo n parotid [facility] gland - [facility] [id number] Abnormal Problem Comm on ultrasound [facility] [id number] Mass of Problem Commo n head Spirit [facility] [id number] Difficulty Problem Co mmon sleeping Spirit [facility] [id number] Depression Problem Co mmon screening [facility] [id number] Benzodiaze Problem Co mmon pine Spirit dependence - CHI , [facility] [id number] Odynophagi Problem Com mon a Spirit [facility] [id number] Lower Problem Common urinary Spirit tract - CHI symptoms (LUTS) [facility] [id number] Acute Problem Common nonintract Spirit able - [facility], [facility] headache Medica l type [place] [id number] Muscle Problem Common cramps [facility] [id number] Non-intrac Problem Com mon table Spirit vomiting - CHI with [facility] nausea[facility] unspecifie Medica l d vomiting Center type [id number] Gastritis, Problem Comm on presence Spirit of - CHI bleeding St unspecifie [facility] d, Medical unspecifie Center d chronicity , unspecifie d gastritis type [id number] BPH loc w Problem Com mon urin Spirit obs/LUTS - CHI [facility] [id number] Poor Problem Common compliance Spirit - CHI [facility] Lower Benign Problem Common urinary prostatic Spirit tract hypertroph - CHI symptoms y with St due to lower [facility] benign urinary Medical prostatic tract Center hypertroph symptoms y (LUTS) [id number] PAD Problem Common (periphera Spirit l artery - CHI disease) [facility] [id number] Moderate Problem Commo n major Spirit depression - CHI , single [facility] Allergies, Adverse Reactions, Alerts Allergy Allergy Status Severity Reaction(s) Onset Inactive Treating Comm ents Source Name Type Date Date Clinician NO KNOWN Drug Active Univers ALLERGIE Class ity of S [facility] Acetamin Acetamin Active abdominal Com mon ophen ophen pain, Spirit nausesa, and - CH I gagging [facility] Social History Social Habit Start Date Stop Date Quantity Comments Source History of Current Smoker Common Spi rit - Tobacco Use [facility] Sex Assigned At Common Sp buzz - [facility] Exposure to Not sure University of SARS-CoV-2 [facility] (event) [place] Tobacco use and 2021-03-15 2021-03-15 Current user Univers ity of exposure 00:00:00 00:00:00 [facility] Tobacco Comment 2021-03-15 2021-03-15 Vape Universit y of 00:00:00 00:00:00 [facility] Smoking Status Start Date Stop Date Source Unknown if ever smoked [facility] y [facility] Current Smoker 2022-07-23 00:00:00 [facility] t - [facility] Ce nter Former smoker 2021-03-15 00:00:00 2021-03-15 00:00:00 [facility] [place] [facility] Medications Ordered Filled Start Stop Current Ordering [...] mouth ity o f tablet 08:59: daily. [address] memantine 0 Yes 10mg Take 10 mg [place] 10 mg 9-13 by mouth ity of tablet 08:59: daily. [address] DOXAZOSIN 1 Yes 1mg Take 1 mg U nivers mg tablet 9-13 by mouth ity of 08:59: daily. PRN [address] donepezil 0 Yes 10mg Take 10 mg [place] 10 mg 9-13 by mouth ity of tablet 08:59: at [place] [address] bedtime. Medical Branch FLUoxetine 0 Yes 40mg Take 40 mg U nivers 40 mg 9-13 by mouth ity of capsule 08:59: daily. [address] ondansetron 0 Yes 4mg Take 4 mg U nivers (ZOFRAN) 4 9-13 by mouth ity o f mg tablet 08:59: every 8 [place] [address] (eight) Medical hours as Branch needed. ezetimibe 0 Yes 10mg Take 10 mg [place] 10 mg 9-13 by mouth ity of tablet 08:59: daily. [address] Branch losartan 25 0 Yes 25mg Take 25 mg Univers mg tablet 9-13 by mouth ity of 08:59: daily. [address] Branch buPROPion 0 Yes 150mg Take 150 Uni vers SR 9-13 mg by ity of (WELLBUTRIN 08:59: mouth 2 [place] as SR) 150 mg 48 (two) Medical SR tablet times Branch daily. gabapentin 0 Yes 300mg Take 300 [place] 300 mg 9-13 mg by ity of capsule 08:59: mouth 3 [place] [address] (three) Medical times Branch daily. pantoprazol 0 Yes 40mg Take 40 mg Univers e 20 mg EC 9-13 by mouth ity o f tablet 08:59: daily. [address] Branch memantine 0 Yes 10mg Take 10 mg [place] 10 mg 9-13 by mouth ity of tablet 08:59: daily. [address] Branch DOXAZOSIN 1 0 Yes 1mg Take 1 mg U nivers mg tablet 9-13 by mouth ity of 08:59: daily. PRN [address] Branch donepezil 0 Yes 10mg Take 10 mg [place] 10 mg 9-13 by mouth ity of tablet 08:59: at [place] [address] bedtime. Medical Branch FLUoxetine 0 Yes 40mg Take 40 mg U nivers 40 mg 9-13 by mouth ity of capsule 08:59: daily. [address] Branch ondansetron 0 Yes 4mg Take 4 mg U nivers (ZOFRAN) 4 9-13 by mouth ity o f mg tablet 08:59: every 8 [place] [address] (eight) Medical hours as Branch needed. ezetimibe 0 Yes 10mg Take 10 mg [place] 10 mg 9-13 by mouth ity of tablet 08:59: daily. [address] Branch losartan 25 0 Yes 25mg Take 25 mg Univers mg tablet 9-13 by mouth ity of 08:59: daily. [address] Branch buPROPion 0 Yes 150mg Take 150 Uni vers SR 9-13 mg by ity of (WELLBUTRIN 08:59: mouth 2 [place] as SR) 150 mg 48 (two) Medical SR tablet times Branch daily. gabapentin 2020-0 Yes 300mg Take 300 [place] 300 mg 9-13 mg by ity of capsule 08:59: mouth 3 [place] [address] (three) Medical times Branch daily. pantoprazol 0 Yes 40mg Take 40 mg Univers e 20 mg EC 9-13 by mouth ity o f tablet 08:59: daily. [address] Branch memantine 0 Yes 10mg Take 10 mg [place] 10 mg 9-13 by mouth ity of tablet 08:59: daily. [address] Branch DOXAZOSIN 1 0 Yes 1mg Take 1 mg U nivers mg tablet 9-13 by mouth ity of 08:59: daily. PRN [address] Branch donepezil 0 Yes 10mg Take 10 mg [place] 10 mg 9-13 by mouth ity of tablet 08:59: at [place] [address] bedtime. Medical Branch FLUoxetine 0 Yes 40mg Take 40 mg U nivers 40 mg 9-13 by mouth ity of capsule 08:59: daily. [address] Branch ondansetron 0 Yes 4mg Take 4 mg U nivers (ZOFRAN) 4 9-13 by mouth ity o f mg tablet 08:59: every 8 [place] [address] (eight) Medical hours as Branch needed. ezetimibe 0 Yes 10mg Take 10 mg [place] 10 mg 9-13 by mouth ity of tablet 08:59: daily. [address] losartan 25 2020-0 Yes 25mg Take 25 mg Univers mg tablet 9-13 by mouth ity of 08:59: daily. [address] Branch buPROPion 2020-0 Yes 150mg Take 150 Uni vers SR 9-13 mg by ity of (WELLBUTRIN 08:59: mouth 2 [place] as SR) 150 mg 48 (two) Medical SR tablet times Branch daily. gabapentin 2020-0 Yes 300mg Take 300 [place] 300 mg 9-13 mg by ity of capsule 08:59: mouth 3 [place] [address] (three) Medical times Branch daily. pantoprazol 0 Yes 40mg Take 40 mg Univers e 20 mg EC 9-13 by mouth ity o f tablet 08:59: daily. [address] memantine 2021-0 Yes 10mg Take 10 mg [place] 10 mg 9-13 by mouth ity of tablet 08:59: daily. [address] Branch DOXAZOSIN 1 0 Yes 1mg Take 1 mg U nivers mg tablet 9-13 by mouth ity of 08:59: daily. PRN [address] Branch donepezil 0 Yes 10mg Take 10 mg [place] 10 mg 9-13 by mouth ity of tablet 08:59: at [place] [address] bedtime. Medical Branch FLUoxetine 0 Yes 40mg Take 40 mg U nivers 40 mg 9-13 by mouth ity of capsule 08:59: daily. [address] Branch ondansetron 0 Yes 4mg Take 4 mg U nivers (ZOFRAN) 4 9-13 by mouth ity o f mg tablet 08:59: every 8 [place] [address] (eight) Medical hours as Branch needed. ezetimibe 0 Yes 10mg Take 10 mg [place] 10 mg 9-13 by mouth ity of tablet 08:59: daily. [address] losartan 25 0 Yes 25mg Take 25 mg Univers mg tablet 9-13 by mouth ity of 08:59: daily. [address] Branch buPROPion 0 Yes 150mg Take 150 Uni vers SR 9-13 mg by ity of (WELLBUTRIN 08:59: mouth 2 [place] as SR) 150 mg 48 (two) Medical SR tablet times Branch daily. gabapentin 0 Yes 300mg Take 300 [place] 300 mg 9-13 mg by ity of capsule 08:59: mouth 3 [place] [address] (three) Medical times Branch daily. pantoprazol 0 Yes 40mg Take 40 mg Univers e 20 mg EC 9-13 by mouth ity o f tablet 08:59: daily. [address] Branch memantine 0 Yes 10mg Take 10 mg [place] 10 mg 9-13 by mouth ity of tablet 08:59: daily. [address] Branch DOXAZOSIN 1 0 Yes 1mg Take 1 mg U nivers mg tablet 9-13 by mouth ity of 08:59: daily. PRN [address] Branch donepezil 0 Yes 10mg Take 10 mg [place] 10 mg 9-13 by mouth ity of tablet 08:59: at [place] [address] bedtime. Medical Branch FLUoxetine 2020-0 Yes 40mg Take 40 mg U nivers 40 mg 9-13 by mouth ity of capsule 08:59: daily. [address] Branch ondansetron 2020-0 Yes 4mg Take 4 mg U nivers (ZOFRAN) 4 9-13 by mouth ity o f mg tablet 08:59: every 8 [place] [address] (eight) Medical hours as Branch needed. ezetimibe 2020-0 Yes 10mg Take 10 mg [place] 10 mg 9-13 by mouth ity of tablet 08:59: daily. [address] Branch losartan 25 2020-0 Yes 25mg Take 25 mg Univers mg tablet 9-13 by mouth ity of 08:59: daily. [address] Branch buPROPion 2020-0 Yes 150mg Take 150 Uni vers SR 9-13 mg by ity of (WELLBUTRIN 08:59: mouth 2 [place] as SR) 150 mg 48 (two) Medical SR tablet times Branch daily. gabapentin 0 Yes 300mg Take 300 [place] 300 mg 9-13 mg by ity of capsule 08:59: mouth 3 [place] [address] (three) Medical times Branch daily. ondansetron 2020-0 Yes 4mg Take 4 mg U nivers (ZOFRAN) 4 9-09 by mouth ity o f mg tablet 19:16: every 8 [place] [address] (eight) Medical hours as Branch needed. losartan 25 2020-0 Yes 25mg Take 25 mg Univers mg tablet 9-09 by mouth ity of 19:16: daily. [address] ondansetron 2020-0 Yes 4mg Take 4 mg U nivers (ZOFRAN) 4 9-09 by mouth ity o f mg tablet 19:16: every 8 [place] 40 (eight) Medical hours as Branch needed. losartan 25 2020-0 Yes 25mg Take 25 mg Univers mg tablet 9-09 by mouth ity of 19:16: daily. [address] ondansetron 2020-0 Yes 4mg Take 4 mg U nivers (ZOFRAN) 4 9-09 by mouth ity o f mg tablet 19:16: every 8 [place] 40 (eight) Medical hours as Branch needed. losartan 25 2020-0 Yes 25mg Take 25 mg Univers mg tablet 9-09 by mouth ity of 19:16: daily. [address] ondansetron 0 Yes 4mg Take 4 mg U nivers (ZOFRAN) 4 9-09 by mouth ity o f mg tablet 19:16: every 8 [place] 40 (eight) Medical hours as Branch needed. losartan 25 2020-0 Yes 25mg Take 25 mg Univers mg tablet 9-09 by mouth ity of 19:16: daily. [address] ondansetron 0 Yes 4mg Take 4 mg U nivers (ZOFRAN) 4 9-09 by mouth ity o f mg tablet 19:16: every 8 [place] 40 (eight) Medical hours as Branch needed. losartan 25 0 Yes 25mg Take 25 mg Univers mg tablet 9-09 by mouth ity of 19:16: daily. [address] ondansetron 0 Yes 4mg Take 4 mg U nivers (ZOFRAN) 4 9-09 by mouth ity o f mg tablet 19:16: every 8 [place] 40 (eight) Medical hours as Branch needed. losartan 25 0 Yes 25mg Take 25 mg Univers mg tablet 9-09 by mouth ity of 19:16: daily. [address] DOXAZOSIN 1 0 Yes 1mg Take 1 mg U nivers mg tablet 9-09 by mouth ity of 19:16: daily. PRN [address] FLUoxetine 0 Yes 40mg Take 40 mg U nivers 40 mg 9-09 by mouth ity of capsule 19:16: daily. [address] DOXAZOSIN 1 0 Yes 1mg Take 1 mg U nivers mg tablet -09 by mouth ity of 19:16: daily. PRN [address] FLUoxetine 0 Yes 40mg Take 40 mg U nivers 40 mg 9-09 by mouth ity of capsule 19:16: daily. [address] buPROPion 2020-0 Yes 150mg Take 150 Uni vers SR 9-09 mg by ity of (WELLBUTRIN 19:16: mouth 2 [place] as SR) 150 mg 39 (two) Medical SR tablet times Branch daily. gabapentin 2020-0 Yes 300mg Take 300 [place] 300 mg 9-09 mg by ity of capsule 19:16: mouth 3 [place] [address] (three) Medical times Branch daily. pantoprazol 2020-0 Yes 40mg Take 40 mg Univers e 20 mg EC 9-09 by mouth ity o f tablet 19:16: daily. [address] memantine 2020-0 Yes 10mg Take 10 mg [place] 10 mg 9-09 by mouth ity of tablet 19:16: daily. [address] DOXAZOSIN 1 2020-0 Yes 1mg Take 1 mg U nivers mg tablet 9-09 by mouth ity of 19:16: daily. PRN [address] FLUoxetine 2020-0 Yes 40mg Take 40 mg U nivers 40 mg 9-09 by mouth ity of capsule 19:16: daily. [address] buPROPion 2020-0 Yes 150mg Take 150 [...] by ity of capsule 19:16: mouth 3 [place] [address] (three) Medical times Branch daily. pantoprazol 2020-0 Yes 40mg Take 40 mg Univers e 20 mg EC 9-09 by mouth ity o f tablet 19:16: daily. [address] memantine 2020-0 Yes 10mg Take 10 mg [place] 10 mg 9-09 by mouth ity of tablet 19:16: daily. [address] DOXAZOSIN 1 2020-0 Yes 1mg Take 1 mg U nivers mg tablet 9-09 by mouth ity of 19:16: daily. PRN [address] gabapentin 2020-0 Yes 300mg Take 300 [place] 300 mg 9-09 mg by ity of capsule 19:16: mouth 3 [place] [address] (three) Medical times Branch daily. FLUoxetine 2020-0 Yes 40mg Take 40 mg U nivers 40 mg 9-09 by mouth ity of capsule 19:16: daily. [address] buPROPion 2020-0 Yes 150mg Take 150 Uni vers SR 9-09 mg by ity of (WELLBUTRIN 19:16: mouth 2 [place] as SR) 150 mg 39 (two) Medical SR tablet times Branch daily. gabapentin 2020-0 Yes 300mg Take 300 [place] 300 mg 9-09 mg by ity of capsule 19:16: mouth 3 [place] [address] (three) Medical times Branch daily. pantoprazol 2020-0 Yes 40mg Take 40 mg Univers e 20 mg EC 9-09 by mouth ity o f tablet 19:16: daily. [address] pantoprazol 2020-0 Yes 40mg Take 40 mg Univers e 20 mg EC 9-09 by mouth ity o f tablet 19:16: daily. [address] memantine 0 Yes 10mg Take 10 mg [place] 10 mg 9-09 by mouth ity of tablet 19:16: daily. [address] memantine 0 Yes 10mg Take 10 mg [place] 10 mg 9-09 by mouth ity of tablet 19:16: daily. [address] DOXAZOSIN 1 0 Yes 1mg Take 1 mg U nivers mg tablet 9-09 by mouth ity of 19:16: daily. PRN [address] FLUoxetine 2020-0 Yes 40mg Take 40 mg U nivers 40 mg 9-09 by mouth ity of capsule 19:16: daily. [address] buPROPion 2020-0 Yes 150mg Take 150 Uni vers SR 9-09 mg by ity of (WELLBUTRIN 19:16: mouth 2 [place] as SR) 150 mg 39 (two) Medical SR tablet times Branch daily. gabapentin 2020-0 Yes 300mg Take 300 [place] 300 mg 9-09 mg by ity of capsule 19:16: mouth 3 [place] [address] (three) Medical times Branch daily. pantoprazol 2020-0 Yes 40mg Take 40 mg Univers e 20 mg EC 9-09 by mouth ity o f tablet 19:16: daily. [address] memantine 2020-0 Yes 10mg Take 10 mg [place] 10 mg 9-09 by mouth ity of tablet 19:16: daily. [address] DOXAZOSIN 1 2020-0 Yes 1mg Take 1 mg U nivers mg tablet 9-09 by mouth ity of 19:16: daily. PRN [address] FLUoxetine 2020-0 Yes 40mg Take 40 mg U nivers 40 mg 9-09 by mouth ity of capsule 19:16: daily. [place] [address] Medical Branch buPROPion 2020-0 Yes 150mg Take 150 Uni vers SR 9-09 mg by ity of (WELLBUTRIN 19:16: mouth 2 [place] as SR) 150 mg 39 (two) Medical SR tablet times Branch daily. gabapentin 2020-0 Yes 300mg Take 300 [place] 300 mg 9-09 mg by ity of capsule 19:16: mouth 3 [place] 39 (three) Medical times Branch daily. pantoprazol 2020-0 Yes 40mg Take 40 mg Univers e 20 mg EC 9-09 by mouth ity o f tablet 19:16: daily. [place] [address] Medical Branch memantine 2020-0 Yes 10mg Take 10 mg [place] 10 mg 9-09 by mouth ity of tablet 19:16: daily. [place] [address] Medical Branch donepezil 2020-0 Yes 10mg Take 10 mg [place] 10 mg 9-09 by mouth ity of tablet 19:09: at [place] [address] bedtime. Medical Branch ezetimibe 2020-0 Yes 10mg Take 10 mg [place] 10 mg 9-09 by mouth ity of tablet 19:09: daily. [place] [address] Medical Branch donepezil 2020-0 Yes 10mg Take 10 mg [place] 10 mg 9-09 by mouth ity of tablet 19:09: at [place] [address] bedtime. Medical Branch ezetimibe 2020-0 Yes 10mg Take 10 mg [place] 10 mg 9-09 by mouth ity of tablet 19:09: daily. [place] [address] Medical Branch donepezil 2020-0 Yes 10mg Take 10 mg [place] 10 mg 9-09 by mouth ity of tablet 19:09: at [place] [address] bedtime. Medical Branch ezetimibe 2020-0 Yes 10mg Take 10 mg [place] 10 mg 9-09 by mouth ity of tablet 19:09: daily. [place] [address] Medical Branch donepezil 2020-0 Yes 10mg Take 10 mg [place] 10 mg 9-09 by mouth ity of tablet 19:09: at [place] [address] bedtime. Medical Branch ezetimibe 2020-0 Yes 10mg Take 10 mg [place] 10 mg 9-09 by mouth ity of tablet 19:09: daily. [place] 33 Medical Branch donepezil Yes 10mg Take 10 mg [place] 10 mg 9-09 by mouth ity of tablet 19:09: at [place] [address] bedtime. [facility] Branch ezetimibe Yes 10mg Take 10 mg [place] 10 mg 9-09 by mouth ity of tablet 19:09: daily. [address] Branch donepezil 0 Yes 10mg Take 10 mg [place] 10 mg 9-09 by mouth ity of tablet 19:09: at [place] [address] bedtime. [facility] Branch ezetimibe Yes 10mg Take 10 mg [place] 10 mg 9-09 by mouth ity of tablet 19:09: daily. [address] Branch diazePAM 2019-07- No 5mg 5 mg, Univers (VALIUM) 08-22 Intramuscu ity of injection 5 01:15: 00:15 lar, ONCE, [place] mg 00 :00 1 dose, Medical [facility] 06/20/20 at 191, STAT FENTanyl PF 2019-07- No 100ug 100 mcg, Univers (SUBLIMAZE 08-22 Intramuscu it y of (PF)) 01:15: 00:15 lar, ONCE, [place] injection 00 :00 1 dose, Medical [address] [facility] 06/20/20 at 191, Routine amLODIPine 2019-07- No 5mg 5 mg, Unive rs (NORVASC) 08-22 Oral, ity of tablet 5 mg 01:15: 00:15 [place]CE[place] dose, [facility] 06/20/20 Branch at 191, DANIA amLODIPine 2019-07 Yes [id number] 5mg Take 1 U nivers (NORVASC) 5 2-15 tablet by ity of mg tablet 00:00: mouth [place] 00 daily. Medical Branch amLODIPine 2019-07 Yes [id number] 5mg Take 1 U nivers (NORVASC) 5 2-15 tablet by ity of mg tablet 00:00: mouth [place] 00 daily. Medical Branch amLODIPine 2019-07 Yes [id number] 5mg Take 1 U nivers (NORVASC) 5 2-15 tablet by ity of mg tablet 00:00: mouth [place] 00 daily. Medical Branch amLODIPine 2019-07 Yes [id number] 5mg Take 1 U nivers (NORVASC) 5 2-15 tablet by ity of mg tablet 00:00: mouth [place] 00 daily. Medical Branch amLODIPine 2019-07 Yes [id number] 5mg Take 1 U nivers (NORVASC) 5 2-15 tablet by ity of mg tablet 00:00: mouth [place] 00 daily. Medical Branch amLODIPine 2019-07 Yes [id number] 5mg Take 1 U nivers (NORVASC) 5 2-15 tablet by ity of mg tablet 00:00: mouth [place] 00 daily. Medical Branch amLODIPine 2019-07 Yes [id number] 5mg Take 1 U nivers (NORVASC) 5 2-15 tablet by ity of mg tablet 00:00: mouth [place] 00 daily. Medical Branch amLODIPine 2019-07 Yes [id number] 5mg Take 1 U nivers (NORVASC) 5 2-15 tablet by ity of mg tablet 00:00: mouth [place] 00 daily. Medical Branch amLODIPine 2019-07 Yes [id number] 5mg Take 1 U nivers (NORVASC) 5 2-15 tablet by ity of mg tablet 00:00: mouth [place] 00 daily. Medical Branch amLODIPine 2019-07 Yes [id number] 5mg Take 1 U nivers (NORVASC) 5 2-15 tablet by ity of mg tablet 00:00: mouth [place] 00 daily. [facility] amLODIPine 2019-07 Yes [id number] 5mg Take 1 U nivers (NORVASC) 5 2-15 tablet by ity of mg tablet 00:00: mouth [place] 00 daily. [facility] amLODIPine 2019-07 Yes [id number] 5mg Take 1 U nivers (NORVASC) 5 [...] rine HCl 10 rine HCl 10 1-12 daneyll HCl MG MG 00:00: 10 MG 00 [...] 07-07 S pirit 00:00: - [facility] 00 [facility] Phenergan Phenergan 2017-07 No 25mg Com mon (Promethazi (Promethazi 07-07 S pirit ne) ne) 00:00: - [facility] Toradol Toradol 2017-07 No 60mg Common (Ketorolac) (Ketorolac) 07-07 S pirit 00:00: - [facility] 00 [facility] Phenergan Phenergan 2018-1 No 25mg Com mon (Promethazi (Promethazi 07-07 S pirit ne) ne) 00:00: - [facility] 00 [facility] Toradol Toradol 2018- No 60mg Common (Ketorolac) (Ketorolac) 1- S pirit 00:00: - [facility] 00 [facility] Phenergan Phenergan 2018-1 No 25mg Com mon (Promethazi (Promethazi 07-07 S pirit ne) ne) 00:00: - [facility] 00 [facility] Toradol Toradol 2018- No 60mg Common (Ketorolac) (Ketorolac) 1 S pirit 00:00: - [facility] 00 [facility] Phenergan Phenergan 2018-1 No 25mg Com mon (Promethazi (Promethazi 07-07 S pirit ne) ne) 00:00: - [facility] Toradol Toradol 2018- No 60mg Common (Ketorolac) (Ketorolac) 1 S pirit 00:00: - [facility] 00 [facility] Phenergan Phenergan 2018-1 No 25mg Com mon (Promethazi (Promethazi 07-07 S pirit ne) ne) 00:00: - [facility] 00 [facility] Toradol Toradol 2018- No 60mg Common (Ketorolac) (Ketorolac) 1 S pirit 00:00: - [facility] Phenergan Phenergan 2018-1 No 25mg Com mon (Promethazi (Promethazi 07-07 S pirit ne) ne) 00:00: - [facility] 00 [facility] Toradol Toradol 2018- No 60mg Common (Ketorolac) (Ketorolac) 1- S pirit 00:00: - [facility] 00 [facility] Phenergan Phenergan 2018-1 No 25mg Com mon (Promethazi (Promethazi 07-07 S pirit ne) ne) 00:00: - [facility] Toradol Toradol 2018- No 60mg Common (Ketorolac) (Ketorolac) 1- S pirit 00:00: - [facility] 00 [facility] Phenergan Phenergan 2018- No 25mg Com mon (Promethazi (Promethazi - S pirit ne) ne) 00:00: - [facility] 00 [facility] Toradol Toradol 2017- No 60mg Common (Ketorolac) (Ketorolac) 07-07 S pirit 00:00: - [facility] 00 [facility] Phenergan Phenergan 2018- No 25mg Com mon (Promethazi (Promethazi - S pirit ne) ne) 00:00: - [facility] 00 [facility] Toradol Toradol 2017- No 60mg Common (Ketorolac) (Ketorolac) 07-07 S pirit 00:00: - [facility] 00 [facility] Phenergan Phenergan 2018- No 25mg Com mon (Promethazi (Promethazi 07-07 S pirit ne) ne) 00:00: - [facility] 00 [facility] Toradol Toradol 2017- No 60mg Common (Ketorolac) (Ketorolac) 07-07 S pirit 00:00: - [facility] 00 [facility] Phenergan Phenergan 2017- No 25mg Com mon (Promethazi (Promethazi 07-07 S pirit ne) ne) 00:00: - [facility] 00 [facility] Toradol Toradol 2017- No 60mg Common (Ketorolac) (Ketorolac) 07-07 S pirit 00:00: - [facility] 00 [facility] Phenergan Phenergan 2018- No 25mg Com mon (Promethazi (Promethazi 07-07 S pirit ne) ne) 00:00: - [facility] 00 [facility] Toradol Toradol 2018- No 60mg Common (Ketorolac) (Ketorolac) 07-07 S pirit 00:00: - [facility] 00 [facility] Phenergan Phenergan 2018- No 25mg Com mon (Promethazi (Promethazi - S pirit ne) ne) 00:00: - [facility] 00 [facility] Toradol Toradol 2018-1 No 60mg Common (Ketorolac) (Ketorolac) 1- S pirit 00:00: - [facility] 00 [facility] Phenergan Phenergan 2018-1 No 25mg Com mon (Promethazi (Promethazi - S pirit ne) ne) 00:00: - [facility] 00 [facility] Toradol Toradol 2018-1 No 60mg Common (Ketorolac) (Ketorolac) 1 S pirit 00:00: - [facility] 00 [facility] Phenergan Phenergan 2018-1 No 25mg Com mon (Promethazi (Promethazi - S pirit ne) ne) 00:00: - [facility] 00 [facility] Toradol Toradol 2018-1 No 60mg Common (Ketorolac) (Ketorolac) 07-07 S pirit 00:00: - [facility] 00 [facility] Phenergan Phenergan 2018-1 No 25mg Com mon (Promethazi (Promethazi - S pirit ne) ne) 00:00: - [facility] 00 [facility] Toradol Toradol 2018-1 No 60mg Common (Ketorolac) (Ketorolac) 07-07 S pirit 00:00: - [facility] 00 [facility] Phenergan Phenergan 2018-1 No 25mg Com mon (Promethazi (Promethazi - S pirit ne) ne) 00:00: - [facility] 00 [facility] Toradol Toradol 2018-1 No 60mg Common (Ketorolac) (Ketorolac) 1- S pirit 00:00: - [facility] 00 [facility] Phenergan Phenergan 2018-1 No 25mg Com mon (Promethazi (Promethazi - S pirit ne) ne) 00:00: - [facility] 00 [facility] Toradol Toradol 2018-1 No 60mg Common (Ketorolac) (Ketorolac) 1- S pirit 00:00: - [facility] 00 [facility] Phenergan Phenergan 2018-1 No 25mg Com mon (Promethazi (Promethazi - S pirit ne) ne) 00:00: - [facility] 00 [facility] Toradol Toradol 2018- No 60mg Common (Ketorolac) (Ketorolac) 1- S pirit 00:00: - [facility] 00 [facility] Phenergan Phenergan 2018- No 25mg Com mon (Promethazi (Promethazi - S pirit ne) ne) 00:00: - [facility] 00 [facility] Toradol Toradol 2018- No 60mg Common (Ketorolac) (Ketorolac) 1- S pirit 00:00: - [facility] 00 [facility] Phenergan Phenergan 2018- No 25mg Com mon (Promethazi (Promethazi - S pirit ne) ne) 00:00: - [facility] 00 [facility] Toradol Toradol 2018- No 60mg Common (Ketorolac) (Ketorolac) - S pirit 00:00: - [facility] 00 [facility] Phenergan Phenergan 2018- No 25mg Com mon (Promethazi (Promethazi - S pirit ne) ne) 00:00: - [facility] 00 [facility] Toradol Toradol 2018- No 60mg Common (Ketorolac) (Ketorolac) 07-07 S pirit 00:00: - [facility] 00 [facility] Phenergan Phenergan 2018-1 No 25mg Com mon (Promethazi (Promethazi - S pirit ne) ne) 00:00: - [facility] Toradol Toradol 2018- No 60mg Common (Ketorolac) (Ketorolac) - S pirit 00:00: - [facility] 00 [facility] Phenergan Phenergan 2018-1 No 25mg Com mon (Promethazi (Promethazi -01 S pirit ne) ne) 00:00: - [facility] 00 [facility] Toradol Toradol 2018-1 No 60mg Common (Ketorolac) (Ketorolac) 1- S pirit 00:00: - [facility] Phenergan Phenergan 2018-1 No 25mg Com mon (Promethazi (Promethazi - S pirit ne) ne) 00:00: - [facility] 00 [facility] donepezil 2017-07 Yes 10mg Take 10 mg Un torres 10 mg 0-18 by mouth ity of tablet 01:43: at [place] 30 bedtime. Medical Branch FLUoxetine 2017-07 Yes 40mg Take 40 mg U nivers 40 mg 0-18 by mouth ity of capsule 01:43: daily. [address] Branch ondansetron 2017-07 Yes 4mg Take 4 mg U nivers (ZOFRAN) 4 0-18 by mouth ity o f mg tablet 01:43: every 8 [place] 30 (eight) Medical hours as Branch needed. ezetimibe 2017-07 Yes 10mg Take 10 mg Un tor[place] 10 mg 0-18 by mouth ity of tablet 01:43: daily. [address] Branch losartan 25 2017-07 Yes 25mg Take 25 mg [facility] mg tablet 0-18 by mouth ity of 01:43: daily. [address] Branch DOXAZOSIN 1 2017-07 Yes 1mg Take 1 mg U nivers mg tablet 0-18 by mouth ity of 01:41: daily. PRN [address] Branch ondansetron 2017-07 Yes 4mg Take [...] (Ketorolac) 8-22 S pirit 00:00: - [facility] Solumedrol Solumedrol 2018-0 No C ommon 125mg/2ml 125mg/2ml 8- Spiri t 00:00: - [facility] Toradol Toradol 2018-0 No 60mg Common (Ketorolac) (Ketorolac) 8-22 S pirit 00:00: - [facility] Solumedrol Solumedrol 2018-0 No C ommon 125mg/2ml 125mg/2ml 8 Spiri t 00:00: - [facility] Toradol Toradol 2018-0 No 60mg Common (Ketorolac) (Ketorolac) 8-22 S pirit 00:00: - [facility] Solumedrol Solumedrol 2018-0 No C ommon 125mg/2ml 125mg/2ml 02-25 Spiri t 00:00: - [facility] Toradol Toradol 2018-0 No 60mg Common (Ketorolac) (Ketorolac) 8-22 S pirit 00:00: - [facility] Solumedrol Solumedrol 2018-0 No C ommon 125mg/2ml 125mg/2ml 02-25 Spiri t 00:00: - [facility] Toradol Toradol 2018-0 No 60mg Common (Ketorolac) (Ketorolac) 8-22 S pirit 00:00: - [facility] Solumedrol Solumedrol 2018-0 No C ommon 125mg/2ml 125mg/2ml 02-25 Spiri t 00:00: - [facility] Toradol Toradol 2018-0 No 60mg Common (Ketorolac) (Ketorolac) 8-22 S pirit 00:00: - [facility] Solumedrol Solumedrol 2018-0 No C ommon 125mg/2ml 125mg/2ml 8 Spiri t 00:00: - [facility] Toradol Toradol 2018-0 No 60mg Common (Ketorolac) (Ketorolac) 8-22 S pirit 00:00: - [facility] Solumedrol Solumedrol 2018-0 No C ommon 125mg/2ml 125mg/2ml 8- Spiri t 00:00: - [facility] 00 [facility] Toradol Toradol 2018-0 No 60mg Common (Ketorolac) (Ketorolac) 8-22 S pirit 00:00: - [facility] 00 [facility] Solumedrol Solumedrol 2018-0 No C ommon 125mg/2ml 125mg/2ml 8 Spiri t 00:00: - [facility] 00 [facility] Toradol Toradol 2018-0 No 60mg Common (Ketorolac) (Ketorolac) 8-22 S pirit 00:00: - [facility] 00 [facility] Solumedrol Solumedrol 2018-0 No C ommon 125mg/2ml 125mg/2ml 8 Spiri t 00:00: - [facility] Toradol Toradol 2018-0 No 60mg Common (Ketorolac) (Ketorolac) 8-22 S pirit 00:00: - [facility] Solumedrol Solumedrol 2018-0 No C ommon 125mg/2ml 125mg/2ml 8 Spiri t 00:00: - [facility] 00 [facility] Toradol Toradol 2018-0 No 60mg Common (Ketorolac) (Ketorolac) 8-22 S pirit 00:00: - [facility] Solumedrol Solumedrol 2018-0 No C ommon 125mg/2ml 125mg/2ml 8 Spiri t 00:00: - [facility] Toradol Toradol 2018-0 No 60mg Common (Ketorolac) (Ketorolac) 8-22 S pirit 00:00: - [facility] Solumedrol Solumedrol 2018-0 No C ommon 125mg/2ml 125mg/2ml 8 Spiri t 00:00: - [facility] Toradol Toradol 2018-0 No 60mg Common (Ketorolac) (Ketorolac) 8-22 S pirit 00:00: - [facility] Solumedrol Solumedrol 2018-0 No C ommon 125mg/2ml 125mg/2ml 8-22 Spiri t 00:00: - [facility] Toradol Toradol 2018-0 No 60mg Common (Ketorolac) (Ketorolac) 8-22 S pirit 00:00: - [facility] Solumedrol Solumedrol 2018-0 No C ommon 125mg/2ml 125mg/2ml 8-22 Spiri t 00:00: - [facility] Toradol Toradol 2018-0 No 60mg Common (Ketorolac) (Ketorolac) 8-22 S pirit 00:00: - [facility] Solumedrol Solumedrol 2018-0 No C ommon 125mg/2ml 125mg/2ml 8 Spiri t 00:00: - [facility] Toradol Toradol 2018-0 No 60mg Common (Ketorolac) (Ketorolac) 8-22 S pirit 00:00: - [facility] Solumedrol Solumedrol 2018-0 No C ommon 125mg/2ml 125mg/2ml 8- Spiri t 00:00: - [facility] Toradol Toradol 2018-0 No 60mg Common (Ketorolac) (Ketorolac) 8-22 S pirit 00:00: - [facility] Solumedrol Solumedrol 2018-0 No C ommon 125mg/2ml 125mg/2ml 8- Spiri t 00:00: - [facility] Toradol Toradol 2018-0 No 60mg Common (Ketorolac) (Ketorolac) 8-22 S pirit 00:00: - [facility] Solumedrol Solumedrol 2018-0 No C ommon 125mg/2ml 125mg/2ml 8- Spiri t 00:00: - [facility] Toradol Toradol 2018-0 No 60mg Common (Ketorolac) (Ketorolac) 8-22 S pirit 00:00: - [facility] Solumedrol Solumedrol 2018-0 No C ommon 125mg/2ml 125mg/2ml 8-22 Spiri t 00:00: - [facility] Toradol Toradol 2018-0 No 60mg Common (Ketorolac) (Ketorolac) 8-22 S pirit 00:00: - [facility] Solumedrol Solumedrol 2018-0 No C ommon 125mg/2ml 125mg/2ml 8 Spiri t 00:00: - [facility] Toradol Toradol 2018-0 No 60mg Common (Ketorolac) (Ketorolac) 8-22 S pirit 00:00: - [facility] Solumedrol Solumedrol 2018-0 No C ommon 125mg/2ml 125mg/2ml 02-25 Spiri t 00:00: - [facility] Toradol Toradol 2018-0 No 60mg Common (Ketorolac) (Ketorolac) 8- S pirit 00:00: - [facility] Solumedrol Solumedrol 2018-0 No C ommon 125mg/2ml 125mg/2ml 02-25 Spiri t 00:00: - [facility] Toradol Toradol 2018-0 No 60mg Common (Ketorolac) (Ketorolac) 8-22 S pirit 00:00: - [facility] Solumedrol Solumedrol 2018-0 No C ommon 125mg/2ml 125mg/2ml 02-25 Spiri t 00:00: - [facility] Toradol Toradol 2018-0 No 60mg Common (Ketorolac) (Ketorolac) 8-22 S pirit 00:00: - [facility] Solumedrol Solumedrol 2018-0 No C ommon 125mg/2ml 125mg/2ml 02-25 Spiri t 00:00: - [facility] Toradol Toradol 2018-0 No 60mg Common (Ketorolac) (Ketorolac) 8-22 S pirit 00:00: - [facility] Solumedrol Solumedrol 2018-0 No C ommon 125mg/2ml 125mg/2ml 02-25 Spiri t 00:00: - [facility] 00 [facility] diazepam 2010-0 Yes 2mg Take 1 Tab Uni vers (VALIUM) 2 6-04 by mouth 3 ity of mg tablet 00:00: (three) [place] 00 times Medical daily. Branch traMADOL 2010-0 Yes 50mg Take 1 Tab Uni vers (ULTRAM) 50 6-04 by mouth ity of mg tablet 00:00: every 6 [place] 00 (six) Medical hours as Branch needed for Pain. diazepam 2010-0 Yes 2mg Take 1 Tab Uni vers (VALIUM) 2 6-04 by mouth 3 ity of mg tablet 00:00: (three) [place] 00 times Medical daily. Branch traMADOL 2010-0 Yes 50mg Take 1 Tab Uni vers (ULTRAM) 50 6-04 by mouth ity of mg tablet 00:00: every 6 [place] 00 (six) Medical hours as Branch needed for Pain. diazepam 2010-0 Yes 2mg Take 1 Tab Uni vers (VALIUM) 2 6-04 by mouth 3 ity of mg tablet 00:00: (three) [place] 00 times Medical daily. Branch traMADOL 2010-0 Yes 50mg Take 1 Tab Uni vers (ULTRAM) 50 6-04 by mouth ity of mg tablet 00:00: every 6 [place] 00 (six) Medical hours as Branch needed for Pain. diazepam 2010-0 Yes 2mg Take 1 Tab Uni vers (VALIUM) 2 6-04 by mouth 3 ity of mg tablet 00:00: (three) [place] 00 times Medical daily. Branch traMADOL 2010-0 Yes 50mg Take 1 Tab Uni vers (ULTRAM) 50 6-04 by mouth ity of mg tablet 00:00: every 6 [place] 00 (six) Medical hours as Branch needed for Pain. diazepam 2010-0 Yes 2mg Take 1 Tab Uni vers (VALIUM) 2 6-04 by mouth 3 ity of mg tablet 00:00: (three) [place] 00 times Medical daily. Branch traMADOL 2010-0 Yes 50mg Take 1 Tab Uni vers (ULTRAM) 50 6-04 by mouth ity of mg tablet 00:00: every 6 [place] 00 (six) Medical hours as Branch needed [...] Medical hours as Branch needed for Pain. [place] 3 [place] 3 No [place] 3 Losartan Losartan No 1{table QD Losartan [...] Mesylate 1 Mesylate 1 MG MG MG [place] 3 [place] 3 No [place] 3 Losartan Losartan No 1{table QD Losartan [...] Mesylate 1 Mesylate 1 MG MG MG [place] 3 [place] 3 No [place] 3 Losartan Losartan No 1{table QD Losartan [...] 10 t} MG Ginkgo Ginkgo No Ginkgo [place] 3 [place] 3 No [place] 3 fentaNYL fentaNYL No fentaNYL buPROPion buPROPion [...] 10 t} MG Ginkgo Ginkgo No Ginkgo [place] 3 [place] 3 No [place] 3 fentaNYL fentaNYL No fentaNYL buPROPion buPROPion [...] 150 MG 150 MG (XL) 150 MG [place] 3 [place] 3 No [place] 3 Doxazosin Doxazosin No Doxazosin Mesylate 1 [...] Gabapentin 600 MG 600 MG 600 MG [place] 3 [place] 3 No [place] 3 Zetia 10 mg Zetia 10 mg [...] Vitamin D3 Vitamin D3 No Vitamin D3 [place] 3 [place] 3 No [place] 3 buPROPion buPROPion No 1{table buPROPion HCl [...] Vitamin D3 Vitamin D3 No Vitamin D3 [place] 3 [place] 3 No [place] 3 buPROPion buPROPion No 1{table buPROPion HCl [...] 40 MG 40 MG t} 40 MG [place] 3 [place] 3 No [place] 3 Pantoprazol Pantoprazol No 1{table QD Pantoprazo [...] Mesylate 1 Mesylate 1 MG MG MG [place] 3 [place] 3 No [place] 3 Pantoprazol Pantoprazol No 1{table QD Pantoprazo [...] Ezetimibe 10 MG 10 MG 10 MG [place] 3 [place] 3 No [place] 3 Quercetin Quercetin No Quercetin Coconut Oil [...] 1000 MG 1000 MG le} 1000 MG [place] 3 [place] 3 No [place] 3 Fish Oil Fish Oil No 1{capsu [...] Mg No SlowMag Mg Calm/Sleep Calm/Sleep Calm/Sleep [place] 3 [place] 3 No [place] 3 fentaNYL fentaNYL No fentaNYL CoQ-10 CoQ-10 [...] Vitamin D3 Vitamin D3 No Vitamin D3 [place] 3 [place] 3 No [place] 3 buPROPion buPROPion No 1{table buPROPion HCl [...] Vitamin D3 Vitamin D3 No Vitamin D3 [place] 3 [place] 3 No [place] 3 buPROPion buPROPion No 1{table buPROPion HCl [...] Vitamin D3 Vitamin D3 No Vitamin D3 [place] 3 [place] 3 No [place] 3 Ezetimibe Ezetimibe No Ezetimibe 10 mg [...] Vitamin D3 Vitamin D3 No Vitamin D3 [place] 3 [place] 3 No [place] 3 Ezetimibe Ezetimibe No Ezetimibe 10 mg [...] Ezetimibe 10 mg 10 mg 10 mg [place] 3 [place] 3 No [place] 3 buPROPion buPROPion No 1{table buPROPion HCl [...] Ezetimibe 10 mg 10 mg 10 mg [place] 3 [place] 3 No [place] 3 Valium 10 Valium 10 No Valium [...] (XL) 150 mg fentaNYL fentaNYL No fentaNYL [place] 3 [place] 3 No [place] 3 Ezetimibe Ezetimibe No Ezetimibe 10 mg [...] Gabapentin 600 MG 600 MG 600 MG [place] 3 [place] 3 No [place] 3 Vitamin C Vitamin C No Vitamin [...] Gabapentin 600 MG 600 MG 600 MG [place] 3 [place] 3 No [place] 3 Vitamin C Vitamin C No Vitamin [...] Potassium 25 MG 25 MG 25 MG [place] 3 [place] 3 No [place] 3 Quercetin Quercetin No Quercetin Zetia 10 [...] Potassium 25 MG 25 MG 25 MG [place] 3 [place] 3 No [place] 3 Quercetin Quercetin No Quercetin Zetia 10 [...] 150 MG 150 MG (XL) 150 MG [place] 3 [place] 3 No [place] 3 Quercetin Quercetin No Quercetin fentaNYL fentaNYL [...] 150 MG 150 MG (XL) 150 MG [place] 3 [place] 3 No [place] 3 Quercetin Quercetin No Quercetin fentaNYL fentaNYL [...] 150 MG 150 MG (XL) 150 MG [place] 3 [place] 3 No [place] 3 Quercetin Quercetin No Quercetin fentaNYL fentaNYL [...] mg 10 mg Quercetin Quercetin No Quercetin [place] 3 [place] 3 No [place] 3 traZODone traZODone No QD traZODone HCl [...] 10 No Valium 10 MG MG MG [place] 3 [place] 3 No [place] 3 Zetia 10 mg Zetia 10 mg [...] No Vitamin D3 fentaNYL fentaNYL No fentaNYL [place] 3 [place] 3 No [place] 3 Losartan Losartan No 1{table QD Losartan [...] No Vitamin D3 fentaNYL fentaNYL No fentaNYL [place] 3 [place] 3 No [place] 3 Losartan Losartan No 1{table QD Losartan [...] No Vitamin D3 fentaNYL fentaNYL No fentaNYL [place] 3 [place] 3 No [place] 3 Losartan Losartan No 1{table QD Losartan [...] MG MG MG fentaNYL fentaNYL No fentaNYL [place] 3 [place] 3 No [place] 3 Losartan Losartan No 1{table QD Losartan [...] for high - [facility] blood [facility] pressure [facility] buPROPion buPROPion No 1{table buPROPion HCl ER [...] MG MG MG fentaNYL fentaNYL No fentaNYL [place] 3 [place] 3 No [place] 3 Losartan Losartan No 1{table QD Losartan [...] Quercetin No Quercetin Ginkgo Ginkgo No Ginkgo [place] 3 [place] 3 No [place] 3 Memantine Memantine No BID Memantine HCl [...] Quercetin No Quercetin Ginkgo Ginkgo No Ginkgo [place] 3 [place] 3 No [place] 3 Memantine Memantine No BID Memantine HCl [...] Mesylate 1 Mesylate 1 MG MG MG [place] 3 [place] 3 No [place] 3 Losartan Losartan No 1{table QD Losartan [...] Spirit - OVER 65 OVER 65 13:35:00 [facility] FLUZONE HIGH DOSE FLUZONE HIGH DOSE 2022-04-04 [facility]pleted [facility] - OVER 65 OVER 65 13:35:00 [facility] FLUZONE HIGH DOSE FLUZONE HIGH DOSE 2022-04-04 Completed [facility] - OVER 65 OVER 65 13:35:00 [facility] FLUZONE HIGH DOSE FLUZONE HIGH DOSE 2022-04-04 [facility]pleted [facility] - OVER 65 OVER 65 13:35:00 [facility] FLUZONE HIGH DOSE FLUZONE HIGH DOSE 2022-04-04 Completed [facility] - OVER 65 OVER 65 13:35:00 [facility] FLUZONE HIGH DOSE FLUZONE HIGH DOSE 2022-04-04 [facility]pleted [facility] - OVER 65 OVER 65 13:35:00 [facility] FLUZONE HIGH DOSE FLUZONE HIGH DOSE 2022-04-04 Completed [facility] - OVER 65 OVER 65 13:35:00 [facility] FLUZONE HIGH DOSE FLUZONE HIGH DOSE 2022-04-04 Completed [facility] - OVER 65 OVER 65 13:35:00 [facility] FLUZONE HIGH DOSE FLUZONE HIGH DOSE 2022-04-04 Completed [facility] - OVER 65 OVER 65 13:35:00 [facility] FluAD FluAD 2021-04-04 [facility]pleted [facility] - 14:27:00 [facility] FluAD FluAD 2021-04-04 [facility]pleted [facility] - 14:27:00 [facility] FluAD FluAD 2021-04-04 [facility]pleted [facility] - 14:27:00 [facility] FluAD FluAD 2021-04-04 [facility]pleted [facility] - 14:27:00 [facility] FluAD FluAD 2021-04-04 [facility] - 14:27:00 [facility] FluAD FluAD 2021-04-04 [facility] - 14:27:00 [facility] FluAD FluAD 2021-04-04 [facility] - 14:27:00 [facility] FluAD FluAD 2021-04-04 [facility] - 14:27:00 [facility] FluAD FluAD 2021-04-04 [facility] - 14:27:00 [facility] FluAD FluAD 2021-04-04 [facility] - 14:27:00 [facility] FluAD FluAD 2021-04-04 [facility]pleted [facility] - 14:27:00 [facility] FluAD FluAD 2021-04-04 [facility] - 14:27:00 [facility] FluAD FluAD 2021-04-04 [facility] - 14:27:00 [facility] FluAD FluAD 2021-04-04 [facility] - 14:27:00 [facility] FluAD FluAD 2021-04-04 [facility]pleted [facility] - 14:27:00 [facility] FluAD FluAD 2021-04-04 [facility]pleted [facility] - 14:27:00 [facility] FluAD FluAD 2021-04-04 [facility]pleted [facility] - 14:27:00 [facility] FluAD FluAD 2021-04-04 [facility]pleted [facility] - 14:27:00 [facility] FluAD FluAD 2021-04-04 [facility]pleted [facility] - 14:27:00 [facility] FluAD FluAD 2021-04-04 [facility]pleted [facility] - 14:27:00 [facility] FluAD FluAD 2021-04-04 [facility]pleted [facility] - 14:27:00 [facility] FluAD FluAD 2021-04-04 [facility]pleted [facility] - 14:27:00 [facility] FluAD FluAD 2021-04-04 [facility]pleted [facility] - 14:27:00 [facility] FluAD FluAD 2021-04-04 [facility]pleted [facility] - 14:27:00 [facility] FluAD FluAD 2021-04-04 [facility]pleted [facility] - 14:27:00 [facility] FluAD FluAD 2021-04-04 [facility]pleted [facility] - 14:27:00 [facility] FluAD FluAD 2021-04-04 [facility]pleted [facility] - 14:27:00 [facility] FluAD FluAD 2021-04-04 [facility]pleted [facility] - 14:27:00 [facility] FluAD FluAD 2021-04-04 [facility]pleted [facility] - 14:27:00 [facility] FluAD FluAD 2021-04-04 [facility]pleted [facility] - 14:27:00 [facility] FluAD FluAD 2021-04-04 [facility]pleted [facility] - 14:27:00 [facility] FluAD FluAD 2021-04-04 [facility] 14:27[facility]00 [facility] [facility] 2021-04-04 [facility] - 14:27:00 [facility] FluAD FluAD 2021-04-04 Completed [facility] - 14:27:00 [facility] FluAD FluAD 2021-04-04 Completed [facility] - 14:27:00 [facility] FluAD FluAD 2021-04-04 Completed [facility] - 14:27:00 [facility] FluAD FluAD 2021-04-04 Completed [facility] - 14:27:00 [facility] FluAD FluAD 2021-04-04 Completed [facility] - 14:27:00 [facility] SARS-COV-2 COVID-19 2020-09-07 Completed [facility] PFIZER VACCINE 00:00:00 [facility] SARS-COV-2 COVID-19 2020-09-07 Completed [facility] PFIZER VACCINE 00:00:00 [facility] SARS-COV-2 COVID-19 2020-09-07 Completed [facility] PFIZER VACCINE 00:00:00 [facility] SARS-COV-2 COVID-19 2020-09-07 Completed [facility] PFIZER VACCINE 00:00:00 [facility] SARS-COV-2 COVID-19 2020-09-07 Completed [facility] PFIZER VACCINE 00:00:00 [facility] SARS-COV-2 COVID-19 2020-09-07 Completed [facility] PFIZER VACCINE 00:00:00 [facility] SARS-COV-2 COVID-19 2020-09-07 Completed [facility] PFIZER VACCINE 00:00:00 [facility] SARS-COV-2 COVID-19 2020-09-07 Completed [facility] PFIZER VACCINE 00:00:00 [facility] SARS-COV-2 COVID-19 2020-09-07 Completed [facility] PFIZER VACCINE 00:00:00 [facility] SARS-COV-2 COVID-19 2020-09-07 Completed [facility] PFIZER VACCINE 00:00:00 [facility] SARS-COV-2 COVID-19 2020-09-07 Completed [facility] PFIZER VACCINE 00:00:00 [facility] SARS-COV-2 COVID-19 2020-08-17 Completed [facility] PFIZER VACCINE 00:00:00 [facility] SARS-COV-2 COVID-19 2020-08-17 Completed [facility] PFIZER VACCINE 00:00:00 [facility] SARS-COV-2 COVID-19 2020-08-17 Completed [facility] PFIZER VACCINE 00:00:00 [facility] SARS-COV-2 COVID-19 2020-08-17 Completed [facility] PFIZER VACCINE 00:00:00 [facility] SARS-COV-2 COVID-19 2020-08-17 Completed [facility] PFIZER VACCINE 00:00:00 [facility] SARS-COV-2 COVID-19 2020-08-17 Completed [facility] PFIZER VACCINE 00:00:00 [facility] SARS-COV-2 COVID-19 2020-08-17 Completed [facility] PFIZER VACCINE 00:00:00 [facility] SARS-COV-2 COVID-19 2020-08-17 Completed [facility] PFIZER VACCINE 00:00:00 [facility] SARS-COV-2 COVID-19 2020-08-17 Completed [facility] PFIZER VACCINE 00:00:00 [facility] SARS-COV-2 COVID-19 2020-08-17 Completed [facility] PFIZER [facility]ACCINE 00:00:00 [facility] SARS-COV-2 COVID-19 2020-08-17 Completed [facility] PFIZER VACCINE 00:00:00 [facility] Pneumovax (PPSV23) Pneumovax (PPSV23) 2020-05-10 Completed [facility] - 12:01:00 [facility] Pneumovax (PPSV23) Pneumovax (PPSV23) 2020-05-10 Completed [facility] - 12:01:00 [facility] Pneumovax (PPSV23) Pneumovax (PPSV23) 2020-05-10 Completed [facility] - 12:01:00 [facility] Pneumovax (PPSV23) Pneumovax (PPSV23) 2020-05-10 Completed [facility] - 12:01:00 [facility] Pneumovax (PPSV23) Pneumovax (PPSV23) 2020-05-10 Completed [facility] - 12:01:00 [facility] Pneumovax (PPSV23) Pneumovax (PPSV23) 2020-05-10 Completed [facility] - 12:01:00 [facility] Pneumovax (PPSV23) Pneumovax (PPSV23) 2020-05-10 Completed [facility] - 12:01:00 [facility] Pneumovax (PPSV23) Pneumovax (PPSV23) 2020-05-10 Completed [facility] - 12:01:00 [facility] Pneumovax (PPSV23) Pneumovax (PPSV23) 2020-05-10 Completed [facility] - 12:01:00 [facility] Pneumovax (PPSV23) Pneumovax (PPSV23) 2020-05-10 Completed [facility] - 12:01:00 [facility] Pneumovax (PPSV23) Pneumovax (PPSV23) 2020-05-10 Completed [facility] - 12:01:00 [facility] Pneumovax (PPSV23) Pneumovax (PPSV23) 2020-05-10 Completed [facility] - 12:01:00 [facility] Pneumovax (PPSV23) Pneumovax (PPSV23) 2020-05-10 Completed [facility] - 12:01:00 [facility] Pneumovax (PPSV23) Pneumovax (PPSV23) 2020-05-10 Completed [facility] - 12:01:00 [facility] Pneumovax (PPSV23) Pneumovax (PPSV23) 2020-05-10 Completed [facility] - 12:01:00 [facility] Pneumovax (PPSV23) Pneumovax (PPSV23) 2020-05-10 Completed [facility] - 12:01:00 [facility] Pneumovax (PPSV23) Pneumovax (PPSV23) 2020-05-10 Completed [facility] - 12:01:00 [facility] Pneumovax (PPSV23) Pneumovax (PPSV23) 2020-05-10 Completed [facility] - 12:01:00 [facility] Pneumovax (PPSV23) Pneumovax (PPSV23) 2020-05-10 Completed [facility] - 12:01:00 [facility] Pneumovax (PPSV23) Pneumovax (PPSV23) 2020-05-10 Completed [facility] - 12:01:00 [facility] Pneumovax (PPSV23) Pneumovax (PPSV23) 2020-05-10 Completed [facility] - 12:01:00 [facility] Pneumovax (PPSV23) Pneumovax (PPSV23) 2020-05-10 Completed [facility] - 12:01:00 [facility] Pneumovax (PPSV23) Pneumovax (PPSV23) 2020-05-10 Completed [facility] - 12:01:00 [facility] Pneumovax (PPSV23) Pneumovax (PPSV23) 2020-05-10 Completed [facility] - 12:01:00 [facility] Pneumovax (PPSV23) Pneumovax (PPSV23) 2020-05-10 Completed [facility] - 12:01:00 [facility] Pneumovax (PPSV23) Pneumovax (PPSV23) 2020-05-10 Completed [facility] - 12:01:00 [facility] Pneumovax (PPSV23) Pneumovax (PPSV23) 2020-05-10 Completed [facility] - 12:01:00 [facility] Pneumovax (PPSV23) Pneumovax (PPSV23) 2020-05-10 Completed [facility] - 12:01:00 [facility] Pneumovax (PPSV23) Pneumovax (PPSV23) 2020-05-10 Completed [facility] - 12:01:00 [facility] Pneumovax (PPSV23) Pneumovax (PPSV23) 2020-05-10 Completed [facility] - 12:01:00 [facility] Pneumovax (PPSV23) Pneumovax (PPSV23) 2020-05-10 Completed [facility] - 12:01:00 [facility] Pneumovax (PPSV23) Pneumovax (PPSV23) 2020-05-10 Completed [facility] - 12:01:00 [facility] Pneumovax (PPSV23) Pneumovax (PPSV23) 2020-05-10 Completed [facility] - 12:01:00 [facility] Pneumovax (PPSV23) Pneumovax (PPSV23) 2020-05-10 Completed [facility] - 12:01:00 [facility] Pneumovax (PPSV23) Pneumovax (PPSV23) 2020-05-10 Completed [facility] - 12:01:00 [facility] Pneumovax (PPSV23) Pneumovax (PPSV23) 2020-05-10 Completed [facility] - 12:01:00 [facility] Pneumovax (PPSV23) Pneumovax (PPSV23) 2020-05-10 Completed [facility] - 12:01:00 [facility] Pneumovax (PPSV23) Pneumovax (PPSV23) 2020-05-10 Completed [facility] - 12:01:00 [facility] FLUZONE HIGH DOSE FLUZONE HIGH DOSE 2020-04-17 Completed [facility] - OVER 65 OVER 65 09:32:00 [facility] FLUZONE HIGH DOSE FLUZONE HIGH DOSE 2020-04-17 Completed [facility] - OVER 65 OVER 65 09:32:00 [facility] FLUZONE HIGH DOSE FLUZONE HIGH DOSE 2020-04-17 Completed [facility] - OVER 65 OVER 65 09:32:00 [facility] FLUZONE HIGH DOSE FLUZONE HIGH DOSE 2020-04-17 Completed [facility] - OVER 65 OVER 65 09:32:00 [facility] FLUZONE HIGH DOSE FLUZONE HIGH DOSE 2020-04-17 Completed [facility] - OVER 65 OVER 65 09:32:00 [facility] FLUZONE HIGH DOSE FLUZONE HIGH DOSE 2020-04-17 Completed [facility] - OVER 65 OVER 65 09:32:00 [facility] FLUZONE HIGH DOSE FLUZONE HIGH DOSE 2020-04-17 Completed [facility] - OVER 65 OVER 65 09:32:00 [facility] FLUZONE HIGH DOSE FLUZONE HIGH DOSE 2020-04-17 Completed [facility] - OVER 65 OVER 65 09:32:00 [facility] FLUZONE HIGH DOSE FLUZONE HIGH DOSE 2020-04-17 Completed [facility] - OVER 65 OVER 65 09:32:00 [facility] FLUZONE HIGH DOSE FLUZONE HIGH DOSE 2020-04-17 Completed [facility] - OVER 65 OVER 65 09:32:00 [facility] FLUZONE HIGH DOSE FLUZONE HIGH DOSE 2020-04-17 Completed [facility] - OVER 65 OVER 65 09:32:00 [facility] FLUZONE HIGH DOSE FLUZONE HIGH DOSE 2020-04-17 Completed [facility] - OVER 65 OVER 65 09:32:00 [facility] FLUZONE HIGH DOSE FLUZONE HIGH DOSE 2020-04-17 Completed [facility] - OVER 65 OVER 65 09:32:00 [facility] FLUZONE HIGH DOSE FLUZONE HIGH DOSE 2020-04-17 Completed [facility] - OVER 65 OVER 65 09:32:00 [facility] FLUZONE HIGH DOSE FLUZONE HIGH DOSE 2020-04-17 Completed [facility] - OVER 65 OVER 65 09:32:00 [facility] FLUZONE HIGH DOSE FLUZONE HIGH DOSE 2020-04-17 Completed [facility] - OVER 65 OVER 65 09:32:00 [facility] FLUZONE HIGH DOSE FLUZONE HIGH DOSE 2020-04-17 Completed [facility] - OVER 65 OVER 65 09:32:00 [facility] FLUZONE HIGH DOSE FLUZONE HIGH DOSE 2020-04-17 Completed [facility] - OVER 65 OVER 65 09:32:00 [facility] FLUZONE HIGH DOSE FLUZONE HIGH DOSE 2020-04-17 Completed [facility] - OVER 65 OVER 65 09:32:00 [facility] FLUZONE HIGH DOSE FLUZONE HIGH DOSE 2020-04-17 Completed [facility] - OVER 65 OVER 65 09:32:00 [facility] FLUZONE HIGH DOSE FLUZONE HIGH DOSE 2020-04-17 Completed [facility] - OVER 65 OVER 65 09:32:00 [facility] FLUZONE HIGH DOSE FLUZONE HIGH DOSE 2020-04-17 Completed [facility] - OVER 65 OVER 65 09:32:00 [facility] FLUZONE HIGH DOSE FLUZONE HIGH DOSE 2020-04-17 Completed [facility] - OVER 65 OVER 65 09:32:00 [facility] FLUZONE HIGH DOSE FLUZONE HIGH DOSE 2020-04-17 Completed [facility] - OVER 65 OVER 65 09:32:00 [facility] FLUZONE HIGH DOSE FLUZONE HIGH DOSE 2020-04-17 Completed [facility] - OVER 65 OVER 65 09:32:00 [facility] FLUZONE HIGH DOSE FLUZONE HIGH DOSE 2020-04-17 Completed [facility] - OVER 65 OVER 65 09:32:00 [facility] FLUZONE HIGH DOSE FLUZONE HIGH DOSE 2020-04-17 Completed [facility] - OVER 65 OVER 65 09:32:00 [facility] FLUZONE HIGH DOSE FLUZONE HIGH DOSE 2020-04-17 Completed [facility] - OVER 65 OVER 65 09:32:00 [facility] FLUZONE HIGH DOSE FLUZONE HIGH DOSE 2020-04-17 Completed [facility] - OVER 65 OVER 65 09:32:00 [facility] FLUZONE HIGH DOSE FLUZONE HIGH DOSE 2020-04-17 Completed [facility] - OVER 65 OVER 65 09:32:00 [facility] FLUZONE HIGH DOSE FLUZONE HIGH DOSE 2020-04-17 Completed [facility] - OVER 65 OVER 65 09:32:00 [facility] FLUZONE HIGH DOSE FLUZONE HIGH DOSE 2020-04-17 Completed [facility] - OVER 65 OVER 65 09:32:00 [facility] FLUZONE HIGH DOSE FLUZONE HIGH DOSE 2020-04-17 Completed [facility] - OVER 65 OVER 65 09:32:00 [facility] FLUZONE HIGH DOSE FLUZONE HIGH DOSE 2020-04-17 Completed [facility] - OVER 65 OVER 65 09:32:00 [facility] FLUZONE HIGH DOSE FLUZONE HIGH DOSE 2020-04-17 Completed [facility] - OVER 65 OVER 65 09:32:00 [facility] FLUZONE HIGH DOSE FLUZONE HIGH DOSE 2020-04-17 Completed [facility] - OVER 65 OVER 65 09:32:00 [facility] FLUZONE HIGH DOSE FLUZONE HIGH DOSE 2020-04-17 Completed [facility] - OVER 65 OVER 65 09:32:00 [facility] FLUZONE HIGH DOSE FLUZONE HIGH DOSE 2020-04-17 Completed [facility] - OVER 65 OVER 65 09:32:00 [facility] FLUZONE HIGH DOSE FLUZONE HIGH DOSE 2019-06-14 Completed [facility] - OVER 65 OVER 65 10:49:00 [facility] FLUZONE HIGH DOSE FLUZONE HIGH DOSE 2019-06-14 Completed [facility] - OVER 65 OVER 65 10:49:00 [facility] FLUZONE HIGH DOSE FLUZONE HIGH DOSE 2019-06-14 Completed [facility] - OVER 65 OVER 65 10:49:00 [facility] FLUZONE HIGH DOSE FLUZONE HIGH DOSE 2019-06-14 Completed [facility] - OVER 65 OVER 65 10:49:00 [facility] FLUZONE HIGH DOSE FLUZONE HIGH DOSE 2019-06-14 Completed [facility] - OVER 65 OVER 65 10:49:00 [facility] FLUZONE HIGH DOSE FLUZONE HIGH DOSE 2019-06-14 Completed [facility] - OVER 65 OVER 65 10:49:00 [facility] FLUZONE HIGH DOSE FLUZONE HIGH DOSE 2019-06-14 Completed [facility] - OVER 65 OVER 65 10:49:00 [facility] FLUZONE HIGH DOSE FLUZONE HIGH DOSE 2019-06-14 Completed [facility] - OVER 65 OVER 65 10:49:00 [facility] FLUZONE HIGH DOSE FLUZONE HIGH DOSE 2019-06-14 Completed [facility] - OVER 65 OVER 65 10:49:00 [facility] FLUZONE HIGH DOSE FLUZONE HIGH DOSE 2019-06-14 Completed [facility] - OVER 65 OVER 65 10:49:00 [facility] FLUZONE HIGH DOSE FLUZONE HIGH DOSE 2019-06-14 Completed [facility] - OVER 65 OVER 65 10:49:00 [facility] FLUZONE HIGH DOSE FLUZONE HIGH DOSE 2019-06-14 Completed [facility] - OVER 65 OVER 65 10:49:00 [facility] FLUZONE HIGH DOSE FLUZONE HIGH DOSE 2019-06-14 Completed [facility] - OVER 65 OVER 65 10:49:00 [facility] FLUZONE HIGH DOSE FLUZONE HIGH DOSE 2019-06-14 Completed [facility] - OVER 65 OVER 65 10:49:00 [facility] FLUZONE HIGH DOSE FLUZONE HIGH DOSE 2019-06-14 Completed [facility] - OVER 65 OVER 65 10:49:00 [facility] FLUZONE HIGH DOSE FLUZONE HIGH DOSE 2019-06-14 Completed [facility] - OVER 65 OVER 65 10:49:00 [facility] FLUZONE HIGH DOSE FLUZONE HIGH DOSE 2019-06-14 Completed [facility] - OVER 65 OVER 65 10:49:00 [facility] FLUZONE HIGH DOSE FLUZONE HIGH DOSE 2019-06-14 Completed [facility] - OVER 65 OVER 65 10:49:00 [facility] FLUZONE HIGH DOSE FLUZONE HIGH DOSE 2019-06-14 Completed [facility] - OVER 65 OVER 65 10:49:00 [facility] FLUZONE HIGH DOSE FLUZONE HIGH DOSE 2019-06-14 Completed [facility] - OVER 65 OVER 65 10:49:00 [facility] FLUZONE HIGH DOSE FLUZONE HIGH DOSE 2019-06-14 Completed [facility] - OVER 65 OVER 65 10:49:00 [facility] FLUZONE HIGH DOSE FLUZONE HIGH DOSE 2019-06-14 Completed [facility] - OVER 65 OVER 65 10:49:00 [facility] FLUZONE HIGH DOSE FLUZONE HIGH DOSE 2019-06-14 Completed [facility] - OVER 65 OVER 65 10:49:00 [facility] FLUZONE HIGH DOSE FLUZONE HIGH DOSE 2019-06-14 Completed [facility] - OVER 65 OVER 65 10:49:00 [facility] FLUZONE HIGH DOSE FLUZONE HIGH DOSE 2019-06-14 Completed [facility] - OVER 65 OVER 65 10:49:00 [facility] FLUZONE HIGH DOSE FLUZONE HIGH DOSE 2019-06-14 Completed [facility] - OVER 65 OVER 65 10:49:00 [facility] FLUZONE HIGH DOSE FLUZONE HIGH DOSE 2019-06-14 Completed [facility] - OVER 65 OVER 65 10:49:00 [facility] FLUZONE HIGH DOSE FLUZONE HIGH DOSE 2019-06-14 Completed [facility] - OVER 65 OVER 65 10:49:00 [facility] FLUZONE HIGH DOSE FLUZONE HIGH DOSE 2019-06-14 Completed [facility] - OVER 65 OVER 65 10:49:00 [facility] FLUZONE HIGH DOSE FLUZONE HIGH DOSE 2019-06-14 Completed [facility] - OVER 65 OVER 65 10:49:00 [facility] FLUZONE HIGH DOSE FLUZONE HIGH DOSE 2019-06-14 Completed [facility] - OVER 65 OVER 65 10:49:00 [facility] FLUZONE HIGH DOSE FLUZONE HIGH DOSE 2019-06-14 Completed [facility] - OVER 65 OVER 65 10:49:00 [facility] FLUZONE HIGH DOSE FLUZONE HIGH DOSE 2019-06-14 Completed [facility] - OVER 65 OVER 65 10:49:00 [facility] FLUZONE HIGH DOSE FLUZONE HIGH DOSE 2019-06-14 Completed [facility] - OVER 65 OVER 65 10:49:00 [facility] FLUZONE HIGH DOSE FLUZONE HIGH DOSE 2019-06-14 Completed [facility] - OVER 65 OVER 65 10:49:00 [facility] FLUZONE HIGH DOSE FLUZONE HIGH DOSE 2019-06-14 Completed [facility] - OVER 65 OVER 65 10:49:00 [facility] FLUZONE HIGH DOSE FLUZONE HIGH DOSE 2019-06-14 Completed [facility] - OVER 65 OVER 65 10:49:00 [facility] FLUZONE HIGH DOSE FLUZONE HIGH DOSE 2019-06-14 Completed [facility] - OVER 65 OVER 65 10:49:00 [facility] FLUZONE HIGH DOSE FLUZONE HIGH DOSE 2019-06-14 Completed [facility] - OVER 65 OVER 65 00:00:00 [facility] Phenergan Phenergan 2018-05-07 Completed [facility] - (Promethazine) (Promethazine) 11:11:00 [facility] Toradol (Ketorolac) Toradol (Ketorolac) 2018-05-07 Completed [facility] - 11:11:00 [facility] Phenergan Phenergan 2018-05-07 Completed [facility] - (Promethazine) (Promethazine) 11:11:00 [facility] Toradol (Ketorolac) Toradol (Ketorolac) 2018-05-07 Completed [facility] - 11:11:00 [facility] Prevnar 13 Prevnar 13 2018-05-01 Completed [facility] - -Pneumonia Vaccine -Pneumonia Vaccine 14:40:00 [facility] Prevnar 13 Prevnar 13 2018-05-01 Completed [facility] - -Pneumonia Vaccine -Pneumonia Vaccine 14:40:00 [facility] Prevnar 13 Prevnar 13 2018-05-01 Completed [facility] - -Pneumonia Vaccine -Pneumonia Vaccine 14:40:00 [facility] Prevnar 13 Prevnar 13 2018-05-01 Completed [facility] - -Pneumonia Vaccine -Pneumonia Vaccine 14:40:00 [facility] Prevnar 13 Prevnar 13 2018-05-01 Completed [facility] - -Pneumonia Vaccine -Pneumonia Vaccine 14:40:00 [facility] Prevnar 13 Prevnar 13 2018-05-01 Completed [facility] - -Pneumonia Vaccine -Pneumonia Vaccine 14:40:00 [facility] Prevnar 13 Prevnar 13 2018-05-01 Completed [facility] - -Pneumonia Vaccine -Pneumonia Vaccine 14:40:00 [facility] Prevnar 13 Prevnar 13 2018-05-01 Completed [facility] - -Pneumonia Vaccine -Pneumonia Vaccine 14:40:00 [facility] Prevnar 13 Prevnar 13 2018-05-01 Completed [facility] - -Pneumonia Vaccine -Pneumonia Vaccine 14:40:00 [facility] Prevnar 13 Prevnar 13 2018-05-01 Completed [facility] - -Pneumonia Vaccine -Pneumonia Vaccine 14:40:00 [facility] Prevnar 13 Prevnar 13 2018-05-01 Completed [facility] - -Pneumonia Vaccine -Pneumonia Vaccine 14:40:00 [facility] Prevnar 13 Prevnar 13 2018-05-01 Completed [facility] - -Pneumonia Vaccine -Pneumonia Vaccine 14:40:00 [facility] Prevnar 13 Prevnar 13 2018-05-01 Completed [facility] - -Pneumonia Vaccine -Pneumonia Vaccine 14:40:00 [facility] Prevnar 13 Prevnar 13 2018-05-01 Completed [facility] - -Pneumonia Vaccine -Pneumonia Vaccine 14:40:00 [facility] Prevnar 13 Prevnar 13 2018-05-01 Completed [facility] - -Pneumonia Vaccine -Pneumonia Vaccine 14:40:00 [facility] Prevnar 13 Prevnar 13 2018-05-01 Completed [facility] - -Pneumonia Vaccine -Pneumonia Vaccine 14:40:00 [facility] Prevnar 13 Prevnar 13 2018-05-01 Completed [facility] - -Pneumonia Vaccine -Pneumonia Vaccine 14:40:00 [facility] Prevnar 13 Prevnar 13 2018-05-01 Completed [facility] - -Pneumonia Vaccine -Pneumonia Vaccine 14:40:00 [facility] Prevnar 13 Prevnar 13 2018-05-01 Completed [facility] - -Pneumonia Vaccine -Pneumonia Vaccine 14:40:00 [facility] Prevnar 13 Prevnar 13 2018-05-01 Completed [facility] - -Pneumonia Vaccine -Pneumonia Vaccine 14:40:00 [facility] Prevnar 13 Prevnar 13 2018-05-01 Completed [facility] - -Pneumonia Vaccine -Pneumonia Vaccine 14:40:00 [facility] Prevnar 13 Prevnar 13 2018-05-01 Completed [facility] - -Pneumonia Vaccine -Pneumonia Vaccine 14:40:00 [facility] Prevnar 13 Prevnar 13 2018-05-01 Completed [facility] - -Pneumonia Vaccine -Pneumonia Vaccine 14:40:00 [facility] Prevnar 13 Prevnar 13 2018-05-01 Completed [facility] - -Pneumonia Vaccine -Pneumonia Vaccine 14:40:00 [facility] Prevnar 13 Prevnar 13 2018-05-01 Completed [facility] - -Pneumonia Vaccine -Pneumonia Vaccine 14:40:00 [facility] Prevnar 13 Prevnar 13 2018-05-01 Completed [facility] - -Pneumonia Vaccine -Pneumonia Vaccine 14:40:00 [facility] Prevnar 13 Prevnar 13 2018-05-01 Completed [facility] - -Pneumonia Vaccine -Pneumonia Vaccine 14:40:00 [facility] Prevnar 13 Prevnar 13 2018-05-01 Completed [facility] - -Pneumonia Vaccine -Pneumonia Vaccine 14:40:00 [facility] Prevnar 13 Prevnar 13 2018-05-01 Completed [facility] - -Pneumonia Vaccine -Pneumonia Vaccine 14:40:00 [facility] Prevnar 13 Prevnar 13 2018-05-01 Completed [facility] - -Pneumonia Vaccine -Pneumonia Vaccine 14:40:00 [facility] Prevnar 13 Prevnar 13 2018-05-01 Completed [facility] - -Pneumonia Vaccine -Pneumonia Vaccine 14:40:00 [facility] Prevnar 13 Prevnar 13 2018-05-01 Completed [facility] - -Pneumonia Vaccine -Pneumonia Vaccine 14:40:00 [facility] Prevnar 13 Prevnar 13 2018-05-01 Completed [facility] - -Pneumonia Vaccine -Pneumonia Vaccine 14:40:00 [facility] Prevnar 13 Prevnar 13 2018-05-01 Completed [facility] - -Pneumonia Vaccine -Pneumonia Vaccine 14:40:00 [facility] Prevnar 13 Prevnar 13 2018-05-01 Completed [facility] - -Pneumonia Vaccine -Pneumonia Vaccine 14:40:00 [facility] Prevnar 13 Prevnar 13 2018-05-01 Completed [facility] - -Pneumonia Vaccine -Pneumonia Vaccine 14:40:00 [facility] Prevnar 13 Prevnar 13 2018-05-01 Completed [facility] - -Pneumonia Vaccine -Pneumonia Vaccine 14:40:00 [facility] Prevnar 13 Prevnar 13 2018-05-01 Completed [facility] - -Pneumonia Vaccine -Pneumonia Vaccine 14:40:00 [facility] FLUZONE HIGH DOSE FLUZONE HIGH DOSE 2018-05-01 Completed [facility] - OVER 65 OVER 65 14:39:00 [facility] FLUZONE HIGH DOSE FLUZONE HIGH DOSE 2018-05-01 Completed [facility] - OVER 65 OVER 65 14:39:00 [facility] FLUZONE HIGH DOSE FLUZONE HIGH DOSE 2018-05-01 Completed [facility] - OVER 65 OVER 65 14:39:00 [facility] FLUZONE HIGH DOSE FLUZONE HIGH DOSE 2018-05-01 Completed [facility] - OVER 65 OVER 65 14:39:00 [facility] FLUZONE HIGH DOSE FLUZONE HIGH DOSE 2018-05-01 Completed [facility] - OVER 65 OVER 65 14:39:00 [facility] FLUZONE HIGH DOSE FLUZONE HIGH DOSE 2018-05-01 Completed [facility] - OVER 65 OVER 65 14:39:00 [facility] FLUZONE HIGH DOSE FLUZONE HIGH DOSE 2018-05-01 Completed [facility] - OVER 65 OVER 65 14:39:00 [facility] FLUZONE HIGH DOSE FLUZONE HIGH DOSE 2018-05-01 Completed [facility] - OVER 65 OVER 65 14:39:00 [facility] FLUZONE HIGH DOSE FLUZONE HIGH DOSE 2018-05-01 Completed [facility] - OVER 65 OVER 65 14:39:00 [facility] FLUZONE HIGH DOSE FLUZONE HIGH DOSE 2018-05-01 Completed [facility] - OVER 65 OVER 65 14:39:00 [facility] FLUZONE HIGH DOSE FLUZONE HIGH DOSE 2018-05-01 Completed [facility] - OVER 65 OVER 65 14:39:00 [facility] FLUZONE HIGH DOSE FLUZONE HIGH DOSE 2018-05-01 Completed [facility] - OVER 65 OVER 65 14:39:00 [facility] FLUZONE HIGH DOSE FLUZONE HIGH DOSE 2018-05-01 Completed [facility] - OVER 65 OVER 65 14:39:00 [facility] FLUZONE HIGH DOSE FLUZONE HIGH DOSE 2018-05-01 Completed [facility] - OVER 65 OVER 65 14:39:00 [facility] FLUZONE HIGH DOSE FLUZONE HIGH DOSE 2018-05-01 Completed [facility] - OVER 65 OVER 65 14:39:00 [facility] FLUZONE HIGH DOSE FLUZONE HIGH DOSE 2018-05-01 Completed [facility] - OVER 65 OVER 65 14:39:00 [facility] FLUZONE HIGH DOSE FLUZONE HIGH DOSE 2018-05-01 Completed [facility] - OVER 65 OVER 65 14:39:00 [facility] FLUZONE HIGH DOSE FLUZONE HIGH DOSE 2018-05-01 Completed [facility] - OVER 65 OVER 65 14:39:00 [facility] FLUZONE HIGH DOSE FLUZONE HIGH DOSE 2018-05-01 Completed [facility] - OVER 65 OVER 65 14:39:00 [facility] FLUZONE HIGH DOSE FLUZONE HIGH DOSE 2018-05-01 Completed [facility] - OVER 65 OVER 65 14:39:00 [facility] FLUZONE HIGH DOSE FLUZONE HIGH DOSE 2018-05-01 Completed [facility] - OVER 65 OVER 65 14:39:00 [facility] FLUZONE HIGH DOSE FLUZONE HIGH DOSE 2018-05-01 Completed [facility] - OVER 65 OVER 65 14:39:00 [facility] FLUZONE HIGH DOSE FLUZONE HIGH DOSE 2018-05-01 Completed [facility] - OVER 65 OVER 65 14:39:00 [facility] FLUZONE HIGH DOSE FLUZONE HIGH DOSE 2018-05-01 Completed [facility] - OVER 65 OVER 65 14:39:00 [facility] FLUZONE HIGH DOSE FLUZONE HIGH DOSE 2018-05-01 Completed [facility] - OVER 65 OVER 65 14:39:00 [facility] FLUZONE HIGH DOSE FLUZONE HIGH DOSE 2018-05-01 Completed [facility] - OVER 65 OVER 65 14:39:00 [facility] FLUZONE HIGH DOSE FLUZONE HIGH DOSE 2018-05-01 Completed [facility] - OVER 65 OVER 65 14:39:00 [facility] FLUZONE HIGH DOSE FLUZONE HIGH DOSE 2018-05-01 Completed [facility] - OVER 65 OVER 65 14:39:00 [facility] FLUZONE HIGH DOSE FLUZONE HIGH DOSE 2018-05-01 Completed [facility] - OVER 65 OVER 65 14:39:00 [facility] FLUZONE HIGH DOSE FLUZONE HIGH DOSE 2018-05-01 Completed [facility] - OVER 65 OVER 65 14:39:00 [facility] FLUZONE HIGH DOSE FLUZONE HIGH DOSE 2018-05-01 Completed [facility] - OVER 65 OVER 65 14:39:00 [facility] FLUZONE HIGH DOSE FLUZONE HIGH DOSE 2018-05-01 Completed [facility] - OVER 65 OVER 65 14:39:00 [facility] FLUZONE HIGH DOSE FLUZONE HIGH DOSE 2018-05-01 Completed [facility] - OVER 65 OVER 65 14:39:00 [facility] FLUZONE HIGH DOSE FLUZONE HIGH DOSE 2018-05-01 Completed [facility] - OVER 65 OVER 65 14:39:00 [facility] FLUZONE HIGH DOSE FLUZONE HIGH DOSE 2018-05-01 Completed [facility] - OVER 65 OVER 65 14:39:00 [facility] FLUZONE HIGH DOSE FLUZONE HIGH DOSE 2018-05-01 Completed [facility] - OVER 65 OVER 65 14:39:00 [facility] FLUZONE HIGH DOSE FLUZONE HIGH DOSE 2018-05-01 Completed [facility] - OVER 65 OVER 65 14:39:00 [facility] FLUZONE HIGH DOSE FLUZONE HIGH DOSE 2018-05-01 Completed [facility] - OVER 65 OVER 65 14:39:00 [facility] Toradol (Ketorolac) Toradol (Ketorolac) 2018-02-25 Completed [facility] - 10:03:00 [facility] Solumedrol Solumedrol 2018-02-25 Completed [facility] - 125mg/2ml 125mg/2ml 10:03:00 [facility] Toradol (Ketorolac) Toradol (Ketorolac) 2018-02-25 Completed [facility] - 10:03:00 [facility] Solumedrol Solumedrol 2018-02-25 Completed [facility] - 125mg/2ml 125mg/2ml 10:03:00 [facility] Vital Signs Vital Name Observation Time Observation Value Comments Source height 2022-07-23 13:40:00 70.75 [in_i] [facility] weight 2022-07-23 13:40:00 138 [lb_av] [facility] temperature 2022-07-23 13:40:00 98.3 [degF] [facility] bmi 2022-07-23 13:40:00 19.38 kg/m2 [facility] respiratory rate 2022-07-23 13:40:00 15 /min Comm on [facility] height 2022-06-24 14:20:00 70.75 [in_i] [facility] weight 2022-06-24 14:20:00 145 [lb_av] Common [facility] temperature 2022-06-24 14:20:00 98 [degF] [facility] bmi 2022-06-24 14:20:00 20.36 kg/m2 [facility] blood pressure 2022-06-24 14:20:00 112 mm[Hg] Common [facility] - systolic [facility] blood pressure 2022-06-24 14:20:00 76 mm[Hg] [facility] - diastolic [facility] height 2022-04-04 13:10:00 70.75 [in_i] [facility] weight 2022-04-04 13:10:00 147.1 [lb_av] [facility] temperature 2022-04-04 13:10:00 97.8 [degF] [facility] bmi 2022-04-04 13:10:00 20.66 kg/m2 [facility] oximetry 2022-04-04 13:10:00 96 % [facility] respiratory rate 2022-04-04 13:10:00 17 /min Comm on [facility] blood pressure 2022-04-04 13:10:00 110 mm[Hg] Common [facility] - systolic [facility] blood pressure 2022-04-04 13:10:00 62 mm[Hg] Common [facility] - diastolic [facility] height 2022-03-13 13:15:00 70.75 [in_i] [facility] weight 2022-03-13 13:15:00 137.6 [lb_av] [facility] temperature 2022-03-13 13:15:00 97.3 [degF] [facility] bmi 2022-03-13 13:15:00 19.33 kg/m2 [facility] oximetry 2022-03-13 13:15:00 94 % [facility] respiratory rate 2022-03-13 13:15:00 16 /min Comm on [facility] blood pressure 2022-03-13 13:15:00 111 mm[Hg] Common [facility] - systolic [facility] blood pressure 2022-03-13 13:15:00 68 mm[Hg] [facility] - diastolic [facility] height 2022-01-09 14:20:00 70.75 [in_i] Common [facility] weight 2022-01-09 14:20:00 138.6 [lb_av] Common [facility] temperature 2022-01-09 14:20:00 98.1 [degF] Common [facility] bmi 2022-01-09 14:20:00 19.47 kg/m2 [facility] oximetry 2022-01-09 14:20:00 95 % [facility] respiratory rate 2022-01-09 14:20:00 16 /min Comm on [facility] blood pressure 2022-01-09 14:20:00 112 mm[Hg] Common [facility] - systolic [facility] blood pressure 2022-01-09 14:20:00 75 mm[Hg] [facility] - diastolic [facility] height 2021-12-21 10:30:00 70.75 [in_i] [facility] weight 2021-12-21 10:30:00 135 [lb_av] [facility] temperature 2021-12-21 10:30:00 97 [degF] [facility] bmi 2021-12-21 10:30:00 18.96 kg/m2 [facility] blood pressure 2021-12-21 10:30:00 115 mm[Hg] Common [facility] - systolic [facility] blood pressure 2021-12-21 10:30:00 78 mm[Hg] [facility] height 2021-12-06 08:00:00 70.75 [in_i] Common [facility] weight 2021-12-06 08:00:00 147.2 [lb_av] Common [facility] temperature 2021-12-06 08:00:00 97.2 [degF] Common [facility] bmi 2021-12-06 08:00:00 20.67 kg/m2 [facility] oximetry 2021-12-06 08:00:00 96 % Common [facility] respiratory rate 2021-12-06 08:00:00 16 /min Comm on [facility] blood pressure 2021-12-06 08:00:00 141 mm[Hg] Common [facility] systolic [facility] blood pressure 2021-12-06 08:00:00 74 mm[Hg] Common [facility] - diastolic [facility] height 2021-09-26 08:30:00 70.75 [in_i] Common [facility] weight 2021-09-26 08:30:00 146.8 [lb_av] [facility] temperature 2021-09-26 08:30:00 98.3 [degF] Common [facility] bmi 2021-09-26 08:30:00 20.62 kg/m2 [facility] oximetry 2021-09-26 08:30:00 99 % Common [facility] respiratory rate 2021-09-26 08:30:00 17 /min Comm on [facility] blood pressure 2021-09-26 08:30:00 132 mm[Hg] Common [facility] - systolic [facility] blood pressure 2021-09-26 08:30:00 70 mm[Hg] Common [facility] - diastolic [facility] height 2021-09-26 08:00:00 70.75 [in_i] Common [facility] weight 2021-09-26 08:00:00 146.8 [lb_av] [facility] temperature 2021-09-26 08:00:00 98.3 [degF] [facility] bmi 2021-09-26 08:00:00 20.62 kg/m2 [facility] oximetry 2021-09-26 08:00:00 99 % [facility] blood pressure 2021-09-26 08:00:00 132 mm[Hg] [facility] - systolic [facility] blood pressure 2021-09-26 08:00:00 70 mm[Hg] [facility] - diastolic [facility] height 2021-09-17 16:45:00 70.75 [in_i] Common [facility] weight 2021-09-17 16:45:00 146.2 [lb_av] [facility] temperature 2021-09-17 16:45:00 98.6 [degF] [facility] bmi 2021-09-17 16:45:00 20.53 kg/m2 [facility] oximetry 2021-09-17 16:45:00 94 % [facility] respiratory rate 2021-09-17 16:45:00 16 /min Comm on [facility] blood pressure 2021-09-17 16:45:00 154 mm[Hg] Common [facility] - systolic [facility] blood pressure 2021-09-17 16:45:00 72 mm[Hg] Common [facility] - diastolic [facility] height 2021-07-18 10:15:00 70.75 [in_i] [facility] weight 2021-07-18 10:15:00 146 [lb_av] [facility] temperature 2021-07-18 10:15:00 97.6 [degF] [facility] bmi 2021-07-18 10:15:00 20.5 kg/m2 [facility] oximetry 2021-07-18 10:15:00 97 % [facility] respiratory rate 2021-07-18 10:15:00 18 /min [facility] - [facility] blood pressure 2021-07-18 10:15:00 117 mm[Hg] Common [facility] - systolic [facility] blood pressure 2021-07-18 10:15:00 63 mm[Hg] [facility] - diastolic [facility] height 2021-07-12 13:10:00 70.75 [in_i] Common [facility] weight 2021-07-12 13:10:00 140 [lb_av] Common [facility] temperature 2021-07-12 13:10:00 97.9 [degF] [facility] bmi 2021-07-12 13:10:00 19.66 kg/m2 [facility] blood pressure 2021-07-12 13:10:00 131 mm[Hg] [facility] - systolic [facility] blood pressure 2021-07-12 13:10:00 76 mm[Hg] [facility] - diastolic [facility] Systolic blood 2021-06-30 15:05:00 184 mm[Hg] [facility] Diastolic blood 2021-06-30 15:05:00 113 mm[Hg] [facility] Heart rate 2021-06-30 15:05:00 96 /min [facility] Body temperature 2021-06-30 15:05:00 37.06 [facility] 2021-06-30 15:05:00 18 /[facility] weight 2021-06-30 15:05:[address] [facility] BMI 2021-06-30 15:05:00 18.65 kg/m2 [facility] Oxygen saturation in 2021-06-30 15:05:00 98 /min [facility] Arterial blood by [facility] Pulse oximetry Branch height 2021-06-14 10:30:00 70.75 [in_i] [facility] weight 2021-06-14 10:30:00 143.5 [lb_av] Common [facility] temperature 2021-06-14 10:30:00 97.2 [degF] Common [facility] bmi 2021-06-14 10:30:00 20.15 kg/m2 [facility] oximetry 2021-06-14 10:30:00 96 % [facility] respiratory rate 2021-06-14 10:30:00 16 /min Comm on [facility] blood pressure 2021-06-14 10:30:00 132 mm[Hg] Common [facility] - systolic [facility] blood pressure 2021-06-14 10:30:00 62 mm[Hg] [facility] - diastolic [facility] height 2021-04-04 14:10:00 70.75 [in_i] Common [facility] weight 2021-04-04 14:10:00 139.3 [lb_av] Common [facility] temperature 2021-04-04 14:10:00 97.4 [degF] Common [facility] bmi 2021-04-04 14:10:00 19.56 kg/m2 [facility] oximetry 2021-04-04 14:10:00 98 % [facility] respiratory rate 2021-04-04 14:10:00 17 /min Comm on [facility] blood pressure 2021-04-04 14:10:00 122 mm[Hg] [facility] - systolic [facility] blood pressure 2021-04-04 14:10:00 69 mm[Hg] Common [facility] - diastolic [facility] Systolic blood 2021-03-19 13:35:00 158 mm[Hg] [facility] of pressure [facility] Diastolic blood 2021-03-19 13:35:00 86 mm[Hg] Unive [facility]ity of pressure [facility] Heart rate 2021-03-19 13:35:00 74 /min [facility] Oxygen saturation in 2021-03-19 13:35:00 96 /min [facility] Arterial blood by [facility] Pulse oximetry Branch Respiratory rate 2021-03-19 13:30:00 11 /min [facility] Body temperature 2021-03-19 13:07:00 36.72 Roxana [facility] Body height 2021-03-15 19:00:00 177.8 cm [facility] Body weight 2021-03-15 19:00:00 58.968 kg [facility] BMI 2021-03-15 19:00:00 18.65 kg/m2 [facility] Systolic blood 2021-03-19 13:35:00 158 mm[Hg] [facility] Diastolic blood 2021-03-19 13:35:00 86 mm[Hg] [facility] Heart rate 2021-03-19 13:35:00 74 /min [facility] Oxygen saturation in 2021-03-19 13:35:00 96 /min [facility] Arterial blood by [employer] Pulse oximetry Branch Respiratory rate 2021-03-19 13:30:00 11 /min [facility] Body temperature 2021-03-19 13:07:00 36.72 Roxana [facility] Body height 2021-03-15 19:00:00 177.8 cm [facility] Body weight 2021-03-15 19:00:00 58.968 kg [facility] BMI 2021-03-15 19:00:00 18.65 kg/m2 [facility] Systolic blood 2020-06-21 00:55:00 219 mm[Hg] [facility] Diastolic blood 2020-06-21 00:55:00 112 mm[Hg] [facility] [place] [facility] Heart rate 2020-06-21 00:55:00 81 /min [facility] Respiratory rate 2020-06-21 00:55:00 14 /min [facility] Oxygen saturation in 2020-06-21 00:55:00 98 /min [facility] Arterial blood by [facility] Pulse oximetry Branch Body temperature 2020-06-20 23:25:00 37.06 Roxana [facility] [place] Body weight 2020-06-20 23:25:[address] [facility] BMI 2020-06-20 23:25:00 19.53 kg/m2 [facility] Procedures Procedure Date / Time Performing Clinician Source Performed CONSENT/REFUSAL FOR 2021-06-30 15:01:49 Doctor Unassigned, No [facility] [place] [facility] Name [facility] Branch INTRATHECAL INFUSION 2021-03-19 12:07:00 Elliott Lemus [facility] PUMP REVISION Medical Branch ASSIGNMENT OF BENEFITS 2021-03-16 14:13:01 Doctor Unassigned, No [facility] Name Medical Branch EXTERNAL PROVIDER 2021-03-01 05:01:00 Doctor Unassigned, No [facility] RECORDS Name Medical Branch EXTERNAL PROVIDER 2021-03-01 05:01:00 Doctor Unassigned, No [facility] RECORDS Name Medical Branch NOTICE OF PRIVACY 2020-06-20 23:25:36 Doctor Unassigned, No [facility] PRACTICES Name Medical Branch CONSENT/REFUSAL FOR 2020-06-20 23:25:06 [facility] Encounters Start End Encounter Admission Attending Care Care Encounter Source Date/Time Date/Time Type Type Clinicians Facility Department ID 2022-06-20 [facility] [id number] Common 16:01:00 [facility] 2022-01-09 [facility] [id number] Common 14:46:00 [facility] 2021-09-25 [facility] [id number] Common 13:09:01 Swetha [facility] 2021-09-07 [facility] [id number] Common 09:20:00 [facility] 2021-08-20 [facility] [id number] Common 16:09:01 [facility] 2021-08-06 Outpatient Pedraza, STLMLC STL[facility]C [id number] Common 06:27:01 Swetha [facility] 2021-08-01 Outpatient Pedraza, STLMLC STLMLC [id number] Common 14:31:24 Swetha [facility] 2021-08-01 Outpatient Pedraza, STLMLC STLMLC [id number] Common 14:22:24 Swetha [facility] 2021-08-01 Outpatient Pedraza, STLMLC STLMLC [id number] Common 13:54:17 Swetha [facility] 2021-08-01 Outpatient Pedraza, STLMLC STLMLC [id number] Common 13:49:42 Swetha [id number] [facility] 2021-08-01 Outpatient Pedraza, STLMLC STLMLC [id number] Common 13:46:19 Swetha [id number] [facility] 2021-08-01 Outpatient Pedraza, STLMLC STLMLC [id number] Common 12:35:25 Swetha [id number] [facility] 2021-08-01 Outpatient Pedraza, STLMLC ST[facility]C [id number] Common 12:31:16 Swetha [id number] [facility] 2021-08-01 Outpatient Pedraza, STLMLC STLMLC [id number] Common 12:24:58 Swetha [id number] [facility] 2021-08-01 Outpatient Pedraza, STLMLC STLMLC [id number] Common 12:24:32 Swetha [id number] [facility] 2021-08-01 Outpatient Pedraza, STLMLC STLMLC [id number] Common 12:21:42 Swetha [id number] [facility] 2021-08-01 Outpatient Jefferson Teresa STLMLC STLMLC [id number] Common 12:21:20 [id number] [facility] 2021-08-01 Outpatient [place] Teresa STLMLC STLMLC [id number] Common 12:19:51 [id number] [facility] 2021-08-01 Outpatient [place] Teresa STLMLC STLMLC [id number] Common 12:18:22 [id number] [facility] 2021-08-01 Outpatient [place] Teresa STLMLC STLMLC [id number] Common 12:01:35 [id number] [facility] 2021-08-01 Outpatient Jefferson Teresa STLMLC STLMLC [id number] Common 11:59:25 [id number] [facility] 2021-08-01 Outpatient STLMLC STL[facility]C [id number] Common 11:59:02 [id number] [facility] 2021-08-01 Outpatient Millender, STLMLC STLMLC [id number] Common 11:53:59 Kristie [id number] [facility] 2021-08-01 Outpatient Millender, STLMLC STLMLC [id number] Common 11:06:08 Kristie [id number] [facility] 2021-08-01 Outpatient Millender, STLMLC STLMLC [id number] Common 10:59:48 Kristie [id number] [facility] 2021-08-01 Outpatient Millender, STLMLC STLMLC [id number] Common 10:59:10 Kristie [id number] [facility] 2021-08-01 Outpatient Millender, STLMLC STLMLC [id number] Common 10:57:50 Kristie [id number] [facility] 2021-05-07 Outpatient Mima [facility] ANS [id number] Univers 21:44:34 ELLIOTT frias [facility] 2022-07-23 2022-07-23 OFFICE STLMLC STLMLC [id number] Co mmon 00:00:00 00:00:00 VISIT [facility] PT LEVEL 3 [facility] 2022-07-22 2022-07-22 (WEB) STLMLC STLMLC [id number] Co mmon 00:00:00 00:00:00 [facility] 2022-07-22 2022-07-22 (TEL) STLMLC STLMLC [id number] Co mmon 00:00:00 00:00:00 [facility] 2022-07-01 2022-07-01 (WEB) STLMLC STLMLC [id number] Co mmon 00:00:00 00:00:00 [facility] 2022-06-24 2022-06-24 OFFICE STLMLC STLMLC [id number] Co mmon 00:00:00 00:00:00 VISIT [facility] PT - CHI LEVEL 4 [facility] 2022-04-04 2022-04-04 OFFICE STLMLC STLMLC [id number] Co mmon 00:00:00 00:00:00 VISIT [facility] PT - CHI LEVEL 4 [facility] 2022-03-15 2022-03-15 (WEB) STLMLC STLMLC [id number] Co mmon 00:00:00 00:00:00 [facility] 2022-03-13 2022-03-13 OFFICE STLMLC STLMLC [id number] Co mmon 00:00:00 00:00:00 VISIT [facility] PT - CHI LEVEL 2 [facility] 2022-01-09 2022-01-09 OFFICE STLMLC STLMLC [id number] Co mmon 00:00:00 00:00:00 VISIT [facility] PT - CHI LEVEL 4 [facility] 2021-12-30 2021-12-30 (WEB) STLMLC STLMLC [id number] Co mmon 00:00:00 00:00:00 [facility] 2021-12-29 2021-12-29 (WEB) STLMLC STLMLC [id number] Co mmon 00:00:00 00:00:00 [facility] 2021-12-25 2021-12-25 (TEL) STLMLC STLMLC [id number] Co mmon 00:00:00 00:00:00 [facility] 2021-12-21 2021-12-21 OFFICE STLMLC STLMLC [id number] Co mmon 00:00:00 00:00:00 VISIT [facility] PT - CHI LEVEL 4 [facility] 2021-12-21 2021-12-21 (TEL) STLMLC STLMLC [id number] Co mmon 00:00:00 00:00:00 [facility] 2021-12-07 2021-12-07 (TEL) STLMLC STLMLC [id number] Co mmon 00:00:00 00:00:00 [facility] 2021-12-06 2021-12-06 OFFICE STLMLC STLMLC [id number] Co mmon 00:00:00 00:00:00 VISIT [facility] ESTAB PT - CHI LEVEL 4 [facility] 2021-11-21 2021-11-21 (TEL) STLMLC STLMLC [id number] Co mmon 00:00:00 00:00:00 [facility] 2021-10-25 2021-10-25 (TEL) STLMLC STLMLC [id number] Co mmon 00:00:00 00:00:00 [facility] 2021-10-02 2021-10-02 (TEL) STLMLC STLMLC [id number] Co mmon 00:00:00 00:00:00 [facility] 2021-09-26 2021-09-26 (TEL) STLMLC STLMLC [id number] Co mmon 00:00:00 00:00:00 [facility] 2021-09-26 2021-09-26 OFFICE STLMLC STLMLC [id number] Co mmon 00:00:00 00:00:00 VISIT [facility] PT - CHI LEVEL 4 [facility] 2021-09-26 2021-09-26 SUB ANNUAL STLMLC STLMLC [id number] Common 00:00:00 00:00:00 [facility] WELLNESS - CHI VISIT [facility] 2021-09-17 2021-09-17 OFFICE STLMLC STLMLC [id number] Co mmon 00:00:00 00:00:00 VISIT Spirit ESTAB PT - CHI LEVEL 1 [facility] 2021-08-20 2021-08-20 (TEL) STLMLC STLMLC [id number] Co mmon 00:00:00 00:00:00 [facility] 2021-07-18 2021-07-18 OFFICE STLMLC STLMLC [id number] Co mmon 00:00:00 00:00:00 VISIT Spirit ESTAB PT - CHI LEVEL 2 [facility] 2021-07-18 2021-07-18 (PROC) STLMLC STLMLC [id number] Co mmon 00:00:00 00:00:00 Procedure Spir it - CHI [facility] 2021-07-16 2021-07-16 (TEL) STLMLC STLMLC [id number] Co mmon 00:00:00 00:00:00 Spirit [facility] 2021-07-12 2021-07-12 OFFICE STLMLC STLMLC [id number] Co mmon 00:00:00 00:00:00 VISIT Spirit ESTAB PT - CHI LEVEL 4 [facility] 2021-06-30 2021-06-[address] [facility] ERT [id number] Univers 09:15:00 10:09:00 EMLISA frias [facility] 2021-06-30 2021-06-30 Emergency [facility] [id number] Univers 09:15:00 10:09:00 Melisa CURRAN [id number] [facility] [id number] [facility] [id number] [address] 2021-06-28 2021-06-28 (TEL) STLMLC STLMLC [id number] Co mmon 00:00:00 00:00:00 Spirit [facility] 2021-06-14 2021-06-14 OFFICE STLMLC STLMLC [id number] Co mmon 00:00:00 00:00:00 VISIT Spirit ESTAB PT - CHI LEVEL 4 [facility] 2021-06-12 2021-06-12 (TEL) STLMLC STLMLC [id number] Co mmon 00:00:00 00:00:00 Spirit [facility] 2021-06-06 2021-06-06 (PROC) STLMLC STLMLC [id number] Co mmon 00:00:00 00:00:00 Procedure Spir it - CHI [facility] 2021-06-04 2021-06-04 (TEL) STLMLC STLMLC [id number] Co mmon 00:00:00 00:00:00 [facility] 2021-05-23 2021-05-23 OL DIG E/M STLMLC STLMLC [id number] Common 00:00:00 00:00:00 [facility] 11-20 Spir it MIN [facility] 2021-04-04 2021-04-04 OFFICE STLMLC STLMLC [id number] Co mmon 00:00:00 00:00:00 VISIT [facility] LEVEL 4 [facility] 2021-04-04 2021-04-04 (TEL) STLMLC STLMLC [id number] Co mmon 00:00:00 00:00:00 [facility] 2021-03-22 2021-03-22 Outpatient STLMLC STLMLC [id number] Common 00:00:00 00:00:00 [facility] 2021-03-19 2021-03-19 [facility] [id number] Univers 07:02:00 08:58:00 Encounter Elliott [place] [id number] [id number] [id number] [facility] [address] 2021-03-19 2021-03-19 Surgery [facility] [id number] Univers 07:30:00 08:38:00 Elliott Ernesto [place] [id number] [id number] [id number] [facility] [address] 2021-03-19 2021-03-19 Outpatient STLMLC STLMLC [id number] Common 00:00:00 00:00:00 [facility] 2021-03-16 2021-03-16 Candy Butcher Bonnie Sosa Lab Main [facility] [id number] Univers 09:16:08 09:31:08 Visit Elliott Lemus Ernesto [place] [id number] 0 [id number] [facility] [id number] Md dical [facility] [address] 2021-03-16 2021-03-16 Laboratory Only, Adc Test [facility] [id number] Univers 09:13:46 09:28:46 Only Elliott Lemus [place] [id number] 0 [id number] [id number] [facility] [address] 2021-03-16 2021-03-16 Outpatient R [facility] [id number] Univers 09:00:00 09:00:00 ELLIOTT ity [facility] 2021-03-16 2021-03-16 Orders Doctor SESAR [id number] Univers 00:00:00 00:00:00 Only Unassigned, ANASTASIYA [id number] [place]y [place] [facility] [id number] [place] [id number] [facility] [address] 2021-03-09 2021-03-09 Outpatient STLMLC STLMLC [id number] Common 00:00:00 00:00:00 [facility] 2021-01-17 2021-01-17 Outpatient STLMLC STLMLC [id number] Common 00:00:00 00:00:00 [facility] 2021-01-17 2021-01-17 Outpatient STLMLC STLMLC [id number] Common 00:00:00 00:00:00 [facility] 2020-11-28 2020-11-28 Outpatient STLMLC STLMLC [id number] Common 00:00:00 00:00:00 [facility] 2020-09-07 2020-09-07 Outpatient STLMLC STLMLC [id number] Common 00:00:00 00:00:00 [facility] 2020-09-07 2020-09-07 Outpatient STLMLC STLMLC [id number] Common 00:00:00 00:00:00 [facility] 2020-09-05 2020-09-05 Outpatient STLMLC STLMLC [id number] Common 00:00:00 00:00:00 [facility] 2020-08-28 2020-08-28 Outpatient STLMLC STLMLC [id number] Common 00:00:00 00:00:00 [facility] 2020-07-31 2020-07-31 Outpatient STLMLC STLMLC [id number] Common 00:00:00 00:00:00 [facility] 2020-07-20 2020-07-20 Outpatient STLMLC STLMLC [id number] Common 00:00:00 00:00:00 [facility] 2020-06-20 2020-06-20 Emergency [facility] [id number] Univers 17:20:00 19:05:00 Melisa Curran [id number] [facility] [id number] [facility] [id number] [place] [address] [address] 2020-06-20 2020-06-20 Emergency X [facility] ERT [id number] Univers 17:20:00 17:20:00 MELISA frias [facility] 2020-05-25 2020-05-25 Outpatient STLMLC STLMLC [id number] Common 00:00:00 00:00:00 [facility] 2020-05-10 2020-05-10 Outpatient STLMLC STLMLC [id number] Common 00:00:00 00:00:00 [facility] 2020-05-05 2020-05-05 Outpatient STLMLC STLMLC [id number] Common 00:00:00 00:00:00 [facility] 2020-04-19 2020-04-19 Outpatient STLMLC STLMLC [id number] Common 00:00:00 00:00:00 [facility] 2020-04-17 2020-04-17 Outpatient STLMLC STLMLC [id number] Common 00:00:00 00:00:00 [facility] 2020-04-17 2020-04-17 Outpatient STLMLC STLMLC [id number] Common 00:00:00 00:00:00 [facility] 2020-03-10 2020-03-10 [facility] [id number] Common 16:45:00 16:45:[address] [facility] 2020-02-29 2020-02-29 [facility] [id number] Common 16:42:00 16:42:[address] [facility] 2020-02-18 2020-02-18 [facility] [id number] Common 15:49:00 15:49:[address] [facility] 2020-01-20 2020-01-20 [facility] [id number] Common 15:20:00 15:20:[address] [facility] 2019-10-22 2019-10-22 [facility] [id number] Common 16:14:00 16:14:[address] [facility] 2019-10-08 2019-10-08 [facility] [id number] Common 11:15:00 11:15:[address] [facility] 2019-10-07 2019-10-07 [facility] [id number] Common 16:06:00 16:06:[address] [facility] 2019-09-13 2019-09-13 [facility] [id number] Common 10:00:00 10:00:[address] [facility] 2019-07-18 2019-07-18 Out[facility] [id number] Common 21:07:00 21:07:[address] [facility] 2019-07-16 2019-07-16 [facility] [id number] Common 16:45:00 16:45:[address] [facility] 2019-07-09 2019-07-09 [facility] [id number] Common 15:40:00 15:40:[address] [facility] 2019-07-06 2019-07-06 [facility] [id number] Common 10:25:00 10:25:[address] [facility] 2019-06-14 2019-06-14 [facility] [id number] Common 10:00:00 10:00:[address] [facility] 2019-05-06 2019-05-06 [facility] [id number] Common 11:28:00 11:28:[address] [facility] 2019-03-15 2019-03-15 Out[facility] [id number] Common 14:16:00 14:16:[address] [facility] 2019-03-15 2019-03-15 [facility] [id number] Common 08:20:00 08:20:[address] [facility] 2019-02-09 2019-02-09 Out[facility] [id number] Common 08:40:00 08:40:[address] [facility] 2018-12-14 2018-12-14 [facility] [id number] Common 15:07:00 15:07:[address] [facility] 2018-09-11 2018-09-11 [facility] [id number] Common 15:30:00 15:30:[address] [facility] 2018-07-27 2018-07-27 Out[facility] [id number] Common 22:05:00 22:05:[address] [facility] 2018-07-13 2018-07-13 [facility] [id number] Common 20:12:00 20:12:[address] [facility] 2018-06-26 2018-06-26 [facility] [id number] Common 09:30:00 09:30:[address] [facility] 2018-06-12 2018-06-12 [facility] [id number] Common 13:24:00 13:24:[address] [facility] 2018-04-03 2018-04-03 [facility] [id number] Common 09:04:00 09:04:[address] [facility] 2018-04-03 2018-04-03 [facility] [id number] Common 09:03:00 09:03:[address] [facility] 2018-03-28 2018-03-28 [facility] [id number] Common 02:17:00 02:17:[address] [facility] 2018-03-27 2018-03-27 Out[facility] [id number] Common 15:45:00 15:45:[address] [facility] 2018-03-18 2018-03-18 Out[facility] [id number] Common 13:31:00 13:31:[address] [facility] 2018-02-25 2018-02-25 [facility] [id number] Common 15:07:00 15:07:[address] [facility] 2018-02-25 2018-02-25 [facility] [id number] Common 09:00:00 09:00:[address] [facility] 2018-01-30 2018-01-30 Out[facility] [id number] Common 13:40:00 13:40:[address] [facility] 2018-01-29 2018-01-29 [facility] [id number] Common 10:00:00 10:00:00 t [facility] Spir [address] Road [facility] 2018-01-05 2018-01-05 Outpatient Nneka Earlyt [id number] Common 15:08:00 15:08:00 t [facility] it Road [facility] 2017-12-30 2017-12-30 Outpatient Nneka Earlyt [id number] Common 10:15:00 10:15:00 t [facility] it Road [facility] Results This patient has no known results.
[2022-11-07 03:06] LABS: Absolute Lymphocytes (CBC) 1.6 K/uL (0.7-4.9); Hematocrit 34.5 % (39.6-49.0); Lymphocytes % 20.7 % (15.3-44.8); MCV 91.3 fL (80-100); MPV 8.5 fL (7.6-11.3); RBC Red Blood Cell Count 3.78 M/uL (4.33-5.43)
[2022-11-07 03:19] LABS: Potassium 3.3 mEq/L (3.5-5.1); Troponin High Sensitivity 27.6 pg/mL (<58.9)
[2022-11-07] MEDS ORDERED: cloNIDine HCL 0.1 MG TAB ONE ×2 (03:21→04:50)
[2022-11-07] MEDS ORDERED: POTASSIUM 25 MEQ EFFERV TAB ONE (04:07)
--- NOTE | 2022-11-07 05:39 | ER ---
Nurse's Notes [facility] Name: Clovis Moore Age: 72 yrs Sex: Male : 1950 Arrival Date: 11/07/2022 Time: 02:07 Bed 7 Private MD: Diagnosis: Essential (primary) hypertension;Hypertensive heart disease without heart failure;UTI/ Urinary tract infection, site not specified Presentation: 11/07 02:27 Chief complaint: Patient states: I was recently released after being hospitalized for jb4 new onset A-Fib. Tonight my blood pressure is high and I usually run low. It was close to the 200's on the top number before I came. Coronavirus screen: At this time, the client does not indicate any symptoms associated with coronavirus-19. Ebola Screen: No symptoms or risks identified at this time. Initial Sepsis Screen: Does the patient meet any 2 criteria? No. Patient's initial sepsis screen is negative. Does the patient have a suspected source of infection? No. Patient's initial sepsis screen is negative. Risk Assessment: Do you want to hurt yourself or someone else? Patient reports no desire to harm self or others. Onset of symptoms was November 07, 2022. Transition of care: patient was not received from another setting of care. 02:27 Method Of Arrival: Wheelchair jb4 02:27 Acuity: [place] 3 jb4 Historical: - Allergies: 02:33 No Known Allergies; jb4 - Home Meds: 02:33 aspirin 81 mg Oral capsule 1 cap nightly [Active]; bupropion HCl 150 mg Oral tablet, jb4 sustained-release 12 hr 1 tab 2 times per day [Active]; atorvastatin 40 mg Oral tablet 1 tab daily [Active]; donepezil 10 mg Oral tablet 1 tab twice a day for Moderate to Severe Alzheimer's Type Dementia [Active]; ezetimibe 10mg Oral 1 tab [Active]; diazepam 10 mg Oral tablet 1 tab every day at bedtime [Active]; gabapentin 300 mg Oral capsule 1 cap 3 times per day [Active]; Co Q-10 100 mg Oral capsule 1 cap nightly [Active]; furosemide 20 mg Oral tablet daily [Active]; fluoxetine 40 mg Oral cap 1 cap once daily [Active]; Glucosamine-Chondroitin Complx 750-625-30 mg Oral tablet daily [Active]; losartan 25 mg Oral tab 1 tab once daily for Hypertension [Active]; [place] 3-6-9 1,200 mg Oral capsule 3600 mg twice a day [Active]; morphine pump [Active]; metoprolol tartrate 50 mg Oral tablet 50 mg daily [Active]; Slow-Mag 71.5 mg Oral tablet, delayed release (enteric coated) 2 tabs every day at bedtime [Active]; memantine 10 mg Oral tablet 1 tab 2 times per day [Active]; Vitamin D vitamin d3 Oral 2000 unit daily [Active]; Vitamin C 1,000 mg Oral tablet daily [Active]; zinc sulfate 50 mg zinc (220 mg) Oral capsule 1 cap daily [Active]; - PMHx: 02:33 Back pain; Hypertension; Chronic pain; jb4 - PSHx: 02:33 Spinal Fusion; jb4 - Immunization history:: Adult Immunizations up to date. - Social history:: Smoking status: Patient denies any tobacco usage or history of. Patient uses alcohol, street drugs, marijuana. Screenin:39 [facility] ED Fall Risk Assessment (Adult) History of falling in the last 3 months, jb4 including since admission No falls in past 3 months (0 pts) Confusion or Disorientation No (0 pts) Score/Fall Risk Level 0 - 2 = Low Risk Oriented to surroundings. Abuse screen: Denies threats or abuse. Nutritional screening: No deficits noted. Tuberculosis screening: No symptoms or risk factors identified. Assessment: 02:38 General: Appears in no apparent distress. comfortable, Behavior is calm, cooperative, jb4 appropriate for age. Pain: Complains of pain in back Pain does not radiate. Pain currently is 9 out of 10 on a pain scale. Neuro: Level of Consciousness is awake, alert, obeys commands, Oriented to person, place, time, situation. Cardiovascular: Patient's skin is warm and dry. Respiratory: Airway is patent Respiratory effort is even, unlabored, Respiratory pattern is regular, symmetrical. GI: No signs and/or symptoms were reported involving the gastrointestinal system. : No signs and/or symptoms were reported regarding the genitourinary system. EENT: No signs and/or symptoms were reported regarding the EENT system. Derm: Skin is intact, Skin is pink, warm \T\ dry. Musculoskeletal: Circulation, motion, and sensation intact. Range of motion: intact in all extremities. 03:30 Reassessment: Patient appears in no apparent distress at this time. Patient and/or jb4 family updated on plan of care and expected duration. Pain level reassessed. Patient is alert, oriented x 3, equal unlabored respirations, skin warm/dry/pink. 04:46 Reassessment: Patient appears in no apparent distress at this time. Patient and/or jb4 family updated on plan of care and expected duration. Pain level reassessed. Patient is alert, oriented x 3, equal unlabored respirations, skin warm/dry/pink. 05:19 Reassessment: Patient appears in no apparent distress at this time. Patient and/or jb4 family updated on plan of care and expected duration. Pain level reassessed. Patient is alert, oriented x 3, equal unlabored respirations, skin warm/dry/pink. 06:36 Reassessment: Patient appears in no apparent distress at this time. Patient and/or jb4 family updated on plan of care and expected duration. Pain level reassessed. Patient is alert, oriented x 3, equal unlabored respirations, skin warm/dry/pink. Vital Signs: 02:27 BP 161 / 89; Pulse 59; Resp 20; Temp 99; Pulse Ox 100% on R/A; Weight 58.97 kg; Height jb4 5 ft. 11 in. (R); 03:18 BP 150 / 82; Pulse 66; Resp 16; Pulse Ox 97% on R/A; jb4 04:46 BP 190 / 95; Pulse 67; Resp 16; Pulse Ox 99% on R/A; jb4 05:19 BP 159 / 92; Pulse 56; Resp 14; Pulse Ox 99% on R/A; jb4 02:27 Body Mass Index 18.13 (58.97 kg, 180.34 cm) jb4 ED Course: 02:11 Patient arrived in ED. ag3 02:12 Jonny Hinton, NAOMI is Primary Nurse. jb4 02:13 Orion Mayo MD is Attending Physician. kdr 02:33 Triage completed. jb4 02:33 Arm band placed on right wrist. EKG completed in triage. Results shown to MD. jb4 02:39 XRAY Chest (1 view) In Process Unspecified. EDMS 02:39 Patient has correct armband on for positive identification. Bed in low position. Call jb4 light in reach. Side rails up X 1. Client placed on continuous cardiac and pulse oximetry monitoring. NIBP monitoring applied. ekg monitor on. 06:36 No provider procedures requiring assistance completed. IV discontinued, intact, jb4 bleeding controlled, No redness/swelling at site. Pressure dressing applied. Administered Medications: 03:18 Not Given (Other Intervention Used): cloNIDine PO 0.2 mg PO once jb4 03:18 Drug: cloNIDine PO 0.1 mg Route: PO; jb4 04:06 Drug: Potassium PO Effervescent Tablet 50 mEq Route: PO; jb4 04:46 Drug: cloNIDine PO 0.2 mg Route: PO; jb4 06:36 Drug: Trimethoprim-Sulfamethoxazole PO (160 mg-800 mg (DS) 1 tablet Route: PO; jb4 Outcome: 05:38 Discharge ordered by . kdr 06:36 Discharged to home via wheelchair, with friend. jb4 06:36 Condition: stable 06:36 Discharge instructions given to patient, Instructed on discharge instructions, follow up and referral plans. medication usage, Demonstrated understanding of instructions, follow-up care, medications, Prescriptions given X 2. 06:37 Patient left the ED. jb4 Signatures: Dispatcher [employer] EDMS Orion Mayo MD MD kdr Jonny Hinton, RN RN jb4 Jaqueline Pandey ag3 Corrections: (The following items were deleted from the chart) 03:26 03:18 BP 150 / 82; Pulse 66bpm; Resp 16bpm; Pulse Ox 98% RA; jb4 jb4
--- NOTE | 2022-11-07 05:39 | EDPHYS ---
Physician Documentation [facility] Name: Clovis Moore Age: 72 yrs Sex: Male : 1950 Arrival Date: 11/07/2022 Time: 02:07 Bed 7 Private MD: ED Physician Orion Mayo HPI: 11/07 03:03 This 72 yrs old Male presents to ER via Wheelchair with complaints of High Blood kdr Pressure. 03:03 Patient states he was discharged from this hospital yesterday. Today he was noticing kdr that his blood pressure was up. He can tell because he is lightheaded and has diffuse chest discomfort. Patient presents with a wrist blood pressure monitor has recorded blood pressures as high as 180s over 100s. Patient denies chest pain or discomfort or any other overt endorgan damage signs and symptoms. Patient appears stable and nonacute in the ED. His blood pressures are better here than those recorded at home. Onset: The symptoms/episode began/occurred today. Severity of symptoms: At their worst the symptoms were moderate in the emergency department the symptoms have improved mildly. The patient has experienced similar episodes in the past, a few times. The patient has not recently seen a physician. Historical: - Allergies: 02:33 No Known Allergies; jb4 - Home Meds: 02:33 aspirin 81 mg Oral capsule 1 cap nightly [Active]; bupropion HCl 150 mg Oral tablet, jb4 sustained-release 12 hr 1 tab 2 times per day [Active]; atorvastatin 40 mg Oral tablet 1 tab daily [Active]; donepezil 10 mg Oral tablet 1 tab twice a day for Moderate to Severe Alzheimer's Type Dementia [Active]; ezetimibe 10mg Oral 1 tab [Active]; diazepam 10 mg Oral tablet 1 tab every day at bedtime [Active]; gabapentin 300 mg Oral capsule 1 cap 3 times per day [Active]; Co Q-10 100 mg Oral capsule 1 cap nightly [Active]; furosemide 20 mg Oral tablet daily [Active]; fluoxetine 40 mg Oral cap 1 cap once daily [Active]; Glucosamine-Chondroitin Complx 750-625-30 mg Oral tablet daily [Active]; losartan 25 mg Oral tab 1 tab once daily for Hypertension [Active]; [place] 3-6-9 1,200 mg Oral capsule 3600 mg twice a day [Active]; morphine pump [Active]; metoprolol tartrate 50 mg Oral tablet 50 mg daily [Active]; Slow-Mag 71.5 mg Oral tablet, delayed release (enteric coated) 2 tabs every day at bedtime [Active]; memantine 10 mg Oral tablet 1 tab 2 times per day [Active]; Vitamin D vitamin d3 Oral 2000 unit daily [Active]; Vitamin C 1,000 mg Oral tablet daily [Active]; zinc sulfate 50 mg zinc (220 mg) Oral capsule 1 cap daily [Active]; - PMHx: 02:33 Back pain; Hypertension; Chronic pain; jb4 - PSHx: 02:33 Spinal Fusion; jb4 - Immunization history:: Adult Immunizations up to date. - Social history:: Smoking status: Patient denies any tobacco usage or history of. Patient uses alcohol, street drugs, marijuana. ROS: 03:03 Constitutional: Negative for fever, chills, and weight loss, Eyes: Negative for injury, kdr pain, redness, and discharge, Neck: Negative for injury, pain, and swelling, Cardiovascular: Negative for chest pain, palpitations, and edema, Respiratory: Negative for shortness of breath, cough, wheezing, and pleuritic chest pain, Abdomen/GI: Negative for abdominal pain, nausea, vomiting, diarrhea, and constipation, Back: Negative for injury and pain, : Negative for injury, bleeding, discharge, and swelling, MS/Extremity: Negative for injury and deformity, Skin: Negative for injury, rash, and discoloration, Neuro: Negative for headache, weakness, numbness, tingling, and seizure activity. Psych: Negative for depression, anxiety, suicide ideation, homicidal ideation, and hallucinations, Allergy/Immunology: Negative for hives, rash, and allergies, Endocrine: Negative for neck swelling, polydipsia, polyuria, polyphagia, and marked weight changes, Hematologic/Lymphatic: Negative for swollen nodes, abnormal bleeding, and unusual bruising. Exam: 02:44 ECG was reviewed by the Attending Physician. kdr 06:27 Constitutional: This is a well developed, well nourished patient kdr Vital Signs: 02:27 BP 161 / 89; Pulse 59; Resp 20; Temp 99; Pulse Ox 100% on R/A; Weight 58.97 kg; Height jb4 5 ft. 11 in. (R); 03:18 BP 150 / 82; Pulse 66; Resp 16; Pulse Ox 97% on R/A; jb4 04:46 BP 190 / 95; Pulse 67; Resp 16; Pulse Ox 99% on R/A; jb4 05:19 BP 159 / 92; Pulse 56; Resp 14; Pulse Ox 99% on R/A; jb4 02:27 Body Mass Index 18.13 (58.97 kg, 180.34 cm) jb4 MDM: 05:38 Patient medically screened. kdr 06:27 Data reviewed: vital signs, nurses notes. kdr 11/07 02:16 Order name: Basic Metabolic Panel; Complete Time: 03:47 kdr 11/07 02:16 Order name: CBC with Diff; Complete Time: 03:47 kdr 11/07 02:16 Order name: NT PRO-BNP; Complete Time: 03:47 kdr 11/07 02:16 Order name: Troponin HS; Complete Time: 03:47 kdr 11/07 05:44 Order name: Urinalysis w/ reflexes; Complete Time: 06:27 kdr 11/07 06:24 Order name: Urine Culture EDGA 11/07 02:16 Order name: XRAY Chest (1 view) kdr 11/07 02:16 Order name: EKG; Complete Time: 02:17 kdr 11/07 02:16 Order name: Cardiac monitoring; Complete Time: 02:41 kdr 11/07 02:16 Order name: EKG - Nurse/Tech; Complete Time: 02:41 kdr 11/07 02:16 Order name: IV Saline Lock; Complete Time: 03:13 kdr 11/07 02:16 Order name: Labs collected and sent; Complete Time: 03:13 kdr 11/07 02:16 Order name: O2 Per Protocol; Complete Time: 02:40 kdr 11/07 02:16 Order name: O2 Sat Monitoring; Complete Time: 02:40 kdr EC:44 Rate is 58 beats/min. Rhythm is regular, Sinus bradycardia with No ectopy. QRS [place] is kdr Normal. [place] interval is normal. QRS interval is normal. Clinical impression: NSR w/ Non-specific ST/T Changes and Sinus bradycardia. Administered Medications: 03:18 Not Given (Other Intervention Used): cloNIDine PO 0.2 mg PO once jb4 03:18 Drug: cloNIDine PO 0.1 mg Route: PO; jb4 04:06 Drug: Potassium PO Effervescent Tablet 50 mEq Route: PO; jb4 04:46 Drug: cloNIDine PO 0.2 mg Route: PO; jb4 06:36 Drug: Trimethoprim-Sulfamethoxazole PO (160 mg-800 mg (DS) 1 tablet Route: PO; jb4 Disposition Summary: 11/07/22 05:38 Discharge Ordered Location: Home kdr Problem: an acute exacerbation kdr Symptoms: have improved kdr Condition: Stable kdr Diagnosis - Essential (primary) hypertension kdr - Hypertensive heart disease without heart failure kdr - UTI/ Urinary tract infection, site not specified kdr Followup: kdr - With: Private Physician - When: 2 - 3 days - Reason: If symptoms return, Further diagnostic work-up, Recheck today's complaints, Continuance of care, Re-evaluation by your physician Discharge Instructions: - Discharge Summary Sheet kdr - Urinary Tract Infection, Adult, [id number] kdr - Hypertension, Adult, [id number] kdr Forms: - Medication Reconciliation Form kdr - Thank You Letter kdr Prescriptions: - clonidine HCl 0.2 mg Oral tablet - take 1 tablet by ORAL route once daily .; 5 tablet; Refills: 0, Product kdr Selection Permitted - Bactrim DS 800-160 mg Oral Tablet - take 1 tablet by ORAL route every 12 hours for 7 days; 14 tablet; Refills: 0, kdr Product Selection Permitted Signatures: Dispatcher [employer] Olena Lynch, RN Orion Reese MD MD kdr Bryson, James, RN RN jb4
[2022-11-07 06:14] LABS: Urine Bacteria None Seen /HPF (<20); Urine Mucus Slight /HPF (None Seen); Urine RBC >50 /HPF (None Seen)
[2022-11-07 06:21] LABS: Specific Gravity 1.018 (1.005-1.030); Urine Bilirubin NEGATIVE (Negative); Urine Blood 3+ (OVER) (Negative); Urine Clarity Turbid (Clear); Urine Color Light-Orange (Yellow); Urine Glucose NEGATIVE (Negative); Urine Protein 1+ (Negative); Urine Urobilinogen Normal (Normal); Urine pH 5.5 (5.0-7.0)
[2022-11-07] MEDS ORDERED: SMZ./TMP. 800/160 MG TABLET ONE (06:36)
[2022-11-07 06:43] VITALS: TEMP 99
[2022-11-07 06:46] VITALS: O2SAT 99
[2022-11-07 06:47] VITALS: BP 159/92
--- NOTE | 2022-11-07 07:49 | EKG ---
Test Date: 2022-11-07 Test Time: 02:29:18 Orthopaedic Technologist: MAHAMED MEASUREMENT RESULTS: Intervals: Rate: 58 IN: 190 QRSD: 86 QT: 410 QTc: 402 [place]: P: 63 IN: 190 QRS: -74 T: 66 INTERPRETIVE STATEMENTS: Sinus bradycardia Left anterior fascicular block Abnormal ECG Compared to ECG 10/31/2022 12:37:50 Left anterior fascicular block now present Supraventricular tachycardia no longer present Left-axis deviation no longer present Myocardial infarct finding no longer present ST (T wave) deviation no longer present Electronically Signed On 11-07-22 07:49:33 CDT by Kevin Benjamin
--- NOTE | 2022-11-07 12:25 | RAD REPORT ---
EXAM DESCRIPTION: RAD - Chest Single View - 11/07/2022 2:37 am CLINICAL HISTORY: Hypertension TECHNIQUE: Frontal view of the chest. COMPARISON: No relevant prior studies available. FINDINGS: Lungs: Hyperinflation and coarsened interstitial markings. No focal consolidation. Pleural space: Unremarkable. No pneumothorax. Heart: Unremarkable. No cardiomegaly. Mediastinum: Unremarkable. Bones/joints: Multilevel spondylosis. No acute fracture. Vasculature: Thoracic aortic atherosclerosis. IMPRESSION: No acute disease. Electronically signed by: Nadir Escoto MD 11/07/2022 3:56 AM CDT Due to temporary technical issues with the PACS/Fluency reporting system, reports are being signed by the in house radiologists without review as a courtesy to insure prompt reporting. The interpreting radiologist is fully responsible for the content of the report.
== END 2022-11-07 06:37 | disposition home or self-care (01) ==
LOC: ER 02:07
DX: I10 Essential (primary) hypertension (principal); I11.9 Hypertensive heart disease without heart failure; N39.0 Urinary tract infection, site not specified; Z79.82 Long term (current) use of aspirin
CPT/HCPCS: 36415; 71045; 80048; 81003; 83880; 84484; 85025; 87086; 87088; 93005; 99284

== ENCOUNTER 2023-01-10 18:01 | Emergency (ER) | payer OTHER ==
--- OUTSIDE RECORDS SUMMARY | 2023-01-10 18:14 | XMS REPORT | Continuity of Care Document ---
:1950 Author Organization [facility] t Address [address] [place] [address] [place] [id number] Care Team Providers Name Role Phone SWETHA PEDRAZA Primary Care Physician Unavailable Swetha Pedraza Attending Clinician Unavailable Jefferson Teresa Attending Clinician Unavailable Kristie Ochoa Attending Clinician Unavailable ELLIOTT LEMUS Attending Clinician Unavailable Guido Hope Attending Clinician Unavailable MELISA LINTON Attending Clinician Unavailable Melisa Linton DO Attending Clinician Elliott Lemus MD Attending Clinician Pob, [facility] Lab Main Attending Clinician Unavailable Only, Adc Test Attending Clinician Unavailable Doctor Unassigned, Long Attending Clinician Unavailable ELLIOTT LEMUS Admitting Clinician Unavailable Physician, No Primary or Family Admitting Clinician UnavailElliott Reese MD Admitting Clinician Payers Payer Name Policy Type Policy Number Effective Date Expiration Date Ernesto aguilar [employer] [id number] 2020spring 00:00:00 AARP MCR [id number] 2021 [facility] ADVANTAGE 00:00:00 - [facility] Cigna-HealthSpr C1 [id number] [facility] buzz ing Medicare - [facility] [id number] [facility] buzz ing Medicare [facility] [id number] [facility] Sp buzz ing Medicare - [facility] [id number] [facility] buzz ing Medicare - CHI [...] different from the original. 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 [id number] Hyperlipid Problem Com mon emia, [facility] unspecifie - [facility] Imaging Abnormal Problem Common result findings Spirit abnormal on [facility] diagnostic [facility] other Medical specified Center body structures Chronic Chronic Problem Common pain pain [facility] Neck pain Neck pain Problem Com mon [facility] Electrocar Abnormal Problem Com mon diogram EKG [facility] abnormal [place] [id number] Scoliosis Problem Com mon of [facility] thoracic - [facility] Center type [id number] Insomnia, Problem Com mon unspecifie [facility] d type - [facility] [id number] Numbness Problem Comm on in both Spirit legs [facility] [id number] Osteopenia Problem Co mmon , Spirit unspecifie - CHI d location [facility] [id number] Low back Problem Comm on pain [facility] [id number] Lumbar Problem Common radiculopa Spirit thy [place] Counseling Tobacco Problem Comm on about abuse Spirit tobacco counseling - [facility] use [facility] Memory Memory Problem Common loss loss [facility] [id number] Loss of Problem Common appetite [facility] [id number] Nausea Problem Common [facility] [id number] Elevated Problem Comm on blood [facility] pressure - [facility] reading [facility] diagnosis Medical of Center hypertensi on [id number] Opioid Problem Common withdrawal Spirit [place] Abnormal Abnormal Problem Commo n liver liver Spirit function function - [facility] Erectile Erectile Problem Commo n dysfunctio dysfunctio Sp buzz n n - [facility] Mixed Depression Problem Commo n anxiety with Spirit and anxiety - CHI depressive [facility] Chronic Chronic Problem Common back pain back pain Spir it - [facility] 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 artery of [place] heart with unstable angina pectoris [id number] Hyperchole Problem Com mon sterolemia [facility] [id number] Elevated Problem Comm on brain Spirit natriureti - [facility] c peptide St (BNP) [facility] [id number] Dementia Problem Commo n without Spirit behavioral - [facility] disturbanc [facility] unspecifie Medica l d dementia Center type [id number] Depression Problem Com mon , Spirit unspecifie - CHI d [facility] [id number] Abnormal Problem Comm on MRI, Spirit cervical - CHI spine [facility] [id number] Mass of Problem Commo n parotid Spirit gland - [facility] [id number] Abnormal Problem Comm on ultrasound [facility] [id number] Mass of Problem Commo n head Spirit - [facility] [id number] Difficulty Problem Co mmon sleeping Spirit [place] [id number] Depression Problem Co mmon screening [facility] [id number] Benzodiaze Problem Co mmon pine Spirit dependence - CHI , [facility] [id number] Odynophagi Problem Com mon a Spirit - [facility] [id number] Lower Problem Common urinary Spirit tract - CHI symptoms St (LUTS) [facility] [id number] Acute Problem Common nonintract Spirit able - CHI headache, St unspecifie [facility] d headache Medica l type Center [id number] Muscle Problem Common cramps Spirit - [facility] [id number] Non-intrac Problem Com mon table Spirit vomiting - CHI with [facility] nausea[facility] d vomiting Center type [id number] Gastritis, Problem Comm on presence Spirit of - CHI bleeding St unspecifie [facility] d, Medical unspecifie Center d chronicity , unspecifie d gastritis type [id number] BPH loc w Problem Com mon urin Spirit obs/LUTS - [facility] [id number] Poor Problem Common compliance Spirit - [facility] Lower Benign Problem Common urinary prostatic Spirit tract hypertroph - CHI symptoms y with St due to [facility] urinary Medical prostatic tract Center hypertroph symptoms y (LUTS) [id number] PAD Problem Common (periphera Spirit l artery - CHI disease) [facility] [id number] Moderate Problem Commo n major Spirit depression - CHI , single episode [facility] Allergies, Adverse Reactions, Alerts Allergy Allergy Status Severity Reaction(s) Onset Inactive Treating Comm ents Source Name Type Date Date Clinician No Known DA Active U [facility] Allergie 6-14 Clear s 00:00: Kate 00 [facility] Acetamin Acetamin Active abdominal Com mon ophen ophen pain, Spirit nausesa, and - CH I gagging [facility] NO KNOWN Drug Active Univers ALLERGIE Class ity of S [facility] Social History Social Habit Start Date Stop Date Quantity Comments Source History of Current Smoker [facility]pi rit - Tobacco Use [facility] Sex Assigned At Common Sp buzz - [facility] Exposure to Not sure University of SARS-CoV-2 [facility] [place] Tobacco use and 2021-03-15 2021-03-15 Current user Univers ity of exposure 00:00:00 00:00:00 [facility] Tobacco Comment 2021-03-15 2021-03-15 Vape Universit y of 00:00:00 00:00:00 [facility] Smoking Status Start Date Stop Date Source Unknown if ever smoked Universit y of [facility] Current Smoker 2022-07-23 00:00:00 [facility] t - [facility] Ce nter Former smoker 2021-03-15 00:00:00 2021-03-15 00:00:00 [facility] Medications Ordered Filled Start Stop Current Ordering Indication Dosage Frequency Signature Comments Components Source Medication Medication Date Date Medication? Clinician (SIG) Name Name predniSONE predniSONE 2022- No QD predniSONE 20 MG 20 MG 07-23 20 MG 00:00: 00:00 00 :00 predniSONE predniSONE 2022- No QD predniSONE 20 MG 20 MG 07-23 20 MG 00:00: 00:00 00 :00 Valium 10 Valium 10 2021-07 No Valium 10 MG MG 2-19 MG 00:00: 00 Valium 10 Valium 10 2021-07 No Valium 10 MG MG 2-19 MG [...] 10 0 No Valium 10 MG MG 7-06 MG 00:00: 00 Valium 10 Valium 10 0 No Valium 10 MG MG 7-06 MG 00:00: 00 Albuterol Albuterol No 1{puff_ 6xD Albuterol Sulfate [...] MCG/ACT MCG/ACT MCG/ACT Valium 10 Valium 10 0 No Valium 10 MG MG 3-23 MG 00:00: 00 Valium 10 Valium 10 0 No Valium 10 MG MG 3-23 MG [...] MG 00:00: 00 Valium 10 Valium 10 2020-07 No Valium 10 MG MG 2-09 MG 00:00: 00 Valium 10 Valium 10 2020-07 No Valium 10 MG MG 2-09 MG 00:00: 00 Alfuzosin Alfuzosin 2020-07- No 1{table QD Alfuzosin [...] 00 :00 after_t he_same _meal} Alfuzosin Alfuzosin 2- No 1{table QD Alfuzosin HCl ER 10 HCl ER 10 03-2215 t_immed HCl ER 10 MG MG 00:00: 00:00 iately_ MG 00 :00 after_t he_same _meal} Alfuzosin Alfuzosin 2020-2021- No 1{table QD Alfuzosin HCl ER 10 HCl ER 10 03-2215 t_immed HCl ER 10 MG MG 00:00: 00:00 iately_ MG 00 :00 after_t he_same _meal} Alfuzosin Alfuzosin 202-0 2022- No 1{table QD Alfuzosin HCl ER 10 HCl ER 10 03-22 t_immed HCl ER 10 MG MG 00:00: 00:00 iately_ MG 00 :00 after_t he_same _meal} Alfuzosin Alfuzosin 2020-0 2022- No 1{table QD Alfuzosin HCl ER 10 [...] 00 :00 after_t he_same _meal} Alfuzosin Alfuzosin 2020-0 2- No 1{table QD Alfuzosin HCl ER 10 HCl ER 10 03-22 t_immed HCl ER 10 MG MG 00:00: 00:00 iately_ MG 00 :00 after_t he_same _meal} Alfuzosin Alfuzosin 2020-0 2- No 1{table QD Alfuzosin HCl ER 10 [...] 1000mL at 42 Unive rs ringers IV 9- 09-13 mL/hr, ity of infusion 12:15: 12:20 1,000 mL, [place] as 1,000 mL 00 :00 IV Medical Infusion, Branch ONCE, 1 dose, On Fri03/19/21 at 0715, Routine, DSU Pre-op lactated 2020- No 1000mL at 42 Unive rs ringers IV 9- 09-13 mL/hr, ity of infusion 12:15: 12:20 1,000 mL, [place] as 1,000 mL 00 :00 IV Medical Infusion, Branch ONCE, 1 dose, On Fri03/19/21 at 0715, Routine, DSU Pre-op lactated 2020- No 1000mL at 42 Unive rs ringers IV 03-19-13 mL/hr, ity of infusion 12:15: 12:20 1,000 mL, [place] as 1,000 mL 00 :00 IV Medical Infusion, Branch ONCE, 1 dose, On Fri03/19/21 at 07, Routine, DSU Pre-op lactated 2020- No 1000mL at 42 Unive rs ringers IV 03-19-13 mL/hr, ity of infusion 12:15: 12:20 1,000 mL, [place] as 1,000 mL 00 :00 IV Medical Infusion, Branch ONCE, 1 dose, On Fri03/19/21 at 07, Routine, DSU Pre-op buPROPion Yes 150mg Take 150 Uni vers SR 9-13 mg by ity of (WELLBUTRIN 08:59: mouth 2 [place] as SR) 150 mg 48 (two) Medical SR tablet times Branch daily. gabapentin Yes 300mg Take 300 [place] 300 mg 9-13 mg by ity of capsule 08:59: mouth 3 [place] [address] (three) Medical times Branch daily. pantoprazol Yes 40mg Take 40 mg Univers e 20 mg EC 9-13 by mouth ity o f tablet 08:59: daily. [place] [address] Medical Branch memantine Yes 10mg Take 10 mg [place] 10 mg 9-13 by mouth ity of tablet 08:59: daily. [place] [address] Medical Branch DOXAZOSIN 1 0 Yes 1mg Take 1 mg U nivers mg tablet 9-13 by mouth ity of 08:59: daily. PRN [place] [address] Medical Branch donepezil 0 Yes 10mg Take 10 mg [place] 10 mg 9-13 by mouth ity of tablet 08:59: at [place] [address] bedtime. Medical Branch FLUoxetine 2020-0 Yes 40mg Take 40 mg U nivers 40 mg 9-13 by mouth ity of capsule 08:59: daily. [place] [address] Medical Branch ondansetron 0 Yes 4mg Take 4 mg U nivers (ZOFRAN) 4 9-13 by mouth ity o f mg tablet 08:59: every 8 [place] [address] (eight) Medical hours as Branch needed. ezetimibe 0 Yes 10mg Take 10 mg [place] 10 mg 9-13 by mouth ity of tablet 08:59: daily. [address] losartan 25 0 Yes 25mg Take 25 mg Univers mg tablet 9-13 by mouth ity of 08:59: daily. [address] Branch buPROPion 0 Yes 150mg Take 150 Uni vers SR 9-13 mg by ity of (WELLBUTRIN 08:59: mouth 2 [place] as SR) 150 mg 48 (two) Medical SR tablet times Branch daily. gabapentin 0 Yes 300mg Take 300 [place] 300 mg 9-13 mg by ity of capsule 08:59: mouth 3 [place] [address] (three) Medical times Branch daily. pantoprazol 0 Yes 40mg Take 40 mg Univers e 20 mg EC 9-13 by mouth ity o f tablet 08:59: daily. [address] Branch memantine 0 Yes 10mg Take 10 mg [place] 10 mg 9-13 by mouth ity of tablet 08:59: daily. [address] Branch DOXAZOSIN 1 0 Yes 1mg Take 1 mg U nivers mg tablet 9-13 by mouth ity of 08:59: daily. PRN [place] [address] Medical Branch donepezil 0 Yes 10mg Take 10 mg [place] 10 mg 9-13 by mouth ity of tablet 08:59: at [place] [address] bedtime. Medical Branch FLUoxetine 0 Yes 40mg Take 40 mg U nivers 40 mg 9-13 by mouth ity of capsule 08:59: daily. [place] [address] Medical Branch ondansetron 0 Yes 4mg Take 4 mg U nivers (ZOFRAN) 4 9-13 by mouth ity o f mg tablet 08:59: every 8 [place] [address] (eight) Medical hours as Branch needed. ezetimibe 0 Yes 10mg Take 10 mg [place] 10 mg 9-13 by mouth ity of tablet 08:59: daily. [place] [address] Medical Branch losartan 25 2020-0 Yes 25mg Take 25 mg Univers mg tablet 9-13 by mouth ity of 08:59: daily. [address] Branch buPROPion 2020-0 Yes 150mg Take 150 Uni vers SR 9-13 mg by ity of (WELLBUTRIN 08:59: mouth 2 [place] as SR) 150 mg 48 (two) Medical SR tablet times Branch daily. gabapentin 0 Yes 300mg Take 300 [place] 300 mg 9-13 mg by ity of capsule 08:59: mouth 3 [place] [address] (three) Medical times Branch daily. pantoprazol 0 Yes 40mg Take 40 mg Univers e 20 mg EC 9-13 by mouth ity o f tablet 08:59: daily. [address] Branch memantine 0 Yes 10mg Take 10 mg [place] 10 mg 9-13 by mouth ity of tablet 08:59: daily. [address] Branch DOXAZOSIN 1 0 Yes 1mg Take 1 mg U nivers mg tablet 9-13 by mouth ity of 08:59: daily. PRN [place] [address] Medical Branch donepezil 0 Yes 10mg Take 10 mg [place] 10 mg 9-13 by mouth ity of tablet 08:59: at [place] [address] bedtime. Medical Branch FLUoxetine 0 Yes 40mg Take 40 mg U nivers 40 mg 9-13 by mouth ity of capsule 08:59: daily. [place] [address] Medical Branch ondansetron 0 Yes 4mg Take 4 mg U nivers (ZOFRAN) 4 9-13 by mouth ity o f mg tablet 08:59: every 8 [place] [address] (eight) Medical hours as Branch needed. ezetimibe 2020-0 Yes 10mg Take 10 mg [place] 10 mg 9-13 by mouth ity of tablet 08:59: daily. [address] Branch losartan 25 0 Yes 25mg Take 25 mg Univers mg tablet 9-13 by mouth ity of 08:59: daily. [address] Branch buPROPion 0 Yes 150mg Take 150 Uni vers SR 9-13 mg by ity of (WELLBUTRIN 08:59: mouth 2 [place] as SR) 150 mg 48 (two) Medical SR tablet times Branch daily. gabapentin 0 Yes 300mg Take 300 [place] 300 mg 9-13 mg by ity of capsule 08:59: mouth 3 [place] [address] (three) Medical times Branch daily. pantoprazol 0 Yes 40mg Take 40 mg Univers e 20 mg EC 9-13 by mouth ity o f tablet 08:59: daily. [address] Branch memantine 0 Yes 10mg Take 10 mg [place] 10 mg 9-13 by mouth ity of tablet 08:59: daily. [address] Branch DOXAZOSIN 1 0 Yes 1mg Take 1 mg U nivers mg tablet 9-13 by mouth ity of 08:59: daily. PRN [address] Branch donepezil 0 Yes 10mg Take 10 mg [place] 10 mg 9-13 by mouth ity of tablet 08:59: at [place] [address] bedtime. Medical Branch FLUoxetine 0 Yes 40mg Take 40 mg U nivers 40 mg 9-13 by mouth ity of capsule 08:59: daily. [address] Branch ondansetron 0 Yes 4mg Take 4 mg U nivers (ZOFRAN) 4 9-13 by mouth ity o f mg tablet 08:59: every 8 [place] [address] (eight) Medical hours as Branch needed. ezetimibe 0 Yes 10mg Take 10 mg [place] 10 mg 9-13 by mouth ity of tablet 08:59: daily. [address] Branch losartan 25 0 Yes 25mg Take 25 mg Univers mg tablet 9-13 by mouth ity of 08:59: daily. [address] Branch buPROPion 0 Yes 150mg Take 150 Uni vers SR 9-13 mg by ity of (WELLBUTRIN 08:59: mouth 2 [place] as SR) 150 mg 48 (two) Medical SR tablet times Branch daily. gabapentin 2020-0 Yes 300mg Take 300 [place] 300 mg 9-13 mg by ity of capsule 08:59: mouth 3 [place] [address] (three) Medical times Branch daily. pantoprazol 0 Yes 40mg Take 40 mg Univers e 20 mg EC 9-13 by mouth ity o f tablet 08:59: daily. [place] [address] Medical Branch memantine 2020-0 Yes 10mg Take 10 mg [place] 10 mg 9-13 by mouth ity of tablet 08:59: daily. [place] [address] Medical Branch DOXAZOSIN 1 0 Yes 1mg Take 1 mg U nivers mg tablet 9-13 by mouth ity of 08:59: daily. PRN [place] [address] Medical Branch donepezil 0 Yes 10mg Take 10 mg [place] 10 mg 9-13 by mouth ity of tablet 08:59: at [place] [address] bedtime. Medical Branch FLUoxetine 0 Yes 40mg Take 40 mg U nivers 40 mg 9-13 by mouth ity of capsule 08:59: daily. [place] [address] Medical Branch ondansetron 0 Yes 4mg Take 4 mg U nivers (ZOFRAN) 4 9-13 by mouth ity o f mg tablet 08:59: every 8 [place] [address] (eight) Medical hours as Branch needed. ezetimibe 0 Yes 10mg Take 10 mg [place] 10 mg 9-13 by mouth ity of tablet 08:59: daily. [address] Branch losartan 25 2020-0 Yes 25mg Take 25 mg Univers mg tablet 9-13 by mouth ity of 08:59: daily. [address] Branch ondansetron 0 Yes 4mg Take 4 mg U nivers (ZOFRAN) 4 9-09 by mouth ity o f mg tablet 19:16: every 8 [place] [address] (eight) Medical hours as Branch needed. losartan 25 2020-0 Yes 25mg Take 25 mg Univers mg tablet 9-09 by mouth ity of 19:16: daily. [address] ondansetron 2020-0 Yes 4mg Take 4 mg U nivers (ZOFRAN) 4 9-09 by mouth ity o f mg tablet 19:16: every 8 [place] 40 (eight) Medical hours as Branch needed. losartan 25 2020-0 Yes 25mg Take 25 mg Univers mg tablet 9-09 by mouth ity of 19:16: daily. [address] ondansetron 0 Yes 4mg Take 4 mg U nivers (ZOFRAN) 4 9-09 by mouth ity o f mg tablet 19:16: every 8 [place] 40 (eight) Medical hours as Branch needed. losartan 25 2020-0 Yes 25mg Take 25 mg Univers mg tablet 9-09 by mouth ity of 19:16: daily. [address] ondansetron 0 Yes 4mg Take 4 mg U nivers (ZOFRAN) 4 9-09 by mouth ity o f mg tablet 19:16: every 8 [place] 40 (eight) Medical hours as Branch needed. losartan 25 2020-0 Yes 25mg Take 25 mg Univers mg tablet 9-09 by mouth ity of 19:16: daily. [address] ondansetron 0 Yes 4mg Take 4 mg U nivers (ZOFRAN) 4 9-09 by mouth ity o f mg tablet 19:16: every 8 [place] 40 (eight) Medical hours as Branch needed. losartan 25 0 Yes 25mg Take 25 mg Univers mg tablet 9-09 by mouth ity of 19:16: daily. [address] ondansetron 0 Yes 4mg Take 4 mg U nivers (ZOFRAN) 4 9-09 by mouth ity o f mg tablet 19:16: every 8 [place] 40 (eight) Medical hours as Branch needed. losartan 25 0 Yes 25mg Take 25 mg Univers mg tablet 9-09 by mouth ity of 19:16: daily. [address] DOXAZOSIN 1 0 Yes 1mg Take 1 mg U nivers mg tablet 9-09 by mouth ity of 19:16: daily. PRN [address] FLUoxetine 2020-0 Yes 40mg Take 40 mg U nivers 40 mg 9-09 by mouth ity of capsule 19:16: daily. [address] DOXAZOSIN 1 2020-0 Yes 1mg Take 1 mg U nivers mg tablet 9-09 by mouth ity of 19:16: daily. PRN [address] FLUoxetine 2020-0 Yes 40mg Take 40 mg U nivers 40 mg 9-09 by mouth ity of capsule 19:16: daily. [address] buPROPion 0 Yes 150mg Take 150 Uni vers SR 9-09 mg by ity of (WELLBUTRIN 19:16: mouth 2 [place] SR) 150 mg 39 (two) Medical SR tablet times Branch daily. gabapentin 2020-0 Yes 300mg Take 300 [place] 300 mg 9-09 mg by ity of capsule 19:16: mouth 3 [place] [address] (three) Medical times Branch daily. pantoprazol 0 Yes 40mg Take 40 mg Univers e 20 mg EC 9-09 by mouth ity o f tablet 19:16: daily. [address] memantine 0 Yes 10mg Take 10 mg [place] 10 mg 9-09 by mouth ity of tablet 19:16: daily. [address] DOXAZOSIN 1 0 Yes 1mg Take 1 mg U nivers mg tablet 9-09 by mouth ity of 19:16: daily. PRN [address] FLUoxetine 0 Yes 40mg Take 40 mg U nivers 40 mg 9-09 by mouth ity of capsule 19:16: daily. [address] buPROPion 0 Yes 150mg Take 150 Uni vers SR 9-09 mg by ity of (WELLBUTRIN 19:16: mouth 2 [place] SR) 150 mg 39 (two) Medical SR tablet times Branch daily. buPROPion 0 Yes 150mg Take 150 Uni vers SR 9-09 mg by ity of (WELLBUTRIN 19:16: mouth 2 [place] SR) 150 mg 39 (two) Medical SR tablet times Branch daily. gabapentin 0 Yes 300mg Take 300 [place] 300 mg 9-09 mg by ity of capsule 19:16: mouth 3 [place] [address] (three) Medical times Branch daily. pantoprazol 0 Yes 40mg Take 40 mg Univers e 20 mg EC 9-09 by mouth ity o f tablet 19:16: daily. [address] memantine 2020-0 Yes 10mg Take 10 mg [place] 10 mg 9-09 by mouth ity of tablet 19:16: daily. [address] DOXAZOSIN 1 2020-0 Yes 1mg Take 1 mg U nivers mg tablet 9-09 by mouth ity of 19:16: daily. PRN [address] gabapentin 2020-0 Yes 300mg Take 300 [place] 300 mg 9-09 mg by ity of capsule 19:16: mouth 3 [place] [address] (three) Medical times Branch daily. FLUoxetine 2020-0 Yes 40mg Take 40 mg U nivers 40 mg 9-09 by mouth ity of capsule 19:16: daily. [address] buPROPion 2020-0 Yes 150mg Take 150 Uni vers SR 9-09 mg by ity of (WELLBUTRIN 19:16: mouth 2 [place] as SR) 150 mg 39 (two) Medical SR tablet times Branch daily. gabapentin 2020-0 Yes 300mg Take 300 [place] 300 mg 9-09 mg by ity of capsule 19:16: mouth 3 [place] [address] (three) Medical times Branch daily. pantoprazol 2020-0 Yes 40mg Take 40 mg Univers e 20 mg EC 9-09 by mouth ity o f tablet 19:16: daily. [address] pantoprazol 2020-0 Yes 40mg Take 40 mg Univers e 20 mg EC 9-09 by mouth ity o f tablet 19:16: daily. [address] memantine 2020-0 Yes 10mg Take 10 mg [place] 10 mg 9-09 by mouth ity of tablet 19:16: daily. [address] memantine 2020-0 Yes 10mg Take 10 mg [place] 10 mg 9-09 by mouth ity of tablet 19:16: daily. [address] DOXAZOSIN 1 2020-0 Yes 1mg Take 1 mg U nivers mg tablet 9-09 by mouth ity of 19:16: daily. PRN [address] FLUoxetine 2020-0 Yes 40mg Take 40 mg U nivers 40 mg 9-09 by mouth ity of capsule 19:16: daily. [address] buPROPion 2020-0 Yes 150mg Take 150 Uni vers SR 9-09 mg by ity of (WELLBUTRIN 19:16: mouth 2 [place] as SR) 150 mg 39 (two) Medical SR tablet times Branch daily. gabapentin 2020-0 Yes 300mg Take 300 [place] 300 mg 9-09 mg by ity of capsule 19:16: mouth 3 [place] [address] (three) Medical times Branch daily. pantoprazol 2020-0 Yes 40mg Take 40 mg Univers e 20 mg EC 9-09 by mouth ity o f tablet 19:16: daily. [address] Branch memantine 0 Yes 10mg Take 10 mg [place] 10 mg 9-09 by mouth ity of tablet 19:16: daily. [address] Branch DOXAZOSIN 1 0 Yes 1mg Take 1 mg U nivers mg tablet 9-09 by mouth ity of 19:16: daily. PRN [address] FLUoxetine 0 Yes 40mg Take 40 mg U nivers 40 mg 9-09 by mouth ity of capsule 19:16: daily. [address] Branch buPROPion 0 Yes 150mg Take 150 Uni vers SR 9-09 mg by ity of (WELLBUTRIN 19:16: mouth 2 [place] as SR) 150 mg 39 (two) Medical SR tablet times Branch daily. gabapentin 0 Yes 300mg Take 300 [place] 300 mg 9-09 mg by ity of capsule 19:16: mouth 3 [place] [address] (three) Medical times Branch daily. pantoprazol 0 Yes 40mg Take 40 mg Univers e 20 mg EC 9-09 by mouth ity o f tablet 19:16: daily. [address] Branch memantine 0 Yes 10mg Take 10 mg [place] 10 mg 9-09 by mouth ity of tablet 19:16: daily. [address] Branch donepezil 0 Yes 10mg Take 10 mg [place] 10 mg 9-09 by mouth ity of tablet 19:09: at [place] [address] bedtime. Medical Branch ezetimibe 0 Yes 10mg Take 10 mg [place] 10 mg 9-09 by mouth ity of tablet 19:09: daily. [address] Branch donepezil 2020-0 Yes 10mg Take 10 mg [place] 10 mg 9-09 by mouth ity of tablet 19:09: at [place] [address] bedtime. Medical Branch ezetimibe 2020-0 Yes 10mg Take 10 mg [place] 10 mg 9-09 by mouth ity of tablet 19:09: daily. [address] Branch donepezil 2020-0 Yes 10mg Take 10 mg [place] 10 mg 9-09 by mouth ity of tablet 19:09: at [place] [address] bedtime. Medical Branch ezetimibe 2020-0 Yes 10mg Take 10 mg [place] 10 mg 9-09 by mouth ity of tablet 19:09: daily. 15 [address] donepezil 2020-0 Yes 10mg Take 10 mg [place] 10 mg 9-09 by mouth ity of tablet 19:09: at [place] [address] bedtime. [facility] ezetimibe 2020-0 Yes 10mg Take 10 mg [place] 10 mg 9-09 by mouth ity of tablet 19:09: daily. [address] donepezil 2020-0 Yes 10mg Take 10 mg [place] 10 mg 9-09 by mouth ity of tablet 19:09: at [place] [address] bedtime. [facility] ezetimibe 0 Yes 10mg Take 10 mg [place] 10 mg 9-09 by mouth ity of tablet 19:09: daily. [address] donepezil 0 Yes 10mg Take 10 mg [place] 10 mg 9-09 by mouth ity of tablet 19:09: at [place] [address] bedtime. [facility] ezetimibe 0 Yes 10mg Take 10 mg [place] 10 mg 9-09 by mouth ity of tablet 19:09: daily. [address] diazePAM 2019-07 2020- No 5mg 5 mg, Univers (VALIUM) -21 06-16 Intramuscu ity of injection 5 01:15: 00:15 lar, ONCE, [place] mg 00 :00 1 dose, Medical [facility] 06/20/20 at 1915, STAT FENTanyl PF 2019-07 2020- No 100ug 100 mcg, Univers (SUBLIMAZE 08-22 Intramuscu it y of (PF)) 01:15: 00:15 lar, ONCE, [place] injection 00 :00 1 dose, Medical 100 mcg [facility] 06/20/20 at 1915, Routine amLODIPine 2019-07 2020- No 5mg 5 mg, Unive rs (NORVASC) -16 -16 Oral, ity of tablet 5 mg 01:15: 00:15 [place]CE[place] dose, [facility] 06/20/20 Branch at 191, DANIA amLODIPine 2019-07 Yes [id number] 5mg Take 1 U nivers (NORVASC) 5 2-15 tablet by ity of mg tablet 00:00: mouth [place] 00 daily. Medical Branch amLODIPine 2019-07 Yes [id number] 5mg Take 1 U nivers (NORVASC) 5 2-15 tablet by ity of mg tablet 00:00: mouth [place] 00 daily. Medical Branch amLODIPine 2019-07 Yes [id number] 5mg Take 1 U nivers (NORVASC) 5 2-15 tablet by ity of mg tablet 00:00: mouth [place] 00 daily. Medical Branch amLODIPine 2019-07 Yes [id number] 5mg Take 1 U nivers (NORVASC) 5 2-15 tablet by ity of mg tablet 00:00: mouth [place] 00 daily. Medical Branch amLODIPine 2019-07 Yes [id number] 5mg Take 1 U nivers (NORVASC) 5 2-15 tablet by ity of mg tablet 00:00: mouth [place] 00 daily. Medical Branch amLODIPine 2019-07 Yes [id number] 5mg Take 1 U nivers (NORVASC) 5 2-15 tablet by ity of mg tablet 00:00: mouth [place] 00 daily. Medical Branch amLODIPine 2019-07 Yes [id number] 5mg Take 1 U nivers (NORVASC) 5 2-15 tablet by ity of mg tablet 00:00: mouth [place] 00 daily. Medical Branch amLODIPine 2019-07 Yes [id number] 5mg Take 1 U nivers (NORVASC) 5 2-15 tablet by ity of mg tablet 00:00: mouth [place] 00 daily. Medical Branch amLODIPine 2019-07 Yes [id number] 5mg Take 1 U nivers (NORVASC) 5 2-15 tablet by ity of mg tablet 00:00: mouth [place] 00 daily. Medical Branch amLODIPine 2019-07 Yes [id number] 5mg Take 1 U nivers (NORVASC) 5 2-15 tablet by ity of mg tablet 00:00: mouth [place] 00 daily. Medical Branch amLODIPine 2019-07 Yes [id number] 5mg Take 1 U nivers (NORVASC) 5 2-15 tablet by ity of mg tablet 00:00: mouth [place] 00 daily. Medical Branch amLODIPine 2019-07 Yes [id number] 5mg Take 1 U nivers (NORVASC) 5 2-15 tablet by ity of mg tablet 00:00: mouth [place] 00 daily. Medical Branch Tamsulosin Tamsulosin 2019-07- No 1{capsu QD Tamsulosin HCl 0.4 MG HCl 0.4 MG - 1030 le} HCl 0.4 MG 00:00: 00:00 00 :00 Tamsulosin Tamsulosin 2019-2020- No 1{capsu QD Tamsulosin HCl 0.4 MG HCl 0.4 MG 07-10 1030 le} HCl 0.4 MG 00:00: 00:00 00 :00 Cyclobenzap Cyclobenzap 2020-0 No BID Cyclobenza rine [...] MG 00:00: 10 MG 00 Toradol Toradol 2018-1 No 60mg Common (Ketorolac) (Ketorolac) 1- S pirit 00:00: - [facility] 00 [facility] Phenergan Phenergan 2018- No 25mg Com mon (Promethazi (Promethazi - S pirit ne) ne) 00:00: - [facility] 00 [facility] Toradol Toradol 2017- No 60mg Common (Ketorolac) (Ketorolac) 07-07 S pirit 00:00: - [facility] 00 [facility] Phenergan Phenergan 2018- No 25mg Com mon (Promethazi (Promethazi - S pirit ne) ne) 00:00: - [facility] 00 [facility] Toradol Toradol 2017- No 60mg Common (Ketorolac) (Ketorolac) 07-07 S pirit 00:00: - [facility] 00 [facility] Phenergan Phenergan 2018- No 25mg Com mon (Promethazi (Promethazi 07-07 S pirit ne) ne) 00:00: - [facility] 00 [facility] Toradol Toradol 2017- No 60mg Common (Ketorolac) (Ketorolac) 07-07 S pirit 00:00: - [facility] 00 [facility] Phenergan Phenergan 2017- No 25mg Com mon (Promethazi (Promethazi 07-07 S pirit ne) ne) 00:00: - [facility] Toradol Toradol 2018- No 60mg Common (Ketorolac) (Ketorolac) 07-07 S pirit 00:00: - [facility] 00 [facility] Phenergan Phenergan 2018- No 25mg Com mon (Promethazi (Promethazi - S pirit ne) ne) 00:00: - [facility] 00 [facility] Toradol Toradol 2018- No 60mg Common (Ketorolac) (Ketorolac) 07-07 S pirit 00:00: - [facility] 00 [facility] Phenergan Phenergan 2018- No 25mg Com mon (Promethazi (Promethazi 07-07 S pirit ne) ne) 00:00: - [facility] Toradol Toradol 2018- No 60mg Common (Ketorolac) (Ketorolac) 1- S pirit 00:00: - [facility] 00 [facility] Phenergan Phenergan 2018- No 25mg Com mon (Promethazi (Promethazi 1-01 S pirit ne) ne) 00:00: - [facility] 00 [facility] Toradol Toradol 2018- No 60mg Common (Ketorolac) (Ketorolac) 1- S pirit 00:00: - [facility] 00 [facility] Phenergan Phenergan 2018- No 25mg Com mon (Promethazi (Promethazi - S pirit ne) ne) 00:00: - [facility] 00 [facility] Toradol Toradol 2018- No 60mg Common (Ketorolac) (Ketorolac) 1- S pirit 00:00: - [facility] 00 [facility] Phenergan Phenergan 2018- No 25mg Com mon (Promethazi (Promethazi - S pirit ne) ne) 00:00: - [facility] 00 [facility] Toradol Toradol 2018- No 60mg Common (Ketorolac) (Ketorolac) 1- S pirit 00:00: - [facility] 00 [facility] Phenergan Phenergan 2018- No 25mg Com mon (Promethazi (Promethazi - S pirit ne) ne) 00:00: - [facility] 00 [facility] Toradol Toradol 2018- No 60mg Common (Ketorolac) (Ketorolac) 1- S pirit 00:00: - [facility] 00 [facility] Phenergan Phenergan 2018-1 No 25mg Com mon (Promethazi (Promethazi -01 S pirit ne) ne) 00:00: - [facility] 00 [facility] Toradol Toradol 2018- No 60mg Common (Ketorolac) (Ketorolac) 1- S pirit 00:00: - [facility] Phenergan Phenergan 2018-1 No 25mg Com mon (Promethazi (Promethazi 1-01 S pirit ne) ne) 00:00: - [facility] 00 [facility] Toradol Toradol 2018- No 60mg Common (Ketorolac) (Ketorolac) 1- S pirit 00:00: - [facility] 00 [facility] Phenergan Phenergan 2018- No 25mg Com mon (Promethazi (Promethazi - S pirit ne) ne) 00:00: - [facility] 00 [facility] Toradol Toradol 2018- No 60mg Common (Ketorolac) (Ketorolac) 07-07 S pirit 00:00: - [facility] 00 [facility] Phenergan Phenergan 2018- No 25mg Com mon (Promethazi (Promethazi 07-07 S pirit ne) ne) 00:00: - [facility] 00 [facility] Toradol Toradol 2018- No 60mg Common (Ketorolac) (Ketorolac) 07-07 S pirit 00:00: - [facility] 00 [facility] Phenergan Phenergan 2018- No 25mg Com mon (Promethazi (Promethazi 07-07 S pirit ne) ne) 00:00: - [facility] 00 [facility] Toradol Toradol 2018- No 60mg Common (Ketorolac) (Ketorolac) 07-07 S pirit 00:00: - [facility] 00 [facility] Phenergan Phenergan 2018-1 No 25mg Com mon (Promethazi (Promethazi 07-07 S pirit ne) ne) 00:00: - [facility] Toradol Toradol 2018- No 60mg Common (Ketorolac) (Ketorolac) - S pirit 00:00: - [facility] 00 [facility] Phenergan Phenergan 2018-1 No 25mg Com mon (Promethazi (Promethazi - S pirit ne) ne) 00:00: - [facility] 00 [facility] Toradol Toradol 2018-1 No 60mg Common (Ketorolac) (Ketorolac) - S pirit 00:00: - [facility] 00 [facility] Phenergan Phenergan 2018- No 25mg Com mon (Promethazi (Promethazi - S pirit ne) ne) 00:00: - [facility] 00 [facility] Toradol Toradol 2018- No 60mg Common (Ketorolac) (Ketorolac) 1- S pirit 00:00: - [facility] 00 [facility] Phenergan Phenergan 2018-1 No 25mg Com mon (Promethazi (Promethazi - S pirit ne) ne) 00:00: - [facility] 00 [facility] Toradol Toradol 2018- No 60mg Common (Ketorolac) (Ketorolac) 1- S pirit 00:00: - [facility] 00 [facility] Phenergan Phenergan 2018-1 No 25mg Com mon (Promethazi (Promethazi 07-07 S pirit ne) ne) 00:00: - [facility] 00 [facility] Toradol Toradol 2018- No 60mg Common (Ketorolac) (Ketorolac) 07-07 S pirit 00:00: - [facility] 00 [facility] Phenergan Phenergan 2018-1 No 25mg Com mon (Promethazi (Promethazi 07-07 S pirit ne) ne) 00:00: - [facility] 00 [facility] Toradol Toradol 2018- No 60mg Common (Ketorolac) (Ketorolac) 07-07 S pirit 00:00: - [facility] 00 [facility] Phenergan Phenergan 2018-1 No 25mg Com mon (Promethazi (Promethazi 07-07 S pirit ne) ne) 00:00: - [facility] 00 [facility] Toradol Toradol 2018- No 60mg Common (Ketorolac) (Ketorolac) - S pirit 00:00: - [facility] 00 [facility] Phenergan Phenergan 2018-1 No 25mg Com mon (Promethazi (Promethazi - S pirit ne) ne) 00:00: - [facility] 00 [facility] Toradol Toradol 2018-1 No 60mg Common (Ketorolac) (Ketorolac) 1- S pirit 00:00: - [facility] Phenergan Phenergan 2018-1 No 25mg Com mon (Promethazi (Promethazi 1- S pirit ne) ne) 00:00: - [facility] Toradol Toradol 2017-07 No 60mg Common (Ketorolac) (Ketorolac) 07-07 S pirit 00:00: - [facility] 00 [facility] Phenergan Phenergan 2017-07 No 25mg Com mon (Promethazi (Promethazi 1- S pirit ne) ne) 00:00: - [facility] donepezil 2017-07 Yes 10mg Take 10 mg [place] 10 mg 0-18 by mouth ity of tablet 01:43: at [place] [address] bedtime. Medical Branch FLUoxetine 2017-07 Yes 40mg Take 40 mg U nivers 40 mg 0-18 by mouth ity of capsule 01:43: daily. [address] ondansetron 2017-07 Yes 4mg Take 4 mg U nivers (ZOFRAN) 4 0-18 by mouth ity o f mg tablet 01:43: every 8 [place] 30 (eight) Medical hours as Branch needed. ezetimibe 2017-07 Yes 10mg Take 10 mg [place] 10 mg 0-18 by mouth ity of tablet 01:43: daily. [address] losartan 25 2017-07 Yes 25mg Take 25 mg Univers mg tablet 0-18 by mouth ity of 01:43: daily. [address] DOXAZOSIN 1 2017-07 Yes 1mg Take 1 mg U nivers mg tablet 0-18 by mouth ity of 01:41: daily. PRN [address] ondansetron 2017-07 Yes 4mg Take 1 Univ [...] Medical meals and Branch at bedtime. ondansetron 2018- Yes 4mg Take 1 Univ ers 4 [...] Medical meals and Branch at bedtime. ondansetron 2018- Yes 4mg Take 1 Univ ers 4 mg 0-17 tablet by ity of disintegrat 00:00: mouth [place] ing tablet 00 every 8 Medica l (eight) Branch hours as needed for Nausea and Vomiting (N/V). sucralfate 2018-1 Yes 1g Take 1 Unive rs (CARAFATE) 0-17 tablet by ity of 1 gram 00:00: mouth [place] tablet 00 before Medical meals and Branch at bedtime. ondansetron 2018-1 Yes 4mg Take 1 Univ ers 4 mg 0-17 tablet by ity of disintegrat 00:00: mouth [place] ing tablet 00 every 8 Medica l (eight) Branch hours as needed for Nausea and Vomiting (N/V). sucralfate 2018-1 Yes 1g Take 1 Unive rs (CARAFATE) 0-17 tablet by ity of 1 gram 00:00: mouth [place] tablet 00 before Medical meals and Branch at bedtime. Toradol Toradol 2018-0 No 60mg Common (Ketorolac) (Ketorolac) 8-22 S pirit 00:00: - [facility] Solumedrol Solumedrol 2018-0 No C ommon 125mg/2ml 125mg/2ml 8-22 Spiri t 00:00: - [facility] Toradol Toradol 2018-0 No 60mg Common (Ketorolac) (Ketorolac) 8-22 S pirit 00:00: - [facility] Solumedrol Solumedrol 2018-0 No C ommon 125mg/2ml 125mg/2ml 8 Spiri t 00:00: - [facility] Toradol Toradol 2018-0 No 60mg Common (Ketorolac) (Ketorolac) 8-22 S pirit 00:00: - [facility] Solumedrol Solumedrol 2018-0 No C ommon 125mg/2ml 125mg/2ml 8 Spiri t 00:00: - [facility] Toradol Toradol 2018-0 No 60mg Common (Ketorolac) (Ketorolac) 8-22 S pirit 00:00: - [facility] Solumedrol Solumedrol 2018-0 No C ommon 125mg/2ml 125mg/2ml 8-22 Spiri t 00:00: - [facility] Toradol Toradol 2018-0 No 60mg Common (Ketorolac) (Ketorolac) 8-22 S pirit 00:00: - [facility] Solumedrol Solumedrol 2018-0 No C ommon 125mg/2ml 125mg/2ml 8- Spiri t 00:00: - [facility] Toradol Toradol 2018-0 No 60mg Common (Ketorolac) (Ketorolac) 8-22 S pirit 00:00: - [facility] Solumedrol Solumedrol 2018-0 No C ommon 125mg/2ml 125mg/2ml 8 Spiri t 00:00: - [facility] Toradol Toradol 2018-0 No 60mg Common (Ketorolac) (Ketorolac) 8- S pirit 00:00: - [facility] Solumedrol Solumedrol 2018-0 No C ommon 125mg/2ml 125mg/2ml 8 Spiri t 00:00: - [facility] Toradol Toradol 2018-0 No 60mg Common (Ketorolac) (Ketorolac) 8- S pirit 00:00: - [facility] Solumedrol Solumedrol 2018-0 No C ommon 125mg/2ml 125mg/2ml 02-25 Spiri t 00:00: - [facility] Toradol Toradol 2018-0 No 60mg Common (Ketorolac) (Ketorolac) 8- S pirit 00:00: - [facility] Solumedrol Solumedrol 2018-0 No C ommon 125mg/2ml 125mg/2ml 02-25 Spiri t 00:00: - [facility] Toradol Toradol 2018-0 No 60mg Common (Ketorolac) (Ketorolac) 8- S pirit 00:00: - [facility] Solumedrol Solumedrol 2018-0 No C ommon 125mg/2ml 125mg/2ml 02-25 Spiri t 00:00: - [facility] Toradol Toradol 2018-0 No 60mg Common (Ketorolac) (Ketorolac) 8- S pirit 00:00: - [facility] Solumedrol Solumedrol 2018-0 No C ommon 125mg/2ml 125mg/2ml 02-25 Spiri t 00:00: - [facility] Toradol Toradol 2018-0 No 60mg Common (Ketorolac) (Ketorolac) 8-22 S pirit 00:00: - [facility] Solumedrol Solumedrol 2018-0 No C ommon 125mg/2ml 125mg/2ml 8- Spiri t 00:00: - [facility] Toradol Toradol 2018-0 No 60mg Common (Ketorolac) (Ketorolac) 8-22 S pirit 00:00: - [facility] Solumedrol Solumedrol 2018-0 No C ommon 125mg/2ml 125mg/2ml 8- Spiri t 00:00: - [facility] Toradol Toradol 2018-0 No 60mg Common (Ketorolac) (Ketorolac) 8-22 S pirit 00:00: - [facility] Solumedrol Solumedrol 2018-0 No C ommon 125mg/2ml 125mg/2ml 8 Spiri t 00:00: - [facility] Toradol Toradol 2018-0 No 60mg Common (Ketorolac) (Ketorolac) 8-22 S pirit 00:00: - [facility] Solumedrol Solumedrol 2018-0 No C ommon 125mg/2ml 125mg/2ml 02-25 Spiri t 00:00: - [facility] Toradol Toradol 2018-0 No 60mg Common (Ketorolac) (Ketorolac) 8-22 S pirit 00:00: - [facility] Solumedrol Solumedrol 2018-0 No C ommon 125mg/2ml 125mg/2ml 8 Spiri t 00:00: - [facility] Toradol Toradol 2018-0 No 60mg Common (Ketorolac) (Ketorolac) 8-22 S pirit 00:00: - [facility] Solumedrol Solumedrol 2018-0 No C ommon 125mg/2ml 125mg/2ml 8 Spiri t 00:00: - [facility] Toradol Toradol 2018-0 No 60mg Common (Ketorolac) (Ketorolac) 8-22 S pirit 00:00: - [facility] Solumedrol Solumedrol 2018-0 No C ommon 125mg/2ml 125mg/2ml 8- Spiri t 00:00: - [facility] Toradol Toradol 2018-0 No 60mg Common (Ketorolac) (Ketorolac) 8-22 S pirit 00:00: - [facility] Solumedrol Solumedrol 2018-0 No C ommon 125mg/2ml 125mg/2ml 8 Spiri t 00:00: - [facility] Toradol Toradol 2018-0 No 60mg Common (Ketorolac) (Ketorolac) 8-22 S pirit 00:00: - [facility] Solumedrol Solumedrol 2018-0 No C ommon 125mg/2ml 125mg/2ml 02-25 Spiri t 00:00: - [facility] Toradol Toradol 2018-0 No 60mg Common (Ketorolac) (Ketorolac) 8-22 S pirit 00:00: - [facility] Solumedrol Solumedrol 2018-0 No C ommon 125mg/2ml 125mg/2ml 02-25 Spiri t 00:00: - [facility] Toradol Toradol 2018-0 No 60mg Common (Ketorolac) (Ketorolac) 8-22 S pirit 00:00: - [facility] Solumedrol Solumedrol 2018-0 No C ommon 125mg/2ml 125mg/2ml 8 Spiri t 00:00: - [facility] Toradol Toradol 2018-0 No 60mg Common (Ketorolac) (Ketorolac) 8-22 S pirit 00:00: - [facility] Solumedrol Solumedrol 2018-0 No C ommon 125mg/2ml 125mg/2ml 8 Spiri t 00:00: - [facility] Toradol Toradol 2018-0 No 60mg Common (Ketorolac) (Ketorolac) 8-22 S pirit 00:00: - [facility] Solumedrol Solumedrol 2017-0 No C ommon 125mg/2ml 125mg/2ml 02-25 Spiri t 00:00: - [facility] Toradol Toradol 0 No 60mg Common (Ketorolac) (Ketorolac) 02-25 S pirit 00:00: - [facility] Solumedrol Solumedrol 2017-0 No C ommon 125mg/2ml 125mg/2ml 02-25 Spiri t 00:00: - [facility] diazepam 2010-0 Yes 2mg Take 1 Tab Uni vers (VALIUM) 2 6-04 by mouth 3 ity of mg tablet 00:00: (three) [place] 00 times Medical daily. Branch traMADOL 2010-0 Yes 50mg Take 1 Tab Uni vers (ULTRAM) 50 6-04 by mouth ity of mg tablet 00:00: every 6 [place] 00 (six) Medical hours as Branch needed for Pain. diazepam 2010-0 Yes 2mg Take 1 Tab Uni vers (VALIUM) 2 6-04 by mouth 3 ity of mg tablet 00:00: (three) [place] 00 times Medical daily. Branch traMADOL 2010-0 Yes 50mg Take 1 Tab Uni vers (ULTRAM) 50 6-04 by mouth ity of mg tablet 00:00: every 6 [place] 00 (six) Medical hours as Branch needed [...] ity of mg tablet 00:00: every 6 [place] 00 (six) Medical hours as Branch needed [...] ity of mg tablet 00:00: every 6 [place] [address] (six) Medical hours as Branch needed for Pain. diazepam 2010-0 Yes 2mg Take 1 Tab Uni vers (VALIUM) 2 6-04 by mouth 3 ity of mg tablet 00:00: (three) [place] 00 times Medical daily. Branch traMADOL 2010-0 Yes 50mg Take 1 Tab Uni vers (ULTRAM) 50 6-04 by mouth ity of mg tablet 00:00: every 6 [place] [address] (six) Medical hours as Branch needed for Pain. diazepam 2010-0 Yes 2mg Take 1 Tab Uni vers (VALIUM) 2 6-04 by mouth 3 ity of mg tablet 00:00: (three) [place] 00 times Medical daily. Branch traMADOL 2010-0 Yes 50mg Take 1 Tab Uni vers (ULTRAM) 50 6-04 by mouth ity of mg tablet 00:00: every 6 [place] [address] (six) Medical hours as Branch needed for Pain. Zetia 10 MG Zetia 10 MG No [...] Mesylate 1 Mesylate 1 MG MG MG [place] 3 [place] 3 No [place] 3 Losartan Losartan No 1{table QD Losartan [...] Mesylate 1 Mesylate 1 MG MG MG [place] 3 [place] 3 No [place] 3 Losartan Losartan No 1{table QD Losartan [...] Mesylate 1 Mesylate 1 MG MG MG [place] 3 [place] 3 No [place] 3 Losartan Losartan No 1{table QD Losartan [...] 10 t} MG Ginkgo Ginkgo No Ginkgo [place] 3 [place] 3 No [place] 3 fentaNYL fentaNYL No fentaNYL buPROPion buPROPion [...] 10 t} MG Ginkgo Ginkgo No Ginkgo [place] 3 [place] 3 No [place] 3 fentaNYL fentaNYL No fentaNYL buPROPion buPROPion [...] 150 MG 150 MG (XL) 150 MG [place] 3 [place] 3 No [place] 3 Doxazosin Doxazosin No Doxazosin Mesylate 1 [...] Gabapentin 600 MG 600 MG 600 MG [place] 3 [place] 3 No [place] 3 Zetia 10 mg Zetia 10 mg [...] Vitamin D3 Vitamin D3 No Vitamin D3 [place] 3 [place] 3 No [place] 3 buPROPion buPROPion No 1{table buPROPion HCl [...] Vitamin D3 Vitamin D3 No Vitamin D3 [place] 3 [place] 3 No [place] 3 buPROPion buPROPion No 1{table buPROPion HCl [...] 40 MG 40 MG t} 40 MG [place] 3 [place] 3 No [place] 3 Pantoprazol Pantoprazol No 1{table QD Pantoprazo [...] Mesylate 1 Mesylate 1 MG MG MG [place] 3 [place] 3 No [place] 3 Pantoprazol Pantoprazol No 1{table QD Pantoprazo [...] Ezetimibe 10 MG 10 MG 10 MG [place] 3 [place] 3 No [place] 3 Quercetin Quercetin No Quercetin Coconut Oil [...] 1000 MG 1000 MG le} 1000 MG [place] 3 [place] 3 No [place] 3 Fish Oil Fish Oil No 1{capsu [...] Mg No SlowMag Mg Calm/Sleep Calm/Sleep Calm/Sleep [place] 3 [place] 3 No [place] 3 fentaNYL fentaNYL No fentaNYL CoQ-10 CoQ-10 [...] Vitamin D3 Vitamin D3 No Vitamin D3 [place] 3 [place] 3 No [place] 3 buPROPion buPROPion No 1{table buPROPion HCl [...] Vitamin D3 Vitamin D3 No Vitamin D3 [place] 3 [place] 3 No [place] 3 buPROPion buPROPion No 1{table buPROPion HCl [...] Vitamin D3 Vitamin D3 No Vitamin D3 [place] 3 [place] 3 No [place] 3 Ezetimibe Ezetimibe No Ezetimibe 10 mg [...] Vitamin D3 Vitamin D3 No Vitamin D3 [place] 3 [place] 3 No [place] 3 Ezetimibe Ezetimibe No Ezetimibe 10 mg [...] Ezetimibe 10 mg 10 mg 10 mg [place] 3 [place] 3 No [place] 3 buPROPion buPROPion No 1{table buPROPion HCl [...] Ezetimibe 10 mg 10 mg 10 mg [place] 3 [place] 3 No [place] 3 Valium 10 Valium 10 No Valium [...] (XL) 150 mg fentaNYL fentaNYL No fentaNYL [place] 3 [place] 3 No [place] 3 Ezetimibe Ezetimibe No Ezetimibe 10 mg [...] Gabapentin 600 MG 600 MG 600 MG [place] 3 [place] 3 No [place] 3 Vitamin C Vitamin C No Vitamin [...] Gabapentin 600 MG 600 MG 600 MG [place] 3 [place] 3 No [place] 3 Vitamin C Vitamin C No Vitamin [...] Potassium 25 MG 25 MG 25 MG [place] 3 [place] 3 No [place] 3 Quercetin Quercetin No Quercetin Zetia 10 [...] Potassium 25 MG 25 MG 25 MG [place] 3 [place] 3 No [place] 3 Quercetin Quercetin No Quercetin Zetia 10 [...] 150 MG 150 MG (XL) 150 MG [place] 3 [place] 3 No [place] 3 Quercetin Quercetin No Quercetin fentaNYL fentaNYL [...] 150 MG 150 MG (XL) 150 MG [place] 3 [place] 3 No [place] 3 Quercetin Quercetin No Quercetin fentaNYL fentaNYL [...] 150 MG 150 MG (XL) 150 MG [place] 3 [place] 3 No [place] 3 Quercetin Quercetin No Quercetin fentaNYL fentaNYL [...] mg 10 mg Quercetin Quercetin No Quercetin [place] 3 [place] 3 No [place] 3 traZODone traZODone No QD traZODone HCl [...] 10 No Valium 10 MG MG MG [place] 3 [place] 3 No [place] 3 Zetia 10 mg Zetia 10 mg [...] No Vitamin D3 fentaNYL fentaNYL No fentaNYL [place] 3 [place] 3 No [place] 3 Losartan Losartan No 1{table QD Losartan [...] No Vitamin D3 fentaNYL fentaNYL No fentaNYL [place] 3 [place] 3 No [place] 3 Losartan Losartan No 1{table QD Losartan [...] No Vitamin D3 fentaNYL fentaNYL No fentaNYL [place] 3 [place] 3 No [place] 3 Losartan Losartan No 1{table QD Losartan [...] MG MG MG fentaNYL fentaNYL No fentaNYL [place] 3 [place] 3 No [place] 3 Losartan Losartan No 1{table QD Losartan [...] for high - [facility] blood St pressure [facility] buPROPion buPROPion No 1{table buPROPion HCl [...] MG MG MG fentaNYL fentaNYL No fentaNYL [place] 3 [place] 3 No [place] 3 Losartan Losartan No 1{table QD Losartan [...] Quercetin No Quercetin Ginkgo Ginkgo No Ginkgo [place] 3 [place] 3 No [place] 3 Memantine Memantine No BID Memantine HCl [...] Quercetin No Quercetin Ginkgo Ginkgo No Ginkgo [place] 3 [place] 3 No [place] 3 Memantine Memantine No BID Memantine HCl [...] Mesylate 1 Mesylate 1 MG MG MG [place] 3 [place] 3 No [place] 3 Losartan Losartan No 1{table QD Losartan [...] C 500 MG 500 MG 500 MG Immunizations Ordered Filled Immunization Date Status Comments Sour e Immunization Name Name FLUZONE HIGH DOSE FLUZONE HIGH DOSE 2022-04-04 Completed [facility] - OVER 65 OVER 65 13:35:00 [facility] FLUZONE HIGH DOSE FLUZONE HIGH DOSE 2022-04-04 Completed [facility] - OVER 65 OVER 65 13:35:00 [facility] FLUZONE HIGH DOSE FLUZONE HIGH DOSE 2022-04-04 Completed [facility] - OVER 65 OVER 65 13:35:00 [facility] FLUZONE HIGH DOSE FLUZONE HIGH DOSE 2022-04-04 Completed [facility] - OVER 65 OVER 65 13:35:00 [facility] FLUZONE HIGH DOSE FLUZONE HIGH DOSE 2022-04-04 Completed [facility] - OVER 65 OVER 65 13:35:00 [facility] FLUZONE HIGH DOSE FLUZONE HIGH DOSE 2022-04-04 Completed [facility] - OVER 65 OVER 65 13:35:00 [facility] FLUZONE HIGH DOSE FLUZONE HIGH DOSE 2022-04-04 Completed [facility] - OVER 65 OVER 65 13:35:00 [facility] FLUZONE HIGH DOSE FLUZONE HIGH DOSE 2022-04-04 Completed [facility] - OVER 65 OVER 65 13:35:00 [facility] FLUZONE HIGH DOSE FLUZONE HIGH DOSE 2022-04-04 Completed [facility] - OVER 65 OVER 65 13:35:00 [facility] FluAD FluAD 2021-04-04 Completed [facility] - 14:27:00 [facility] FluAD FluAD 2021-04-04 Completed [facility] - 14:27:00 [facility] FluAD FluAD 2021-04-04 Completed [facility] - 14:27:00 [facility] FluAD FluAD 2021-04-04 Completed [facility] - 14:27:00 [facility] FluAD FluAD 2021-04-04 Completed [facility] - 14:27:00 [facility] FluAD FluAD 2021-04-04 [facility] - 14:27:00 [facility] FluAD FluAD 2021-04-04 Completed [facility] - 14:27:00 [facility] FluAD FluAD 2021-04-04 Completed [facility] - 14:27:00 [facility] FluAD FluAD 2021-04-04 Completed [facility] - 14:27:00 [facility] FluAD FluAD 2021-04-04 Completed [facility] - 14:27:00 [facility] FluAD FluAD 2021-04-04 Completed [facility] - 14:27:00 [facility] FluAD FluAD 2021-04-04 Completed [facility] - 14:27:00 [facility] FluAD FluAD 2021-04-04 Completed [facility] - 14:27:00 [facility] FluAD FluAD 2021-04-04 Completed [facility] - 14:27:00 [facility] FluAD FluAD 2021-04-04 Completed [facility] - 14:27:00 [facility] FluAD FluAD 2021-04-04 Completed [facility] - 14:27:00 [facility] FluAD FluAD 2021-04-04 Completed [facility] - 14:27:00 [facility] FluAD FluAD 2021-04-04 Completed [facility] - 14:27:00 [facility] FluAD FluAD 2021-04-04 Completed [facility] - 14:27:00 [facility] FluAD FluAD 2021-04-04 Completed [facility] - 14:27:00 [facility] FluAD FluAD 2021-04-04 Completed [facility] - 14:27:00 [facility] FluAD FluAD 2021-04-04 Completed [facility] - 14:27:00 [facility] FluAD FluAD 2021-04-04 Completed [facility] - 14:27:00 [facility] FluAD FluAD 2021-04-04 Completed [facility] - 14:27:00 [facility] FluAD FluAD 2021-04-04 Completed [facility] - 14:27:00 [facility] FluAD FluAD 2021-04-04 Completed [facility] - 14:27:00 [facility] FluAD FluAD 2021-04-04 Completed [facility] - 14:27:00 [facility] FluAD FluAD 2021-04-04 Completed [facility] - 14:27:00 [facility] FluAD FluAD 2021-04-04 Completed [facility] - 14:27:00 [facility] FluAD FluAD 2021-04-04 Completed [facility] - 14:27:00 [facility] FluAD FluAD 2021-04-04 Completed [facility] - 14:27:00 [facility] FluAD FluAD 2021-04-04 Completed [facility] - 14:27:00 [facility] FluAD FluAD 2021-04-04 Completed [facility] - 14:27:00 [facility] FluAD FluAD 2021-04-04 Completed [facility] - 14:27:00 [facility] FluAD FluAD 2021-04-04 Completed [facility] - 14:27:00 [facility] FluAD FluAD 2021-04-04 Completed [facility] - 14:27:00 [facility] FluAD FluAD 2021-04-04 Completed [facility] - 14:27:00 [facility] FluAD FluAD 2021-04-04 Completed [facility] - 14:27:00 [facility] SARS-COV-2 COVID-19 2020-09-07 Completed [facility] 00:00:00 [facility] SARS-COV-2 COVID-19 2020-09-07 Completed [facility] PFIZER VACCINE 00:00:00 [facility] SARS-COV-2 COVID-19 2020-09-07 Completed [facility] PFIZER VACCINE 00:00:00 [facility] SARS-COV-2 COVID-19 2020-09-07 Completed [facility] PFIZER VACCINE 00:00:00 [facility] SARS-COV-2 COVID-19 2020-09-07 Completed [facility] PFIZER VACCINE 00:00:00 [facility] SARS-COV-2 COVID-19 2020-09-07 Completed [facility] PFIZER VACCINE 00:00:00 [facility] SARS-COV-2 COVID-19 2020-09-07 Completed [facility] PFIZER VACCINE 00:00:00 [facility] SARS-COV-2 COVID-19 2020-09-07 Completed [facility] PFIZER VACCINE 00:00:00 [facility] SARS-COV-2 COVID-19 2020-09-07 Completed [facility] PFIZER VACCINE 00:00:00 [facility] SARS-COV-2 COVID-19 2020-09-07 Completed [facility] PFIZER VACCINE 00:00:00 [facility] SARS-COV-2 COVID-19 2020-09-07 Completed [facility] PFIZER VACCINE 00:00:00 [facility] SARS-COV-2 COVID-19 2020-08-17 Completed [facility] PFIZER VACCINE 00:00:00 [facility] SARS-COV-2 COVID-19 2020-08-17 Completed [facility] PFIZER VACCINE 00:00:00 [facility] SARS-COV-2 COVID-19 2020-08-17 Completed [facility] PFIZER VACCINE 00:00:00 [facility] SARS-COV-2 COVID-19 2020-08-17 Completed [facility] PFIZER VACCINE 00:00:00 [facility] SARS-COV-2 COVID-19 2020-08-17 Completed [facility] PFIZER VACCINE 00:00:00 [facility] SARS-COV-2 COVID-19 2020-08-17 Completed [facility] PFIZER VACCINE 00:00:00 [facility] SARS-COV-2 COVID-19 2020-08-17 Completed [facility] PFIZER VACCINE 00:00:00 [facility] SARS-COV-2 COVID-19 2020-08-17 Completed [facility] PFIZER VACCINE 00:00:00 [facility] SARS-COV-2 COVID-19 2020-08-17 Completed [facility] PFIZER VACCINE 00:00:00 [facility] SARS-COV-2 COVID-19 2020-08-17 Completed [facility] PFIZER VACCINE 00:00:00 [facility] SARS-COV-2 COVID-19 2020-08-17 Completed [facility] PFIZER VACCINE 00:00:00 [facility] Pneumovax (PPSV23) Pneumovax (PPSV23) 2020-05-10 Completed [facility] - 12:01:00 [facility] Pneumovax (PPSV23) Pneumovax (PPSV23) 2020-05-10 Completed [facility] - 12:01:00 [facility] Pneumovax (PPSV23) Pneumovax (PPSV23) 2020-05-10 Completed [facility] - 12:01:00 [facility] Pneumovax (PPSV23) Pneumovax (PPSV23) 2020-05-10 Completed [facility] - 12:01:00 [facility] Pneumovax (PPSV23) Pneumovax (PPSV23) 2020-05-10 Completed [facility] - 12:01:00 [facility] Pneumovax (PPSV23) Pneumovax (PPSV23) 2020-05-10 Completed [facility] - 12:01:00 [facility] Pneumovax (PPSV23) Pneumovax (PPSV23) 2020-05-10 Completed [facility] - 12:01:00 [facility] Pneumovax (PPSV23) Pneumovax (PPSV23) 2020-05-10 Completed [facility] - 12:01:00 [facility] Pneumovax (PPSV23) Pneumovax (PPSV23) 2020-05-10 Completed [facility] - 12:01:00 [facility] Pneumovax (PPSV23) Pneumovax (PPSV23) 2020-05-10 Completed [facility] - 12:01:00 [facility] Pneumovax (PPSV23) Pneumovax (PPSV23) 2020-05-10 Completed [facility] - 12:01:00 [facility] Pneumovax (PPSV23) Pneumovax (PPSV23) 2020-05-10 Completed [facility] - 12:01:00 [facility] Pneumovax (PPSV23) Pneumovax (PPSV23) 2020-05-10 Completed [facility] - 12:01:00 [facility] Pneumovax (PPSV23) Pneumovax (PPSV23) 2020-05-10 Completed [facility] - 12:01:00 [facility] Pneumovax (PPSV23) Pneumovax (PPSV23) 2020-05-10 Completed [facility] - 12:01:00 [facility] Pneumovax (PPSV23) Pneumovax (PPSV23) 2020-05-10 Completed [facility] - 12:01:00 [facility] Pneumovax (PPSV23) Pneumovax (PPSV23) 2020-05-10 Completed [facility] - 12:01:00 [facility] Pneumovax (PPSV23) Pneumovax (PPSV23) 2020-05-10 Completed [facility] - 12:01:00 [facility] Pneumovax (PPSV23) Pneumovax (PPSV23) 2020-05-10 Completed [facility] - 12:01:00 [facility] Pneumovax (PPSV23) Pneumovax (PPSV23) 2020-05-10 Completed [facility] - 12:01:00 [facility] Pneumovax (PPSV23) Pneumovax (PPSV23) 2020-05-10 Completed [facility] - 12:01:00 [facility] Pneumovax (PPSV23) Pneumovax (PPSV23) 2020-05-10 Completed [facility] - 12:01:00 [facility] Pneumovax (PPSV23) Pneumovax (PPSV23) 2020-05-10 Completed [facility] - 12:01:00 [facility] Pneumovax (PPSV23) Pneumovax (PPSV23) 2020-05-10 Completed [facility] - 12:01:00 [facility] Pneumovax (PPSV23) Pneumovax (PPSV23) 2020-05-10 Completed [facility] - 12:01:00 [facility] Pneumovax (PPSV23) Pneumovax (PPSV23) 2020-05-10 Completed [facility] - 12:01:00 [facility] Pneumovax (PPSV23) Pneumovax (PPSV23) 2020-05-10 Completed [facility] - 12:01:00 [facility] Pneumovax (PPSV23) Pneumovax (PPSV23) 2020-05-10 Completed [facility] - 12:01:00 [facility] Pneumovax (PPSV23) Pneumovax (PPSV23) 2020-05-10 Completed [facility] - 12:01:00 [facility] Pneumovax (PPSV23) Pneumovax (PPSV23) 2020-05-10 Completed [facility] - 12:01:00 [facility] Pneumovax (PPSV23) Pneumovax (PPSV23) 2020-05-10 Completed [facility] - 12:01:00 [facility] Pneumovax (PPSV23) Pneumovax (PPSV23) 2020-05-10 Completed [facility] - 12:01:00 [facility] Pneumovax (PPSV23) Pneumovax (PPSV23) 2020-05-10 Completed [facility] - 12:01:00 [facility] Pneumovax (PPSV23) Pneumovax (PPSV23) 2020-05-10 Completed [facility] - 12:01:00 [facility] Pneumovax (PPSV23) Pneumovax (PPSV23) 2020-05-10 Completed [facility] - 12:01:00 [facility] Pneumovax (PPSV23) Pneumovax (PPSV23) 2020-05-10 Completed [facility] - 12:01:00 [facility] Pneumovax (PPSV23) Pneumovax (PPSV23) 2020-05-10 Completed [facility] - 12:01:00 [facility] Pneumovax (PPSV23) Pneumovax (PPSV23) 2020-05-10 Completed [facility] - 12:01:00 [facility] FLUZONE HIGH DOSE FLUZONE HIGH DOSE 2020-04-17 Completed [facility] - OVER 65 OVER 65 09:32:00 [facility] FLUZONE HIGH DOSE FLUZONE HIGH DOSE 2020-04-17 Completed [facility] - OVER 65 OVER 65 09:32:00 [facility] FLUZONE HIGH DOSE FLUZONE HIGH DOSE 2020-04-17 Completed [facility] - OVER 65 OVER 65 09:32:00 [facility] FLUZONE HIGH DOSE FLUZONE HIGH DOSE 2020-04-17 Completed [facility] - OVER 65 OVER 65 09:32:00 [facility] FLUZONE HIGH DOSE FLUZONE HIGH DOSE 2020-04-17 Completed [facility] - OVER 65 OVER 65 09:32:00 [facility] FLUZONE HIGH DOSE FLUZONE HIGH DOSE 2020-04-17 Completed [facility] - OVER 65 OVER 65 09:32:00 [facility] FLUZONE HIGH DOSE FLUZONE HIGH DOSE 2020-04-17 Completed [facility] - OVER 65 OVER 65 09:32:00 [facility] FLUZONE HIGH DOSE FLUZONE HIGH DOSE 2020-04-17 Completed [facility] - OVER 65 OVER 65 09:32:00 [facility] FLUZONE HIGH DOSE FLUZONE HIGH DOSE 2020-04-17 Completed [facility] - OVER 65 OVER 65 09:32:00 [facility] FLUZONE HIGH DOSE FLUZONE HIGH DOSE 2020-04-17 Completed [facility] - OVER 65 OVER 65 09:32:00 [facility] FLUZONE HIGH DOSE FLUZONE HIGH DOSE 2020-04-17 Completed [facility] - OVER 65 OVER 65 09:32:00 [facility] FLUZONE HIGH DOSE FLUZONE HIGH DOSE 2020-04-17 Completed [facility] - OVER 65 OVER 65 09:32:00 [facility] FLUZONE HIGH DOSE FLUZONE HIGH DOSE 2020-04-17 Completed [facility] - OVER 65 OVER 65 09:32:00 [facility] FLUZONE HIGH DOSE FLUZONE HIGH DOSE 2020-04-17 Completed [facility] - OVER 65 OVER 65 09:32:00 [facility] FLUZONE HIGH DOSE FLUZONE HIGH DOSE 2020-04-17 Completed [facility] - OVER 65 OVER 65 09:32:00 [facility] FLUZONE HIGH DOSE FLUZONE HIGH DOSE 2020-04-17 Completed [facility] - OVER 65 OVER 65 09:32:00 [facility] FLUZONE HIGH DOSE FLUZONE HIGH DOSE 2020-04-17 Completed [facility] - OVER 65 OVER 65 09:32:00 [facility] FLUZONE HIGH DOSE FLUZONE HIGH DOSE 2020-04-17 Completed [facility] - OVER 65 OVER 65 09:32:00 [facility] FLUZONE HIGH DOSE FLUZONE HIGH DOSE 2020-04-17 Completed [facility] - OVER 65 OVER 65 09:32:00 [facility] FLUZONE HIGH DOSE FLUZONE HIGH DOSE 2020-04-17 Completed [facility] - OVER 65 OVER 65 09:32:00 [facility] FLUZONE HIGH DOSE FLUZONE HIGH DOSE 2020-04-17 Completed [facility] - OVER 65 OVER 65 09:32:00 [facility] FLUZONE HIGH DOSE FLUZONE HIGH DOSE 2020-04-17 Completed [facility] - OVER 65 OVER 65 09:32:00 [facility] FLUZONE HIGH DOSE FLUZONE HIGH DOSE 2020-04-17 Completed [facility] - OVER 65 OVER 65 09:32:00 [facility] FLUZONE HIGH DOSE FLUZONE HIGH DOSE 2020-04-17 Completed [facility] - OVER 65 OVER 65 09:32:00 [facility] FLUZONE HIGH DOSE FLUZONE HIGH DOSE 2020-04-17 Completed [facility] - OVER 65 OVER 65 09:32:00 [facility] FLUZONE HIGH DOSE FLUZONE HIGH DOSE 2020-04-17 Completed [facility] - OVER 65 OVER 65 09:32:00 [facility] FLUZONE HIGH DOSE FLUZONE HIGH DOSE 2020-04-17 Completed [facility] - OVER 65 OVER 65 09:32:00 [facility] FLUZONE HIGH DOSE FLUZONE HIGH DOSE 2020-04-17 Completed [facility] - OVER 65 OVER 65 09:32:00 [facility] FLUZONE HIGH DOSE FLUZONE HIGH DOSE 2020-04-17 Completed [facility] - OVER 65 OVER 65 09:32:00 [facility] FLUZONE HIGH DOSE FLUZONE HIGH DOSE 2020-04-17 Completed [facility] - OVER 65 OVER 65 09:32:00 [facility] FLUZONE HIGH DOSE FLUZONE HIGH DOSE 2020-04-17 Completed [facility] - OVER 65 OVER 65 09:32:00 [facility] FLUZONE HIGH DOSE FLUZONE HIGH DOSE 2020-04-17 Completed [facility] - OVER 65 OVER 65 09:32:00 [facility] FLUZONE HIGH DOSE FLUZONE HIGH DOSE 2020-04-17 Completed [facility] - OVER 65 OVER 65 09:32:00 [facility] FLUZONE HIGH DOSE FLUZONE HIGH DOSE 2020-04-17 Completed [facility] - OVER 65 OVER 65 09:32:00 [facility] FLUZONE HIGH DOSE FLUZONE HIGH DOSE 2020-04-17 Completed [facility] - OVER 65 OVER 65 09:32:00 [facility] FLUZONE HIGH DOSE FLUZONE HIGH DOSE 2020-04-17 Completed [facility] - OVER 65 OVER 65 09:32:00 [facility] FLUZONE HIGH DOSE FLUZONE HIGH DOSE 2020-04-17 Completed [facility] - OVER 65 OVER 65 09:32:00 [facility] FLUZONE HIGH DOSE FLUZONE HIGH DOSE 2020-04-17 Completed [facility] - OVER 65 OVER 65 09:32:00 [facility] FLUZONE HIGH DOSE FLUZONE HIGH DOSE 2019-06-14 Completed [facility] - OVER 65 OVER 65 10:49:00 [facility] FLUZONE HIGH DOSE FLUZONE HIGH DOSE 2019-06-14 Completed [facility] - OVER 65 OVER 65 10:49:00 [facility] FLUZONE HIGH DOSE FLUZONE HIGH DOSE 2019-06-14 Completed [facility] - OVER 65 OVER 65 10:49:00 [facility] FLUZONE HIGH DOSE FLUZONE HIGH DOSE 2019-06-14 Completed [facility] - OVER 65 OVER 65 10:49:00 [facility] FLUZONE HIGH DOSE FLUZONE HIGH DOSE 2019-06-14 Completed [facility] - OVER 65 OVER 65 10:49:00 [facility] FLUZONE HIGH DOSE FLUZONE HIGH DOSE 2019-06-14 Completed [facility] - OVER 65 OVER 65 10:49:00 [facility] FLUZONE HIGH DOSE FLUZONE HIGH DOSE 2019-06-14 Completed [facility] - OVER 65 OVER 65 10:49:00 [facility] FLUZONE HIGH DOSE FLUZONE HIGH DOSE 2019-06-14 Completed [facility] - OVER 65 OVER 65 10:49:00 [facility] FLUZONE HIGH DOSE FLUZONE HIGH DOSE 2019-06-14 Completed [facility] - OVER 65 OVER 65 10:49:00 [facility] FLUZONE HIGH DOSE FLUZONE HIGH DOSE 2019-06-14 Completed [facility] - OVER 65 OVER 65 10:49:00 [facility] FLUZONE HIGH DOSE FLUZONE HIGH DOSE 2019-06-14 Completed [facility] - OVER 65 OVER 65 10:49:00 [facility] FLUZONE HIGH DOSE FLUZONE HIGH DOSE 2019-06-14 Completed [facility] - OVER 65 OVER 65 10:49:00 [facility] FLUZONE HIGH DOSE FLUZONE HIGH DOSE 2019-06-14 Completed [facility] - OVER 65 OVER 65 10:49:00 [facility] FLUZONE HIGH DOSE FLUZONE HIGH DOSE 2019-06-14 Completed [facility] - OVER 65 OVER 65 10:49:00 [facility] FLUZONE HIGH DOSE FLUZONE HIGH DOSE 2019-06-14 Completed [facility] - OVER 65 OVER 65 10:49:00 [facility] FLUZONE HIGH DOSE FLUZONE HIGH DOSE 2019-06-14 Completed [facility] - OVER 65 OVER 65 10:49:00 [facility] FLUZONE HIGH DOSE FLUZONE HIGH DOSE 2019-06-14 Completed [facility] - OVER 65 OVER 65 10:49:00 [facility] FLUZONE HIGH DOSE FLUZONE HIGH DOSE 2019-06-14 Completed [facility] - OVER 65 OVER 65 10:49:00 [facility] FLUZONE HIGH DOSE FLUZONE HIGH DOSE 2019-06-14 Completed [facility] - OVER 65 OVER 65 10:49:00 [facility] FLUZONE HIGH DOSE FLUZONE HIGH DOSE 2019-06-14 Completed [facility] - OVER 65 OVER 65 10:49:00 [facility] FLUZONE HIGH DOSE FLUZONE HIGH DOSE 2019-06-14 Completed [facility] - OVER 65 OVER 65 10:49:00 [facility] FLUZONE HIGH DOSE FLUZONE HIGH DOSE 2019-06-14 Completed [facility] - OVER 65 OVER 65 10:49:00 [facility] FLUZONE HIGH DOSE FLUZONE HIGH DOSE 2019-06-14 Completed [facility] - OVER 65 OVER 65 10:49:00 [facility] FLUZONE HIGH DOSE FLUZONE HIGH DOSE 2019-06-14 Completed [facility] - OVER 65 OVER 65 10:49:00 [facility] FLUZONE HIGH DOSE FLUZONE HIGH DOSE 2019-06-14 Completed [facility] - OVER 65 OVER 65 10:49:00 [facility] FLUZONE HIGH DOSE FLUZONE HIGH DOSE 2019-06-14 Completed [facility] - OVER 65 OVER 65 10:49:00 [facility] FLUZONE HIGH DOSE FLUZONE HIGH DOSE 2019-06-14 Completed [facility] - OVER 65 OVER 65 10:49:00 [facility] FLUZONE HIGH DOSE FLUZONE HIGH DOSE 2019-06-14 Completed [facility] - OVER 65 OVER 65 10:49:00 [facility] FLUZONE HIGH DOSE FLUZONE HIGH DOSE 2019-06-14 Completed [facility] - OVER 65 OVER 65 10:49:00 [facility] FLUZONE HIGH DOSE FLUZONE HIGH DOSE 2019-06-14 Completed [facility] - OVER 65 OVER 65 10:49:00 [facility] FLUZONE HIGH DOSE FLUZONE HIGH DOSE 2019-06-14 Completed [facility] - OVER 65 OVER 65 10:49:00 [facility] FLUZONE HIGH DOSE FLUZONE HIGH DOSE 2019-06-14 Completed [facility] - OVER 65 OVER 65 10:49:00 [facility] FLUZONE HIGH DOSE FLUZONE HIGH DOSE 2019-06-14 Completed [facility] - OVER 65 OVER 65 10:49:00 [facility] FLUZONE HIGH DOSE FLUZONE HIGH DOSE 2019-06-14 Completed [facility] - OVER 65 OVER 65 10:49:00 [facility] FLUZONE HIGH DOSE FLUZONE HIGH DOSE 2019-06-14 Completed [facility] - OVER 65 OVER 65 10:49:00 [facility] FLUZONE HIGH DOSE FLUZONE HIGH DOSE 2019-06-14 Completed [facility] - OVER 65 OVER 65 10:49:00 [facility] FLUZONE HIGH DOSE FLUZONE HIGH DOSE 2019-06-14 Completed [facility] - OVER 65 OVER 65 10:49:00 [facility] FLUZONE HIGH DOSE FLUZONE HIGH DOSE 2019-06-14 Completed [facility] - OVER 65 OVER 65 10:49:00 [facility] FLUZONE HIGH DOSE FLUZONE HIGH DOSE 2019-06-14 Completed [facility] - OVER 65 OVER 65 00:00:00 [facility] Phenergan Phenergan 2018-05-07 Completed [facility] - (Promethazine) (Promethazine) 11:11:00 [facility] Toradol (Ketorolac) Toradol (Ketorolac) 2018-05-07 Completed [facility] - 11:11:00 [facility] Phenergan Phenergan 2018-05-07 Completed [facility] - (Promethazine) (Promethazine) 11:11:00 [facility] Toradol (Ketorolac) Toradol (Ketorolac) 2018-05-07 Completed [facility] - 11:11:00 [facility] Prevnar 13 Prevnar 13 2018-05-01 Completed [facility] - -Pneumonia Vaccine -Pneumonia Vaccine 14:40:00 [facility] Prevnar 13 Prevnar 13 2018-05-01 Completed [facility] - -Pneumonia Vaccine -Pneumonia Vaccine 14:40:00 [facility] Prevnar 13 Prevnar 13 2018-05-01 Completed [facility] - -Pneumonia Vaccine -Pneumonia Vaccine 14:40:00 [facility] Prevnar 13 Prevnar 13 2018-05-01 Completed [facility] - -Pneumonia Vaccine -Pneumonia Vaccine 14:40:00 [facility] Prevnar 13 Prevnar 13 2018-05-01 Completed [facility] - -Pneumonia Vaccine -Pneumonia Vaccine 14:40:00 [facility] Prevnar 13 Prevnar 13 2018-05-01 Completed [facility] - -Pneumonia Vaccine -Pneumonia Vaccine 14:40:00 [facility] Prevnar 13 Prevnar 13 2018-05-01 Completed [facility] - -Pneumonia Vaccine -Pneumonia Vaccine 14:40:00 [facility] Prevnar 13 Prevnar 13 2018-05-01 Completed [facility] - -Pneumonia Vaccine -Pneumonia Vaccine 14:40:00 [facility] Prevnar 13 Prevnar 13 2018-05-01 Completed [facility] - -Pneumonia Vaccine -Pneumonia Vaccine 14:40:00 [facility] Prevnar 13 Prevnar 13 2018-05-01 Completed [facility] - -Pneumonia Vaccine -Pneumonia Vaccine 14:40:00 [facility] Prevnar 13 Prevnar 13 2018-05-01 Completed [facility] - -Pneumonia Vaccine -Pneumonia Vaccine 14:40:00 [facility] Prevnar 13 Prevnar 13 2018-05-01 Completed [facility] - -Pneumonia Vaccine -Pneumonia Vaccine 14:40:00 [facility] Prevnar 13 Prevnar 13 2018-05-01 Completed [facility] - -Pneumonia Vaccine -Pneumonia Vaccine 14:40:00 [facility] Prevnar 13 Prevnar 13 2018-05-01 Completed [facility] - -Pneumonia Vaccine -Pneumonia Vaccine 14:40:00 [facility] Prevnar 13 Prevnar 13 2018-05-01 Completed [facility] - -Pneumonia Vaccine -Pneumonia Vaccine 14:40:00 [facility] Prevnar 13 Prevnar 13 2018-05-01 Completed [facility] - -Pneumonia Vaccine -Pneumonia Vaccine 14:40:00 [facility] Prevnar 13 Prevnar 13 2018-05-01 Completed [facility] - -Pneumonia Vaccine -Pneumonia Vaccine 14:40:00 [facility] Prevnar 13 Prevnar 13 2018-05-01 Completed [facility] - -Pneumonia Vaccine -Pneumonia Vaccine 14:40:00 [facility] Prevnar 13 Prevnar 13 2018-05-01 Completed [facility] - -Pneumonia Vaccine -Pneumonia Vaccine 14:40:00 [facility] Prevnar 13 Prevnar 13 2018-05-01 Completed [facility] - -Pneumonia Vaccine -Pneumonia Vaccine 14:40:00 [facility] Prevnar 13 Prevnar 13 2018-05-01 Completed [facility] - -Pneumonia Vaccine -Pneumonia Vaccine 14:40:00 [facility] Prevnar 13 Prevnar 13 2018-05-01 Completed [facility] - -Pneumonia Vaccine -Pneumonia Vaccine 14:40:00 [facility] Prevnar 13 Prevnar 13 2018-05-01 Completed [facility] - -Pneumonia Vaccine -Pneumonia Vaccine 14:40:00 [facility] Prevnar 13 Prevnar 13 2018-05-01 Completed [facility] - -Pneumonia Vaccine -Pneumonia Vaccine 14:40:00 [facility] Prevnar 13 Prevnar 13 2018-05-01 Completed [facility] - -Pneumonia Vaccine -Pneumonia Vaccine 14:40:00 [facility] Prevnar 13 Prevnar 13 2018-05-01 Completed [facility] - -Pneumonia Vaccine -Pneumonia Vaccine 14:40:00 [facility] Prevnar 13 Prevnar 13 2018-05-01 Completed [facility] - -Pneumonia Vaccine -Pneumonia Vaccine 14:40:00 [facility] Prevnar 13 Prevnar 13 2018-05-01 Completed [facility] - -Pneumonia Vaccine -Pneumonia Vaccine 14:40:00 [facility] Prevnar 13 Prevnar 13 2018-05-01 Completed [facility] - -Pneumonia Vaccine -Pneumonia Vaccine 14:40:00 [facility] Prevnar 13 Prevnar 13 2018-05-01 Completed [facility] - -Pneumonia Vaccine -Pneumonia Vaccine 14:40:00 [facility] Prevnar 13 Prevnar 13 2018-05-01 Completed [facility] -Pneumonia Vaccine -Pneumonia Vaccine 14:40:00 [facility] Prevnar 13 Prevnar 13 2018-05-01 [facility] - -Pneumonia Vaccine -Pneumonia Vaccine 14:40:00 [facility] Prevnar 13 Prevnar 13 2018-05-01 Completed [facility] - -Pneumonia Vaccine -Pneumonia Vaccine 14:40:00 [facility] Prevnar 13 Prevnar 13 2018-05-01 Completed [facility] - -Pneumonia Vaccine -Pneumonia Vaccine 14:40:00 [facility] Prevnar 13 Prevnar 13 2018-05-01 Completed [facility] - -Pneumonia Vaccine -Pneumonia Vaccine 14:40:00 [facility] Prevnar 13 Prevnar 13 2018-05-01 Completed [facility] - -Pneumonia Vaccine -Pneumonia Vaccine 14:40:00 [facility] Prevnar 13 Prevnar 13 2018-05-01 Completed [facility] - -Pneumonia Vaccine -Pneumonia Vaccine 14:40:00 [facility] Prevnar 13 Prevnar 13 2018-05-01 Completed [facility] - -Pneumonia Vaccine -Pneumonia Vaccine 14:40:00 [facility] FLUZONE HIGH DOSE FLUZONE HIGH DOSE 2018-05-01 Completed [facility] - OVER 65 OVER 65 14:39:00 [facility] FLUZONE HIGH DOSE FLUZONE HIGH DOSE 2018-05-01 Completed [facility] - OVER 65 OVER 65 14:39:00 [facility] FLUZONE HIGH DOSE FLUZONE HIGH DOSE 2018-05-01 Completed [facility] - OVER 65 OVER 65 14:39:00 [facility] FLUZONE HIGH DOSE FLUZONE HIGH DOSE 2018-05-01 Completed [facility] - OVER 65 OVER 65 14:39:00 [facility] FLUZONE HIGH DOSE FLUZONE HIGH DOSE 2018-05-01 Completed [facility] - OVER 65 OVER 65 14:39:00 [facility] FLUZONE HIGH DOSE FLUZONE HIGH DOSE 2018-05-01 Completed [facility] - OVER 65 OVER 65 14:39:00 [facility] FLUZONE HIGH DOSE FLUZONE HIGH DOSE 2018-05-01 Completed [facility] - OVER 65 OVER 65 14:39:00 [facility] FLUZONE HIGH DOSE FLUZONE HIGH DOSE 2018-05-01 Completed [facility] - OVER 65 OVER 65 14:39:00 [facility] FLUZONE HIGH DOSE FLUZONE HIGH DOSE 2018-05-01 Completed [facility] - OVER 65 OVER 65 14:39:00 [facility] FLUZONE HIGH DOSE FLUZONE HIGH DOSE 2018-05-01 Completed [facility] - OVER 65 OVER 65 14:39:00 [facility] FLUZONE HIGH DOSE FLUZONE HIGH DOSE 2018-05-01 Completed [facility] - OVER 65 OVER 65 14:39:00 [facility] FLUZONE HIGH DOSE FLUZONE HIGH DOSE 2018-05-01 Completed [facility] - OVER 65 OVER 65 14:39:00 [facility] FLUZONE HIGH DOSE FLUZONE HIGH DOSE 2018-05-01 Completed [facility] - OVER 65 OVER 65 14:39:00 [facility] FLUZONE HIGH DOSE FLUZONE HIGH DOSE 2018-05-01 Completed [facility] - OVER 65 OVER 65 14:39:00 [facility] FLUZONE HIGH DOSE FLUZONE HIGH DOSE 2018-05-01 Completed [facility] - OVER 65 OVER 65 14:39:00 [facility] FLUZONE HIGH DOSE FLUZONE HIGH DOSE 2018-05-01 Completed [facility] - OVER 65 OVER 65 14:39:00 [facility] FLUZONE HIGH DOSE FLUZONE HIGH DOSE 2018-05-01 Completed [facility] - OVER 65 OVER 65 14:39:00 [facility] FLUZONE HIGH DOSE FLUZONE HIGH DOSE 2018-05-01 Completed [facility] - OVER 65 OVER 65 14:39:00 [facility] FLUZONE HIGH DOSE FLUZONE HIGH DOSE 2018-05-01 Completed [facility] - OVER 65 OVER 65 14:39:00 [facility] FLUZONE HIGH DOSE FLUZONE HIGH DOSE 2018-05-01 Completed [facility] - OVER 65 OVER 65 14:39:00 [facility] FLUZONE HIGH DOSE FLUZONE HIGH DOSE 2018-05-01 Completed [facility] - OVER 65 OVER 65 14:39:00 [facility] FLUZONE HIGH DOSE FLUZONE HIGH DOSE 2018-05-01 Completed [facility] - OVER 65 OVER 65 14:39:00 [facility] FLUZONE HIGH DOSE FLUZONE HIGH DOSE 2018-05-01 Completed [facility] - OVER 65 OVER 65 14:39:00 [facility] FLUZONE HIGH DOSE FLUZONE HIGH DOSE 2018-05-01 Completed [facility] - OVER 65 OVER 65 14:39:00 [facility] FLUZONE HIGH DOSE FLUZONE HIGH DOSE 2018-05-01 Completed [facility] - OVER 65 OVER 65 14:39:00 [facility] FLUZONE HIGH DOSE FLUZONE HIGH DOSE 2018-05-01 Completed [facility] - OVER 65 OVER 65 14:39:00 [facility] FLUZONE HIGH DOSE FLUZONE HIGH DOSE 2018-05-01 Completed [facility] - OVER 65 OVER 65 14:39:00 [facility] FLUZONE HIGH DOSE FLUZONE HIGH DOSE 2018-05-01 Completed [facility] - OVER 65 OVER 65 14:39:00 [facility] FLUZONE HIGH DOSE FLUZONE HIGH DOSE 2018-05-01 Completed [facility] - OVER 65 OVER 65 14:39:00 [facility] FLUZONE HIGH DOSE FLUZONE HIGH DOSE 2018-05-01 Completed [facility] - OVER 65 OVER 65 14:39:00 [facility] FLUZONE HIGH DOSE FLUZONE HIGH DOSE 2018-05-01 Completed [facility] - OVER 65 OVER 65 14:39:00 [facility] FLUZONE HIGH DOSE FLUZONE HIGH DOSE 2018-05-01 Completed [facility] - OVER 65 OVER 65 14:39:00 [facility] FLUZONE HIGH DOSE FLUZONE HIGH DOSE 2018-05-01 Completed [facility] - OVER 65 OVER 65 14:39:00 [facility] FLUZONE HIGH DOSE FLUZONE HIGH DOSE 2018-05-01 Completed [facility] - OVER 65 OVER 65 14:39:00 [facility] FLUZONE HIGH DOSE FLUZONE HIGH DOSE 2018-05-01 Completed [facility] - OVER 65 OVER 65 14:39:00 [facility] FLUZONE HIGH DOSE FLUZONE HIGH DOSE 2018-05-01 Completed [facility] - OVER 65 OVER 65 14:39:00 [facility] FLUZONE HIGH DOSE FLUZONE HIGH DOSE 2018-05-01 Completed [facility] - OVER 65 OVER 65 14:39:00 [facility] FLUZONE HIGH DOSE FLUZONE HIGH DOSE 2018-05-01 Completed [facility] - OVER 65 OVER 65 14:39:00 [facility] Toradol (Ketorolac) Toradol (Ketorolac) 2018-02-25 Completed [facility] - 10:03:00 [facility] Solumedrol Solumedrol 2018-02-25 Completed [facility] - 125mg/2ml 125mg/2ml 10:03:00 [facility] Toradol (Ketorolac) Toradol (Ketorolac) 2018-02-25 Completed [facility] - 10:03:00 [facility] Solumedrol Solumedrol 2018-02-25 Completed [facility] - 125mg/2ml 125mg/2ml 10:03:00 [facility] Vital Signs Vital Name Observation Time Observation Value Comments Source height 2022-07-23 13:40:00 70.75 [in_i] [facility] weight 2022-07-23 13:40:00 138 [lb_av] [facility] temperature 2022-07-23 13:40:00 98.3 [degF] [facility] [place] bmi 2022-07-23 13:40:00 19.38 kg/m2 [facility] [place] respiratory rate 2022-07-23 13:40:00 15 /min Comm on [facility] height 2022-06-24 14:20:00 70.75 [in_i] [facility] [place] weight 2022-06-24 14:20:00 145 [lb_av] [facility] [place] temperature 2022-06-24 14:20:00 98 [degF] [facility] [place] bmi 2022-06-24 14:20:00 20.36 kg/m2 [facility] [place] blood pressure 2022-06-24 14:20:00 112 mm[Hg] [facility] - systolic [facility] blood pressure 2022-06-24 14:20:00 76 mm[Hg] [facility] - diastolic [facility] height 2022-04-04 13:10:00 70.75 [in_i] [facility] weight 2022-04-04 13:10:00 147.1 [lb_av] [facility] temperature 2022-04-04 13:10:00 97.8 [degF] [facility] bmi 2022-04-04 13:10:00 20.66 kg/m2 [facility] oximetry 2022-04-04 13:10:00 96 % [facility] [place] respiratory rate 2022-04-04 13:10:00 17 /min Comm on [facility] blood pressure 2022-04-04 13:10:00 110 mm[Hg] [facility] - systolic [facility] blood pressure 2022-04-04 13:10:00 62 mm[Hg] [facility] - diastolic [facility] height 2022-03-13 13:15:00 70.75 [in_i] [facility] [place] weight 2022-03-13 13:15:00 137.6 [lb_av] [facility] temperature 2022-03-13 13:15:00 97.3 [degF] [facility] bmi 2022-03-13 13:15:00 19.33 kg/m2 [facility] oximetry 2022-03-13 13:15:00 94 % [facility] respiratory rate 2022-03-13 13:15:00 16 /min Comm on [facility] blood pressure 2022-03-13 13:15:00 111 mm[Hg] [facility] - systolic [facility] blood pressure 2022-03-13 13:15:00 68 mm[Hg] [facility] - diastolic [facility] height 2022-01-09 14:20:00 70.75 [in_i] [facility] weight 2022-01-09 14:20:00 138.6 [lb_av] [facility] temperature 2022-01-09 14:20:00 98.1 [degF] [facility] bmi 2022-01-09 14:20:00 19.47 kg/m2 [facility] oximetry 2022-01-09 14:20:00 95 % [facility] respiratory rate 2022-01-09 14:20:00 16 /min [facility] on [facility] blood pressure 2022-01-09 14:20:00 112 mm[Hg] [facility] - systolic [facility] blood pressure 2022-01-09 14:20:00 75 mm[Hg] [facility] - diastolic [facility] height 2021-12-21 10:30:00 70.75 [in_i] [facility] weight 2021-12-21 10:30:00 135 [lb_av] [facility] temperature 2021-12-21 10:30:00 97 [degF] [facility] bmi 2021-12-21 10:30:00 18.96 kg/m2 [facility] [place] [facility] pressure 2021-12-21 10:30:00 115 mm[Hg] [facility] - systolic [facility] blood pressure 2021-12-21 10:30:00 78 mm[Hg] [facility] - diastolic [facility] height 2021-12-06 08:00:00 70.75 [in_i] [facility] weight 2021-12-06 08:00:00 147.2 [lb_av] [facility] temperature 2021-12-06 08:00:00 97.2 [degF] [facility] bmi 2021-12-06 08:00:00 20.67 kg/m2 [facility] oximetry 2021-12-06 08:00:00 96 % [facility] respiratory rate 2021-12-06 08:00:00 16 /min Comm on [facility] blood pressure 2021-12-06 08:00:00 141 mm[Hg] [facility] - systolic [facility] blood pressure 2021-12-06 08:00:00 74 mm[Hg] Common [facility] diastolic [facility] height 2021-09-26 08:30:00 70.75 [in_i] [facility] weight 2021-09-26 08:30:00 146.8 [lb_av] [facility] temperature 2021-09-26 08:30:00 98.3 [degF] [facility] bmi 2021-09-26 08:30:00 20.62 kg/m2 [facility] oximetry 2021-09-26 08:30:00 99 % [facility] respiratory rate 2021-09-26 08:30:00 17 /min Comm on [facility] blood pressure 2021-09-26 08:30:00 132 mm[Hg] [facility] - systolic [facility] blood pressure 2021-09-26 08:30:00 70 mm[Hg] [facility] - diastolic [facility] height 2021-09-26 08:00:00 70.75 [in_i] [facility] [place] weight 2021-09-26 08:00:00 146.8 [lb_av] [facility] temperature 2021-09-26 08:00:00 98.3 [degF] [facility] - [facility] bmi 2021-09-26 08:00:00 20.62 kg/m2 [facility] [place] oximetry 2021-09-26 08:00:00 99 % [facility] 2021-09-26 08:00:00 132 mm[Hg] [facility] - systolic [facility] blood pressure 2021-09-26 08:00:00 70 mm[Hg] [facility] - diastolic [facility] height 2021-09-17 16:45:00 70.75 [in_i] [facility] [place] weight 2021-09-17 16:45:00 146.2 [lb_av] [facility] temperature 2021-09-17 16:45:00 98.6 [degF] [facility] [place] bmi 2021-09-17 16:45:00 20.53 kg/m2 [facility] [place] oximetry 2021-09-17 16:45:00 94 % [facility] [place] respiratory rate 2021-09-17 16:45:00 16 /min [facility] on [facility] blood pressure 2021-09-17 16:45:00 154 mm[Hg] [facility] - systolic [facility] blood pressure 2021-09-17 16:45:00 72 mm[Hg] [facility] - diastolic [facility] height 2021-07-18 10:15:00 70.75 [in_i] [facility] [place] weight 2021-07-18 10:15:00 146 [lb_av] [facility] temperature 2021-07-18 10:15:00 97.6 [degF] [facility] bmi 2021-07-18 10:15:00 20.5 kg/m2 [facility] oximetry 2021-07-18 10:15:00 97 % [facility] respiratory rate 2021-07-18 10:15:00 18 /min [facility] [place] blood pressure 2021-07-18 10:15:00 117 mm[Hg] [facility] - systolic [facility] blood pressure 2021-07-18 10:15:00 63 mm[Hg] [facility] - diastolic [facility] height 2021-07-12 13:10:00 70.75 [in_i] [facility] weight 2021-07-12 13:10:00 140 [lb_av] [facility] temperature 2021-07-12 13:10:00 97.9 [degF] [facility] bmi 2021-07-12 13:10:00 19.66 kg/m2 [facility] blood pressure 2021-07-12 13:10:00 131 mm[Hg] [facility] - systolic [facility] blood pressure 2021-07-12 13:10:00 76 mm[Hg] [facility] - diastolic [facility] Systolic blood 2021-06-30 15:05:00 184 mm[Hg] Univer sity of pressure [facility] Diastolic blood 2021-06-30 15:05:00 113 mm[Hg] Unive rsity of pressure [facility] Heart rate 2021-06-30 15:05:00 96 /min [facility] Body temperature 2021-06-30 15:05:00 37.06 Roxana Univ ersity [facility] Respiratory rate 2021-06-30 15:05:00 18 /min [facility] weight 2021-06-30 15:05:00 58.968 kg Universi ty [facility] BMI 2021-06-30 15:05:00 18.65 kg/m2 [facility] Oxygen saturation in 2021-06-30 15:05:00 98 /min University Arterial blood by [facility] Pulse oximetry Branch height 2021-06-14 10:30:00 70.75 [in_i] [facility] weight 2021-06-14 10:30:00 143.5 [lb_av] [facility] temperature 2021-06-14 10:30:00 97.2 [degF] [facility] bmi 2021-06-14 10:30:00 20.15 kg/m2 [facility] oximetry 2021-06-14 10:30:00 96 % [facility] respiratory rate 2021-06-14 10:30:00 16 /min [facility] on [facility] blood pressure 2021-06-14 10:30:00 132 mm[Hg] [facility] - systolic [facility] blood pressure 2021-06-14 10:30:00 62 mm[Hg] Common [facility] diastolic [facility] height 2021-04-04 14:10:00 70.75 [in_i] [facility] weight 2021-04-04 14:10:00 139.3 [lb_av] [facility] temperature 2021-04-04 14:10:00 97.4 [degF] [facility] bmi 2021-04-04 14:10:00 19.56 kg/m2 [facility] oximetry 2021-04-04 14:10:00 98 % [facility] respiratory rate 2021-04-04 14:10:00 17 /min [facility] blood pressure 2021-04-04 14:10:00 122 mm[Hg] [facility] - systolic [facility] blood pressure 2021-04-04 14:10:00 69 mm[Hg] [facility] - diastolic [facility] Systolic blood 2021-03-19 13:35:00 158 mm[Hg] Univer [facility] pressure [facility] Diastolic blood 2021-03-19 13:35:00 86 mm[Hg] Unive rsity of pressure [facility] Heart rate 2021-03-19 13:35:00 74 /min [facility] Oxygen saturation in 2021-03-19 13:35:00 96 /min [facility] of Arterial blood by [facility] Pulse oximetry Branch Respiratory rate 2021-03-19 13:30:00 11 /min [facility] Body temperature 2021-03-19 13:07:00 36.72 Roxana [facility] Body height 2021-03-15 19:00:00 177.8 cm [facility] Body weight 2021-03-15 19:00:00 58.968 kg [facility] BMI 2021-03-15 19:00:00 18.65 kg/m2 [facility] Systolic blood 2021-03-19 13:35:00 158 mm[Hg] Univer [facility]ity [facility] pressure [facility] Diastolic blood 2021-03-19 13:35:00 86 mm[Hg] Unive rsity of pressure [facility] Heart rate 2021-03-19 13:35:00 74 /min [facility] Oxygen saturation in 2021-03-19 13:35:00 96 /min [facility] Arterial blood by [facility] Pulse oximetry Branch Respiratory rate 2021-03-19 13:30:00 11 /min [facility] Body temperature 2021-03-19 13:07:00 36.72 Roxana [facility] Body height 2021-03-15 19:00:00 177.8 cm [facility] Body weight 2021-03-15 19:00:00 58.968 kg [facility] BMI 2021-03-15 19:00:00 18.65 kg/m2 [facility] Systolic blood 2020-06-21 00:55:00 219 mm[Hg] Univer sity of pressure [facility] Diastolic blood 2020-06-21 00:55:00 112 mm[Hg] Unive rsity of pressure [facility] Heart rate 2020-06-21 00:55:00 81 /min [facility] Respiratory rate 2020-06-21 00:55:00 14 /min [facility] Oxygen saturation in 2020-06-21 00:55:00 98 /min [facility] Arterial blood by [facility] Pulse oximetry Branch Body temperature 2020-06-20 23:25:00 37.06 Roxana [facility] weight 2020-06-20 23:25:00 63.504 kg [facility] BMI 2020-06-20 23:25:00 19.53 kg/m2 [facility] Procedures Procedure Date / Time Performing Clinician Source Performed CONSENT/REFUSAL FOR 2021-06-30 15:01:49 Doctor Unassigned, No [facility] [place] [facility] Name [facility] INTRATHECAL INFUSION 2021-03-19 12:07:00 Elliott Lemus [facility] PUMP REVISION Medical Branch ASSIGNMENT OF BENEFITS 2021-03-16 14:13:01 Doctor Unassigned, No [facility] Name Medical Branch EXTERNAL PROVIDER 2021-03-01 05:01:00 Doctor Unassigned, No [facility] EXTERNAL PROVIDER 2021-03-01 05:01:00 Doctor Unassigned, No [facility] RECORDS Name Medical Branch NOTICE OF PRIVACY 2020-06-20 23:25:36 Doctor Unassigned, No [facility] Medical Branch CONSENT/REFUSAL FOR 2020-06-20 23:25:06 Doctor Unassigned, No [facility] [place] [facility] Name Medical Branch Encounters Start End Encounter Admission Attending Care Care Encounter Source Date/Time Date/Time Type Type Clinicians Facility Department ID 2022-06-20 Outpatient Pedraza [facility] [id number] Common 16:01:00 [facility] 2022-01-09 Outpatient Pedraza, [facility] [id number] Common 14:46:00 [facility] 2021-09-25 Outpatient Pedraza, STLMLC [facility] [id number] Common 13:09:01 Swetha [facility] 2021-09-07 Outpatient Pedraza, STLMLC STLMLC [id number] Common 09:20:00 Swetha [facility] 2021-08-20 Outpatient Pedraza, STLMLC STLMLC [id number] Common 16:09:01 Swetha [facility] 2021-08-06 Outpatient Pedraza, STLMLC STLMLC [id number] Common 06:27:01 Swetha [facility] 2021-08-01 Outpatient Pedraza, STLMLC STLMLC [id number] Common 14:31:24 Swetha [facility] 2021-08-01 Outpatient Pedraza, STLMLC STLMLC [id number] Common 14:22:24 Swetha [id number] [facility] 2021-08-01 Outpatient Pedraza, STLMLC STLMLC [id number] Common 13:54:17 Swetha [id number] [facility] 2021-08-01 Outpatient Pedraza, STLMLC STLMLC [id number] Common 13:49:42 Swetha [facility] 2021-08-01 Outpatient Pedraza, STLMLC STLMLC [id number] Common 13:46:19 Swetha [id number] [facility] 2021-08-01 Outpatient Pedraza, STLMLC STLMLC [id number] Common 12:35:25 Swetha [id number] [facility] 2021-08-01 Outpatient Pedraza, STLMLC STLMLC [id number] Common 12:31:16 Swetha [id number] [facility] 2021-08-01 Outpatient Pedraza, STLMLC STLMLC [id number] Common 12:24:58 Swetha [facility] 2021-08-01 Outpatient Pedraza, STLMLC STLMLC [id number] Common 12:24:32 Swetha [facility] 2021-08-01 Outpatient Pedraza, STLMLC STLMLC [id number] Common 12:21:42 Swetha [id number] [facility] 2021-08-01 Outpatient Jefferson Teresa STLMLC STLMLC [id number] Common 12:21:20 [id number] [facility] 2021-08-01 Outpatient Jefferson Teresa STLMLC STLMLC [id number] Common 12:19:51 [id number] [facility] 2021-08-01 Outpatient Jefferson Teresa STLMLC STLMLC [id number] Common 12:18:22 [id number] [facility] 2021-08-01 Outpatient Jefferson Teresa STLMLC STLMLC [id number] Common 12:01:35 [id number] [facility] 2021-08-01 Outpatient Jefferson Teresa STLMLC STLMLC [id number] Common 11:59:25 [id number] [facility] 2021-08-01 Outpatient STLMLC STLMLC [id number] Common 11:59:02 [id number] [facility] 2021-08-01 Outpatient Millender, STLMLC STLMLC [id number] 11:53:59 Kristie [id number] [facility] 2021-08-01 Outpatient Millender, STLMLC STLMLC [id number] Common 11:06:08 Kristie 93731 [facility] 2021-08-01 Outpatient Millender, STLMLC STLMLC [id number] Common 10:59:48 Kristie [id number] [facility] 2021-08-01 Outpatient Millender, STLMLC STLMLC [id number] Common 10:59:10 Kristie [id number] [facility] 2021-08-01 Outpatient Millender, STLMLC STLMLC [id number] 10:57:50 Kristie [id number] [facility] 2021-05-07 Outpatient Mima [facility] ANS [id number] Univers 21:44:34 ELLIOTT frias [facility] 2022-12-192022-12-19 Outpatient EL Herminia, HCACL OUTD [id number] [facility] 05:41:00 05:41:00 Weld[place]ab 43 [facility] 2022-07-23 2022-07-23 OFFICE STLMLC STLMLC [id number] Co mmon 00:00:00 00:00:00 VISIT EST Spir it PT LEVEL 3 - [facility] 2022-07-22 2022-07-22 (WEB) STLMLC STLMLC [id number] Co mmon 00:00:00 00:00:00 [facility] [place] 2022-07-22 2022-07-22 (TEL) STLMLC STLMLC [id number] Co mmon 00:00:00 00:00:00 [facility] 2022-07-01 2022-07-01 (WEB) STLMLC STLMLC [id number] Co mmon 00:00:00 00:00:00 [facility] 2022-06-24 2022-06-24 OFFICE STLMLC STLMLC [id number] Co mmon 00:00:00 00:00:00 VISIT Spirit ESTAB PT - CHI LEVEL 4 [facility] 2022-04-04 2022-04-04 OFFICE STLMLC STLMLC [id number] Co mmon 00:00:00 00:00:00 VISIT [facility] ESTAB PT - [facility] LEVEL 4 [facility] 2022-03-15 2022-03-15 (WEB) STLMLC STLMLC [id number] Co mmon 00:00:00 00:00:00 [facility] - [facility] 2022-03-13 2022-03-13 OFFICE STLMLC STLMLC [id number] Co mmon 00:00:00 00:00:00 VISIT [facility] ESTAB PT - CHI LEVEL 2 [facility] 2022-01-09 2022-01-09 OFFICE STLMLC STLMLC [id number] Co mmon 00:00:00 00:00:00 VISIT [facility] ESTAB PT - [facility] LEVEL 4 [facility] 2021-12-30 2021-12-30 (WEB) STLMLC STLMLC [id number] Co mmon 00:00:00 00:00:00 [facility] 2021-12-29 2021-12-29 (WEB) STLMLC STLMLC [id number] Co mmon 00:00:00 00:00:00 [facility] 2021-12-25 2021-12-25 (TEL) STLMLC STLMLC [id number] Co mmon 00:00:00 00:00:00 [facility] 2021-12-21 2021-12-21 OFFICE STLMLC STLMLC [id number] Co mmon 00:00:00 00:00:00 VISIT [facility] PT - [facility] 4 [facility] 2021-12-21 2021-12-21 (TEL) STLMLC STLMLC [id number] Co mmon 00:00:00 00:00:00 [facility] 2021-12-07 2021-12-07 (TEL) STLMLC STLMLC [id number] Co mmon 00:00:00 00:00:00 [facility] [facility] 2021-12-06 2021-12-06 OFFICE STLMLC STLMLC [id number] Co mmon 00:00:00 00:00:00 VISIT [facility] PT - CHI [facility] 4 [facility] 2021-11-21 2021-11-21 (TEL) STLMLC STLMLC [id number] Co mmon 00:00:00 00:00:00 [facility] 2021-10-25 2021-10-25 (TEL) STLMLC STLMLC [id number] Co mmon 00:00:00 00:00:00 [facility] 2021-10-02 2021-10-02 (TEL) STLMLC STLMLC [id number] Co mmon 00:00:00 00:00:00 [facility] 2021-09-26 2021-09-26 (TEL) STLMLC STLMLC [id number] Co mmon 00:00:00 00:00:00 [facility] 2021-09-26 2021-09-26 OFFICE STLMLC STLMLC [id number] Co mmon 00:00:00 00:00:00 VISIT [facility] PT - CHI LEVEL 4 [facility] 2021-09-26 2021-09-26 SUB ANNUAL STLMLC STLMLC [id number] Common 00:00:00 00:00:00 MCR [facility] WELLNESS - CHI VISIT [facility] 2021-09-17 2021-09-17 OFFICE STLMLC STLMLC [id number] Co mmon 00:00:00 00:00:00 VISIT [facility] ESTAB PT - CHI LEVEL 1 [facility] 2021-08-20 2021-08-20 (TEL) STLMLC STLMLC [id number] Co mmon 00:00:00 00:00:00 [facility] - CHI [facility] 2021-07-18 2021-07-18 OFFICE STLMLC STLMLC [id number] Co mmon 00:00:00 00:00:00 VISIT [facility] ESTAB PT - CHI LEVEL 2 [facility] 2021-07-18 2021-07-18 (PROC) STLMLC STLMLC [id number] Co mmon 00:00:00 00:00:00 Procedure Spir it - CHI [facility] 2021-07-16 2021-07-16 (TEL) STLMLC STLMLC [id number] Co mmon 00:00:00 00:00:00 [facility] - [facility] 2021-07-12 2021-07-12 OFFICE STLMLC STLMLC [id number] Co mmon 00:00:00 00:00:00 VISIT [facility] PT - CHI LEVEL 4 [facility] 2021-06-30 2021-06-30 Emergency X ROYER PAROSHAN ERT [id number] Univers 09:15:00 10:09:00 MELISA frias [facility] 2021-06-30 2021-06-30 [facility] [id number] Univers 09:15:00 10:09:00 Melisa CURRAN [id number] altagrac[facility] [id number] [facility] [id number] [place] [address] [place] 2021-06-28 2021-06-28 (TEL) STLMLC STLMLC [id number] Co mmon 00:00:00 00:00:00 [facility] - [facility] 2021-06-14 2021-06-14 OFFICE STLMLC STLMLC [id number] Co mmon 00:00:00 00:00:00 VISIT [facility] ESTAB PT - CHI LEVEL 4 [facility] 2021-06-12 2021-06-12 (TEL) STLMLC STLMLC [id number] Co mmon 00:00:00 00:00:00 [facility] 2021-06-06 2021-06-06 (PROC) STLMLC STLMLC [id number] Co mmon 00:00:00 00:00:00 Procedure Spir it [facility] 2021-06-04 2021-06-04 (TEL) STLMLC STLMLC [id number] Co mmon 00:00:00 00:00:00 [facility] 2021-05-23 2021-05-23 OL DIG E/M STLMLC STLMLC [id number] Common 00:00:00 00:00:00 SVC 11-20 Spir it MIN [facility] 2021-04-04 2021-04-04 OFFICE STLMLC STLMLC [id number] Co mmon 00:00:00 00:00:00 VISIT [facility] PT - CHI LEVEL 4 [facility] 2021-04-04 2021-04-04 (TEL) STLMLC STLMLC [id number] Co mmon 00:00:00 00:00:00 [facility] 2021-03-22 2021-03-22 Outpatient STLMLC STLMLC [id number] Common 00:00:00 00:00:00 [facility] 2021-03-19 2021-03-19 Hospital [facility] [id number] Univers 07:02:00 08:58:00 Encounter Elliott Curran [id number] itStephane [id number] Marisa dubois Surgical [phone] [place] [address] [place] 2021-03-19 2021-03-19 Surgery [facility] [id number] Univers 07:30:00 08:38:00 Elliott Curran [id number] [id number] [phone] [facility] 020 [place] 2021-03-19 2021-03-19 Outpatient STLMLC STLMLC [id number] Common 00:00:00 00:00:00 [facility] 2021-03-16 2021-03-16 Manager Nicu Sheila, Adc Lab Main [facility] 1.2.8 [id number] [id number] [facility] 09:16:08 09:31:08 Visit Elliott Lemus [id number] 0 [id number] [id number] [facility] 353 [facility] 2021-03-16 2021-03-16 Laboratory Only, Adc Test [facility] 1.2.840. 114 [id number] [facility] 09:13:46 09:28:46 Only Elliott Lemus 350.1.13.1 0 [id number] [id number] [facility] 353 [place] 2021-03-16 2021-03-16 Outpatient R [facility] [id number] Univers 09:00:00 09:00:00 ELLIOTT ity of [facility] 2021-03-16 2021-03-16 Orders Doctor KABA [id number] Univers 00:00:00 00:00:00 Only Unassigned, ANASTASIYA [id number] [facility] [id number] [place] [id number] [facility] 009 [place] 2021-03-09 2021-03-09 Outpatient STLMLC STLMLC [id number] Common 00:00:00 00:00:00 [facility] 2021-01-17 2021-01-17 Outpatient STLMLC STLMLC [id number] Common 00:00:00 00:00:00 [facility] 2021-01-17 2021-01-17 Outpatient STLMLC STLMLC [id number] Common 00:00:00 00:00:00 [facility] 2020-11-28 2020-11-28 Outpatient STLMLC STLMLC [id number] Common 00:00:00 00:00:00 [facility] 2020-09-07 2020-09-07 Outpatient STLMLC STLMLC [id number] Common 00:00:00 00:00:00 [facility] 2020-09-07 2020-09-07 Outpatient STLMLC STLMLC [id number] Common 00:00:00 00:00:00 [facility] 2020-09-05 2020-09-05 Outpatient STLMLC STLMLC [id number] Common 00:00:00 00:00:00 [facility] 2020-08-28 2020-08-28 Outpatient STLMLC STLMLC [id number] Common 00:00:00 00:00:00 [facility] 2020-07-31 2020-07-31 Outpatient STLMLC STLMLC [id number] Common 00:00:00 00:00:00 [facility] 2020-07-20 2020-07-20 Outpatient STLMLC STLMLC [id number] Common 00:00:00 00:00:00 [facility] 2020-06-20 2020-06-20 Emergency [facility] 1.2.840.114 [id number] Univers 17:20:00 19:05:00 Melisa Curran [id number] [facility] [id number] [facility] [id number] [place] [address] [place] 2020-06-20 2020-06-20 Emergency X [facility] ERT [id number] Univers 17:20:00 17:20:00 MELISA frias [facility] 2020-05-25 2020-05-25 Outpatient STLMLC STLMLC [id number] Common 00:00:00 00:00:00 [facility] 2020-05-10 2020-05-10 Outpatient STLMLC STLMLC [id number] Common 00:00:00 00:00:00 [facility] 2020-05-05 2020-05-05 Outpatient STLMLC STLMLC [id number] Common 00:00:00 00:00:00 [facility] 2020-04-19 2020-04-19 Outpatient STLMLC STLMLC [id number] Common 00:00:00 00:00:00 [facility] 2020-04-17 2020-04-17 Outpatient STLMLC STLMLC [id number] Common 00:00:00 00:00:00 [facility] 2020-04-17 2020-04-17 Outpatient STLMLC STLMLC [id number] Common 00:00:00 00:00:00 [facility] 2020-03-10 2020-03-10 [facility] [id number] Common 16:45:00 16:45:00 t [facility] [address] [facility] 2020-02-29 2020-02-29 [facility] [id number] Common 16:42:00 16:42:[address] [facility] 2020-02-18 2020-02-18 [facility] [id number] Common 15:49:00 15:49:[address] [facility] 2020-01-20 2020-01-20 [facility] [id number] Common 15:20:00 15:20:[address] [facility] 2019-10-22 2019-10-22 [facility] [id number] Common 16:14:00 16:14:[address] [facility] 2019-10-08 2019-10-08 [facility] [id number] Common 11:15:00 11:15:[address] [facility] 2019-10-07 2019-10-07 [facility] [id number] Common 16:06:00 16:06:[address] [facility] 2019-09-13 2019-09-13 [facility] [id number] Common 10:00:00 10:00:[address] [facility] 2019-07-18 2019-07-18 [facility] [id number] Common 21:07:00 21:07:[address] [facility] 2019-07-16 2019-07-16 [facility] [id number] Common 16:45:00 16:45:[address] [facility] 2019-07-09 2019-07-09 [facility] [id number] Common 15:40:00 15:40:[address] [facility] 2019-07-06 2019-07-06 [facility] [id number] Common 10:25:00 10:25:[address] [facility] 2019-06-14 2019-06-14 [facility] [id number] Common 10:00:00 10:00:[address] [facility] 2019-05-06 2019-05-06 [facility] [id number] Common 11:28:00 11:28:[address] [facility] 2019-03-15 2019-03-15 [facility] [id number] Common 14:16:00 14:16:[address] [facility] 2019-03-15 2019-03-15 [facility] [id number] Common 08:20:00 08:20:[address] [facility] 2019-02-09 2019-02-09 [facility] [id number] Common 08:40:00 08:40:[address] [facility] 2018-12-14 2018-12-14 [facility] [id number] Common 15:07:00 15:07:[address] [facility] 2018-09-11 2018-09-11 [facility] [id number] Common 15:30:00 15:30:[address] [facility] 2018-07-27 2018-07-27 [facility] [id number] Common 22:05:00 22:05:[address] [facility] 2018-07-13 2018-07-13 [facility] [id number] Common 20:12:00 20:12:[address] [facility] 2018-06-26 2018-06-26 [facility] [id number] Common 09:30:00 09:30:[address] [facility] 2018-06-12 2018-06-12 [facility] [id number] Common 13:24:00 13:24:[address] [facility] 2018-04-03 2018-04-03 [facility] [id number] Common 09:04:00 09:04:[address] [facility] 2018-04-03 2018-04-03 [facility] [id number] Common 09:03:00 09:03:[address] [facility] 2018-03-28 2018-03-28 [facility] [id number] Common 02:17:00 02:17:[address] [facility] 2018-03-27 2018-03-27 [facility] [id number] Common 15:45:00 15:45:[address] [facility] 2018-03-18 2018-03-18 [facility] [id number] Common 13:31:00 13:31:[address] [facility] 2018-02-25 2018-02-25 [facility] [id number] Common 15:07:00 15:07:[address] [facility] 2018-02-25 2018-02-25 [facility] [id number] Common 09:00:00 09:00:[address] [facility] 2018-01-30 2018-01-30 [facility] [id number] Common 13:40:00 13:40:00 t [facility] Road [address] [facility] 2018-01-29 2018-01-29 [facility] [id number] Common 10:00:00 10:00:00 t [facility] Road [address] [facility] 2018-01-05 2018-01-05 [facility] [id number] Common 15:08:00 15:08:[address] [facility] 2017-12-30 2017-12-30 [facility] [id number] Common 10:15:00 10:15:00 t [facility] Road [address] [facility] Results Test Description Test Time Test Comments Results Result Sourc e Comments - XR CHEST 1 V 2022-12-19 00:00:00 [facility] : 1950 Sex: M FAX: Guido Montgomery M [phone] [place]: St: REG FAX: Rohit De Luna [phone] Name: DONALD HANSON [facility] : 1950 Age/S: 72/M [address] [place] [address] Unit #: [id number] Loc: [place] [address] Phys: Rohit De Luna Acct: [id number] Dis Date: Status: [place] [facility] [place]ONE #: [phone] Exam Date: 12/19/20222 FAX #: [phone] Reason: Post PM/ICD EXAMS: CPT CODE: [id number] XR CHEST 1 V 75593 PROCEDURE INFORMATION: Exam: XR Chest Exam date and time: 12/19/2022 1:10 PM Age: 72 years old Clinical indication: Other: Post pm/icd TECHNIQUE: Imaging protocol: Radiologic exam of the chest. Views: 1 view. COMPARISON: DX XR CHEST 2 V 12/18/2022 12:27 PM FINDINGS: Tubes, catheters and devices: Implanted pacemaker generator left chest wall with 2 cardiac leads. Lungs: Subsegmental atelectasis or scarring at the left lung base again noted. Pleuroparenchymal scarring right apex and upper lobe as before. No new infiltrate. Pulmonary vasculature normal. Pleural spaces: No pneumothorax or pleural effusion. (Curvilinear edge overlying left upper lobe appears to be a skin fold). Heart/Mediastinum: Cardiomediastinal silhouette stable. Bones/joints: Degenerative changes of the shoulders and dorsal spine. No new bony abnormality. IMPRESSION: Post pacemaker implant. No pneumothorax or significant acute postoperative findings. at 1411 Reported and signed by: Arslan Stevens M.D. CC: Guido Hope MD; Rohit De Luna Technologist: RT Patrick(R) Trnscrd Date/Time/By: 12/19/2022 (1410) : By: [email or web address] Orig Print D/T: S: 12/19/2022 (141) PAGE 1 Signed Report PROTHROMBIN TIME 2022-12-18 13:43:00 Test Item Value Reference Range Interpretation Comme nts PROTHROMBIN TIME PATIENT 14.6 SECONDS 9.3-12.9 H (test code = PTP) INTERNATIONAL NORMAL RATIO 1.3 0.8-1.2 H TARGET INR BY INDICATION (test code = INR) Indication INR1. Prophylaxis of venous thrombos is 2.0 - 3.0 (orthopedic cm dainel), Prophylaxis of venous thrombosis (other than hig h-risk surgery), Treatment of De ep Vein Thrombosis/Pulm onary Embolism, Prevention of s ystemic embolism - Tissue heart valves, Acute Myocardial Infa rction (to prevent systemi c embolism), Valvular heart disease, Atrial Fibrillation, B ileaflet mechanical valv e in aortic position.2. [facility] hanical prosthetic valv es (high risk), 2.5 - 3.5 Prese nce of Lupus Anticoagulant o r Antiphospholipi d Antibodies, Prevention of s ystemic embolism - Acute Myocard ial Infarction (to prevent rec urrent infarct). - XR CHEST 2 [id number] 00:00:00 [facility] : 1950 Sex: M FAX: Guido Mello [phone] [place]: St: PRE Name: DONALD HANSON [facility] : 1950 Age/S: 72/M [address] [place] [address] Unit #: [id number] Loc: [place] [address] Phys: Guido Hope MD Acct: [id number] Dis Date: Status: PRE SDC PHONE #: [phone] Exam Date: 12/18/2022 1301 FAX #: [phone] Reason: PRE OP EXAMS: CPT CODE: [id number] XR CHEST 2 V [id number] PROCEDURE INFORMATION: Exam: XR Chest Exam date and time: 12/18/2022 12:27 PM Age: 72 years old Clinical indication: Other: Pre op TECHNIQUE: Imaging protocol: Radiologic exam of the chest. Views: 2 views. PA and Lateral COMPARISON: No relevant prior studies available. FINDINGS: Lungs: There is minimal subsegmental atelectasis and possible scarring in the right upper lobe and lung bases, right greater than left. Pleural spaces: Unremarkable. No pleural effusion. No pneumothorax. Heart/Mediastinum: The cardiac silhouette is slightly enlarged. The mediastinal contour is normal. The trachea is midline. Bones/joints: No acute abnormality seen. IMPRESSION: Minimal bilateral subsegmental atelectasis and parenchymal scarring most pronounced at the right lung base. at 1413 Reported and signed by: Adria Vang M.D. CC: Guido Hope MD Technologist: RT Edmund(Mima) Trnscrd Date/Time/By: 12/18/2022 (1412) : By: Meenakshi Orig Print D/T: S: 12/18/2022 (1412) PAGE 1 Signed Report Notes Date/Time Note Provider Source 2022-12-19 12:14:00-00:00 [id number] [place], [place] [address] PATIENT NAME: DONALD HANSON ADMIT DATE: 12/19/22 ACCOUNT NO: [id number] ROOM NO: AGE: 72 REPORT TYPE: OPERATIVE REPORT SEX: M ADMITTING PHYSICIAN: ATTENDING PHYSICIAN:Guido Hope MD OPERATION DATE: 12/19/2022 PREPROCEDURE DIAGNOSES: Sick sinus syndrome, symptomatic sinus bradycardia, and paroxysmal atrial fibrillation. POSTPROCEDURE DIAGNOSIS: PROCEDURE PERFORMED: Dual chamber pacemaker impl ant and moderate sedation. SURGEON: CARDIOLOGY TECHNICIAN: ANESTHESIA: CLINICAL HISTORY: The patient is a 72-year-old w ith sick sinus syndrome and paroxysmal AFib, symptomatic sinus bradycardia with heart rate drops to the 40s. We discussed with him dual chamber pace maker implant. Risks including but not limited to bleeding, infecti on, damaging to large blood vessel, damaging to the heart wall, possible need fo r chest tube or cardiac surgery, possible stroke or were explained. The patient agreed to proc eed with surgery and signed informed consent. PROCEDURE IN DETAIL: Moderat e sedation was done under my supervision with total of 2 mg Versed and 50 mcg fentanyl were given. He was monitored by the trained staff in the prestressed concrete laborer for 40 minutes of duration of procedure with no complications. Next, left upper venogram sh owed patent axillary vein. We formed a pocket below the left clavicle with 4 cm incision. We accesse d the axillary vein with modified Seldinger technique using micropuncture x2 and using two 7-Khmer sheath. We placed RV lead in distal RV septum an d RA lead in RA appendage. Sensing and pacing parameter and injury current were good in both leads. The lead was sutured to facial plane, connected to t he pacemaker generator. We flushed the pocket with anti biotic solution, was closed with 2-0 Vicryl and 4-0 Stratafix. IMPLANTED MATERIAL: [employer] dual chamb er pacemaker, model #L311, serial #[id number]. The atrial lead is a [employer] 7840, serial #[id number]. The RV lead is [employer] 7841, serial #[id number]. Sensing pacing parameter: R-wave 15.2 millivolt, impedance 834, threshold 0.4 at 0.4. P-wave 2.5 millivolt, impedance 765 ohms, thres hold 0.6 at 0.4. Device was programmed to DDR 60/130. PATIENT NAME: DONALD HANSON FINAL DIAGNOSIS: Successful implant of dual esteban santa pacemaker. PLAN: Monitor the patient for 22 hours. Obtain c hest x-ray to rule out pneumothorax. If the patient is stable, he can b e discharged home today. Follow up in 2 weeks for wou nd check. Keep the wound covered and dry for 1 week and hold Eliquis for 4-5 day s. Avoid heavy lifting and stretching the arm above the shoulder for 1 month. Dictated By: Guido Hope MD Date Dictated: 12/19/2022 12:14:24 Date Transcribed: 12/19/2022 13:00:56 MS/PRA Receipt ID: [id number] Authenticated by Guido Hope MD On 2022 11:49:15 AM Electronically Signed by Guido Hope MD o n 01/02/23 at 1149 PATIENT NAME: DONALD HANSON
[2023-01-10 18:36] LABS: Hematocrit 42.2 % (39.6-49.0); Lymphocytes % 9.1 % (15.3-44.8); MCV 89.7 fL (80-100); MPV 8.5 fL (7.6-11.3); RBC Red Blood Cell Count 4.71 M/uL (4.33-5.43)
[2023-01-10 18:54] LABS: Magnesium 1.7 mg/dL (1.6-2.4); Potassium 3.1 mEq/L (3.5-5.1); Troponin High Sensitivity 51.3 pg/mL (<58.9)
[2023-01-10 19:00] LABS: Specific Gravity 1.019 (1.005-1.030); Urine Bacteria <20 /HPF (<20); Urine Bilirubin NEGATIVE (Negative); Urine Blood 3+ (OVER) (Negative); Urine Clarity Extremely Turbid (Clear); Urine Color Yellow (Yellow); Urine Glucose NEGATIVE (Negative); Urine Mucus Slight /HPF (None Seen); Urine Protein 1+ (Negative); Urine RBC >50 /HPF (None Seen); Urine Urobilinogen Normal (Normal)
[2023-01-10] MEDS ORDERED: MORPHINE 4 MG/ML SYR ONE ×2 (19:05→21:21)
[2023-01-10] MEDS ORDERED: NA CHLORIDE 0.9% 500 ML ONE (19:06)
--- NOTE | 2023-01-10 20:01 | RAD REPORT ---
[facility] CLINICAL HISTORY: weakness COMPARISON: Chest Single View dated 11/07/2022; Chest Single View dated 10/31/2022; Chest Pa And Lat (2 Views) dated 07/20/2021 TECHNIQUE: Portable AP view of the chest. FINDINGS: The lungs are clear. Hyperlucency and hyperinflation, suggestive of COPD, stable. Marginal ly calcified right basilar centrally lucent lesion, stable, appears to be of chronic nature. No pneum othorax or effusion. The cardiomediastinal contours are unremarkable. IMPRESSION: No acute cardiopulmonary process.
[2023-01-10] MEDS ORDERED: LABETALOL 20 MG/4ML SYRINGE IV ONE ×2 (20:23→20:24)
--- NOTE | 2023-01-10 21:16 | RAD REPORT ---
EXAM DESCRIPTION: CT - Stone Protocol - 01/10/2023 8:30 pm CLINICAL HISTORY: hematuria, low back pain COMPARISON: Abdomen Pelvis W Contrast dated 04/24/2018 TECHNIQUE: Thin cut axial CT imaging of the abdomen and pelvis was performed without IV contrast. Mu ltiplanar reformats were generated and reviewed. All CT scans are performed using dose optimization technique as appropriate and may include automated exposure control or mA/KV adjustment according to patient size. FINDINGS: Right lower abdominal wall pain pump in place, resulting in streak artifact which limits e valuation. Stable lucent subpleural right lower lobe lesion with marginal calcifications. No other suspicious findings in the lung bases. The liver, spleen, and pancreas show no suspicious findings. Gallbladder and biliary tree are also wi thout suspicious finding. Symmetric renal contour, without suspicious parenchymal findings within limits of noncontrast techniq ue. No hydroureteronephrosis. Multiple bilateral nonobstructing calculi, the largest at the left mid pole measuring 9 millimeter. No dilated bowel loops or bowel wall thickening. Nonspecific fluid opacification within nondistended small bowel. No free air, free fluid or inflammatory stranding. No hernia, mass or bulky lymphadenopa thy. The urinary bladder is without significant finding. Prostatomegaly, with multiple radiation bead s in place. Tortuosity of the abdominal aorta. No suspicious bony findings. Progressive multilevel lumbar spine degenerative changes with levoconvex scoliosis. IMPRESSION: Nonspecific fluid opacification within nondistended small bowel, could relate to diarrhe al state. Nonobstructing bilateral renal calculi, largest measures 9 millimeter and the left renal mid pole. No hydroureteronephrosis. Other incidental findings as above.
--- NOTE | 2023-01-10 21:44 | ER ---
Nurse's Notes [facility] Name: Clovis Moore Age: 72 yrs Sex: Male : 1950 Arrival Date: 01/10/2023 Time: 18:01 Bed 7 Private MD: Diagnosis: Calculus of kidney;Hematuria, unspecified;Chronic pain, not elsewhere classified;Hypokalemia;Hypertensive heart disease without heart failure Presentation: 01/10 18:14 Chief complaint: EMS states: patient has been having low back pain since he was a ap3 child. family reported to EMS that the patient was hypertensive at home. Coronavirus screen: At this time, the client does not indicate any symptoms associated with coronavirus-19. Ebola Screen: No symptoms or risks identified at this time. Initial Sepsis Screen: Does the patient meet any 2 criteria? No. Patient's initial sepsis screen is negative. Does the patient have a suspected source of infection? No. Patient's initial sepsis screen is negative. Risk Assessment: Do you want to hurt yourself or someone else? Patient reports no desire to harm self or others. Onset of symptoms is unknown. Care prior to arrival: IV initiated. 18 GA, in the left antecubital area. 18:14 Method Of Arrival: EMS: [facility] ap3 18:14 Acuity: [place] 3 ap3 Triage Assessment: 18:17 General: Appears uncomfortable, Behavior is calm, cooperative. Pain: Complains of pain ap3 in back Pain currently is 7 out of 10 on a pain scale. Neuro: Level of Consciousness is awake, alert, obeys commands, Oriented to person, place, time, situation. Cardiovascular: Patient's skin is warm and dry. Respiratory: Airway is patent Respiratory effort is even, unlabored. Historical: - Allergies: 18:16 No Known Allergies; ap3 - PMHx: 18:16 Back pain; Chronic pain; Hypertension; polio as a child; ap3 - Immunization history:: Client reports receiving the 2nd dose of the Covid vaccine. - Social history:: Smoking status: Patient denies any tobacco usage or history of. Patient uses street drugs, marijuana. Screenin:18 Abuse screen: Denies threats or abuse. Nutritional screening: No deficits noted. ap3 Tuberculosis screening: No symptoms or risk factors identified. 18:18 [facility] ED Fall Risk Assessment (Adult) History of falling in the last 3 months, ap3 including since admission No falls in past 3 months (0 pts) Confusion or Disorientation No (0 pts) Intoxicated or Sedated No (0 pts) Impaired Gait Yes (1 pt). Assessment: 19:30 General: Appears in no apparent distress. uncomfortable, well groomed, well developed, pf1 Behavior is calm, cooperative, appropriate for age, quiet. 19:30 Pain: Complains of pain in back Pain currently is 8 out of 10 on a pain scale. Neuro: pf1 Level of Consciousness is awake, alert, obeys commands, Oriented to person, place, time, situation. Cardiovascular: Capillary refill < 3 seconds Patient's skin is warm and dry. Respiratory: No deficits noted. Airway is patent Respiratory effort is even, unlabored, Respiratory pattern is regular, symmetrical, Breath sounds are clear bilaterally. GI: Abdomen is flat, non-distended, Bowel sounds present X 4 quads. : No deficits noted. No signs and/or symptoms were reported regarding the genitourinary system. EENT: No deficits noted. No signs and/or symptoms were reported regarding the EENT system. Derm: No deficits noted. No signs and/or symptoms reported regarding the dermatologic system. Musculoskeletal: Reports pain in back. 20:30 Reassessment: Patient appears in no apparent distress at this time. Patient and/or pf1 family updated on plan of care and expected duration. Pain level reassessed. Patient is alert, oriented x 3, equal unlabored respirations, skin warm/dry/pink. Patient states symptoms have not improved. 21:30 Reassessment: Patient appears in no apparent distress at this time. Patient and/or pf1 family updated on plan of care and expected duration. Pain level reassessed. Patient is alert, oriented x 3, equal unlabored respirations, skin warm/dry/pink. Patient states symptoms have not improved. Vital Signs: 18:14 Pulse 93; Resp 17; Temp 97.7; Pulse Ox 100% ; Weight 61.23 kg; Pain 7/10; ap3 18:25 BP 150 / 104; ap3 19:00 BP 173 / 109; Pulse 86; Resp 20; Pulse Ox 100% on R/A; Pain 8/10; pf1 20:23 BP 146 / 103; Pulse 78; Resp 17; Pulse Ox 95% on R/A; rv 21:25 BP 158 / 98; Pulse 82; Resp 14; Pulse Ox 99% on R/A; pf1 18:14 Pain Scale: Adult ap3 19:00 Pain Scale: Adult pf1 ED Course: 18:02 Patient arrived in ED. ds4 18:03 Oscar Patel PA is PHCP. cp 18:03 Usama Mcnamara MD is Attending Physician. cp 18:14 Elsie Still, NAOMI is Primary Nurse. ap3 18:16 Triage completed. ap3 18:18 Arm band placed on right wrist. ap3 18:18 Patient has correct armband on for positive identification. Bed in low position. Call ap3 light in reach. Side rails up X2. Pulse ox on. NIBP on. Door closed. Noise minimized. 18:33 Client placed on continuous cardiac and pulse oximetry monitoring. NIBP monitoring mm9 applied. media relations intern on. Pulse ox on. NIBP on. 18:33 Basic Metabolic Panel Sent. mm9 18:33 CBC with Diff Sent. mm9 18:33 Magnesium Sent. mm9 18:33 Troponin HS Sent. mm9 18:33 Initial lab(s) drawn, by me, sent to lab. EKG done, by ED staff, reviewed by Usama Mcnamara MD. Inserted saline lock: 20 gauge in left forearm, using aseptic technique. Blood collected. 18:36 Basic Metabolic Panel Sent. mm9 18:36 CBC with Diff Sent. mm9 18:36 Magnesium Sent. mm9 18:36 Troponin HS Sent. mm9 18:48 Basic Metabolic Panel Sent. mm9 18:48 Magnesium Sent. mm9 18:48 Troponin HS Sent. mm9 19:20 XRAY Chest (1 view) In Process Unspecified. EDMS 19:30 Inserted saline lock: 22 gauge in right forearm, using aseptic technique. rv 20:30 CT Stone Protocol In Process Unspecified. EDMS 21:19 No provider procedures requiring assistance completed. pf1 21:42 Riccardo Baker MD is Referral Physician. cp 22:00 IV discontinued, intact, bleeding controlled, No redness/swelling at site. Pressure pf1 dressing applied. Administered Medications: 18:42 Drug: Ketorolac IVP 15 mg Route: IVP; Site: left antecubital; ap3 19:40 Follow up: Response: No adverse reaction; Pain is unchanged, physician notified pf1 19:03 Drug: morphine IVP or IV 4 mg Route: IVP; Infused Over: 4 mins; Site: left antecubital; ap3 20:00 Follow up: Response: No adverse reaction; Pain is unchanged, physician notified pf1 19:03 Drug: NS 0.9% IV 500 ml Route: IV; Rate: 75 ml/hr; Site: left antecubital; ap3 20:00 Follow up: Response: No adverse reaction; Marked relief of symptoms pf1 20:40 Drug: Labetalol IV 10 mg Route: IV; Rate: calculated rate; Site: right forearm; rv 21:19 Follow up: Response: No adverse reaction; Marked relief of symptoms pf1 21:15 Drug: morphine IVP or IV 4 mg Route: IVP; Infused Over: 4 mins; Site: right forearm; pf1 22:00 Follow up: Response: No adverse reaction; Marked relief of symptoms; Pain is decreased pf1 21:45 Drug: Potassium PO Effervescent Tablet 50 mEq Route: PO; pf1 22:00 Follow up: Response: No adverse reaction; Marked relief of symptoms pf1 21:50 Drug: HYDROmorphone IVP 1 mg Route: IVP; Site: right forearm; pf1 22:00 Follow up: Response: No adverse reaction; Marked relief of symptoms; Pain is decreased pf1 Medication: 22:00 VIS not applicable for this client. pf1 Outcome: 21:44 Discharge ordered by . cp 22:00 Discharged to home via wheelchair, with family. pf1 22:00 Condition: improved pf1 22:00 Discharge instructions given to patient, family, Instructed on discharge instructions, follow up and referral plans. Demonstrated understanding of instructions, follow-up care, medications, Prescriptions given X 1. 22:14 Patient left the ED. pf1 Signatures: Dispatcher [employer] EDMS Luke Hunter ds4 Oscar Patel PA PA cp Elsie Still RN RN ap3 Eber Harris RN RN Glenny Barraza mm9 Brisa Brown RN RN pf1
--- NOTE | 2023-01-10 21:44 | EDPHYS ---
Physician Documentation [facility] Name: Clovis Moore Age: 72 yrs Sex: Male : 1950 Arrival Date: 01/10/2023 Time: 18:01 Bed 7 Private MD: ED Physician Usama Mcnamara HPI: 01/10 18:15 This 72 yrs old Male presents to ER via EMS with complaints of Chronic Back Pain. cp 18:15 The patient presents with pain that is chronic. The symptoms are located in the mid and cp low back. Onset: The symptoms/episode began/occurred for years. The pain does not radiate. Associated signs and symptoms: Pertinent positives: weakness, Pertinent negatives: abdominal pain, chest pain, fever, incontinence, numbness, urinary retention. Severity of symptoms: in the emergency department the symptoms are unchanged, despite EMS interventions. 18:15 Patient reports concern for elevated blood pressure. Patient with PMHX significant for cp HTN. Historical: - Allergies: 18:16 No Known Allergies; ap3 - PMHx: 18:16 Back pain; Chronic pain; Hypertension; polio as a child; ap3 - Immunization history:: Client reports receiving the 2nd dose of the Covid vaccine. - Social history:: Smoking status: Patient denies any tobacco usage or history of. Patient uses street drugs, marijuana. ROS: 18:20 Constitutional: Negative for body aches, chills, fever, poor PO intake, weight loss. cp 18:20 Eyes: Negative for injury, pain, redness, and discharge. cp 18:20 ENT: Negative for drainage from ear(s), ear pain, sore throat, difficulty swallowing, difficulty handling secretions. 18:20 Cardiovascular: Negative for chest pain, edema, palpitations. 18:20 Respiratory: Negative for cough, shortness of breath, wheezing. 18:20 Abdomen/GI: Negative for abdominal pain, vomiting, diarrhea, constipation, anorexia, bowel incontinence. 18:20 Back: Positive for pain at rest, pain with movement, Negative for injury or acute deformity, decreased range of motion. 18:20 : Negative for urinary symptoms, difficulty urinating, bladder incontinence, testicular pain 18:20 Neuro: Positive for weakness, Negative for altered mental status, headache, numbness, syncope. 18:20 All other systems are negative. Exam: 18:25 Constitutional: The patient appears in no acute distress, alert, awake, cp non-diaphoretic, non-toxic, well developed, well nourished, uncomfortable. 18:25 Head/Face: Normocephalic, atraumatic. cp 18:25 Eyes: Periorbital structures: appear normal, Pupils: equal, round, and reactive to light and accomodation, Extraocular movements: intact throughout, Conjunctiva: normal, no exudate, no injection, Sclera: no appreciated abnormality, Lids and lashes: appear normal, bilaterally. 18:25 ENT: External ear(s): are unremarkable, Nose: is normal, Mouth: Lips: dry, Oral mucosa: pink and intact, moist, Posterior pharynx: is normal, airway is patent, no erythema, no exudate. 18:25 Neck: ROM/movement: is normal, is supple, without pain, no range of motions limitations, no meningismus, no nuchal rigidity. 18:25 Chest/axilla: Inspection: normal, Palpation: is normal, no crepitus, no tenderness. 18:25 Cardiovascular: Rate: normal, Rhythm: regular, Edema: is not appreciated, JVD: is not appreciated. 18:25 Respiratory: the patient does not display signs of respiratory distress, Respirations: normal, no use of accessory muscles, no retractions, labored breathing, is not present, Breath sounds: are clear throughout, no decreased breath sounds, no stridor, no wheezing. 18:25 Abdomen/GI: Inspection: abdomen appears normal, Bowel sounds: active, all quadrants, Palpation: abdomen is soft and non-tender, in all quadrants. 18:25 Back: pain, that is moderate, ROM is painful, with all movement, vertebral tenderness, is not appreciated, Straight leg raises: of both lower extremities does not illicit pain. 18:25 Skin: cellulitis, is not appreciated, no rash present. 18:25 Neuro: Orientation: to person, place \T\ time. Mentation: is normal, Motor: moves all fours, strength is normal, Sensation: is normal. 18:50 ECG was reviewed by the Attending Physician. cp 19:18 ECG was reviewed by the Attending Physician. cp Vital Signs: 18:14 Pulse 93; Resp 17; Temp 97.7; Pulse Ox 100% ; Weight 61.23 kg; Pain 7/10; ap3 18:25 BP 150 / 104; ap3 19:00 BP 173 / 109; Pulse 86; Resp 20; Pulse Ox 100% on R/A; Pain 8/10; pf1 20:23 BP 146 / 103; Pulse 78; Resp 17; Pulse Ox 95% on R/A; rv 21:25 BP 158 / 98; Pulse 82; Resp 14; Pulse Ox 99% on R/A; pf1 18:14 Pain Scale: Adult ap3 19:00 Pain Scale: Adult pf1 MDM: 18:07 Patient medically screened. cp 19:00 Differential diagnosis: chronic back pain, Pyelonephritis ruptured disc, cp Ureterolithiasis. 21:43 Data reviewed: vital signs, nurses notes, lab test result(s), EKG, radiologic studies, cp CT scan, plain films. 21:43 Consideration of Admission/Observation Escalation of care including cp admission/observation considered. I considered the following discharge prescriptions or medication management in the emergency department Medications were administered in the Emergency Department. See MAR. Care significantly affected by the following chronic conditions: chronic back pain, chronic pain. Counseling: I had a detailed discussion with the patient and/or guardian regarding: the historical points, exam findings, and any diagnostic results supporting the discharge/admit diagnosis, lab results, radiology results, to return to the emergency department if symptoms worsen or persist or if there are any questions or concerns that arise at home. Response to treatment: the patient's symptoms have markedly improved after treatment, and as a result, I will discharge patient. 01/10 18:08 Order name: Basic Metabolic Panel; Complete Time: 19:21 cp 01/10 19:21 Interpretation: Normal except: K 3.1; GLUC 130. cp 01/10 18:08 Order name: CBC with Diff; Complete Time: 18:44 cp 01/10 18:44 Interpretation: Normal except: DEA% 83.9; LYM% 9.1; NEUT A 8.8. cp 01/10 18:08 Order name: Magnesium; Complete Time: 19:21 cp 01/10 18:08 Order name: Troponin HS; Complete Time: 19:21 cp 01/10 18:08 Order name: Urinalysis W/Microscopic; Complete Time: 19:21 cp 01/10 20:54 Interpretation: Normal except: [facility] Extremely Turbid; UKET 2+; UBLD 3+ (OVER); UPROT cp 1+; URBC >50. 01/10 18:08 Order name: XRAY Chest (1 view); Complete Time: 20:19 cp 01/10 20:19 Interpretation: Report review. 01/10 19:23 Order name: CT Stone Protocol; Complete Time: 21:24 cp 01/10 21:26 Interpretation: Report reviewed. 01/10 18:08 Order name: EKG; Complete Time: 18:09 cp 01/10 18:08 Order name: Cardiac monitoring; Complete Time: 18:32 cp 01/10 18:08 Order name: EKG - Nurse/Tech; Complete Time: 18:36 cp 01/10 18:08 Order name: IV Saline Lock; Complete Time: 18:19 cp 01/10 18:08 Order name: Labs collected and sent; Complete Time: 18:33 cp 01/10 18:08 Order name: O2 Per Protocol; Complete Time: 18:19 cp 01/10 18:08 Order name: O2 Sat Monitoring; Complete Time: 18:19 cp EC:50 Rate is 68 beats/min. Rhythm is regular, Paced. QRS interval is normal. QT interval is cp normal. T waves are Inverted in lead aVR. Interpreted by me. Reviewed by me. 19:18 Rate is 116 beats/min. Rhythm is regular. CA interval is normal. QRS interval is cp normal. QT interval is normal. Interpreted by me. Reviewed by me. Administered Medications: 18:42 Drug: Ketorolac IVP 15 mg Route: IVP; Site: left antecubital; ap3 19:40 Follow up: Response: No adverse reaction; Pain is unchanged, physician notified pf1 19:03 Drug: morphine IVP or IV 4 mg Route: IVP; Infused Over: 4 mins; Site: left antecubital; ap3 20:00 Follow up: Response: No adverse reaction; Pain is unchanged, physician notified pf1 19:03 Drug: NS 0.9% IV 500 ml Route: IV; Rate: 75 ml/hr; Site: left antecubital; ap3 20:00 Follow up: Response: No adverse reaction; Marked relief of symptoms pf1 20:40 Drug: Labetalol IV 10 mg Route: IV; Rate: calculated rate; Site: right forearm; rv 21:19 Follow up: Response: No adverse reaction; Marked relief of symptoms pf1 21:15 Drug: morphine IVP or IV 4 mg Route: IVP; Infused Over: 4 mins; Site: right forearm; pf1 22:00 Follow up: Response: No adverse reaction; Marked relief of symptoms; Pain is decreased pf1 21:45 Drug: Potassium PO Effervescent Tablet 50 mEq Route: PO; pf1 22:00 Follow up: Response: No adverse reaction; Marked relief of symptoms pf1 21:50 Drug: HYDROmorphone IVP 1 mg Route: IVP; Site: right forearm; pf1 22:00 Follow up: Response: No adverse reaction; Marked relief of symptoms; Pain is decreased pf1 Disposition Summary: 01/10/23 21:44 Discharge Ordered Location: Home cp Problem: new cp Symptoms: have improved cp Condition: Stable cp Diagnosis - Calculus of kidney cp - Hematuria, unspecified cp - Chronic pain, not elsewhere classified cp - Hypokalemia cp - Hypertensive heart disease without heart failure cp Followup: cp - With: Riccardo Baker MD - When: next week - Reason: kidney stones Discharge Instructions: - Discharge Summary Sheet cp - Potassium Content of Foods cp - Hematuria, Adult cp - Hypertension, Adult cp - Kidney Stones cp - Aspirin and Your Heart cp - Dietary Guidelines to Help Prevent Kidney Stones cp - Hypokalemia cp - Form - Blood Pressure Record Sheet cp - How to Take Your Blood Pressure cp Forms: - Medication Reconciliation Form cp - Thank You Letter cp - Antibiotic Education cp - Prescription Opioid Use cp - [email or web address] cp Prescriptions: - Potassium Chloride 10 mEq Oral capsule, extended release - take 2 tablet by ORAL route once daily for 3 days; 6 tablet; Refills: 0, cp Product Selection Permitted Addendum: 01/13/2023 10:47 Co-signature as Attending Physician, Usama Mcnamara MD I reviewed the patient's care r n provided by the Advanced Practice Provider and agree with the diagnosis and treatment plan. Signatures: Dispatcher [employer] EDMS Usama Mcnamara MD MD rn Page, Corey, PA PA cp Elsie Still RN RN ap3 Eber Harris RN RN rv Brisa Brown RN RN pf1 Corrections: (The following items were deleted from the chart) 01/11 21:47 21:46 This 72 yrs old Male presents to ER via EMS with complaints of Chronic Back Pain. cp cp
[2023-01-10] MEDS ORDERED: POTASSIUM 25 MEQ EFFERV TAB ONE (21:51)
[2023-01-10] MEDS ORDERED: HYDROMORPHONE HCL 1 MG/ML INJ ONE (21:59)
[2023-01-10 23:01] VITALS: TEMP 97.7
[2023-01-10 23:06] VITALS: BP 158/98; O2SAT 99
--- NOTE | 2023-01-11 16:17 | EKG ---
Test Date: 2023-01-10 Test Time: 19:13:03 Automated Process Operator: LML MEASUREMENT RESULTS: Intervals: Rate: 116 ME: 180 QRSD: 80 QT: 368 QTc: 511 [place]: P: 76 ME: 180 QRS: -88 T: 57 INTERPRETIVE STATEMENTS: Sinus tachycardia Biatrial enlargement Left anterior fascicular block Anterior infarct, age undetermined Abnormal ECG Compared to ECG 01/10/2023 18:43:18 Atrial abnormality now present Atrial-paced complex(es) or rhythm no longer present Myocardial infarct finding still present Electronically Signed On 01-11-23 16:16:29 CDT by Jordan Sinha
--- NOTE | 2023-01-13 17:18 | EKG ---
Test Date: 2023-01-10 Test Time: 18:43:18 [employer] Supervisor: SANDEEP MEASUREMENT RESULTS: Intervals: Rate: 68 NE: 208 QRSD: 92 QT: 402 QTc: 427 [place]: P: 93 NE: 208 QRS: -81 T: 59 INTERPRETIVE STATEMENTS: Electronic atrial pacemaker Left anterior fascicular block Anteroseptal infarct, age undetermined Abnormal ECG Compared to ECG 11/07/2022 02:29:18 Myocardial infarct finding now present Sinus bradycardia no longer present Electronically Signed On 01-13-23 17:14:11 CDT by Jordan Sinha
== END 2023-01-10 22:14 | disposition home or self-care (01) ==
LOC: ER 18:01
DX: N20.0 Calculus of kidney (principal); R31.9 Hematuria, unspecified; E87.6 Hypokalemia; I11.9 Hypertensive heart disease without heart failure; G89.29 Other chronic pain; I10 Essential (primary) hypertension
CPT/HCPCS: 93005 ×2; 85025; 81001; 80048; 36415; 83735; 84484; 76377; 74176; 71045; 99285; J1170; J7040

== ENCOUNTER 2023-05-20 06:11 | Day surgery (SDC) | payer OTHER ==
[2023-05-05 14:44] LABS: Absolute Lymphocytes (CBC) 1.3 K/uL (0.7-4.9); Hematocrit 29.6 % (39.6-49.0); Lymphocytes % 26.1 % (15.3-44.8); MCV 80.2 fL (80-100); MPV 8.2 fL (7.6-11.3); Platelets 237 thou/uL (152-406); RBC Red Blood Cell Count 3.69 M/uL (4.33-5.43)
[2023-05-05 14:49] LABS: Protime INR 1.55
[2023-05-05 14:52] LABS: Potassium 3.6 mEq/L (3.5-5.1)
[2023-05-20] MEDS ORDERED: ONDANSETRON 4 MG/2 ML VIAL ONE (07:04)
[2023-05-20] MEDS ORDERED: propofoL 200 MG/20 ML VIAL IV ONE (07:04)
[2023-05-20] MEDS ORDERED: KETOROLAC 30 MG/ML INJ ONE (07:04)
[2023-05-20] MEDS ORDERED: propofoL 1,000 MG/100 ML VIAL IV ONE (07:36)
[2023-05-20] MEDS ORDERED: CEFAZOLIN SODIUM 1 GM/VIAL ONE (08:00)
[2023-05-20] MEDS ORDERED: Mastisol Adhesive Liq ONE (08:47)
[2023-05-20 08:54] VITALS: O2SAT 100
--- NOTE | 2023-05-20 09:00 | RAD REPORT ---
EXAM DESCRIPTION: RAD - Urethrocystogrphy Retrograde - 05/20/2023 8:49 am CLINICAL HISTORY: STENT COMPARISON: Stone Protocol dated 01/10/2023 FINDINGS/IMPRESSION: Seventeen intraoperative fluoroscopic images submitted showing cannulation of t he left ureter and injection of contrast. Infusion pump overlies the right hemiabdomen. Fluoro time: 0.18 minutes
--- NOTE | 2023-05-20 10:59 | OP ---
Surgeon: KARINE NGUYEN Preoperative Diagnoses: 1.Large volume left nephrolithiasis. 2.Gross hematuria. 3.Bilateral nephrolithiasis. Postoperative Diagnoses: 1.Large volume left nephrolithiasis. 2.Gross hematuria. 3.Bilateral nephrolithiasis. Principal Procedures: 1.Cystoscopy. 2.Left retrograde pyelography. 3.Left ureteroscopy with laser lithotripsy of multiple large renal calculi. 4.Left ureteral stent placement. Findings: Three approximately 8 to 9 mm nonobstructing renal calculi on the left involving each of t he calyceal distributions. Indication For Procedure: Mr. Moore has chronic pain syndrome and was being evaluated with persisten t issues with left flank pain. He had a CT scan that showed the presence of multiple intrarenal calc alexei on the left, the largest about 9 mm in diameter, but no obstruction was seen. The stones were no t all essentially radiopaque on fluoroscopic imagery; so given the chance the stones might represent the source of his pain, surgical intervention was recommended. Also, he complained of an episode of gross hematuria that occurred about a month ago. Procedure In Detail: The patient was consented in the preoperative holding area before being transfe rred to the operative suite where general anesthesia was induced. He was given Ancef 1 g IV antimicr obial prophylaxis, and pneumo boots were provided for DVT prophylaxis. He was placed in the lithotom y position, padded and secured to the table appropriately. His genitalia were prepped with Hibiclens and he was draped in standard fashion. The case was begun using a 22-Tajik rigid cystoscope to tra verse the urethra and into the bladder with ease. The bladder was surveyed in its entirety, and ther e were no papillary mucosal lesions, foreign bodies, or stones noted throughout. The ureteral orific es were orthotopic in location, and the urine was clear. I then attempted to cannulate the left uret eral orifice, but it was stenotic. As a result, I attempted to utilize the tip of a Sensor wire to g ain access into the ureteral orifice, but this was also unsuccessful. As a result, I after multiple attempts to try to intubate the ureteral orifice with a Sensor wire were unsuccessful, I had to utili ze a semirigid ureteroscope, navigated under direct vision via the urethra into his bladder to visual ize the entry into the left ureteral orifice, and with pressurized normal saline irrigation, navigate my way past the point of obstruction in the intramural ureter to get into the distal left ureter. I was able to navigate into the mid proximal ureter without any obstructing stones seen; so at this po int, I passed a Sensor wire via the semirigid ureteroscope, coiling it within the renal pelvis and ca lyces. I then removed the semirigid ureteroscope and passed a dual-lumen catheter over it into the m id distal ureter and performed a retrograde pyelogram. Left retrograde pyelography: Using a 70:30 mixture of Omnipaque and saline, contrast was injected vi a the second lumen of the dual-lumen catheter and did propagate up the mid and proximal ureter enteri ng the renal pelvis and calyces, demonstrating appropriate intraluminal location of the Sensor wire. As a result, I passed a Bentson guidewire via the second lumen of the dual-lumen catheter coiling it alongside the Sensor wire in the renal pelvis and calyces. I then removed the dual-lumen catheter a nd passed an 11 x 13-Tajik ureteral access sheath into the mid proximal ureter. I then passed the f lexible ureteroscope over the Bentson guidewire via the ureteral access sheath into the upper pole of his kidney where I then surveyed the calyces there and identified the presence of an approximately 8 to 9 mm calculus. I thus utilized a 272 nm laser fiber at a power setting initially of 0.8 joules a nd 15 hertz increasing to 1.2 joules and 15 hertz because of a hard central core of that stone once i t was fragmented. Once that stone was fragmented into dust the size of the laser fiber, I then progr essed into the mid and lower pole calyces. In each of those calyces, I identified a similar 8 to 9 m m calculus, which I also fragmented ostensibly into dust smaller than the size of the laser fiber. B ecause of a more dense stone present in the mid pole calyx, power was increased to 1.5 joules and 25 hertz in order to adequately fragment the stone in that location. Once all of the stones had been ad equately fragmented, I then surveyed each of the calyces for any significant residual stone burden, a nd when none were noted, I then backed the ureteroscope into the renal pelvis and down into the proxi mal and mid ureter before entering the ureteral access sheath. I then removed the ureteroscope as we ll as the ureteral access sheath and backloaded the cystoscope over the indwelling safety wire before passing a 6-Tajik x 26 cm double-J ureteral stent with a coil observed fluoroscopically in the uppe r pole and one cystoscopically formed in the bladder. The stent was left on its tether and after I d ecompressed his bladder of fluid and urine, the tether was secured to his glans using Mastisol and St phu-Strips. He was then taken out of the lithotomy position, awakened from general anesthesia, trans ferred to a stretcher, and then transferred to the recovery room in good condition. Complications: None. Discharge Disposition: He may follow up on Friday to have the left ureteral stent removed, and if hi s urine is minimally pink to clear. He may resume his Eliquis on Friday. I instructed if he is un able to resume his Eliquis because of concern for the blood in the urine by Friday morning, he should notify me via the office. Subsequent followup should be established electively to discuss managemen t of his right nephrolithiasis and then his propensity for recurrent stone formation. BRENNEN/MODL Voice ID: [id number] Report ID: [id number]
[2023-05-20 11:14] VITALS: BP 159/81; TEMP 97
== END 2023-05-20 10:40 | disposition home or self-care (01) ==
LOC: OR 06:11
PROVIDERS: ATTEND Urology
PROC: 0T778DZ Dilation of Left Ureter with Intraluminal Device, Via Natural or Artificial Opening Endoscopic (ICD-10-PCS; 2023-05-20)
PROC: 0TF48ZZ Fragmentation in Left Kidney Pelvis, Via Natural or Artificial Opening Endoscopic (ICD-10-PCS; principal; 2023-05-20 07:30)
DX: N20.0 Calculus of kidney (principal); R31.0 Gross hematuria; R39.9 Unspecified symptoms and signs involving the genitourinary system; R10.9 Unspecified abdominal pain; N40.1 Benign prostatic hyperplasia with lower urinary tract symptoms
CPT/HCPCS: 87088; 85025; 87086; 80048; 36415; 85610; 85730; 74450; 51610; 52356; J2704 ×2; J2405; J0690

== ENCOUNTER 2023-09-12 07:19 | Day surgery (SDC) | payer OTHER ==
[2023-09-12] MEDS ORDERED: NA CHLORIDE 0.9% 500 ML ONE (07:37)
[2023-09-12] MEDS ORDERED: ATROPINE SULF 1 MG/10 ML SYR IV ONE (07:37)
[2023-09-12] MEDS ORDERED: LIDOCAINE 1% MPF 5 ML VIAL ONE (08:03)
[2023-09-12] MEDS ORDERED: propofoL 200 MG/20 ML VIAL IV ONE (08:04)
[2023-09-12 09:38] VITALS: O2SAT 100
[2023-09-12 10:05] VITALS: BP 166/90
--- NOTE | 2023-09-15 11:11 | TEE ---
TRANSESOPHAGEAL ECHOCARDIOGRAM REPORT CARDIOLOGY DEPARTMENT DATE OF STUDY: 09/12/2023 HEIGHT: 7'0 WEIGHT: 135 DIAGNOSIS: STATUS POST WATCHMAN 2 DIMENSIONAL ASSESSMENT: RIGHT ATRIUM: NORMAL LEFT ATRIUM: DILATED RIGHT VENTRICLE: NORMAL LEFT VENTRICLE: NORMAL TRICUSPID VALVE: NORMAL MITRAL VALVE: TRACE MITRAL REGURGITATION PULMONIC VALVE: NORMAL AORTIC VALVE: NORMAL PERICARDIAL EFFUSION: NONE AORTIC ROOT: NORMAL LEFT VENTRICULAR WALL MOTION: NORMAL DOPPLER/COLOR FLOW: NOT ACCESSED. COMMENTS: A MOBILE ECHOGENIC MASS SEEN ATTACHED TO THE WATCHMAN DEVICE MEASURING 1.4 CENTIMETERS BY 0.3 CENTIMETERS IN DIAMETER. MOST LIKELY REFLECTANT A THROMBUS. NO PARA DEVICE LEAK. TECHNOLOGIST: ALYSSIA COBOS, [facility]
== END 2023-09-12 09:35 | disposition home or self-care (01) ==
LOC: EKG 07:19
PROVIDERS: ATTEND Internal Medicine Interventional Cardiology
DX: I48.11 Longstanding persistent atrial fibrillation (principal); Z98.890 Other specified postprocedural states; I25.10 Atherosclerotic heart disease of native coronary artery without angina pectoris; E78.5 Hyperlipidemia, unspecified; I10 Essential (primary) hypertension; I65.23 Occlusion and stenosis of bilateral carotid arteries; Z79.01 Long term (current) use of anticoagulants; Z79.899 Other long term (current) drug therapy; Z82.49 Family history of ischemic heart disease and other diseases of the circulatory system
CPT/HCPCS: 93312; J2704; J2001; J7040; J0461